=== PATIENT | female | born 1955 | race Caucasian/White ===

== ENCOUNTER → 2019-11-16 11:06 | Outpatient (CLI) | payer MEDICAID, SELFPAY ==
[2019-11-16 12:32] LABS: Absolute Lymphocyte Count 1.35 X10^3/uL (0.83-4.51); Absolute Neutrophil Count 4.9 X10^3/uL (2.0-7.7); Basophil# 0.02 X10^3/uL; Basophil% 0.3 % (0-1); Eosinophil# 0.09 X10^3/uL; Eosinophils% 1.3 % (0-5); Hemoglobin 15.2 g/dL (12.0-15.0); Lymphocyte # 1.35 X10^3/ul (4.0); Lymphocyte % 19.7 % (19-41); Mean Corp Hgb Conc 32.3 g/dL (32-36); Mean Corpuscular Hgb 31.3 pg (27.0-32.0); Mean Corpuscular Volume 96.9 fL (81-99); Mean Platelet Vol. 9.3 fl (6.2-12.0); Monocyte% 7.3 % (0-10); NRBC Flagged by Analyzer 0 % (0-5); Neutrophil # 4.87 X10^3/uL (2.7-7.7); Neutrophil % 71.1 % (47-70); POSITIVE MORPHOLOGY YES; Platelet Count 195 K/mm3 (150-450); RBC Distribution Width CV 19.2 % (11.6-14.6); RBC Distribution Width SD 67.7 fl (35.1-43.9); Red Blood Count 4.85 M/mm3 (4.2-5.4); White Blood Count 6.9 K/mm3 (4.4-11.0)
[2019-11-16 12:46] LABS: AST(SGOT) 25 U/L (15-37); Alanine Aminotransfer ALT/SGPT 27 U/L (13-56); Albumin, Serum 3.8 g/dL (3.2-5.0); Alkaline Phosphatase 93 U/L (45-117); Anion Gap 3 (5-15); BUN 18 mg/dL (7-18); BUN/Creat Ratio 27.5 RATIO (10-20); Calcium,Total 8.7 mg/dL (8.5-10.1); Chloride 103 mmol/L (98-107); Cholesterol 249 mg/dL (200); Creatinine, Serum 0.66 mg/dL (0.55-1.02); EST Glomerular Filtration Rate 97 mL/min (>60); Est Glom Filt Rate - Afr Amer 117 mL/min (>60); Globulin 3.8 g/dL (2.2-4.2); Glucose 89 mg/dL (74-106); High Density Lipoprotein 64 mg/dL; Potassium 4.2 mmol/L (3.5-5.1); Protein, Total 7.6 g/dL (6.4-8.2); Sodium Level 138 mmol/L (136-145); Triglycerides 91 mg/dL; Very Low Density Lipoprotein 18 mg/dL (5-40)
[2019-11-16 12:48] LABS: Differential Indicated SCAN CRITERIA MET
[2019-11-16 13:15] LABS: Anisocytosis 1+
== END ==
PROVIDERS: PCP Internal Medicine; Referring Provider Internal Medicine; Visit Provider Internal Medicine
DX: J44.9 Chronic obstructive pulmonary disease, unspecified (principal); I63.9 Cerebral infarction, unspecified
CPT/HCPCS: 36415; 80053; 80061; 85025

== ENCOUNTER → 2019-11-18 18:31 | Outpatient (CLI) | payer MEDICAID, SELFPAY ==
[2019-11-18 20:03] LABS: Amphetamine Urine VISTA NEGATIVE (<1000 ng/mL); Barbiturate Urine VISTA NEGATIVE (< 200 ng/mL); Benzodiazepine Urine VISTA NEGATIVE (< 200 ng/mL); Cocaine Urine VISTA NEGATIVE (< 300 ng/mL); Ecstacy Urine VISTA NEGATIVE (< 500 ng/mL); Methadone Urine VISTA NEGATIVE (< 300 ng/mL); PCP Urine VISTA NEGATIVE (< 25 ng/mL); THC Urine VISTA NEGATIVE (< 50 ng/mL); Vista UDS pH Range 6
== END ==
PROVIDERS: PCP Internal Medicine; Visit Provider Anesthesiology
DX: F11.20 Opioid dependence, uncomplicated (principal)
CPT/HCPCS: 80307

== ENCOUNTER 2019-12-25 04:18 | Inpatient (IN) | payer MEDICAID, SELFPAY ==
[2019-12-25] VITALS (36 sets, daily range): BP systolic 74–131; BP diastolic 58–109; PULSE 85–142; RESP 12–26; TEMP 35.7–36.8; O2SAT 86–100; BMI 21.0
--- NOTE | 2019-12-25 04:27 | EKG12_ITS ---
Test Reason : AM EKG Blood Pressure : / mmHG Vent. Rate : 086 BPM Atrial Rate : 086 BPM P-R Int : 146 ms QRS Dur : 090 ms QT Int : 390 ms P-R-T Axes : 071 108 072 degrees QTc Int : 466 ms Normal sinus rhythm Normal ECG When compared with ECG of 25-DEC-2019 05:24, MANUAL COMPARISON REQUIRED, DATA IS UNCONFIRMED Confirmed by ALFREDO FLORENTINO, ADALID ([id number]), editor publications DALIA ADAMS ([id number]) on 12/27/2019 12:46:32 PM Referred By: HERMES Confirmed By:ADALID FUENTES MD
--- NOTE | 2019-12-25 04:27 | RAD_ITS ---
STUDY: X-RAY CHEST REASON FOR EXAM: Female, 64 years old. SOB -- HX OF COPD TECHNIQUE: Single AP portable view of the chest. COMPARISON: None. FINDINGS: Ill-defined subpleural groundglass opacities are seen more prominent in the lung bases , may represent atypical pneumonia or viral pneumonia (COVID-19 ?). There is no demonstrated pleural abnormality. There is moderate cardiac enlargement. Normal mediastinum and wallace. Normal visualized pulmonary arteries. Normal visualized aortic arch and descending thoracic aorta. Postsurgical changes are noted in the thoracic spine and lumbar spine. There is degenerative osteoarthritis of the bilateral shoulders. There is no demonstrated abnormality of the visualized soft tissue structures of the upper abdomen. RAD/Chest 1 View (Portable) IMPRESSION: Ill-defined subpleural groundglass opacities are seen more prominent in the lung bases , may represent atypical pneumonia or viral pneumonia (COVID-19 ?). Electronically Signed: Deepika Garza, at 5:31 EDT Tel , Service support ,
--- NOTE | 2019-12-25 04:29 | ED.VIS.DYS ---
History of Present Illness Chief Complaint: Shortness of Breath Informant: Patient, EMS Onset: - - unclear onset; worse tonight Timing: Continuous Quality: - - can't breathe Current Severity: Moderate Maximum Severity: Severe Worsened by: Exertion Relieved by: Albuterol Associated Symptoms: Cough, - - fatigue. Negative for: Fever Chest Pain: None Narrative: Limited history since patient is lethargic. EMS brings this patient who lives at home with her son for increased breathing difficulty. Onset was unclear. She denies any chest pain. No recent fevers or chills. She was starting an albuterol treatment at home when EMS arrived and detected her oxygen levels at 83%, however it is unclear if she was on oxygen at that time. Apparently she has a nasal cannula that she wears 4 L as needed. - Past Medical History (1) Anxiety and depression Status: Chronic (2) COPD (chronic obstructive pulmonary disease) Status: Chronic (3) CVA (cerebral vascular accident) Status: Chronic (4) Chronic back pain Status: Chronic Past Medical History - Allergies and Home Meds Allergies/Adverse Reactions: Allergies pregabalin [From Lyrica] Allergy (Verified 12/25/19 04:23) double vision Primary Care Physician: Amelie Cazares MD [Primary Care Provider] - Lives: With Family Smoking Status: Current every day smoker - Family History Maternal Family History: Family History (Last Reviewed 12/14/19 @ 10:09 by Stacy Austin) Grandmother Diabetes Son Diabetes Other Asthma Review of Systems ROS: Unable to Obtain - Limited due to lethargy and illness General: Reports: Malaise. Denies: Chills, Fever, Sweats Cardiovascular: Denies: Chest pain, Palpitations, Heart racing Respiratory: Reports: Dyspnea, Cough - Unknown if sputum production, amount, and quality Gastrointestinal: Denies: Abdominal pain, Nausea, Vomiting, Diarrhea Musculoskeletal: Denies: Swelling, Extremity Pain Neurological: Denies: Headache, Weakness, Numbness Physical Exam Vital Signs/Narrative: Vital Signs Temp Pulse Resp BP Pulse Ox 12/25/19 04:24 95 12/25/19 04:19 98.2 F 112 H 20 H 101/72 100 Inital Vital Signs reviewed: Yes General: Well nourished, Well developed, Acute Distress - Mild, respiratory. Lethargic. Head: Normocephalic, Atraumatic Eyes: Perrl, EOMI ENT: Moist mucous membranes, No rhinorrhea Neck: Supple, Nontender, No JVD Cardiovascular: Regular rate, Regular rhythm, No murmurs, Tachycardia Respiratory: No distress, Chest nontender, Wheezing - Diffuse and symmetric throughout expiration, Diminished, - - Prolonged expiration. Trachea midline. Abdomen: Soft, Nontender, Nondistended, Normal bowel sounds Back: Nontender, Normal Inspection Extremities: Nontender, No edema. Negative for: Calf Tenderness Skin: Normal color, Rash - Dried nontender rash both lower extremities with excoriations and scaling of skin. No sign of cellulitis. Neurological: Oriented x3, Cranial nerves II-XII grossly intact, Normal Strength, Normal Sensation, Lethargic - Alerts to voice Psychological: Normal affect, Normal Mood Diagnostic/Tx/Re-eval Chest X-Ray - ED: 1 View, Read by ED Physician, No Acute Disease, Chronic Changes Clinical Impression(s) from Imaging Studies Chest X-Ray 12/25/19 04:27 IMPRESSION: Ill-defined subpleural groundglass opacities are seen more prominent in the lung bases , may represent atypical pneumonia or viral pneumonia (COVID-19 ?). Electronically Signed: Deepika Garza, at 5:31 EDT Tel , Service support , Laboratory Results 12/25/19 12/25/19 12/25/19 04:30 04:30 04:30 WBC 16.6 H RBC 4.80 Hgb 15.1 H Hct 48.8 H MCV 101.7 H MCH 31.5 MCHC 30.9 L RDW Std Deviation 63.8 H RDW Coeff of Valerio 16.7 H Plt Count 195 MPV 9.1 Immature Gran % (Auto) 0.300 Neut % (Auto) 84.7 H Lymph % (Auto) 7.7 L Larimer % (Auto) 6.9 Eos % (Auto) 0.1 Baso % (Auto) 0.3 Absolute Neuts (auto) 14.0 H Absolute Lymphs (auto) 1.28 Nucleated RBC % 0 Differential Comment SCANNED Reactive Lymphocytes RARE Specimen Type Sample Site pH Bicarbonate Actual Total CO2 Base Excess O2 Saturation ABG pCO2 ABG pO2 Marcus Test O2 Delivery Device Liter Flow Sodium 139 Potassium 4.2 Chloride 100 Carbon Dioxide 35.0 H Anion Gap 4 L BUN 20 H Creatinine 0.94 Estim Creat Clear Calc 44.19 Est GFR (MDRD) Af Amer 77 Est GFR (MDRD) Non-Af 64 BUN/Creatinine Ratio 21.2 H Glucose 143 H Lactic Acid Calcium 9.3 Troponin I 0.613 H* B-Natriuretic Peptide 539.3 H 12/25/19 12/25/19 04:42 04:53 WBC RBC Hgb Hct MCV MCH MCHC RDW Std Deviation RDW Coeff of Valerio Plt Count MPV Immature Gran % (Auto) Neut % (Auto) Lymph % (Auto) Larimer % (Auto) Eos % (Auto) Baso % (Auto) Absolute Neuts (auto) Absolute Lymphs (auto) Nucleated RBC % Differential Comment Reactive Lymphocytes Specimen Type ART Sample Site L Brach pH 7.33 L Bicarbonate Actual 35.0 H Total CO2 37 Base Excess 9 H O2 Saturation 94 L ABG pCO2 66.7 H ABG pO2 77 Marcus Test Positive O2 Delivery Device Cannula Liter Flow 4.0 Sodium Potassium Chloride Carbon Dioxide Anion Gap BUN Creatinine Estim Creat Clear Calc Est GFR (MDRD) Af Amer Est GFR (MDRD) Non-Af BUN/Creatinine Ratio Glucose Lactic Acid 2.2 H* Calcium Troponin I B-Natriuretic Peptide - Rhythm Strip Rhythm Strip: Sinus Tach Rate: 110 Ectopy: None - EKG Initial EKG Interpretation: No Acute Injury Pattern, Sinus Tachycardia, - - KATARZYNA. R axis. Treatment - Dyspnea: Oxygen, Albuterol, Atrovent, Antibiotics, Steroid - Medical Decision Making ABG was obtained prior to treatment, followed immediately by placing the patient on BiPAP and giving her nebulizer treatments along with oxygen as needed. At the time of evaluation she was 94% on room air, but lethargic and breathing short. ABG was obtained prior to doing any treatments, she was so lethargic although she is hypercarbic and a little acidotic but not bad, we placed her on BiPAP and provided more breathing treatments. Her troponin is elevated and I am concerned this is related to being hypoxic at home. She says she does not have a cardiac history, however she has an elevated BNP, she has Lasix and Plavix listed on her medication list, but no prior records in this hospital with regards to cardiology and no prior EKG. We will keep her on BiPAP and treat her for COPD exacerbation, I will stop her IV fluids, and since it is unclear if she is fluid overloaded or under loaded, I am withholding IV fluid bolusing despite her meeting criteria for severe sepsis. Chest x-ray is concerning for possible atypical pneumonia, so COVID-19 swab is sent and pending at this time, but the patient may go to the ICU under enhanced droplet precautions. Critical care time (excluding procedures): 30-74 minutes - 35 minutes including time spent discussing with patient, reevaluation performing direct patient care at the bedside, discussing with consultants and arranging admission. ED Disposition - Plan for ED Patient: Disposition: Acute Care Hospital [facility] Diagnosis: Severe sepsis, COPD exacerbation, Acute respiratory failure with hypoxia and hypercarbia, Pneumonia Referrals: Amelie Cazares MD [Primary Care Provider] -
[2019-12-25 04:42] LABS: Absolute Lymphocyte Count 1.28 X10^3/uL (0.83-4.51); Basophil# 0.05 X10^3/uL; Basophil% 0.3 % (0-1); Eosinophil# 0.02 X10^3/uL; Eosinophils% 0.1 % (0-5); Hematocrit 48.8 % (37-47); Hemoglobin 15.1 g/dL (12.0-15.0); Lymphocyte # 1.28 X10^3/ul (4.0); Lymphocyte % 7.7 % (19-41); Mean Corp Hgb Conc 30.9 g/dL (32-36); Mean Corpuscular Hgb 31.5 pg (27.0-32.0); Mean Corpuscular Volume 101.7 fL (81-99); Mean Platelet Vol. 9.1 fl (6.2-12.0); Monocyte# 1.15 X10^3/uL; Monocyte% 6.9 % (0-10); NRBC Flagged by Analyzer 0 % (0-5); Neutrophil # 14.02 X10^3/uL (2.7-7.7); Neutrophil % 84.7 % (47-70); POSITIVE MORPHOLOGY YES; Platelet Count 195 K/mm3 (150-450); RBC Distribution Width CV 16.7 % (11.6-14.6); RBC Distribution Width SD 63.8 fl (35.1-43.9); White Blood Count 16.6 K/mm3 (4.4-11.0)
[2019-12-25 04:46] LABS: Differential Indicated SCAN CRITERIA MET
[2019-12-25] MEDS: 0.9% Normal Saline 1,000 ML 100 ML IV (04:46)
[2019-12-25 05:00] LABS: BNP,B-Type NATRIURETIC PEPTIDE 539.3 pg/mL (0-100)
[2019-12-25 05:01] LABS: Allen Test Positive; Base Excess 9 mmol/L (-2 to +2); Blood Gas Specimen Type ART; O2 Delivery Device Cannula; PO2 77 mmHG (75-100); SITE L Brach; SO2 94 % (95-99); Total Carbon Dioxide 37 mmol/L; pCO2 66.7 mmHg (35-45); pH 7.33 (7.35-7.45)
[2019-12-25 05:08] LABS: Anion Gap 4 (5-15); BUN 20 mg/dL (7-18); BUN/Creat Ratio 21.2 RATIO (10-20); Calcium,Total 9.3 mg/dL (8.5-10.1); Chloride 100 mmol/L (98-107); Creatinine, Serum 0.94 mg/dL (0.55-1.02); EST Glomerular Filtration Rate 64 mL/min (>60); Est Glom Filt Rate - Afr Amer 77 mL/min (>60); Estimated Creatinine Clearance 44.19 ml/min; Glucose 143 mg/dL (74-106); Potassium 4.2 mmol/L (3.5-5.1); Sodium Level 139 mmol/L (136-145)
[2019-12-25 05:12] LABS: Differential Comment SCANNED; Reactive Lymphocyte RARE
[2019-12-25 05:17] LABS: Lactic Acid 2.2 mmol/L (0.4-1.9)
[2019-12-25] MEDS: Ipratropium/Albuterol Sulfate 3 ML AMPUL.NEB INHALATION ×4 (05:28→19:24)
[2019-12-25] MEDS: Albuterol 2.5 MG/3 ML VIAL.NEB. INHALATION ×2 (05:28→14:02)
[2019-12-25] MEDS: MethylPREDNISolone 125 MG/2 ML Vial IV (05:45)
[2019-12-25] MEDS: Ceftriaxone 1 GM/50 ML BAG IV (05:52)
--- NOTE | 2019-12-25 06:19 | PCM.HP.STD ---
History of Present Illness Date of Admission: 12/25/19 Chief Complaint: Shortness of breath The patient is a 64 year old F with a PMH as below who presents with shortness of breath from home. She was hypoxic to 83% for an unknown duration when EMS arrived and was started on nasal cannula. She had an ABG that demonstrated hypercapnia to 66 and was started on BiPAP in the ER. She has a leukocytosis to 16 with a normal creatinine as well as an elevated lactic acid, and elevated troponin to 0.6 and a BNP of 539. Unfortunately she is difficult to obtain history from given her lethargy therefore it is unknown which medication she is currently taking and what diagnosis she has. She does seem to acknowledge that she has history of COPD and therefore she was treated for COPD exacerbation in the ER with Solu-Medrol. She was also given a dose of Rocephin though her chest x-ray shows bilateral groundglass opacities that could either be a viral pneumonia or an atypical pneumonia therefore COVID test is currently pending. Past Medical History Past Medical History (Chronic Problems): Chronic Problems (Last Reviewed 12/14/19 @ 10:09 by Stacy Austin) COPD exacerbation (Chronic) Anxiety and depression (Chronic) CVA (cerebral vascular accident) (Chronic) COPD (chronic obstructive pulmonary disease) (Chronic) Chronic back pain (Chronic) Medical History: Medical History (Last Reviewed 12/14/19 @ 10:09 by Stacy Austin) CVA (cerebral vascular accident) I63.9 Osteoporosis M81.0 COPD (chronic obstructive pulmonary disease) J44.9 Allergies pregabalin [From Lyrica] Allergy (Verified 12/25/19 04:23) double vision Home Medications: Ambulatory Orders Medication Instructions Recorded albuterol sulfate 2.5 mg INHALATION Q4H PRN 11/16/19 albuterol sulfate 90 mcg/actuation 2 puff INHALATION Q6H PRN 11/16/19 aerosol inhaler aspirin 81 mg tablet,delayed 81 mg PO DAILY 11/16/19 release gabapentin 300 mg capsule 300 mg PO TID 11/16/19 rosuvastatin 20 mg tablet 20 mg PO DAILY #30 tab 11/17/19 acetaminophen 500 mg tablet 1,000 mg PO .Q8 PRN #90 tab 12/14/19 biotin 1,000 mcg chewable tablet 1,000 mcg PO DAILY 12/14/19 buprenorphine HCl 75 mcg buccal 75 mcg BUCCAL TID ea 12/14/19 film calcium carbonate 500 mg calcium 500 mg PO BID #180 tab 12/14/19 (1,250 mg) tablet cholecalciferol (vitamin D3) 50 50 mcg PO DAILY #90 cap 12/14/19 mcg (2,000 unit) capsule clopidogrel 75 mg tablet 75 mg PO DAILY #90 tab 12/14/19 escitalopram oxalate 10 mg tablet 10 mg PO DAILY #90 tab 12/14/19 furosemide 20 mg tablet 20 mg PO DAILY #30 tab 12/14/19 mineral oil-hydrophil petrolat 1 applic TOPICAL TID PRN #50 g 12/14/19 baclofen 10 mg tablet 10 mg PO QHS #30 tab 12/21/19 Surgical History: Surgical History (Last Reviewed 12/14/19 @ 10:09 by Stacy Austin) 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 spinal Lives: With Family Smoking Status: Current every day smoker Tobacco Use: Cigarettes Alcohol: None Drugs: None - *Family History Maternal Family History: Family History (Last Reviewed 12/14/19 @ 10:09 by Stacy Austin) Grandmother Diabetes Son Diabetes Other Asthma Review of Systems Unable to obtain accurate/complete ROS d/t: Lethargy VTE Information - Inpt Only VTE Present on Admission: No - Lethargy Patient Problems: Active and Suspected Problems (Last Reviewed 12/14/19 @ 10:09 by Stacy Austin) Severe sepsis (Acute) Acute respiratory failure with hypoxia and hypercarbia (Acute) - Physical Exam Vitals/I&O's: Vital Signs Temp Pulse Resp BP Pulse Ox 97.5 F L 100 17 85/66 L 92 12/25/19 05:52 12/25/19 05:52 12/25/19 05:52 12/25/19 05:52 12/25/19 05:52 Oxygen Flow Rate (L/min) 4 Oxygen Delivery Method Bi-pap Weight: 100 lb 12.02 oz Body Mass Index (BMI) 21.0 General: No apparent distress, Lethargic - But arousable HEENT: Atraumatic, PERRLA, EOMI, Normocephalic Oral: Dry Mucosa Neck: Supple, No JVD Lungs: No rhonchi, No wheeze, No rales, Diminished, - - Poor air movement Cardiovascular: Regular rate, Regular Rhythm, Normal S1, Normal S2, No murmurs Abdomen: Soft, Non Tender, Non-Distended, No Hepato-splenomegaly Extremities: No edema, Capillary Refill Less than 3 Seconds Skin: No rashes, No breakdown Neurological: Neuro grossly intact, Sensory exam intact to light touch and pain, - - Exam is limited secondary to lethargy Psych/Mental Status: - - Lethargic therefore difficult to evaluate Laboratory Results 12/25/19 04:30: WBC 16.6 H, RBC 4.80, Hgb 15.1 H, Hct 48.8 H, MCV 101.7 H, MCH 31.5, MCHC 30.9 L, RDW Std Deviation 63.8 H, RDW Coeff of Valerio 16.7 H, Plt Count 195, MPV 9.1, Immature Gran % (Auto) 0.300, Neut % (Auto) 84.7 H, Lymph % (Auto) 7.7 L, Steele % (Auto) 6.9, Eos % (Auto) 0.1, Baso % (Auto) 0.3, Absolute Neuts (auto) 14.0 H, Absolute Lymphs (auto) 1.28, Nucleated RBC % 0, Differential Comment SCANNED, Reactive Lymphocytes RARE 12/25/19 04:30: Sodium 139, Potassium 4.2, Chloride 100, Carbon Dioxide 35.0 H, Anion Gap 4 L, BUN 20 H, Creatinine 0.94, Estim Creat Clear Calc 44.19, Est GFR (MDRD) Af Amer 77, Est GFR (MDRD) Non-Af 64, BUN/Creatinine Ratio 21.2 H, Glucose 143 H, Calcium 9.3, Troponin I 0.613 H* 12/25/19 04:30: B-Natriuretic Peptide 539.3 H 12/25/19 04:42: Lactic Acid 2.2 H* 12/25/19 04:53: Specimen Type ART, Sample Site L Brach, pH 7.33 L, Bicarbonate Actual 35.0 H, Total CO2 37, Base Excess 9 H, O2 Saturation 94 L, ABG pCO2 66.7 H, ABG pO2 77, Marcus Test Positive, O2 Delivery Device Cannula, Liter Flow 4.0 12/25/19 05:50: COVID-19 (CELI) Pending Current Medications Sodium Chloride () 1,000 mls @ 100 mls/hr IV .Q10H ONE Stop: 12/25/19 14:26 Last Admin: 12/25/19 04:46 Dose: 100 mls/hr Documented by: Assessment/Plan All Active Problems (Last Reviewed 12/14/19 @ 10:09 by Stacy Austin) Severe sepsis (Acute) Acute respiratory failure with hypoxia and hypercarbia (Acute) 1. Severe sepsis secondary to atypical pneumonia versus viral pneumonia/COPD exacerbation acute hypoxic hypercapnic respiratory failure and lethargy -We will transfer to the ICU and consult account service associate -Continue with BiPAP and repeat an ABG at 8 AM -Continue with steroids -We will start on Levaquin and obtain a urine Legionella antigen as well as a urine strep antigen -COVID test is pending, continue with precautions 2. Possible history of CHF versus coronary artery disease with elevated troponin -Elevated troponin of 0.613 could be related to hypoxia versus cardiac disease therefore will obtain serial troponins -It appears that she may be on aspirin and Plavix, can continue these medications once verified -Also appears that she is to be on Lasix however given her severe sepsis and the possibility of fluid overload will not diurese and will not start IV fluids -Can continue with Crestor 3. Anxiety/depression -Can continue with escitalopram DVT: Lovenox Inpatient E&M: [id number] Init Hosp L3
--- NOTE | 2019-12-25 06:31 | PCM.CON.CC ---
Reason for Consult Date of Consultation: 12/25/19 Reason for Consultation: Respiratory failure History of Present Illness: The patient is a 64-year-old female, with a history as outlined below, who presented to the emergency department on December 24 with complaints of shortness of breath and cough. The patient has a reported history of COPD of unknown severity. The patient reports that she currently follows with a container coordinator, but cannot recall the providers name. In addition, she does report that she utilizes inhalers at home, but cannot recall the name of the medications either. She denies any known cardiac history. The patient does have a prolonged, extensive smoking history and continues to smoke 0.5 packs of cigarettes per day. She denies any recent sick contact exposure, loss of taste or smell. She does report that she has home supplemental oxygen at 4 L/min in her home environment but only utilizes it on an as-needed basis. On presentation to the emergency department, the patient was noted to be afebrile and hemodynamically stable. Laboratory evaluation revealed an elevated white blood cell count to 16,000. Arterial blood gas obtained on 4 L/min revealed a pH of 7.3 with a corresponding PCO2 of 66 and PO2 of 77. Chemistry profile was notable for a bicarbonate of 35. Lactate was elevated to 2.2. Initial troponin was elevated to 0.613 with an elevated BNP of 540. Coronavirus PCR was negative. Chest x-ray revealed what appears to be some chronic interstitial changes along with subtle groundglass. The patient was given nebulized bronchodilators, antibiotics and IV steroids. She was eventually placed on BiPAP therapy and admitted to the medical intensive care unit for further management. Past Medical History Past Medical History (Chronic Problems): Chronic Problems (Last Reviewed 12/14/19 @ 10:09 by Stacy Austin) COPD exacerbation (Chronic) Anxiety and depression (Chronic) CVA (cerebral vascular accident) (Chronic) COPD (chronic obstructive pulmonary disease) (Chronic) Chronic back pain (Chronic) Medical History: Medical History (Last Reviewed 12/14/19 @ 10:09 by Stacy Austin) CVA (cerebral vascular accident) I63.9 Osteoporosis M81.0 COPD (chronic obstructive pulmonary disease) J44.9 Allergies pregabalin [From Lyrica] Allergy (Verified 12/25/19 04:23) double vision Home Medications: Ambulatory Orders Medication Instructions Recorded albuterol sulfate 90 mcg/actuation 2 puff INHALATION Q6H PRN 11/16/19 aerosol inhaler aspirin 81 mg tablet,delayed 81 mg PO DAILY 11/16/19 release gabapentin 300 mg capsule 300 mg PO 4X/DAY 11/16/19 biotin 1,000 mcg chewable tablet 1,000 mcg PO DAILY 12/14/19 buprenorphine HCl 75 mcg buccal 75 mcg BUCCAL TID ea 12/14/19 film mineral oil-hydrophil petrolat 1 applic TOPICAL TID PRN #50 g 12/14/19 Acetaminophen 1,000 mg PO TID PRN PRN 12/25/19 Baclofen [Lioresal] 10 mg PO QHS 12/25/19 Calcium Carbonate 500 mg PO BID 12/25/19 Cholecalciferol (Vitamin D3) 50 mcg PO DAILY 12/25/19 [Vitamin D3] Clopidogrel Bisulfate [Clopidogrel] 75 mg PO QHS 12/25/19 Escitalopram Oxalate 10 mg PO QHS 12/25/19 Furosemide [Lasix] 20 mg PO DAILY 12/25/19 Ipratropium/Albuterol Sulfate 3 ml IH 4X/DAY PRN PRN 12/25/19 [Iprat-Albut 0.5-3(2.5) mg/3 ml] Magnesium Oxide [Magox 400] 1,200 mg PO QHS 12/25/19 Magnesium Oxide [Magox 400] 400 mg PO DAILY 12/25/19 Rosuvastatin Calcium 20 mg PO QHS 12/25/19 Surgical History: Surgical History (Last Reviewed 12/14/19 @ 10:09 by Stacy Austin) 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 spinal Lives: With Family Smoking Status: Current every day smoker Tobacco Use: Cigarettes Alcohol: None Drugs: None - *Family History Maternal Family History: Family History (Last Reviewed 12/14/19 @ 10:09 by Stacy Austin) Grandmother Diabetes Son Diabetes Other Asthma Review of Systems Constitutional: Denies: Chills, Fever Eyes: Denies: Blurred vision, Double vision HEENT: Denies: Head Aches, Sinus Congestion, Sinus Drainage Cardiovascular: Denies: Chest Pain, Palpitations Respiratory: Reports: Cough, Shortness of Breath Gastrointestinal: Denies: Abdominal Pain, Nausea, Vomiting Genitourinary: Denies: Dysuria Musculoskeletal: Denies: Joint Pain, Joint Tenderness Skin: Denies: Rash, Wounds Neurological: Denies: Numbness, Tingling, Focal weakness Psychiatric: Denies: Anxiety, Depression, Homicidal Ideations, Suicidal Ideations Hematologic/ Lymphatic: Denies: Easy Bruising, Easy Bleeding, Hx of blood clot Patient Problems: Active and Suspected Problems (Last Reviewed 12/14/19 @ 10:09 by Stacy Austin) Severe sepsis (Acute) Acute respiratory failure with hypoxia and hypercarbia (Acute) Pneumonia (Acute) Objective: The patient's most recent lab work, culture data and imaging studies have all been personally reviewed. Respiratory viral panel is pending. Blood cultures are pending. - Physical Exam Vitals/I&O's: Vital Signs Temp Pulse Resp BP Pulse Ox 97.5 F L 100 17 85/66 L 92 12/25/19 05:52 12/25/19 05:52 12/25/19 05:52 12/25/19 05:52 12/25/19 05:52 Oxygen Flow Rate (L/min) 4 Oxygen Delivery Method Bi-pap Weight: 100 lb 12.02 oz Body Mass Index (BMI) 21.0 General: Alert, Cooperative, - - No apparent distress. Tolerating BiPAP without issue. HEENT: Atraumatic, PERRLA, Normocephalic Oral: Dry Mucosa Neck: Supple, No Nodes, Trachea Midline Lungs: Diminished, - - Increased AP diameter. Prolonged expiratory phase. Cardiovascular: Regular rate, Regular Rhythm Abdomen: Bowel Sounds Present, Soft, Non Tender Extremities: No clubbing, No cyanosis, No edema Skin: No breakdown Musculoskeletal: Cachexia, Muscle Wasting Lymphatic: No Cervical, Supraclavicular, or Inguinal Adenopathy Neurological: Cranial nerves II-XII grossly intact, Neuro grossly intact Psych/Mental Status: Flat Affect Labs (Last 48 Hours) 12/25/19 12/25/19 12/25/19 04:30 04:30 04:30 WBC 16.6 H RBC 4.80 Hgb 15.1 H Hct 48.8 H MCV 101.7 H MCH 31.5 MCHC 30.9 L RDW Std Deviation 63.8 H RDW Coeff of Valerio 16.7 H Plt Count 195 MPV 9.1 Immature Gran % (Auto) 0.300 Neut % (Auto) 84.7 H Lymph % (Auto) 7.7 L [place] % (Auto) 6.9 Eos % (Auto) 0.1 Baso % (Auto) 0.3 Absolute Neuts (auto) 14.0 H Absolute Lymphs (auto) 1.28 Nucleated RBC % 0 Differential Comment SCANNED Reactive Lymphocytes RARE Specimen Type Sample Site pH Bicarbonate Actual Total CO2 Base Excess O2 Saturation ABG pCO2 ABG pO2 Marcus Test O2 Delivery Device Liter Flow Sodium 139 Potassium 4.2 Chloride 100 Carbon Dioxide 35.0 H Anion Gap 4 L BUN 20 H Creatinine 0.94 Estim Creat Clear Calc 44.19 Est GFR (MDRD) Af Amer 77 Est GFR (MDRD) Non-Af 64 BUN/Creatinine Ratio 21.2 H Glucose 143 H Lactic Acid Calcium 9.3 Troponin I 0.613 H* B-Natriuretic Peptide 539.3 H COVID-19 (CELI) 12/25/19 12/25/19 12/25/19 04:42 04:53 05:50 WBC RBC Hgb Hct MCV MCH MCHC RDW Std Deviation RDW Coeff of Valerio Plt Count MPV Immature Gran % (Auto) Neut % (Auto) Lymph % (Auto) [place] % (Auto) Eos % (Auto) Baso % (Auto) Absolute Neuts (auto) Absolute Lymphs (auto) Nucleated RBC % Differential Comment Reactive Lymphocytes Specimen Type ART Sample Site L Brach pH 7.33 L Bicarbonate Actual 35.0 H Total CO2 37 Base Excess 9 H O2 Saturation 94 L ABG pCO2 66.7 H ABG pO2 77 Marcus Test Positive O2 Delivery Device Cannula Liter Flow 4.0 Sodium Potassium Chloride Carbon Dioxide Anion Gap BUN Creatinine Estim Creat Clear Calc Est GFR (MDRD) Af Amer Est GFR (MDRD) Non-Af BUN/Creatinine Ratio Glucose Lactic Acid 2.2 H* Calcium Troponin I B-Natriuretic Peptide COVID-19 (CELI) Pending Clinical Impression(s) from Imaging Studies Chest X-Ray 12/25/19 04:27 IMPRESSION: Ill-defined subpleural groundglass opacities are seen more prominent in the lung bases , may represent atypical pneumonia or viral pneumonia (COVID-19 ?). Electronically Signed: Deepika Garza, at 5:31 EDT Tel , Service support , Current Medications Sodium Chloride () 1,000 mls @ 100 mls/hr IV .Q10H ONE Stop: 12/25/19 14:26 Last Admin: 12/25/19 04:46 Dose: 100 mls/hr Documented by: Assessment/Plan Active and Suspected Problems (Last Reviewed 12/14/19 @ 10:09 by Stacy Austin) Severe sepsis (Acute) Acute respiratory failure with hypoxia and hypercarbia (Acute) Pneumonia (Acute) RECOMMENDATIONS: 1. Continue empiric antimicrobials, while awaiting infectious work-up. 2. Await results of coronavirus testing and respiratory viral panel. 3. Obtain echocardiogram and trend troponins. 4. Administer IV Lasix. 5. Continue scheduled bronchodilators and IV steroids. 6. Nicotine replacement therapy can be offered to the patient while admitted to the hospital. 7. Encourage incentive spirometer use and mobilize patient as tolerated. IMPRESSIONS: 1. Acute on chronic combined respiratory failure The patient does have a reported history of COPD of unknown severity. She is a poor historian and is unable to identify who her primary pulmonary provider is or which inhaler she utilizes at her baseline. She additionally reports that she utilizes 4 L/min of supplemental oxygen at her baseline, on an as-needed basis. Her chest x-ray revealed findings concerning for some chronic interstitial changes and possible viral pneumonia. Nevertheless, I cannot discount the possibility of pulmonary edema, especially in light of the patient's elevated BNP. For now, the patient will be continued on empiric antimicrobials, bronchodilators and IV steroids. Supplemental oxygen will be weaned as tolerated. Echocardiogram is currently pending. 2. Severe sepsis Clinical concern for possible viral pneumonia. Work-up is currently pending. We will continue current supportive measures as noted above. 3. Chronic tobacco dependency Tobacco cessation counseling was provided. Nicotine replacement therapy can be offered to the patient while admitted to the hospital. 4. Troponin elevation Possibly related to demand ischemia in the setting of #1. However, although the patient denies a cardiac history, she does have Plavix and Lasix listed on her home medication regimen. Accordingly, I would recommend that we continue to trend troponins and obtain an echocardiogram. 5. Depression/hyperlipidemia/neuropathy/cachexia Complicates care, management, recovery and prognosis. Continue home medications as indicated. Nutrition consultation. This note was generated with [employer] software. It may contain incorrect words, spelling, and punctuation that were not noted in checking the note before signing. Inpatient E&M: 97396 Init Hosp L3
--- NOTE | 2019-12-25 06:53 | ECHOD_ITS ---
Reason For Study: Arrhythmia Procedure This was a 2D Doppler, Color Flow transthoracic echocardiogram. Contrast injection was performed. Exam performed portable in ICU/CCU. Left Ventricle Normal LV size. Left ventricular systolic function is normal. The estimated ejection fraction is 55 %. No regional wall motion abnormalities noted. Right Ventricle Normal RV size. Normal systolic function. Atria The left atrium is mildly enlarged. Normal right atrium. Hypermobile atrial septum. Bubble contrast study negative for right to left interatrial shunt. Mitral Valve Bileaflet diffuse mitral valve thickening. Mild (1+) eccentric mitral valve insufficiency. Tricuspid Valve Mild diffuse thickening of the tricuspid valve. Mild (1+) tricuspid valve insufficiency. Pulmonary artery systolic pressure is 44 mmHg. Aortic Valve Normal aortic valve. Trisinus/trileaflet aortic valve. Pulmonic Valve Normal pulmonic valve. Great Vessels Normal aortic root. The pulmonary artery is normal size. Normal inferior vena cava. Pericardium/Pleural No pericardial effusion. Medication Performed a rapid injection of agitated mix of 9 cc saline and 1cc air to assess for atrial septal defect. MMode/2D Measurements & Calculations LVIDd: 3.4 cm IVSd: 0.87 cm LA dimension: 2.7 cm LVIDs: 2.2 cm LVPWd: 0.91 cm RVDd: 4.9 cm FS: 36.7 % LAV(MOD-sp4): 65.8 ml LA A4 area: 21.1 cm2 RA A4 area: 16.6 cm2 Time Measurements MV dec time: 0.23 sec Doppler Measurements & Calculations MV E max oniel: 67.4 cm/sec Lat Peak E' Oniel: 8.8 cm/sec Med Peak E' Oniel: 5.4 cm/sec MV A max oniel: 90.6 cm/sec E/E' lat: 7.7 E/E' med: 12.4 MV E/A: 0.74 MV V2 max: 105.3 cm/sec MV P1/2t max oniel: 72.5 cm/sec Ao V2 max: 113.9 cm/sec MV max P.4 mmHg MV P1/2t: 50.8 msec Ao max P.2 mmHg MV V2 mean: 54.4 cm/sec MV dec slope: 417.4 cm/sec2 MV mean P.4 mmHg MV V2 VTI: 20.2 cm MVA(P1/2t): 4.3 cm2 LV V1 max: 70.6 cm/sec PA V2 max: 138.0 cm/sec TR max oniel: 312.3 cm/sec LV V1 max P.0 mmHg TR max P.0 mmHg Interpretation Summary Hypermobile atrial septum. Bubble contrast study negative for right to left interatrial shunt. Normal LV size. Left ventricular systolic function is normal. The estimated ejection fraction is 55 %. Mild (1+) eccentric mitral valve insufficiency. Pulmonary artery systolic pressure is 44 mmHg. Ordering Physician: Cassandra Jane Referring Physician: Amelie Cazares Performed By: Tommy Bradley RCS
[2019-12-25 07:22] LABS: Probe Check PASS; Specimen Processing Control PASS
--- NOTE | 2019-12-25 07:47 | PCM.HOSP.N ---
Hospitalist Note The patient is a 64 y/o F w/ PMHx: Patient reported Chronic COPD, Hx CVA, OP, Chronic pain syndrome on buprenorphine/baclofen/gabapentin, Anxiety and Depression, HTN, HLD, ongoing Tobacco use who presents to the [facility] ED early 12/25/19 AM w/ history of dyspnea, increased work of breathing and lethargy. 1. Acute Severe Sepsis secondary to Acute on Chronic Hypoxic and Hypercarbic Respiratory Failure, Multifactorial, Acute on Chronic COPD Exacerbation, Possible Acute Viral Syndrome, COVID-19, Possible Acute CHF Exacerbation, Unclear type: ED evaluation with CXR with ill defined subpleural ground-glass opacities more prominant in the lung bases, possibly atypical pneumonia or viral pneumonia, CBC with WC 16.6 with left shift with no absolute lymphopenia, lactic acid 2.2. Patient admitted to the ICU/COVID unit, will maintain on oxygen with wean as tolerated to room air, continue MDI inhaler/ATC duoneb, PRN albuterol, maintain on IV Solu-Medrol, maintain on IV Levaquin w/ pending MRSA screen, HOB, IS parameters w/ pending sputum cultures, respiratory viral panel and urine antigens, will obtain procalcitonin, CRP, CPK, Ferritin, LDH, Alk phos/AST/ALT, d-dimer, EKG w/ sinus tachycardia with no acute evidence of ischemia and trop elevated 0.613 thus will also obtain ECHO, cycle cardiac enzymes, repeat EKG in AM, continue supportive care. BNP also mildly elevated 539.3 and chest x-ray findings could be associated with overload but given hypotension deferred Lasix trial, plan CTPA if d-dimer elevated which could further help elucidate. COVID testing negative per ED, but given CXR pending further assessment will maintain in precautions as unclear specific history as poor historian. 2. Indeterminant Cardiac Enzyme: EKG in ED sinus tachycardia with no acute evidence of ischemia, CXR with ill defined subpleural ground-glass opacities more prominant in the lung bases, possibly atypical pneumonia or viral pneumonia, initial trop 0.613 with continued cardiac enzyme trending, BNP 539.3 with ongoing evaluation as noted as unclear if presentation possibly secondary to volume overload concurrently, magnesium 1.7, maintain on a monitored bed with continued close serial cardiac enzyme trending and repeat EKGs as needed. Echocardiogram requested. Maintain on ASA, therapeutic lovenox. NG, morphine. 3. Hyperglycemia: Admission glucose 143, hemoglobin A1c requested. 4. History of CVA: We will maintain on aspirin, FLP in a.m., hypertensive currently, hemoglobin A1c requested given elevated blood sugar. 5. Tobacco Abuse: Encouraged cessation, inpatient consultation per RT, NR if desired. 6. Chronic pain syndrome with neuropathy: Complicates presentation, patient's blood pressures currently significantly low, hold patient's BP warfarin and any oral/IV pain regimen until clinically improved, closely monitor is 1 to avoid withdrawal. 7. Moderate protein calorie malnutrition: Evidenced by habitus despite BMI 20, evident by cachectic habitus, nutrition consulted. 8. DVT prophylaxis: SCDs, therapeutic Lovenox as noted given elevated troponins. Procedures: Other Procedure - See Report - Unable to bill, admitted same day, billing code: [id number]
[2019-12-25 08:48] LABS: Reflex Lactate? Y
[2019-12-25 08:48] LABS: AST(SGOT) 37 U/L (15-37); Alanine Aminotransfer ALT/SGPT 34 U/L (13-56); Albumin, Serum 3.1 g/dL (3.2-5.0); Alkaline Phosphatase 109 U/L (45-117); Bilirubin, Direct 0.19 mg/dL (0.00-0.30); Globulin 3.8 g/dL (2.2-4.2); Magnesium 1.7 mg/dL (1.6-2.6); Protein, Total 6.9 g/dL (6.4-8.2)
[2019-12-25 09:00] LABS: Ferritin 40 ng/mL (8-252); LDH 206 U/L (84-246)
[2019-12-25 09:03] LABS: D-Dimer Quantitative (DVT/PE) 1.13 FEU/ug/m (0.27-0.49)
[2019-12-25 09:09] LABS: Alcohol, Blood (Medical)-Serum < 3.0 mg/dL
--- NOTE | 2019-12-25 10:23 | CT_ITS ---
STUDY: CTA CHEST REASON FOR EXAM: Female, 64 years old. SOB, cough, elevated D-dimer, elevated WBC, COPD, smokes 1/2 pack per day. Complete spinal fusion from club foot. RADIATION DOSAGE (If Supplied By Facility): CTDIvol = ( 6.79 ) mGy, DLP = ( 148.46 ) mGycm TECHNIQUE: The examination was performed with the intravenous administration of 75 mL of [id number]. Post-processing of the angiographic images was performed, with multiplanar reformation and MIP (maximum intensity projection) reconstruction. Individualized dose optimization techniques were used for this CT. COMPARISON: None. FINDINGS: Normal enhancement of the abnormally dilated main pulmonary artery and right and left pulmonary arteries. Normal enhancement of the bilateral peripheral pulmonary arteries. There is no demonstrated pulmonary embolism. No thoracic aortic aneurysm. Calcified plaques in the descending thoracic aorta and upper ascending aorta. There is no demonstrated aortic dissection. Normal heart and pericardium. Normal mediastinum. Normal hilar regions. Normal visualized trachea and bronchi. The lungs are well expanded. Multiple centrilobular cysts in the upper lobes, right more than left. They are noncoalescent. Right posterior lung base atelectasis with air bronchograms. Minimal partial atelectases in the left posterior lung base with air bronchograms. Large volume loculated appearing right subpulmonic fluid. No left pleural fluid Normal chest wall structures. Pronounced kyphosis of the upper thoracic spine with grade 2 anterolisthesis of T4 on T5. Multiple old compression fractures involving T5, T6, T7, T10 and upper L1 vertebral bodies. PMMA casts inside T2, T3 and T4 vertebral bodies from previous kyphoplasty. Metallic rods and transfixing screws extending from T2 down to at least L2. Normal visualized upper abdomen. CT/CTA Chest W/WO Contrast IMPRESSION: 1. No CTA evidence of pulmonary thromboemboli, thoracic aortic aneurysm or dissection. 2. Abnormally dilated pulmonary arteries consistent with pulmonary arterial hypertension. 3. Multiple noncoalescent centrilobular cystic emphysema predominant type of COPD, right upper lobe greater than left upper lobe. 4. Right posterior lower lobe atelectases with air bronchograms and moderate right subpulmonic loculated appearing pleural fluid. 5. Small partial atelectases in the left posterior lung base with minimal air bronchograms. 6. Pronounced kyphosis of the upper thoracic spine with grade 2 anterolisthesis of T4 on T5. 7. Multiple old compression fractures of T5, T6, T7, T10 and upper L1 vertebral bodies. 8. PMMA casts inside old T2, T3 and T4 vertebral body fractures from previous kyphoplasty. 9. Extensive streak artifacts coming from pedicular screws and rods in the thoracolumbar spine. Electronically Signed: Florentin Oneal MD at 11:50 EDT , Service support ,
[2019-12-25 10:50] LABS: Lactic Acid 1.1 mmol/L (0.4-1.9)
[2019-12-25 10:57] LABS: Procalcitonin 0.39 ng/mL (0.00-0.09)
[2019-12-25] MEDS: levoFLOXacin IV 750 MG/150 ML BAG 100 MG IV (11:22)
[2019-12-25] MEDS: Aspirin 325 MG Tablet PO (11:36)
[2019-12-25] MEDS: Enoxaparin 40 MG/0.4 ML Syringe SC ×2 (11:55→21:35)
[2019-12-25 12:17] LABS: Amphetamine Urine VISTA NEGATIVE (<1000 ng/mL); Barbiturate Urine VISTA NEGATIVE (< 200 ng/mL); Benzodiazepine Urine VISTA NEGATIVE (< 200 ng/mL); Cocaine Urine VISTA NEGATIVE (< 300 ng/mL); Ecstacy Urine VISTA NEGATIVE (< 500 ng/mL); Methadone Urine VISTA NEGATIVE (< 300 ng/mL); PCP Urine VISTA NEGATIVE (< 25 ng/mL); THC Urine VISTA NEGATIVE (< 50 ng/mL); Vista UDS pH Range 5
[2019-12-25] MEDS: Acetaminophen 325 MG Tablet 650 MG PO (13:06)
[2019-12-25 13:22] LABS: M R Staph aureus DNA By PCR Negative (Negative); Probe Check PASS; Specimen Processing Control PASS
[2019-12-25] MEDS: fentaNYL 100 MCG/2 ML Ampul 25 MCG IV (14:10)
--- NOTE | 2019-12-25 17:22 | RAD_ITS ---
STUDY: X-RAY CHEST REASON FOR EXAM: Female, 64 years old. shortness of breath, possible aspiration TECHNIQUE: Frontal view of the chest COMPARISON: December 25 2019 earlier same day FINDINGS: Lungs are moderately to severely emphysematous. There is no pneumothorax or pulmonary edema or pleural effusions. There is basilar atelectasis. There is mild cardiomegaly with right heart predominance. Pulmonary wallace are enlarged, presumably pulmonary hypertension. Skeleton is osteoporotic with remote right sided healed rib fractures. There are multilevel thoracic fixation rods. Appearance is stable since prior. RAD/Chest 1 View (Portable) IMPRESSION: 1. Bilateral basilar atelectasis. 2. Moderate to severe emphysema. 3. At least moderate pulmonary arterial hypertension, right heart enlargement. Electronically Signed: Jaye Nation, at 18:10 EDT Tel , Service support ,
[2019-12-25] MEDS: 0.9% Saline Lock 10 ML Syringe IV (21:35)
[2019-12-26] VITALS (28 sets, daily range): BP systolic 83–104; BP diastolic 58–80; PULSE 73–95; RESP 10–22; TEMP 36.3–36.5; O2SAT 90–99
[2019-12-26] MEDS: fentaNYL 100 MCG/2 ML Ampul 25 MCG IV ×4 (03:01→22:51)
[2019-12-26 04:30] LABS: Absolute Lymphocyte Count 0.49 X10^3/uL (0.83-4.51); Basophil# 0.01 X10^3/uL; Basophil% 0.1 % (0-1); Hematocrit 42.6 % (37-47); Hemoglobin 13.7 g/dL (12.0-15.0); Lymphocyte # 0.49 X10^3/ul (4.0); Lymphocyte % 3.5 % (19-41); Mean Corp Hgb Conc 32.2 g/dL (32-36); Mean Corpuscular Hgb 31.7 pg (27.0-32.0); Mean Corpuscular Volume 98.6 fL (81-99); Mean Platelet Vol. 9.5 fl (6.2-12.0); Monocyte# 0.34 X10^3/uL; Monocyte% 2.4 % (0-10); NRBC Flagged by Analyzer 0 % (0-5); Neutrophil # 13.04 X10^3/uL (2.7-7.7); Neutrophil % 93.4 % (47-70); POSITIVE DIFFERENTIAL YES; Platelet Count 162 K/mm3 (150-450); RBC Distribution Width CV 15.9 % (11.6-14.6); RBC Distribution Width SD 57.7 fl (35.1-43.9); Red Blood Count 4.32 M/mm3 (4.2-5.4)
[2019-12-26 04:40] LABS: Differential Indicated SCAN CRITERIA MET
[2019-12-26 04:43] LABS: Differential Comment SCANNED
[2019-12-26 04:48] LABS: ALB/GLOB Ratio 0.7 RATIO (0.9-2.4); AST(SGOT) 30 U/L (15-37); Alanine Aminotransfer ALT/SGPT 30 U/L (13-56); Albumin, Serum 2.8 g/dL (3.2-5.0); Alkaline Phosphatase 94 U/L (45-117); Anion Gap 2 (5-15); BUN 19 mg/dL (7-18); BUN/Creat Ratio 33.8 RATIO (10-20); Calcium,Total 8.5 mg/dL (8.5-10.1); Chloride 101 mmol/L (98-107); Cholesterol 97 mg/dL (200); Creatinine, Serum 0.56 mg/dL (0.55-1.02); EST Glomerular Filtration Rate 116 mL/min (>60); Est Glom Filt Rate - Afr Amer 140 mL/min (>60); Estimated Creatinine Clearance 70.45 ml/min; Globulin 3.8 g/dL (2.2-4.2); Glucose 131 mg/dL (74-106); High Density Lipoprotein 42 mg/dL; Potassium 3.9 mmol/L (3.5-5.1); Protein, Total 6.6 g/dL (6.4-8.2); Sodium Level 137 mmol/L (136-145); Triglycerides 80 mg/dL; Very Low Density Lipoprotein 16 mg/dL (5-40)
--- NOTE | 2019-12-26 05:12 | RAD_ITS ---
STUDY: X-RAY CHEST REASON FOR EXAM: Female, 64 years old. DYSPNEA, COUGH TECHNIQUE: Single AP portable view of the chest. COMPARISON: December 25, 2019 chest x-ray, CT chest December 25, 2019 FINDINGS: There is a partial opacification of the right lower lobe. There is a small focus of left lower lobe consolidation. There is mild cardiac enlargement. There is an enlarged appearance of the bilateral pulmonary arteries compatible with pulmonary arterial hypertension. Normal visualized pulmonary arteries. There is atherosclerotic calcification of the aortic arch with tortuosity. There is an extensive spinal fusion. There is kyphosis of the upper thoracic spine. Normal visualized ribs, clavicles, and shoulders. There is no demonstrated abnormality of the visualized soft tissue structures of the upper abdomen. RAD/Chest 1 View (Portable) IMPRESSION: System bilateral lower lobe infiltrates, pneumonia. Extensive spinal fusion from the upper thoracic spine to the lumbar spine. Bilateral enlargement of the pulmonary arteries consider pulmonary arterial hypertension. Electronically Signed: Porsha Mares MD at 6:51 EDT Tel , Service support ,
--- NOTE | 2019-12-26 05:55 | EKG12_ITS ---
Test Reason : DYSRHYTHMIA Blood Pressure : / mmHG Vent. Rate : 101 BPM Atrial Rate : 101 BPM P-R Int : 140 ms QRS Dur : 086 ms QT Int : 382 ms P-R-T Axes : 071 133 058 degrees QTc Int : 495 ms Sinus tachycardia Right axis deviation Pulmonary disease pattern Right ventricular hypertrophy Abnormal ECG Confirmed by GERARDO FLORENTINO, SHELBI ([id number]), editor news ARIK CURRY ([id number]) on 12/29/2019 8:24:29 AM Referred By: KYLE Confirmed By:YONNY CARRILLO MD
[2019-12-26] MEDS: Ipratropium/Albuterol Sulfate 3 ML AMPUL.NEB INHALATION ×4 (07:00→19:00)
--- NOTE | 2019-12-26 07:17 | PCM.PN.INT ---
Subjective: Patient did okay overnight. Patient has not required BiPAP therapy. Patient reports subjective improvement in respiratory symptoms, but is still having her chronic back pain. Patient has reported some sinus congestion. Objective: Personally reviewed CTA of the chest and chest x-rays. Patient does have an extensive spinal hardware that limits visualization. CTA shows bronchiectasis and significant emphysematous changes. General: Alert, Oriented x3, Cooperative, - - Mild conversational dyspnea. HEENT: Atraumatic, PERRLA, EOMI, Normocephalic, - - No scleral icterus or injection noted Oral: Moist Mucosa, No Gingival or Mucosal Lesions/ Ulcerations Neck: Supple, No JVD, No Nodes, Trachea Midline Lungs: No rhonchi, No rales, Diminished, Wheezes - And exhalation, - - Symmetric expansion. Increased AP diameter. Cardiovascular: Regular rate, Regular Rhythm, Normal S1, Normal S2, No murmurs, No rub noted, No Gallop Abdomen: Bowel Sounds Present, Soft, Non Tender, Non-Distended Extremities: No clubbing, No cyanosis, No edema Skin: No rashes, No breakdown Musculoskeletal: No Tenderness to Palpation of Joints or Extremities Lymphatic: No Cervical, Supraclavicular, or Inguinal Adenopathy Neurological: Cranial nerves II-XII grossly intact, Neuro grossly intact Psych/Mental Status: Flat Affect Vital Signs Temp Pulse Resp BP Pulse Ox 36.3 C L 87 16 95/64 92 12/26/19 04:00 12/26/19 07:00 12/26/19 07:00 12/26/19 06:00 12/26/19 07:00 Oxygen Flow Rate (L/min) 4 Oxygen Delivery Method Nasal Cannula Weight: 43.5 kg Body Mass Index (BMI) 20.0 Intake and Output for Last 24 Hours 12/24/19 12/25/19 12/26/19 23:59 23:59 23:59 Intake Total 1185 / 1185 Output Total 725 / 725 400 / 400 Balance 460 / 460 -400 / -400 Labs (Last 48 Hours) 12/25/19 12/25/19 12/25/19 04:30 04:30 04:30 WBC 16.6 H RBC 4.80 Hgb 15.1 H Hct 48.8 H MCV 101.7 H MCH 31.5 MCHC 30.9 L RDW Std Deviation 63.8 H RDW Coeff of Valerio 16.7 H Plt Count 195 MPV 9.1 Immature Gran % (Auto) 0.300 Neut % (Auto) 84.7 H Lymph % (Auto) 7.7 L [place] % (Auto) 6.9 Eos % (Auto) 0.1 Baso % (Auto) 0.3 Absolute Neuts (auto) 14.0 H Absolute Lymphs (auto) 1.28 Nucleated RBC % 0 Differential Comment SCANNED Reactive Lymphocytes RARE D-Dimer Quant (PE/DVT) Specimen Type Sample Site pH Bicarbonate Actual Total CO2 Base Excess O2 Saturation ABG pCO2 ABG pO2 Marcus Test O2 Delivery Device Liter Flow Sodium 139 Potassium 4.2 Chloride 100 Carbon Dioxide 35.0 H Anion Gap 4 L BUN 20 H Creatinine 0.94 Estim Creat Clear Calc 44.19 Est GFR (MDRD) Af Amer 77 Est GFR (MDRD) Non-Af 64 BUN/Creatinine Ratio 21.2 H Glucose 143 H Hemoglobin A1c Lactic Acid Calcium 9.3 Magnesium Ferritin Total Bilirubin Direct Bilirubin AST ALT Alkaline Phosphatase Lactate Dehydrogenase Troponin I 0.613 H* C-React Prot Ext Range B-Natriuretic Peptide 539.3 H Total Protein Albumin Globulin Albumin/Globulin Ratio Triglycerides Cholesterol LDL Cholesterol VLDL Cholesterol HDL Cholesterol Procalcitonin Urine Opiates Screen Urine Methadone Screen Ur Barbiturates Screen Ur Phencyclidine Scrn Ur Amphetamines Screen U Methamphetamin-MDMA U Benzodiazepines Scrn Urine Cocaine Screen U Cannabinoids Screen Ur Drug Screen Comment Ethyl Alcohol COVID-19 (CELI) MRSA (PCR) 12/25/19 12/25/19 12/25/19 04:30 04:30 04:42 WBC RBC Hgb Hct MCV MCH MCHC RDW Std Deviation RDW Coeff of Valerio Plt Count MPV Immature Gran % (Auto) Neut % (Auto) Lymph % (Auto) [place] % (Auto) Eos % (Auto) Baso % (Auto) Absolute Neuts (auto) Absolute Lymphs (auto) Nucleated RBC % Differential Comment Reactive Lymphocytes D-Dimer Quant (PE/DVT) 1.13 H* Specimen Type Sample Site pH Bicarbonate Actual Total CO2 Base Excess O2 Saturation ABG pCO2 ABG pO2 Marcus Test O2 Delivery Device Liter Flow Sodium Potassium Chloride Carbon Dioxide Anion Gap BUN Creatinine Estim Creat Clear Calc Est GFR (MDRD) Af Amer Est GFR (MDRD) Non-Af BUN/Creatinine Ratio Glucose Hemoglobin A1c Lactic Acid 2.2 H* Calcium Magnesium Ferritin 40 Total Bilirubin Direct Bilirubin AST ALT Alkaline Phosphatase Lactate Dehydrogenase 206 Troponin I C-React Prot Ext Range 160.00 H B-Natriuretic Peptide Total Protein Albumin Globulin Albumin/Globulin Ratio Triglycerides Cholesterol LDL Cholesterol VLDL Cholesterol HDL Cholesterol Procalcitonin Urine Opiates Screen Urine Methadone Screen Ur Barbiturates Screen Ur Phencyclidine Scrn Ur Amphetamines Screen U Methamphetamin-MDMA U Benzodiazepines Scrn Urine Cocaine Screen U Cannabinoids Screen Ur Drug Screen Comment Ethyl Alcohol COVID-19 (CELI) MRSA (PCR) 12/25/19 12/25/19 12/25/19 04:53 05:50 08:05 WBC RBC Hgb Hct MCV MCH MCHC RDW Std Deviation RDW Coeff of Valerio Plt Count MPV Immature Gran % (Auto) Neut % (Auto) Lymph % (Auto) [place] % (Auto) Eos % (Auto) Baso % (Auto) Absolute Neuts (auto) Absolute Lymphs (auto) Nucleated RBC % Differential Comment Reactive Lymphocytes D-Dimer Quant (PE/DVT) Specimen Type ART Sample Site L Brach pH 7.33 L Bicarbonate Actual 35.0 H Total CO2 37 Base Excess 9 H O2 Saturation 94 L ABG pCO2 66.7 H ABG pO2 77 Marcus Test Positive O2 Delivery Device Cannula Liter Flow 4.0 Sodium Potassium Chloride Carbon Dioxide Anion Gap BUN Creatinine Estim Creat Clear Calc Est GFR (MDRD) Af Amer Est GFR (MDRD) Non-Af BUN/Creatinine Ratio Glucose Hemoglobin A1c Lactic Acid Calcium Magnesium Ferritin Total Bilirubin Direct Bilirubin AST ALT Alkaline Phosphatase Lactate Dehydrogenase Troponin I Cancelled C-React Prot Ext Range B-Natriuretic Peptide Total Protein Albumin Globulin Albumin/Globulin Ratio Triglycerides Cholesterol LDL Cholesterol VLDL Cholesterol HDL Cholesterol Procalcitonin Urine Opiates Screen Urine Methadone Screen Ur Barbiturates Screen Ur Phencyclidine Scrn Ur Amphetamines Screen U Methamphetamin-MDMA U Benzodiazepines Scrn Urine Cocaine Screen U Cannabinoids Screen Ur Drug Screen Comment Ethyl Alcohol COVID-19 (CELI) Negative MRSA (PCR) 12/25/19 12/25/19 12/25/19 08:15 08:15 09:15 WBC RBC Hgb Hct MCV MCH MCHC RDW Std Deviation RDW Coeff of Valerio Plt Count MPV Immature Gran % (Auto) Neut % (Auto) Lymph % (Auto) [place] % (Auto) Eos % (Auto) Baso % (Auto) Absolute Neuts (auto) Absolute Lymphs (auto) Nucleated RBC % Differential Comment Reactive Lymphocytes D-Dimer Quant (PE/DVT) Specimen Type Sample Site pH Bicarbonate Actual Total CO2 Base Excess O2 Saturation ABG pCO2 ABG pO2 Marcus Test O2 Delivery Device Liter Flow Sodium Potassium Chloride Carbon Dioxide Anion Gap BUN Creatinine Estim Creat Clear Calc Est GFR (MDRD) Af Amer Est GFR (MDRD) Non-Af BUN/Creatinine Ratio Glucose Hemoglobin A1c Lactic Acid Calcium Magnesium 1.7 Ferritin Total Bilirubin 0.50 Direct Bilirubin 0.19 AST 37 ALT 34 Alkaline Phosphatase 109 Lactate Dehydrogenase Troponin I 0.596 H C-React Prot Ext Range B-Natriuretic Peptide Total Protein 6.9 Albumin 3.1 L Globulin 3.8 Albumin/Globulin Ratio Triglycerides Cholesterol LDL Cholesterol VLDL Cholesterol HDL Cholesterol Procalcitonin Cancelled Urine Opiates Screen Urine Methadone Screen Ur Barbiturates Screen Ur Phencyclidine Scrn Ur Amphetamines Screen U Methamphetamin-MDMA U Benzodiazepines Scrn Urine Cocaine Screen U Cannabinoids Screen Ur Drug Screen Comment Ethyl Alcohol < 3.0 COVID-19 (CELI) MRSA (PCR) 12/25/19 12/25/19 12/25/19 09:15 10:10 10:10 WBC RBC Hgb Hct MCV MCH MCHC RDW Std Deviation RDW Coeff of Valerio Plt Count MPV Immature Gran % (Auto) Neut % (Auto) Lymph % (Auto) [place] % (Auto) Eos % (Auto) Baso % (Auto) Absolute Neuts (auto) Absolute Lymphs (auto) Nucleated RBC % Differential Comment Reactive Lymphocytes D-Dimer Quant (PE/DVT) Specimen Type Sample Site pH Bicarbonate Actual Total CO2 Base Excess O2 Saturation ABG pCO2 ABG pO2 Marcus Test O2 Delivery Device Liter Flow Sodium Potassium Chloride Carbon Dioxide Anion Gap BUN Creatinine Estim Creat Clear Calc Est GFR (MDRD) Af Amer Est GFR (MDRD) Non-Af BUN/Creatinine Ratio Glucose Hemoglobin A1c Lactic Acid Cancelled 1.1 Calcium Magnesium Ferritin Total Bilirubin Direct Bilirubin AST ALT Alkaline Phosphatase Lactate Dehydrogenase Troponin I C-React Prot Ext Range B-Natriuretic Peptide Total Protein Albumin Globulin Albumin/Globulin Ratio Triglycerides Cholesterol LDL Cholesterol VLDL Cholesterol HDL Cholesterol Procalcitonin 0.39 H Urine Opiates Screen Urine Methadone Screen Ur Barbiturates Screen Ur Phencyclidine Scrn Ur Amphetamines Screen U Methamphetamin-MDMA U Benzodiazepines Scrn Urine Cocaine Screen U Cannabinoids Screen Ur Drug Screen Comment Ethyl Alcohol COVID-19 (CELI) MRSA (PCR) 12/25/19 12/25/19 12/25/19 11:30 11:35 11:55 WBC RBC Hgb Hct MCV MCH MCHC RDW Std Deviation RDW Coeff of Valerio Plt Count MPV Immature Gran % (Auto) Neut % (Auto) Lymph % (Auto) [place] % (Auto) Eos % (Auto) Baso % (Auto) Absolute Neuts (auto) Absolute Lymphs (auto) Nucleated RBC % Differential Comment Reactive Lymphocytes D-Dimer Quant (PE/DVT) Specimen Type Sample Site pH Bicarbonate Actual Total CO2 Base Excess O2 Saturation ABG pCO2 ABG pO2 Marcus Test O2 Delivery Device Liter Flow Sodium Potassium Chloride Carbon Dioxide Anion Gap BUN Creatinine Estim Creat Clear Calc Est GFR (MDRD) Af Amer Est GFR (MDRD) Non-Af BUN/Creatinine Ratio Glucose Hemoglobin A1c Lactic Acid Calcium Magnesium Ferritin Total Bilirubin Direct Bilirubin AST ALT Alkaline Phosphatase Lactate Dehydrogenase Troponin I 0.458 H C-React Prot Ext Range B-Natriuretic Peptide Total Protein Albumin Globulin Albumin/Globulin Ratio Triglycerides Cholesterol LDL Cholesterol VLDL Cholesterol HDL Cholesterol Procalcitonin Urine Opiates Screen NEGATIVE Urine Methadone Screen NEGATIVE Ur Barbiturates Screen NEGATIVE Ur Phencyclidine Scrn NEGATIVE Ur Amphetamines Screen NEGATIVE U Methamphetamin-MDMA NEGATIVE U Benzodiazepines Scrn NEGATIVE Urine Cocaine Screen NEGATIVE U Cannabinoids Screen NEGATIVE Ur Drug Screen Comment Ethyl Alcohol COVID-19 (CELI) MRSA (PCR) Negative 12/26/19 12/26/19 12/26/19 04:20 04:20 04:20 WBC 14.0 H RBC 4.32 Hgb 13.7 Hct 42.6 MCV 98.6 MCH 31.7 MCHC 32.2 RDW Std Deviation 57.7 H RDW Coeff of Valerio 15.9 H Plt Count 162 MPV 9.5 Immature Gran % (Auto) 0.600 Neut % (Auto) 93.4 H Lymph % (Auto) 3.5 L [place] % (Auto) 2.4 Eos % (Auto) 0.0 Baso % (Auto) 0.1 Absolute Neuts (auto) 13.0 H Absolute Lymphs (auto) 0.49 L Nucleated RBC % 0 Differential Comment SCANNED Reactive Lymphocytes D-Dimer Quant (PE/DVT) Specimen Type Sample Site pH Bicarbonate Actual Total CO2 Base Excess O2 Saturation ABG pCO2 ABG pO2 Marcus Test O2 Delivery Device Liter Flow Sodium 137 Potassium 3.9 Chloride 101 Carbon Dioxide 34.0 H Anion Gap 2 L BUN 19 H Creatinine 0.56 Estim Creat Clear Calc 70.45 Est GFR (MDRD) Af Amer 140 Est GFR (MDRD) Non-Af 116 BUN/Creatinine Ratio 33.8 H Glucose 131 H Hemoglobin A1c Pending Lactic Acid Calcium 8.5 Magnesium Ferritin Total Bilirubin 0.40 Direct Bilirubin AST 30 ALT 30 Alkaline Phosphatase 94 Lactate Dehydrogenase Troponin I C-React Prot Ext Range B-Natriuretic Peptide Total Protein 6.6 Albumin 2.8 L Globulin 3.8 Albumin/Globulin Ratio 0.7 L Triglycerides 80 Cholesterol 97 LDL Cholesterol 39 VLDL Cholesterol 16 HDL Cholesterol 42 Procalcitonin Urine Opiates Screen Urine Methadone Screen Ur Barbiturates Screen Ur Phencyclidine Scrn Ur Amphetamines Screen U Methamphetamin-MDMA U Benzodiazepines Scrn Urine Cocaine Screen U Cannabinoids Screen Ur Drug Screen Comment Ethyl Alcohol COVID-19 (CELI) MRSA (PCR) Microbiology 12/25/19 03:50 Mucosa - Nose Respiratory Panel (PCR) - Final Rhinovirus 12/25/19 11:55 Urine, Clean Catch Streptococcus pneumoniae Antigen (M - Final 12/25/19 11:55 Urine, Clean Catch Legionella Antigen - Final Clinical Impression(s) from Imaging Studies Chest CTA 12/25/19 10:23 IMPRESSION: 1. No CTA evidence of pulmonary thromboemboli, thoracic aortic aneurysm or dissection. 2. Abnormally dilated pulmonary arteries consistent with pulmonary arterial hypertension. 3. Multiple noncoalescent centrilobular cystic emphysema predominant type of COPD, right upper lobe greater than left upper lobe. 4. Right posterior lower lobe atelectases with air bronchograms and moderate right subpulmonic loculated appearing pleural fluid. 5. Small partial atelectases in the left posterior lung base with minimal air bronchograms. 6. Pronounced kyphosis of the upper thoracic spine with grade 2 anterolisthesis of T4 on T5. 7. Multiple old compression fractures of T5, T6, T7, T10 and upper L1 vertebral bodies. 8. PMMA casts inside old T2, T3 and T4 vertebral body fractures from previous kyphoplasty. 9. Extensive streak artifacts coming from pedicular screws and rods in the thoracolumbar spine. Electronically Signed: Florentin Oneal MD at 11:50 EDT , Service support , Chest X-Ray 12/25/19 17:22 IMPRESSION: 1. Bilateral basilar atelectasis. 2. Moderate to severe emphysema. 3. At least moderate pulmonary arterial hypertension, right heart enlargement. Electronically Signed: Jaye Rios, at 18:10 EDT Tel , Service support , Chest X-Ray 12/26/19 05:12 IMPRESSION: System bilateral lower lobe infiltrates, pneumonia. Extensive spinal fusion from the upper thoracic spine to the lumbar spine. Bilateral enlargement of the pulmonary arteries consider pulmonary arterial hypertension. Electronically Signed: Porsha Mares MD at 6:51 EDT Tel , Service support , Medical Necessity - Tobacco Use Smoking Status: Current every day smoker Tobacco Use: Cigarettes Assessment/Plan All Active Problems (Last Reviewed 12/14/19 @ 10:09 by Stacy Austin) Severe sepsis (Acute) Acute respiratory failure with hypoxia and hypercarbia (Acute) Pneumonia (Acute) RECOMMENDATIONS: 1. Continue empiric antimicrobials given concern for aspiration, while awaiting infectious work-up. 2. Increase activity as tolerated 3. Await echocardiogram. 4. Speech therapy to evaluate swallow 5. Continue scheduled bronchodilators, but wean IV steroids. 6. Nicotine replacement therapy can be offered to the patient while admitted to the hospital. 7. Encourage incentive spirometer use and mobilize patient as tolerated. 8. Potentially transfer from the intensive care unit later today IMPRESSIONS: 1. Acute on chronic combined respiratory failure secondary to COPD exacerbation secondary to rhinovirus The patient does have a reported history of COPD of unknown severity. She is a poor historian and is unable to identify who her primary pulmonary provider is or which inhaler she utilizes at her baseline. She additionally reports that she utilizes 4 L/min of supplemental oxygen at her baseline, on an as-needed basis. Her chest x-ray revealed findings concerning for some chronic interstitial changes and viral pneumonia. Viral work-up has shown positive rhinovirus. Hold on Lasix for now. For now, the patient will be continued on empiric antimicrobials, bronchodilators and will wean IV steroids. Supplemental oxygen will be weaned as tolerated. Echocardiogram is currently pending. 2. Severe sepsis Clinical concern for possible viral pneumonia. Work-up is currently pending. We will continue current supportive measures as noted above. Continue antibiotics for now given concerns for aspiration pneumonia. Speech therapy to evaluate today. 3. Chronic tobacco dependency Tobacco cessation counseling was provided. Nicotine replacement therapy can be offered to the patient while admitted to the hospital. 4. Troponin elevation Possibly related to demand ischemia in the setting of #1. However, although the patient denies a cardiac history, she does have Plavix and Lasix listed on her home medication regimen. Await an echocardiogram. Anticipate an element of elevated pulmonary artery pressures given size on CTA 5. Depression/hyperlipidemia/neuropathy/cachexia Complicates care, management, recovery and prognosis. Continue home medications as indicated. Nutrition consultation. Inpatient E&M: 99915 [facility] L3
--- NOTE | 2019-12-26 07:45 | PCM.PN.HOSP ---
Patient Problems: Active and Suspected Problems (Last Reviewed 12/14/19 @ 10:09 by Stacy Austin) Severe sepsis (Acute) Acute respiratory failure with hypoxia and hypercarbia (Acute) Pneumonia (Acute) Subjective: Pt states that her breathing is getting better some. Desaturated significantly this am with exertion and was in distress with slow recovery. Has L sided CP that does not radiate anywhere. States that she has had this since admission and it is no better or worse. Tongue is getting sore. Refuses to wear BIPAP much. Vitals/I&O's: Vital Signs Temp Pulse Resp BP Pulse Ox 97.3 F L 87 16 95/64 92 12/26/19 04:00 12/26/19 07:00 12/26/19 07:00 12/26/19 06:00 12/26/19 07:00 Oxygen Flow Rate (L/min) 4 Oxygen Delivery Method Nasal Cannula Weight: 43.5 kg Body Mass Index (BMI) 20.0 Intake and Output for Last 24 Hours 12/24/19 12/25/19 12/26/19 23:59 23:59 23:59 Intake Total 1185 / 1185 Output Total 725 / 725 400 / 400 Balance 460 / 460 -400 / -400 General: Alert, Oriented x3, Cooperative, - - thin, cachetic female who appears much older than stated age HEENT: Atraumatic, PERRLA, EOMI, Normocephalic, EAC Clear Oral: Moist Mucosa, - - Thrush present-mild Neck: Supple, No JVD, Negative Hepatojugular Reflux, No Nodes, No Nuchal Rigidity, Trachea Midline, Thyroid Normal Size and Texture Lungs: No rhonchi, No wheeze, No rales, Diminished - severely B, Using Accessory Muscles - intermittently Cardiovascular: Regular rate, Regular Rhythm, Normal S1, Normal S2, No murmurs, No Ectopic Activity, No rub noted, No Gallop Abdomen: Bowel Sounds Present, Soft, Non Tender, Non-Distended, No Hepato-splenomegaly, No hernias noted Extremities: No clubbing, No cyanosis, No edema, Capillary Refill Less than 3 Seconds, Diminished Peripheral Pulses - 1+ B LE Skin: No rashes, No breakdown Musculoskeletal: No Tenderness to Palpation of Joints or Extremities, Arthritic Changes, Cachexia, Muscle Wasting Lymphatic: No Cervical, Supraclavicular, or Inguinal Adenopathy Neurological: Cranial nerves II-XII grossly intact, Neuro grossly intact, Sensory exam intact to light touch and pain, Coordination normal, - - decreased lean mm mass Psych/Mental Status: Appropriate, Flat Affect Microbiology Past 72 Hours 12/25/19 03:50 Mucosa - Nose Respiratory Panel (PCR) - Final Rhinovirus 12/25/19 11:55 Urine, Clean Catch Streptococcus pneumoniae Antigen (M - Final 12/25/19 11:55 Urine, Clean Catch Legionella Antigen - Final Laboratory Results 12/25/19 04:30: D-Dimer Quant (PE/DVT) 1.13 H* 12/25/19 04:30: Ferritin 40, Lactate Dehydrogenase 206, C-React Prot Ext Range 160.00 H 12/25/19 08:05: Troponin I Cancelled 12/25/19 08:15: Magnesium 1.7, Total Bilirubin 0.50, Direct Bilirubin 0.19, AST 37, ALT 34, Alkaline Phosphatase 109, Troponin I 0.596 H, Total Protein 6.9, Albumin 3.1 L, Globulin 3.8 12/25/19 08:15: Ethyl Alcohol < 3.0 12/25/19 09:15: Procalcitonin Cancelled 12/25/19 09:15: Lactic Acid Cancelled 12/25/19 10:10: Lactic Acid 1.1 12/25/19 10:10: Procalcitonin 0.39 H 12/25/19 11:30: Troponin I 0.458 H 12/25/19 11:35: MRSA (PCR) Negative 12/25/19 11:55: Urine Opiates Screen NEGATIVE, Urine Methadone Screen NEGATIVE, Ur Barbiturates Screen NEGATIVE, Ur Phencyclidine Scrn NEGATIVE, Ur Amphetamines Screen NEGATIVE, U Methamphetamin-MDMA NEGATIVE, U Benzodiazepines Scrn NEGATIVE, Urine Cocaine Screen NEGATIVE, U Cannabinoids Screen NEGATIVE, Ur Drug Screen Comment 12/26/19 04:20: WBC 14.0 H, RBC 4.32, Hgb 13.7, Hct 42.6, MCV 98.6, MCH 31.7, MCHC 32.2, RDW Std Deviation 57.7 H, RDW Coeff of Valerio 15.9 H, Plt Count 162, MPV 9.5, Immature Gran % (Auto) 0.600, Neut % (Auto) 93.4 H, Lymph % (Auto) 3.5 L, [place] % (Auto) 2.4, Eos % (Auto) 0.0, Baso % (Auto) 0.1, Absolute Neuts (auto) 13.0 H, Absolute Lymphs (auto) 0.49 L, Nucleated RBC % 0, Differential Comment SCANNED 12/26/19 04:20: Sodium 137, Potassium 3.9, Chloride 101, Carbon Dioxide 34.0 H, Anion Gap 2 L, BUN 19 H, Creatinine 0.56, Estim Creat Clear Calc 70.45, Est GFR (MDRD) Af Amer 140, Est GFR (MDRD) Non-Af 116, BUN/Creatinine Ratio 33.8 H, Glucose 131 H, Calcium 8.5, Total Bilirubin 0.40, AST 30, ALT 30, Alkaline Phosphatase 94, Total Protein 6.6, Albumin 2.8 L, Globulin 3.8, Albumin/Globulin Ratio 0.7 L, Triglycerides 80, Cholesterol 97, LDL Cholesterol 39, VLDL Cholesterol 16, HDL Cholesterol 42 12/26/19 04:20: Hemoglobin A1c Pending Current Medications Acetaminophen (Tylenol) 650 mg PO Q6H PRN PRN PRN Reason: Pain Score 1-10/Temp > 100.7 F Last Admin: 12/25/19 13:06 Dose: 650 mg Documented by: Albuterol Sulfate (Ventolin Aerosols) 2.5 mg INHALATION Q2H PRN PRN PRN Reason: SOB/Wheezing Last Admin: 12/25/19 14:02 Dose: 2.5 mg Documented by: Albuterol/Ipratropium (Duoneb) 3 ml INHALATION Q4HWA.RT [facility] Last Admin: 12/26/19 07:00 Dose: 3 ml Documented by: Aspirin (Aspirin, Baby) 81 mg PO DAILY@0800 [facility] Enoxaparin Sodium (Lovenox) 40 mg SC BID [facility] Last Admin: 12/25/19 21:35 Dose: 40 mg Documented by: Fentanyl Citrate (Sublimaze (100mcg Ampule)) 25 mcg IV Q4H PRN PRN PRN Reason: Pain Score 6-10/10 Last Admin: 12/26/19 03:01 Dose: 25 mcg Documented by: Sodium Chloride () 250 mls @ 15 mls/hr IV .[id number] PRN PRN Reason: Additional IVPB Infusion Levofloxacin (Levaquin Iv) 750 mg in 150 mls @ 100 mls/hr IV Q48 [facility] Melatonin (Melatonin) 3 mg PO QHS PRN PRN PRN Reason: INSOMNIA Methylprednisolone (Solu-Medrol) 40 mg IV Q12 [facility] Ondansetron HCl (Zofran) 4 mg IV Q8H PRN PRN PRN Reason: NAUSEA/VOMITING Sodium Chloride () 10 - 40 ml IV UD PRN PRN Reason: SALINE FLUSH Last Admin: 12/25/19 21:35 Dose: 40 ml Documented by: STROKE Vital Signs/Narrative: Vital Signs Temp Pulse Resp BP Pulse Ox 12/26/19 07:00 87 16 92 12/26/19 06:00 88 13 95/64 94 12/26/19 05:00 73 20 H 96/67 90 12/26/19 04:00 97.3 F L 85 20 H 98/69 95 Medical Necessity - Tobacco Use Smoking Status: Current every day smoker Tobacco Use: Cigarettes Assessment/Plan All Active Problems (Last Reviewed 12/14/19 @ 10:09 by Stacy Austin) Severe sepsis (Acute) Acute respiratory failure with hypoxia and hypercarbia (Acute) Pneumonia (Acute) Acute on chronic Hypoxic/Hypercapnic Respiratory Failure 2/2 AECOPD 2/2 Rhinovirus/?Aspiration -wears 4 L n/c at baseline -COVID-19 neg -Rhinovirus + -urine antigens neg -empiric abx -continue solumedrol 40mg BID -cont Pulm toilet -has been wean to 4 l nasal cannula but desaturates very quickly -NPO until seen by SUBSTATION MAINTENANCE TECHNICIAN to evaluate for aspiration--> should see this am -Pulm following, appreciate input Severe Sepsis suspect 2/2 Rhinovirus/+- Aspiration -work up in progress with cx pending -RLL infiltrate noted on CTA -continue empiric abx for now->Levaquin -white count is trending down -initial PCT was elevated at 0.39 -Blood cx are pending Lactic Acidosis -resolved Suspected PAH -await echo -Would be WHO Group 3 most likely -hold lasix as BP are low normal at this time Troponin Elevation -suspect demand or subendocardial ischemia with hypoxia -trending down -continue ASA and restart Plavix -ECHO pending and will assess for WMA with this--> should be done today -if no WMA would recommend outpt stress testing after d/c HPL -continue Statin at d/c unless WMA on ECHO COPD -baseline O2 4 L -states that she sees Dr. Dolan H/P Stroke -A1c is pending -cont ASA and Plavix Hyperglycemia -A1c is pending Chronic Pain/Neuropathy -prn fentanyl for breakthrough pain -hold home Baclofen -restart home buprenorpherine -restart home gabapentin Moderate Malnutrition -dietitian consulted -will add supplements once ok for diet -suspect some of this is related to increased energy expenditure with COPD -BMI is WNL Multiple Thoracic and Vertebral Compression Fractures -s/p rods and screws Osteoporosis -restart Vitamin D and Calcium supplementation Thrush -nystatin started Tobacco Abuse -recommend cessation -patch DVT Prophylaxis -40mg BID for now until ECHO back and if no WMA will convert to daily Code Status -Full Inpatient E&M: 39017 [facility] L3
[2019-12-26 08:12] LABS: Hemoglobin A1c 5.5 % (3.8-5.6)
--- NOTE | 2019-12-26 10:35 | CASEMGMT ---
ISAIAS FLYNN Face to Face with patient for initial transition planning/care coordination assessment. RN CM introduced self and role at [facility]. Patient lying in bed, alert and oriented. Patient willing to participate in assessment and is able to answer all questions appropriately. Care providers, pharmacy, and demographics verified. Patient wishes to discharge home and would like HHC at discharge. RN CM to provide list of HHC agencies to patient. Patient states she has no further needs or concerns at this time. CM to follow for discharge planning needs that may arise. PCP: Debora Specialists: vianey Raygoza Preferred Pharmacy: [facility] Insurance: Medicaid Prescription Benefit: yes Living Will/HPOA: yes, son Navneet Reyes LNOK: sons Living Arrangements: Patient lives with son in a 2 story house with bed and bath on first floor. Patient states she needs assistance from family for ADLs. Transportation: son DME/HHC: Patient states she has shower chair, cane, walker, BiPap, nebulizer, and oxygen 4lpm at home through [facility]. Patient states she has had HHC in the past but does not recall company. Disposition Plan: Patient to discharge home with HHC, family support, and follow-up plans in place. Millie COELHO, RN, CM
[2019-12-26] MEDS: Enoxaparin 40 MG/0.4 ML Syringe SC (11:04)
[2019-12-26] MEDS: levoFLOXacin IV 750 MG/150 ML BAG 100 MG IV (11:04)
--- NOTE | 2019-12-26 14:07 | NURSING ---
Pt sitting up in chair preparing for cookie swallow study. Vital signs being monitored throughout exam by ISAIAS Mckeon.
--- NOTE | 2019-12-26 14:11 | NURSING ---
Throughout cookie swallow pt's SPo2 occasionally dipping bellow 90%. Pt reminded to take deep breaths through nose, SPO2 returns to 90% +.
[2019-12-26] MEDS: Acetaminophen 325 MG Tablet 650 MG PO (15:01)
[2019-12-26] MEDS: Escitalopram Oxalate 10 MG Tablet PO (15:02)
[2019-12-26] MEDS: Clopidogrel Bisulfate 75 MG Tablet PO (15:02)
[2019-12-26] MEDS: Gabapentin 300 MG Capsule PO (15:02)
[2019-12-26] MEDS: NYSTATIN 500,000 UNIT/5 ML UDC 500000 UNIT PO ×2 (15:03→20:37)
[2019-12-26] MEDS: Aspirin 81 MG TAB.CHEW PO (15:03)
--- NOTE | 2019-12-26 15:27 | CASEMGMT ---
ISAIAS FLYNN in to provide patient with list for [facility] agencies. Patient states that she is active with Waiver Program and CM is Martha. ISAIAS FLYNN updated SW regarding waiver program. CM will continue to monitor this patient and plan for a safe discharge.
--- NOTE | 2019-12-26 15:32 | CASEMGMT ---
Per RN CM patient is on the waiver program. Her pillowcase folder is Martha Dick. SW called Martha and let her know about patient's admission. Rhonda DUARTE MSW
--- NOTE | 2019-12-26 16:11 | SP.MBSS_ITS ---
Modified Barium Swallow - Patient Information Study Date: 12/26/19 Study Time: 14:00 Direct Billable Minutes: 131 Total Minutes procedure & reportin Diagnosis: Dysphagia/COPD Referring Physician: Dr. Evans Reason for Referral: Further assessment under fluorscopy recommended to objectively assess swallow function d/t concern for silent aspiration given hx of COPD and current respiratory compromise Medical History: The patient is a 64 year old female with a past medical history significant for COPD, anxiety, depression, CVA, and chronic back pain. Pt presented to [facility] ED from home via EMS d/t SOB 12/25/2019 w/ hypoxia 83% on room air per EMS. ABG that demonstrated hypercapnia to 66, was started on BiPAP in the ED. Was treated for COPD exacerbation with Solu-Medrol. Desats w/ exertion but refuses bipap. Referred to [facility] for a clinical bedside swallowing evaluation d/t SOB w/ PO intake pf purees w /desaturation in to the 70s, HR 150 and wet respiratory quality on 12/25/2019 pm - CBSE completed 12/26/2019. CXR 12/26/2019 IMPRESSION: System bilateral lower lobe infiltrates, pneumonia. Extensive spinal fusion from the upper thoracic spine to the lumbar spine. Bilateral enlargement of the pulmonary arteries consider pulmonary arterial hypertension. Dentition: Upper Dentures, Lower Dentures Mental Status: WNL Respiratory Status: Oxygenating on 4L/M nasal cannula - increased to 5L and then 6L t/o MBS d/t desaturation w/ exertion/deglutiiton - Study Findings Consistencies: Thin Liquid, Pudding, Cookie - Penetration-Aspiration Scale Penetration-Aspiration Scale: OBJECTIVE ASSESSMENT OF SWALLOW FUNCTION (QUANTITATIVE ? PER TRIAL): PENETRATION / ASPIRATION SCALE (PINEDA): 1 = does not enter airway 2 = enters airway/above vocal folds/ejected 3 = enters airway/above vocal folds/not ejected 4 = enters airway/contacts vocal folds/ejected 5 = enters airway/contacts vocal folds/not ejected 6 = enters airway/below vocal folds/ejected 7 = enters airway/below vocal folds/not ejected despite effort 8 = enters airway/below vocal folds/no effort - Penetration-Aspiration Scale Score Thin Liquid Result: 1= does not enter airway Thin Liquid via teaspoon Trial 2 Result: 1= does not enter airway Thin Liquid via small single sip from cup Result: 1= does not enter airway Thin Liquid via small single sip from cup Trial 2 Result: 1= does not enter airway Thin Liquid via single sip from straw Result: 1= does not enter airway Thin Liquid via single sip from straw Trial 2 Result: 1= does not enter airway Pudding Result: 1= does not enter airway Pudding Trial 2 Result: 1= does not enter airway Thin Liquid via small single sip from cup Trial 3 Result: 1= does not enter airway Thin Liquid via sequential sips from straw Result: 1= does not enter airway Cookie Comment: 04/02 Pam Doone Shortbread Cookie coated in barium pudding Cookie Trial 2 Comment: 03/31 Pam Doone Shortbread Cookie coated in barium pudding Thin Liquid via small single sip from cup Trial 4 Result: 1= does not enter airway - Oral Phase Labial Seal: Interlabial escape, no progression to anterior lip Tongue Control During Bolus Hold: Escape to lateral buccal cavity/floor of mouth Bolus Preparation/Mastication: Slow prolonged chewing/mashing with complete recollection Bolus Transport/Lingual Motion: Repetitive/disorganized tongue motion Oral Residue: Residue collection on oral structures - Pharyngeal Phase Initiation of Pharyngeal Swallow: Bolus head in valleculae Soft Palate Elevation: No bolus between soft palate and pharyngeal wall Laryngeal Elevation: Comp. Superior move thyroid cart w/comp. apprx arytenoid cart-epig pet Anterior Hyoid Excursion: Complete anterior movement Epiglottic Movement: Complete inversion Laryngeal Vestibule Closure at Height of Swallow: Complete; no air/contrast in laryngeal vestibule Pharyngeal Stripping Wave: Present - complete Pharyngoesophageal Segment Opening: Complete distension and complete duration; no obstruction of flow Tongue Base Retraction: Narrow column of contrast between tongue base & post. pharyngeal wall Pharyngeal Residue: Trace residue within or on pharyngeal structures - Esophageal Phase Esophageal Clearance: Complete clearance - Treatment Strategies Effects of treatment strategies attemped:: Liquid Wash - effective Limiting Bolus Size/Volume - effective - Diagnosis/Impression Diagnosis: mild oropahryngeal dysphagia Impression: Oropharyngeal swallow function is marked by: * insufficient oral clearance w/ larger bolus (1/2 cookie), requiring piecemeal deglutition * slowed and repetitive lingual motion for A-P bolus transfer of solids * premature pharyngeal bolus entry - initially prompt swallow onset - delay evident as trials progressed w/ leading edge of the bolus reaching the posterior laryngeal surface of the epiglottis, nearing the pyriforms * laryngeal vestibule closure marked by adequate arytenoid to epiglottic petiole contact which provided sufficient protection and prevented penetrat ion/aspiration during this study, despite delayed epiglottic inversion with contrast undercoated the epiglottis and lining the aryepiglottic folds during deglutition * dyssynchrony of respiration/deglutition evident - O2 saturations dropped to upper 80s w/ pudding/cookie trials, necessitating increase in O2 from 4L to 5L, then to 6L t/o study - anticipate worsening of coordination of deglutition/respiration and increased propensity to aspirate if SOB was allowed to continue unabated during PO intake * a mild collection of contrast remained w/in the valleculae and trace w/in the pyriforms post deglutition, sufficiently cleared w/ a liquid wash * no penetration/aspiration identified under fluoroscopy, although this patient remains at VERY HIGH RISK TO ASPIRATE d/t SOB w/ exertion/intake and delayed epiglottic inversion which takes away one layer of airway protection * arytenoid to epiglottic petiole contact was sufficient to prevent penetration, but is at increased risk to aspirate d/t the if following factors come into play during meals - exertional dyspnea, poor positioning w/ intake, fatigue, large bolus volume/rate of intake - Recommendations Diet: Mechanical Soft Textures, Thin Liquids Compensatory Strategies: Small Bites, Small Sips, Slow Rate - one sip at a time, pause between bites/sips as needed to prevent exertional dyspnea, Alternate bites/solids and sips/liquids, Sitting upright, Remain sitting upright for 30 minutes after PO intake, Assist with verbal cues to use recommended strategies - pause intake if visibly SOB or O2 sats drop Supervision: 1:1 Close Supervision - direct 1:! staff supervision is recommended d/t HIGH RISK to aspirate, requires staff supervision to assess O2 demands during meals and to increase O2 as needed Recommend Repeat Modified Barium Swallow: No Need for Skilled Speech Therapy Services: Yes - to assess diet tolerance w/compensatory strategies Education Completed: 1. Described result of evaluation., 2. Pt understands evaluation & agrees with goals and treatment plan., 7. Pt requires further education on strategies & risks. Comment: Results and recommendations were discussed w/ the patient immediately following MBS completion. Patient verbalized understanding/agreement w/ recommendations, although need for reinforcement is anticipated. Discussed results/recommendations w/ Carlota ESPARZA via telephone following MBS completion. - Image Count: 2,[id number] - Status Active ST Patient: Active - Contact Information [facility] Speech Therapy:: Arlyn Pablo Speech-Language Pathologist [facility] [phone]
[2019-12-26] MEDS: Calcium Carbonate 500 MG Tablet PO (17:03)
--- NOTE | 2019-12-26 19:00 | CPS ---
pt refused to wear bipap for tonight
[2019-12-26] MEDS: MELATONIN 3 MG TABLET PO (21:19)
[2019-12-26] MEDS: 0.9% Saline Lock 10 ML Syringe IV (22:50)
[2019-12-27] VITALS (19 sets, daily range): BP systolic 87–117; BP diastolic 62–78; PULSE 72–100; RESP 10–24; TEMP 36.4–36.7; O2SAT 93–98; BMI 20.6
[2019-12-27] MEDS: Acetaminophen 325 MG Tablet 650 MG PO ×2 (04:17→14:07)
[2019-12-27 04:27] LABS: Absolute Lymphocyte Count 0.45 X10^3/uL (0.83-4.51); Absolute Neutrophil Count 12.4 X10^3/uL (2.0-7.7); Basophil# 0.01 X10^3/uL; Basophil% 0.1 % (0-1); Hematocrit 42.4 % (37-47); Hemoglobin 13.5 g/dL (12.0-15.0); Lymphocyte # 0.45 X10^3/ul (4.0); Lymphocyte % 3.4 % (19-41); Mean Corp Hgb Conc 31.8 g/dL (32-36); Mean Corpuscular Hgb 31.5 pg (27.0-32.0); Mean Corpuscular Volume 98.8 fL (81-99); Mean Platelet Vol. 9.6 fl (6.2-12.0); Monocyte% 2.3 % (0-10); NRBC Flagged by Analyzer 0 % (0-5); Neutrophil # 12.41 X10^3/uL (2.7-7.7); Neutrophil % 93.5 % (47-70); POSITIVE DIFFERENTIAL YES; Platelet Count 195 K/mm3 (150-450); RBC Distribution Width CV 15.8 % (11.6-14.6); RBC Distribution Width SD 57.1 fl (35.1-43.9); Red Blood Count 4.29 M/mm3 (4.2-5.4); White Blood Count 13.3 K/mm3 (4.4-11.0)
[2019-12-27 04:28] LABS: Differential Indicated SCAN CRITERIA MET
[2019-12-27 04:46] LABS: Differential Comment SCANNED
[2019-12-27 04:50] LABS: ALB/GLOB Ratio 0.8 RATIO (0.9-2.4); AST(SGOT) 22 U/L (15-37); Alanine Aminotransfer ALT/SGPT 28 U/L (13-56); Albumin, Serum 2.9 g/dL (3.2-5.0); Alkaline Phosphatase 87 U/L (45-117); Anion Gap 1 (5-15); BUN 21 mg/dL (7-18); BUN/Creat Ratio 33.7 RATIO (10-20); Calcium,Total 8.4 mg/dL (8.5-10.1); Chloride 101 mmol/L (98-107); Creatinine, Serum 0.62 mg/dL (0.55-1.02); EST Glomerular Filtration Rate 102 mL/min (>60); Est Glom Filt Rate - Afr Amer 124 mL/min (>60); Estimated Creatinine Clearance 63.78 ml/min; Globulin 3.6 g/dL (2.2-4.2); Glucose 142 mg/dL (74-106); Potassium 3.9 mmol/L (3.5-5.1); Protein, Total 6.5 g/dL (6.4-8.2); Sodium Level 137 mmol/L (136-145)
[2019-12-27] MEDS: Ipratropium/Albuterol Sulfate 3 ML AMPUL.NEB INHALATION ×4 (06:31→19:50)
--- NOTE | 2019-12-27 06:36 | PCM.PN.INT ---
Subjective: Patient did okay overnight. Patient reports subjective improvement in overall condition. Patient did have some desaturations with ambulation yesterday, So stayed in the intensive care unit overnight. Patient passed a swallow evaluation. Patient continues to report her baseline chronic back pain. General: Alert, Oriented x3, Cooperative, No apparent distress, - - Speaking in full sentences HEENT: Atraumatic, PERRLA, EOMI, Normocephalic, - - No scleral icterus or injection noted Oral: Moist Mucosa, No Gingival or Mucosal Lesions/ Ulcerations Neck: Supple, No JVD, No Nodes, Trachea Midline Lungs: No rhonchi, No rales, Diminished, Wheezes - And exhalation only Cardiovascular: Regular rate, Regular Rhythm, Normal S1, Normal S2, No murmurs, No rub noted, No Gallop Abdomen: Bowel Sounds Present, Soft, Non Tender, Non-Distended Extremities: No clubbing, No cyanosis, No edema, Capillary Refill Less than 3 Seconds Skin: No rashes, No breakdown Musculoskeletal: No Tenderness to Palpation of Joints or Extremities Lymphatic: No Cervical, Supraclavicular, or Inguinal Adenopathy Neurological: Cranial nerves II-XII grossly intact, Neuro grossly intact, Motor Exam 5/5 strength throughout Psych/Mental Status: Alert and oriented to time, place, person, mood and affect Vital Signs Temp Pulse Resp BP Pulse Ox 36.6 C 77 13 92/62 96 12/27/19 04:00 12/27/19 06:31 12/27/19 06:31 12/27/19 04:00 12/27/19 06:31 Oxygen Flow Rate (L/min) 4 Oxygen Delivery Method Nasal Cannula Weight: 44.8 kg Body Mass Index (BMI) 20.0 Intake and Output for Last 24 Hours 12/25/19 12/26/19 12/27/19 23:59 23:59 23:59 Intake Total 1185 / 1185 210 / 210 Output Total 725 / 725 550 / 550 500 / 500 Balance 460 / 460 -340 / -340 -500 / -500 Labs (Last 48 Hours) 12/25/19 12/25/19 12/25/19 04:30 04:30 05:50 WBC RBC Hgb Hct MCV MCH MCHC RDW Std Deviation RDW Coeff of Valerio Plt Count MPV Immature Gran % (Auto) Neut % (Auto) Lymph % (Auto) [place] % (Auto) Eos % (Auto) Baso % (Auto) Absolute Neuts (auto) Absolute Lymphs (auto) Nucleated RBC % Differential Comment D-Dimer Quant (PE/DVT) 1.13 H* Sodium Potassium Chloride Carbon Dioxide Anion Gap BUN Creatinine Estim Creat Clear Calc Est GFR (MDRD) Af Amer Est GFR (MDRD) Non-Af BUN/Creatinine Ratio Glucose Hemoglobin A1c Lactic Acid Calcium Magnesium Ferritin 40 Total Bilirubin Direct Bilirubin AST ALT Alkaline Phosphatase Lactate Dehydrogenase 206 Troponin I C-React Prot Ext Range 160.00 H Total Protein Albumin Globulin Albumin/Globulin Ratio Triglycerides Cholesterol LDL Cholesterol VLDL Cholesterol HDL Cholesterol Procalcitonin Urine Opiates Screen Urine Methadone Screen Ur Barbiturates Screen Ur Phencyclidine Scrn Ur Amphetamines Screen U Methamphetamin-MDMA U Benzodiazepines Scrn Urine Cocaine Screen U Cannabinoids Screen Ur Drug Screen Comment Ethyl Alcohol COVID-19 (CELI) Negative MRSA (PCR) 12/25/19 12/25/19 12/25/19 08:05 08:15 08:15 WBC RBC Hgb Hct MCV MCH MCHC RDW Std Deviation RDW Coeff of Valerio Plt Count MPV Immature Gran % (Auto) Neut % (Auto) Lymph % (Auto) [place] % (Auto) Eos % (Auto) Baso % (Auto) Absolute Neuts (auto) Absolute Lymphs (auto) Nucleated RBC % Differential Comment D-Dimer Quant (PE/DVT) Sodium Potassium Chloride Carbon Dioxide Anion Gap BUN Creatinine Estim Creat Clear Calc Est GFR (MDRD) Af Amer Est GFR (MDRD) Non-Af BUN/Creatinine Ratio Glucose Hemoglobin A1c Lactic Acid Calcium Magnesium 1.7 Ferritin Total Bilirubin 0.50 Direct Bilirubin 0.19 AST 37 ALT 34 Alkaline Phosphatase 109 Lactate Dehydrogenase Troponin I Cancelled 0.596 H C-React Prot Ext Range Total Protein 6.9 Albumin 3.1 L Globulin 3.8 Albumin/Globulin Ratio Triglycerides Cholesterol LDL Cholesterol VLDL Cholesterol HDL Cholesterol Procalcitonin Urine Opiates Screen Urine Methadone Screen Ur Barbiturates Screen Ur Phencyclidine Scrn Ur Amphetamines Screen U Methamphetamin-MDMA U Benzodiazepines Scrn Urine Cocaine Screen U Cannabinoids Screen Ur Drug Screen Comment Ethyl Alcohol < 3.0 COVID-19 (CELI) MRSA (PCR) 12/25/19 12/25/19 12/25/19 09:15 09:15 10:10 WBC RBC Hgb Hct MCV MCH MCHC RDW Std Deviation RDW Coeff of Valerio Plt Count MPV Immature Gran % (Auto) Neut % (Auto) Lymph % (Auto) [place] % (Auto) Eos % (Auto) Baso % (Auto) Absolute Neuts (auto) Absolute Lymphs (auto) Nucleated RBC % Differential Comment D-Dimer Quant (PE/DVT) Sodium Potassium Chloride Carbon Dioxide Anion Gap BUN Creatinine Estim Creat Clear Calc Est GFR (MDRD) Af Amer Est GFR (MDRD) Non-Af BUN/Creatinine Ratio Glucose Hemoglobin A1c Lactic Acid Cancelled 1.1 Calcium Magnesium Ferritin Total Bilirubin Direct Bilirubin AST ALT Alkaline Phosphatase Lactate Dehydrogenase Troponin I C-React Prot Ext Range Total Protein Albumin Globulin Albumin/Globulin Ratio Triglycerides Cholesterol LDL Cholesterol VLDL Cholesterol HDL Cholesterol Procalcitonin Cancelled Urine Opiates Screen Urine Methadone Screen Ur Barbiturates Screen Ur Phencyclidine Scrn Ur Amphetamines Screen U Methamphetamin-MDMA U Benzodiazepines Scrn Urine Cocaine Screen U Cannabinoids Screen Ur Drug Screen Comment Ethyl Alcohol COVID-19 (CELI) MRSA (PCR) 12/25/19 12/25/19 12/25/19 10:10 11:30 11:35 WBC RBC Hgb Hct MCV MCH MCHC RDW Std Deviation RDW Coeff of Valerio Plt Count MPV Immature Gran % (Auto) Neut % (Auto) Lymph % (Auto) [place] % (Auto) Eos % (Auto) Baso % (Auto) Absolute Neuts (auto) Absolute Lymphs (auto) Nucleated RBC % Differential Comment D-Dimer Quant (PE/DVT) Sodium Potassium Chloride Carbon Dioxide Anion Gap BUN Creatinine Estim Creat Clear Calc Est GFR (MDRD) Af Amer Est GFR (MDRD) Non-Af BUN/Creatinine Ratio Glucose Hemoglobin A1c Lactic Acid Calcium Magnesium Ferritin Total Bilirubin Direct Bilirubin AST ALT Alkaline Phosphatase Lactate Dehydrogenase Troponin I 0.458 H C-React Prot Ext Range Total Protein Albumin Globulin Albumin/Globulin Ratio Triglycerides Cholesterol LDL Cholesterol VLDL Cholesterol HDL Cholesterol Procalcitonin 0.39 H Urine Opiates Screen Urine Methadone Screen Ur Barbiturates Screen Ur Phencyclidine Scrn Ur Amphetamines Screen U Methamphetamin-MDMA U Benzodiazepines Scrn Urine Cocaine Screen U Cannabinoids Screen Ur Drug Screen Comment Ethyl Alcohol COVID-19 (CELI) MRSA (PCR) Negative 12/25/19 12/26/19 12/26/19 11:55 04:20 04:20 WBC 14.0 H RBC 4.32 Hgb 13.7 Hct 42.6 MCV 98.6 MCH 31.7 MCHC 32.2 RDW Std Deviation 57.7 H RDW Coeff of Valerio 15.9 H Plt Count 162 MPV 9.5 Immature Gran % (Auto) 0.600 Neut % (Auto) 93.4 H Lymph % (Auto) 3.5 L [place] % (Auto) 2.4 Eos % (Auto) 0.0 Baso % (Auto) 0.1 Absolute Neuts (auto) 13.0 H Absolute Lymphs (auto) 0.49 L Nucleated RBC % 0 Differential Comment SCANNED D-Dimer Quant (PE/DVT) Sodium 137 Potassium 3.9 Chloride 101 Carbon Dioxide 34.0 H Anion Gap 2 L BUN 19 H Creatinine 0.56 Estim Creat Clear Calc 70.45 Est GFR (MDRD) Af Amer 140 Est GFR (MDRD) Non-Af 116 BUN/Creatinine Ratio 33.8 H Glucose 131 H Hemoglobin A1c Lactic Acid Calcium 8.5 Magnesium Ferritin Total Bilirubin 0.40 Direct Bilirubin AST 30 ALT 30 Alkaline Phosphatase 94 Lactate Dehydrogenase Troponin I C-React Prot Ext Range Total Protein 6.6 Albumin 2.8 L Globulin 3.8 Albumin/Globulin Ratio 0.7 L Triglycerides 80 Cholesterol 97 LDL Cholesterol 39 VLDL Cholesterol 16 HDL Cholesterol 42 Procalcitonin Urine Opiates Screen NEGATIVE Urine Methadone Screen NEGATIVE Ur Barbiturates Screen NEGATIVE Ur Phencyclidine Scrn NEGATIVE Ur Amphetamines Screen NEGATIVE U Methamphetamin-MDMA NEGATIVE U Benzodiazepines Scrn NEGATIVE Urine Cocaine Screen NEGATIVE U Cannabinoids Screen NEGATIVE Ur Drug Screen Comment Ethyl Alcohol COVID-19 (CELI) MRSA (PCR) 12/26/19 12/27/19 12/27/19 04:20 04:15 04:15 WBC 13.3 H RBC 4.29 Hgb 13.5 Hct 42.4 MCV 98.8 MCH 31.5 MCHC 31.8 L RDW Std Deviation 57.1 H RDW Coeff of Valerio 15.8 H Plt Count 195 MPV 9.6 Immature Gran % (Auto) 0.700 Neut % (Auto) 93.5 H Lymph % (Auto) 3.4 L [place] % (Auto) 2.3 Eos % (Auto) 0.0 Baso % (Auto) 0.1 Absolute Neuts (auto) 12.4 H Absolute Lymphs (auto) 0.45 L Nucleated RBC % 0 Differential Comment SCANNED D-Dimer Quant (PE/DVT) Sodium 137 Potassium 3.9 Chloride 101 Carbon Dioxide 35.0 H Anion Gap 1 L BUN 21 H Creatinine 0.62 Estim Creat Clear Calc 63.78 Est GFR (MDRD) Af Amer 124 Est GFR (MDRD) Non-Af 102 BUN/Creatinine Ratio 33.7 H Glucose 142 H Hemoglobin A1c 5.5 Lactic Acid Calcium 8.4 L Magnesium Ferritin Total Bilirubin 0.40 Direct Bilirubin AST 22 ALT 28 Alkaline Phosphatase 87 Lactate Dehydrogenase Troponin I C-React Prot Ext Range Total Protein 6.5 Albumin 2.9 L Globulin 3.6 Albumin/Globulin Ratio 0.8 L Triglycerides Cholesterol LDL Cholesterol VLDL Cholesterol HDL Cholesterol Procalcitonin Urine Opiates Screen Urine Methadone Screen Ur Barbiturates Screen Ur Phencyclidine Scrn Ur Amphetamines Screen U Methamphetamin-MDMA U Benzodiazepines Scrn Urine Cocaine Screen U Cannabinoids Screen Ur Drug Screen Comment Ethyl Alcohol COVID-19 (CELI) MRSA (PCR) Microbiology 12/25/19 03:50 Mucosa - Nose Respiratory Panel (PCR) - Final Rhinovirus 12/25/19 11:55 Urine, Clean Catch Streptococcus pneumoniae Antigen (M - Final 12/25/19 11:55 Urine, Clean Catch Legionella Antigen - Final Clinical Impression(s) from Imaging Studies Chest X-Ray 12/26/19 05:12 IMPRESSION: System bilateral lower lobe infiltrates, pneumonia. Extensive spinal fusion from the upper thoracic spine to the lumbar spine. Bilateral enlargement of the pulmonary arteries consider pulmonary arterial hypertension. Electronically Signed: Porsha Mares MD at 6:51 EDT Tel , Service support , Medical Necessity - Tobacco Use Smoking Status: Current every day smoker Tobacco Use: Cigarettes Assessment/Plan All Active Problems (Last Reviewed 12/14/19 @ 10:09 by Stacy Austin) Severe sepsis (Acute) Acute respiratory failure with hypoxia and hypercarbia (Acute) Pneumonia (Acute) RECOMMENDATIONS: 1. Complete 5 days of empiric antibiotics 2. Increase activity as tolerated 3. Await echocardiogram. 4. P.o. diet per swallow recommendations 5. Continue scheduled bronchodilators, but Transition to p.o. steroids and wean over the next 12 to 14 days 6. Nicotine replacement therapy can be offered to the patient while admitted to the hospital. 7. Encourage incentive spirometer use and mobilize patient as tolerated. 8. Okay to transfer from the intensive care unit later today IMPRESSIONS: 1. Acute on chronic combined respiratory failure secondary to COPD exacerbation secondary to rhinovirus The patient does have a reported history of COPD of unknown severity. She is a poor historian and is unable to identify who her primary pulmonary provider is or which inhaler she utilizes at her baseline. She additionally reports that she utilizes 4 L/min of supplemental oxygen at her baseline, on an as-needed basis. Her chest x-ray revealed findings concerning for some chronic interstitial changes and viral pneumonia. Viral work-up has shown positive rhinovirus. Hold on Lasix for now. For now, the patient will be continued on empiric antimicrobials, bronchodilators, but will transition to p.o. steroids. Supplemental oxygen will be weaned as tolerated. Echocardiogram is relatively unremarkable except for increased pulmonary pressures (Probable type III Pulmonary hypertension). 2. Severe sepsis Clinical concern for possible viral pneumonia. Work-up is currently pending. We will continue current supportive measures as noted above. Continue antibiotics for now given concerns for aspiration pneumonia to complete 5 days. 3. Chronic tobacco dependency Tobacco cessation counseling was provided. Nicotine replacement therapy can be offered to the patient while admitted to the hospital. 4. Troponin elevation Possibly related to demand ischemia in the setting of #1. However, although the patient denies a cardiac history, she does have Plavix and Lasix listed on her home medication regimen. Await an echocardiogram. Anticipated an element of elevated pulmonary artery pressures given size on CTA 5. Depression/hyperlipidemia/neuropathy/cachexia Complicates care, management, recovery and prognosis. Continue home medications as indicated. Nutrition consultation. Inpatient E&M: [id number] [facility] L3
--- NOTE | 2019-12-27 07:12 | PN_ITS ---
Patient Problems: Active and Suspected Problems (Last Reviewed 12/14/19 @ 10:09 by Stacy Austin) Severe sepsis (Acute) Acute respiratory failure with hypoxia and hypercarbia (Acute) Pneumonia (Acute) Subjective: Pt states that she is feeling much better today. Sputum is now productive of yellow frothy sputum. Had been smoking 2 PPD but now down to 12 cigs/day and is working on quitting. Happy to be transferring out of ICU. CP is resolved. Vitals/I&O's: Vital Signs Temp Pulse Resp BP Pulse Ox 97.8 F 95 15 117/78 98 12/27/19 04:00 12/27/19 07:00 12/27/19 07:00 12/27/19 07:00 12/27/19 07:00 Oxygen Flow Rate (L/min) 4 Oxygen Delivery Method Nasal Cannula Weight: 44.8 kg Body Mass Index (BMI) 20.0 Intake and Output for Last 24 Hours 12/25/19 12/26/19 12/27/19 23:59 23:59 23:59 Intake Total 1185 / 1185 210 / 210 Output Total 725 / 725 550 / 550 500 / 500 Balance 460 / 460 -340 / -340 -500 / -500 General: Alert, Oriented x3, Cooperative, Well developed, - - Thin, cachetic WF, sitting up in bed, appears more comfortable today HEENT: Atraumatic, PERRLA, EOMI, Normocephalic, EAC Clear Oral: Moist Mucosa, No Gingival or Mucosal Lesions/ Ulcerations, - - thrush is improved Neck: Supple, No JVD, No Nodes, Trachea Midline, Thyroid Normal Size and Texture Lungs: No rhonchi, No wheeze, No rales, Diminished - severely diminished diffusely Cardiovascular: Regular rate, Regular Rhythm, Normal S1, Normal S2, No murmurs, No Ectopic Activity, No rub noted, No Gallop Abdomen: Bowel Sounds Present, Soft, Non Tender, Non-Distended, No Hepato- splenomegaly Extremities: No clubbing, No cyanosis, No edema, Capillary Refill Less than 3 Seconds, Peripheral Pulses Normal Skin: No rashes, No breakdown Musculoskeletal: No Tenderness to Palpation of Joints or Extremities, Arthritic Changes, - - severe kyphosis Lymphatic: No Cervical, Supraclavicular, or Inguinal Adenopathy Neurological: Cranial nerves II-XII grossly intact, Neuro grossly intact, Muscle tone normal, Sensory exam intact to light touch and pain, Coordination normal, - - generalized weakness Psych/Mental Status: Normal Affect, Appropriate, Alert and oriented to time, place, person, mood and affect Microbiology Past 72 Hours 12/25/19 03:50 Mucosa - Nose Respiratory Panel (PCR) - Final Rhinovirus 12/25/19 11:55 Urine, Clean Catch Streptococcus pneumoniae Antigen (M - Final 12/25/19 11:55 Urine, Clean Catch Legionella Antigen - Final Laboratory Results 12/26/19 04:20: Hemoglobin A1c 5.5 12/27/19 04:15: WBC 13.3 H, RBC 4.29, Hgb 13.5, Hct 42.4, MCV 98.8, MCH 31.5, MCHC 31.8 L, RDW Std Deviation 57.1 H, RDW Coeff of Valerio 15.8 H, Plt Count 195, MPV 9.6, Immature Gran % (Auto) 0.700, Neut % (Auto) 93.5 H, Lymph % (Auto) 3.4 L, Sargent % (Auto) 2.3, Eos % (Auto) 0.0, Baso % (Auto) 0.1, Absolute Neuts (auto) 12.4 H, Absolute Lymphs (auto) 0.45 L, Nucleated RBC % 0, Differential Comment SCANNED 12/27/19 04:15: Sodium 137, Potassium 3.9, Chloride 101, Carbon Dioxide 35.0 H, Anion Gap 1 L, BUN 21 H, Creatinine 0.62, Estim Creat Clear Calc 63.78, Est GFR (MDRD) Af Amer 124, Est GFR (MDRD) Non-Af 102, BUN/Creatinine Ratio 33.7 H, Glucose 142 H, Calcium 8.4 L, Total Bilirubin 0.40, AST 22, ALT 28, Alkaline Phosphatase 87, Total Protein 6.5, Albumin 2.9 L, Globulin 3.6, Albumin/Globulin Ratio 0.8 L Current Medications Acetaminophen (Tylenol) 650 mg PO Q6H PRN PRN PRN Reason: Pain Score 1-10/Temp > 100.7 F Last Admin: 12/27/19 04:17 Dose: 650 mg Documented by: Albuterol Sulfate (Ventolin Aerosols) 2.5 mg INHALATION Q2H PRN PRN PRN Reason: SOB/Wheezing Last Admin: 12/25/19 14:02 Dose: 2.5 mg Documented by: Albuterol/Ipratropium (Duoneb) 3 ml INHALATION Q4HWA.RT [facility] Last Admin: 12/27/19 06:31 Dose: 3 ml Documented by: Amoxicillin/Clavulanate Potassium (Augmentin Tablet) 500 mg PO BIDCM [facility] Stop: 12/31/19 08:01 Aspirin (Aspirin, Baby) 81 mg PO DAILY@0800 [facility] Last Admin: 12/26/19 15:03 Dose: 81 mg Documented by: Buprenorphine HCl (Buprenorphine Hcl) 2 mg SL Q8 [facility] Last Admin: 12/27/19 05:08 Dose: Not Given Documented by: Calcium Carbonate (Tums) 500 mg PO BIDCM [facility] Last Admin: 12/26/19 17:03 Dose: 500 mg Documented by: Cholecalciferol (Vitamin D (25mcg)) 1,000 unit PO DAILY [facility] Last Admin: 12/26/19 15:02 Dose: 1,000 unit Documented by: Clopidogrel Bisulfate (Plavix) 75 mg PO DAILY [facility] Last Admin: 12/26/19 15:02 Dose: 75 mg Documented by: Enoxaparin Sodium (Lovenox) 40 mg SC DAILY [facility] Last Admin: 12/26/19 11:04 Dose: 40 mg Documented by: Escitalopram Oxalate (Lexapro) 10 mg PO DAILY [facility] Last Admin: 12/26/19 15:02 Dose: 10 mg Documented by: Fentanyl Citrate (Sublimaze (100mcg Ampule)) 25 mcg IV Q4H PRN PRN PRN Reason: Pain Score 6-10/10 Last Admin: 12/26/19 22:51 Dose: 25 mcg Documented by: Gabapentin (Neurontin) 300 mg PO TIDCM [facility] Last Admin: 12/26/19 16:50 Dose: Not Given Documented by: Sodium Chloride () 250 mls @ 15 mls/hr IV .[id number] PRN PRN Reason: Additional IVPB Infusion Melatonin (Melatonin) 3 mg PO QHS PRN PRN PRN Reason: INSOMNIA Last Admin: 12/26/19 21:19 Dose: 3 mg Documented by: Nicotine (Nicoderm Cq (Pbkc)) 14 mg TRANSDERM. DAILY [facility] Last Admin: 12/26/19 11:04 Dose: 14 mg Documented by: Nutritional Formula (Lactose Free) (Ensure Clear) 120 ml PO TIDCM [facility] Nystatin (Nystatin) 500,000 unit PO 4X/DAY [facility] Last Admin: 12/26/19 20:37 Dose: 500,000 unit Documented by: Ondansetron HCl (Zofran) 4 mg IV Q8H PRN PRN PRN Reason: NAUSEA/VOMITING Sodium Chloride () 10 - 40 ml IV UD PRN PRN Reason: SALINE FLUSH Last Admin: 12/26/19 22:50 Dose: 10 ml Documented by: STROKE Vital Signs/Narrative: Vital Signs Temp Pulse Resp BP Pulse Ox 12/27/19 07:00 95 15 117/78 98 12/27/19 06:31 77 13 96 12/27/19 06:00 74 13 97/71 96 12/27/19 05:00 77 13 104/74 96 12/27/19 04:00 97.8 F 77 10 L 92/62 93 Medical Necessity - Tobacco Use Smoking Status: Current every day smoker Tobacco Use: Cigarettes Assessment/Plan All Active Problems (Last Reviewed 12/14/19 @ 10:09 by Stacy Austin) Severe sepsis (Acute) Acute respiratory failure with hypoxia and hypercarbia (Acute) Pneumonia (Acute) Acute on chronic Hypoxic/Hypercapnic Respiratory Failure 2/2 AECOPD 2/2 Rhinovirus and Aspiration -wears 4 L n/c at baseline and now on 4 L with stable sats -still desaturating with exertion -COVID-19 neg -Rhinovirus + -urine antigens neg -Augmentin to complete abx course Day 3 -d/c solumedrol 40mg BID and switch to Prednisone 40 mg/day with a taper -cont Pulm toilet -Pulm following, appreciate input Dysphagia -this is note with increased respiratory demand only -on [facility] Soft TLD now -monitor -d/w pt Severe Sepsis suspect 2/2 Rhinovirus and Aspiration -white count is improving -continue Augmentin -Blood cx are pending but highly doubt bacteremia Lactic Acidosis -resolved Mild to Mod PAH -WHO Group 3 -hold lasix still but restart at d/c Troponin Elevation -suspect demand or subendocardial ischemia with hypoxia -trended down -continue ASA and Plavix -ECHO shows no WMA,n EF of 55%, hypermobile atrial septum, PASP is 44mmHg -since no WMA would recommend outpt stress testing after d/c 2/2 troponin elevation -d/w pt today re: ECHO results and need for outpt f/u with Stress test Hyperglycemia 2/2 Steroid use -A1c 5.5 -monitor -weaning steroids HPL -restart Statin COPD -baseline O2 4 L -states that she sees Dr. Dolan H/P Stroke -A1c 5.5 -cont ASA and Plavix Chronic Pain/Neuropathy -prn fentanyl for breakthrough pain -restart Baclofen -cont home buprenorpherine -cont home gabapentin Moderate Malnutrition -dietitian consulted -cont supplements -suspect some of this is related to increased energy expenditure with COPD -BMI is WNL Multiple Thoracic and Vertebral Compression Fractures -s/p rods and screws Osteoporosis -cont Vitamin D and Calcium supplementation Thrush -nystatin started 12/25 -improving Tobacco Abuse -recommend cessation -patch DVT Prophylaxis -40 mg daily Code Status -Full Dispo -suspect d/c home in next 24-48 hrs as long as pt remains stable -will need ambulatory SpO2 to assess requirements -baseline is 4 l n/c Inpatient E&M: 23780 Subs Hosp L3
[2019-12-27] MEDS: Ensure Clear 120 ML Liquid PO ×3 (08:29→17:31)
[2019-12-27] MEDS: Amox/Clavulanate 500 MG Tablet PO ×2 (08:29→16:04)
[2019-12-27] MEDS: Aspirin 81 MG TAB.CHEW PO (08:29)
[2019-12-27] MEDS: Calcium Carbonate 500 MG Tablet PO ×2 (08:30→16:04)
[2019-12-27] MEDS: NYSTATIN 500,000 UNIT/5 ML UDC 500000 UNIT PO ×4 (08:30→22:38)
[2019-12-27] MEDS: Clopidogrel Bisulfate 75 MG Tablet PO (08:30)
[2019-12-27] MEDS: Enoxaparin 40 MG/0.4 ML Syringe SC (08:30)
[2019-12-27] MEDS: Gabapentin 300 MG Capsule PO ×3 (08:30→16:04)
--- NOTE | 2019-12-27 10:49 | NT.THERAPY_ITS ---
Nutrition Therapy Report - History Current diet / nutrition support order:: regular- mechanical (minced/moist), thin liquids; ensure clear 120mL TID - Anthropometric Measurements Height:: 4 ft 10 in Weight:: 44.8 kg Body Mass Index (BMI):: 20.6 - Relevant Labs Relevant Labs:: WBC 13.3 K/mm3 (4.4-11.0) H 12/27/19 04:15 Hgb 15.1 g/dL (12.0-15.0) H 12/25/19 04:30 Hct 48.8 % (37-47) H 12/25/19 04:30 MCV 101.7 fL (81-99) H 12/25/19 04:30 MCHC 31.8 g/dL (32-36) L 12/27/19 04:15 RDW Std Deviation 57.1 fl (35.1-43.9) H 12/27/19 04:15 RDW Coeff of Valerio 15.8 % (11.6-14.6) H 12/27/19 04:15 Neut % (Auto) 93.5 % (47-70) H 12/27/19 04:15 Lymph % (Auto) 3.4 % (19-41) L 12/27/19 04:15 Absolute Neuts (auto) 12.4 X10^3/uL (2.0-7.7) H 12/27/19 04:15 Absolute Lymphs (auto) 0.45 X10^3/uL (0.83-4.51) L 12/27/19 04:15 D-Dimer Quant (PE/DVT) 1.13 FEU/ug/m (0.27-0.49) H* 12/25/19 04:30 Carbon Dioxide 35.0 mmol/L (21.0-32.0) H 12/27/19 04:15 Anion Gap 1 (5-15) L 12/27/19 04:15 BUN 21 mg/dL (7-18) H 12/27/19 04:15 BUN/Creatinine Ratio 33.7 RATIO (10-20) H 12/27/19 04:15 Glucose 142 mg/dL (74-106) H 12/27/19 04:15 Lactic Acid 2.2 mmol/L (0.4-1.9) H* 12/25/19 04:42 Calcium 8.4 mg/dL (8.5-10.1) L 12/27/19 04:15 Troponin I 0.458 ng/mL (<0.045) H 12/25/19 11:30 C-React Prot Ext Range 160.00 mg/L (0.0-3.0) H 12/25/19 04:30 B-Natriuretic Peptide 539.3 pg/mL (0-100) H 12/25/19 04:30 Albumin 2.9 g/dL (3.2-5.0) L 12/27/19 04:15 Albumin/Globulin Ratio 0.8 RATIO (0.9-2.4) L 12/27/19 04:15 Procalcitonin 0.39 ng/mL (0.00-0.09) H 12/25/19 10:10 - Assessment Food / Nutrition-Related History:: Pt describes consuming ~50% of breakfast this AM. Had sips of Ensure Clear. States appetite was fine [employer], eating small meals which is normal for pt. No special diet at home, no ONS consumed. States wt was 150# about 3 years ago, CBW 98.8# (~34% wt loss). Pt says lowest wt was 85# and has been working to gain wt. Nutrition focused physical exam suggests moderate muscle wasting/fat loss of clavicles, acromion, temporal, and orbital region. Noted elevated blood glucose-on steroid. - Nutrition Diagnosis Problem / Etiology / Signs & Symptoms (PES):: Pt w/ moderate, chronic malnutrition related to inadequate energy intake, increased energy needs d/t COPD as evidenced by estimated PO intake meeting less than 75% of estimated needs for greater than 3 months, moderate muscle wasting/fat loss of clavicles, acromion, temporal, and orbital region. Evidence of Malnutrition Exists:: Yes Moderate PCM:: Chronic Illness - Nutrition Intervention Nutrition Prescription:: [id number] calories, 44-54 g protein per day - Food / Nutrient Delivery Interventions Summary of nutrition intervention:: Verbally discussed increased energy needs d/t COPD. Encouraged smaller more frequent meals w/ nutrient dense foods. Encouraged pt to continue Ensure as tolerated. Will fortify foods as possible to increase calories/protein consumed at meals. Nutrition support ordered as / adjusted to:: continue regular diet, will fortify foods when possible; will increase ensure clear to 4x/day Nutrition education provided?: Yes - MNT Monitoring Further MNT monitoring and evaluation required?: Yes MNT Follow-up in:: 3-5 days
[2019-12-27] MEDS: predniSONE 20 MG Tablet 40 MG PO (11:31)
[2019-12-27] MEDS: 0.9% Saline Lock 10 ML Syringe IV (11:34)
[2019-12-27] MEDS: fentaNYL 100 MCG/2 ML Ampul 25 MCG IV ×2 (11:34→20:08)
--- NOTE | 2019-12-27 14:20 | CASEMGMT ---
Addendum entered by Steven Cui 12/27/19 15:44: Call received from [facility]. They are requesting COVID results be faxed- completed. Since pt is negative, they can accept the patient for home care. Requesting notification of dc date and dc information when available. Geri AVENDAÑO Original Note: RN CM Note: Intro role of CM to patient. Discussed HHC and first choice is [facility]. Call to [facility], they will look @ referral. Referral faxed to them-will await their determination. [facility] PH: [phone] FX: [phone] Geri CARDOSOM
[2019-12-27] MEDS: MELATONIN 3 MG TABLET PO (22:37)
[2019-12-27] MEDS: Escitalopram Oxalate 10 MG Tablet PO (22:37)
[2019-12-27] MEDS: Baclofen 10 MG Tablet PO (22:37)
[2019-12-27] MEDS: Atorvastatin Calcium 40 MG Tablet PO (22:38)
[2019-12-28] VITALS (16 sets, daily range): BP systolic 94–103; BP diastolic 62–68; PULSE 69–102; RESP 18–20; TEMP 36.4–37.1; O2SAT 93–96
[2019-12-28] MEDS: Acetaminophen 325 MG Tablet 650 MG PO ×2 (03:22→11:28)
[2019-12-28 05:36] LABS: Absolute Neutrophil Count 7.4 X10^3/uL (2.0-7.7); Basophil# 0.01 X10^3/uL; Basophil% 0.1 % (0-1); Hematocrit 41.5 % (37-47); Lymphocyte % 11.1 % (19-41); Mean Corp Hgb Conc 31.3 g/dL (32-36); Mean Corpuscular Hgb 31.5 pg (27.0-32.0); Mean Corpuscular Volume 100.5 fL (81-99); Mean Platelet Vol. 9.1 fl (6.2-12.0); Monocyte# 0.56 X10^3/uL; Monocyte% 6.2 % (0-10); NRBC Flagged by Analyzer 0 % (0-5); Neutrophil # 7.41 X10^3/uL (2.7-7.7); Neutrophil % 81.9 % (47-70); Platelet Count 181 K/mm3 (150-450); RBC Distribution Width CV 15.8 % (11.6-14.6); RBC Distribution Width SD 58.5 fl (35.1-43.9); Red Blood Count 4.13 M/mm3 (4.2-5.4)
[2019-12-28 05:55] LABS: ALB/GLOB Ratio 0.8 RATIO (0.9-2.4); AST(SGOT) 30 U/L (15-37); Alanine Aminotransfer ALT/SGPT 29 U/L (13-56); Albumin, Serum 2.7 g/dL (3.2-5.0); Alkaline Phosphatase 79 U/L (45-117); Anion Gap 1 (5-15); BUN 17 mg/dL (7-18); BUN/Creat Ratio 29.9 RATIO (10-20); Calcium,Total 8.4 mg/dL (8.5-10.1); Chloride 104 mmol/L (98-107); Creatinine, Serum 0.57 mg/dL (0.55-1.02); EST Glomerular Filtration Rate 114 mL/min (>60); Est Glom Filt Rate - Afr Amer 138 mL/min (>60); Estimated Creatinine Clearance 71.45 ml/min; Globulin 3.4 g/dL (2.2-4.2); Glucose 92 mg/dL (74-106); Potassium 3.8 mmol/L (3.5-5.1); Protein, Total 6.1 g/dL (6.4-8.2); Sodium Level 138 mmol/L (136-145)
[2019-12-28] MEDS: fentaNYL 100 MCG/2 ML Ampul 25 MCG IV (06:35)
[2019-12-28] MEDS: Gabapentin 300 MG Capsule PO ×3 (09:08→17:00)
[2019-12-28] MEDS: Enoxaparin 40 MG/0.4 ML Syringe SC (09:08)
[2019-12-28] MEDS: Calcium Carbonate 500 MG Tablet PO (09:10)
[2019-12-28] MEDS: Amox/Clavulanate 500 MG Tablet PO ×2 (09:11→17:00)
[2019-12-28] MEDS: Aspirin 81 MG TAB.CHEW PO (09:11)
[2019-12-28] MEDS: predniSONE 20 MG Tablet 40 MG PO (09:11)
[2019-12-28] MEDS: Clopidogrel Bisulfate 75 MG Tablet PO (09:12)
[2019-12-28] MEDS: NYSTATIN 500,000 UNIT/5 ML UDC 500000 UNIT PO ×4 (09:12→21:20)
--- NOTE | 2019-12-28 10:10 | PN_ITS ---
Patient Problems: Active and Suspected Problems (Last Reviewed 12/14/19 @ 10:09 by Stacy Austin) Severe sepsis (Acute) Acute respiratory failure with hypoxia and hypercarbia (Acute) Pneumonia (Acute) Subjective: Patient transferred out of the intensive care unit yesterday. Patient states that she is done well overnight and has been able to ambulate to the bathroom with no issues. Patient has not required any interventions for hypotension or hypoxia and remains on her baseline 4 L nasal cannula. - Physical Exam Vitals/I&O's: Vital Signs Temp Pulse Resp BP Pulse Ox 36.6 C 69 20 H 102/64 96 12/28/19 06:34 12/28/19 08:00 12/28/19 09:00 12/28/19 06:34 12/28/19 07:02 Oxygen Flow Rate (L/min) 4 Oxygen Delivery Method Nasal Cannula Weight: 44.6 kg Body Mass Index (BMI) 20.6 Intake and Output for Last 24 Hours 12/26/19 12/27/19 12/28/19 23:59 23:59 23:59 Intake Total 210 / 210 630 / 630 240 / 240 Output Total 550 / 550 750 / 750 Balance -340 / -340 -120 / -120 240 / 240 General: Alert, Oriented x3, Cooperative, No apparent distress, Well developed, Well nourished, - - Appears older than stated age. Speaking in full sentences. HEENT: Atraumatic, PERRLA, EOMI, Normocephalic, - - No scleral icterus or injection noted Oral: Moist Mucosa, No Gingival or Mucosal Lesions/ Ulcerations Neck: Supple, No JVD, No Nodes, Trachea Midline Lungs: No rhonchi, No wheeze, No rales, Diminished, - - Increased AP diameter Cardiovascular: Regular rate, Regular Rhythm, Normal S1, Normal S2, No murmurs, No rub noted, No Gallop Abdomen: Bowel Sounds Present, Soft, Non Tender, Non-Distended Extremities: No clubbing, No cyanosis, No edema Skin: No rashes, No breakdown Musculoskeletal: No Tenderness to Palpation of Joints or Extremities Lymphatic: No Cervical, Supraclavicular, or Inguinal Adenopathy Neurological: Cranial nerves II-XII grossly intact, Neuro grossly intact, Motor Exam 5/5 strength throughout Psych/Mental Status: Alert and oriented to time, place, person, mood and affect Microbiology Past 72 Hours 12/25/19 04:30 Blood Culture (Wb) #2 - Anticubital Left Blood Culture - Preliminary No growth in 48 hours. 12/25/19 04:42 Blood Culture (Wb) - Right Wrist Blood Culture - Preliminary No growth in 48 hours. 12/25/19 03:50 Mucosa - Nose Respiratory Panel (PCR) - Final Rhinovirus 12/25/19 11:55 Urine, Clean Catch Streptococcus pneumoniae Antigen (M - Final 12/25/19 11:55 Urine, Clean Catch Legionella Antigen - Final Laboratory Results 12/28/19 05:05: WBC 9.0, RBC 4.13 L, Hgb 13.0, Hct 41.5, MCV 100.5 H, MCH 31.5, MCHC 31.3 L, RDW Std Deviation 58.5 H, RDW Coeff of Valerio 15.8 H, Plt Count 181, MPV 9.1, Immature Gran % (Auto) 0.700, Neut % (Auto) 81.9 H, Lymph % (Auto) 11.1 L, [place] % (Auto) 6.2, Eos % (Auto) 0.0, Baso % (Auto) 0.1, Absolute Neuts (auto) 7.4, Absolute Lymphs (auto) 1.00, Nucleated RBC % 0 12/28/19 05:05: Sodium 138, Potassium 3.8, Chloride 104, Carbon Dioxide 33.0 H, Anion Gap 1 L, BUN 17, Creatinine 0.57, Estim Creat Clear Calc 71.45, Est GFR (MDRD) Af Amer 138, Est GFR (MDRD) Non-Af 114, BUN/Creatinine Ratio 29.9 H, Glucose 92, Calcium 8.4 L, Total Bilirubin 0.30, AST 30, ALT 29, Alkaline Phosphatase 79, Total Protein 6.1 L, Albumin 2.7 L, Globulin 3.4, Albumin/Globulin Ratio 0.8 L Current Medications Acetaminophen (Tylenol) 650 mg PO Q6H PRN PRN PRN Reason: Pain Score 1-10/Temp > 100.7 F Last Admin: 12/28/19 03:22 Dose: 650 mg Documented by: Albuterol Sulfate (Ventolin Aerosols) 2.5 mg INHALATION Q2H PRN PRN PRN Reason: SOB/Wheezing Last Admin: 12/25/19 14:02 Dose: 2.5 mg Documented by: Albuterol/Ipratropium (Duoneb) 3 ml INHALATION Q4HWA.RT [facility] Last Admin: 12/27/19 19:50 Dose: 3 ml Documented by: Amoxicillin/Clavulanate Potassium ([facility]in Tablet) [facility] Stop: 12/31/19 08:01 Last Admin: 12/28/19 09:11 Dose: 500 mg Documented by: Aspirin (Aspirin, Baby) 81 mg PO DAILY@0800 [facility] Last Admin: 12/28/19 09:11 Dose: 81 mg Documented by: Atorvastatin Calcium (Lipitor) 40 mg PO QHS [facility] Last Admin: 12/27/19 22:38 Dose: 40 mg Documented by: Baclofen (Lioresal) 10 mg PO QHS [facility] Last Admin: 12/27/19 22:37 Dose: 10 mg Documented by: Calcium Carbonate (Tums) [facility] Last Admin: 12/28/19 09:10 Dose: 500 mg Documented by: Cholecalciferol (Vitamin D (25mcg)) 1,000 unit PO DAILY [facility] Last Admin: 12/28/19 09:12 Dose: 1,000 unit Documented by: Clopidogrel Bisulfate (Plavix) 75 mg PO DAILY [facility] Last Admin: 12/28/19 09:12 Dose: 75 mg Documented by: Enoxaparin Sodium (Lovenox) 40 mg SC DAILY [facility] Last Admin: 12/28/19 09:08 Dose: 40 mg Documented by: Escitalopram Oxalate (Lexapro) 10 mg PO DAILY@2200 [facility] Last Admin: 12/27/19 22:37 Dose: 10 mg Documented by: Fentanyl Citrate (Sublimaze (100mcg Ampule)) 25 mcg IV Q4H PRN PRN PRN Reason: Pain Score 6-10/10 Last Admin: 12/28/19 06:35 Dose: 25 mcg Documented by: Gabapentin (Neurontin) 300 mg PO TIDCM [facility] Last Admin: 12/28/19 09:08 Dose: 300 mg Documented by: Sodium Chloride () 250 mls @ 15 mls/hr IV .[id number] PRN PRN Reason: Additional IVPB Infusion Melatonin (Melatonin) 3 mg PO QHS PRN PRN PRN Reason: INSOMNIA Last Admin: 12/27/19 22:37 Dose: 3 mg Documented by: Nicotine (Nicoderm Cq (Pbkc)) 14 mg TRANSDERM. DAILY [facility] Last Admin: 12/28/19 09:10 Dose: 14 mg Documented by: Nutritional Formula (Lactose Free) (Ensure Clear) 120 ml PO 4X/DAY [facility] Last Admin: 12/28/19 09:08 Dose: Not Given Documented by: Nystatin (Nystatin) 500,000 unit PO 4X/DAY [facility] Last Admin: 12/28/19 09:12 Dose: 500,000 unit Documented by: Ondansetron HCl (Zofran) 4 mg IV Q8H PRN PRN PRN Reason: NAUSEA/VOMITING Prednisone () 40 mg PO DAILY@0800 [facility] Last Admin: 12/28/19 09:11 Dose: 40 mg Documented by: Sodium Chloride () 10 - 40 ml IV UD PRN PRN Reason: SALINE FLUSH Last Admin: 12/27/19 11:34 Dose: 10 ml Documented by: Medical Necessity - Tobacco Use Smoking Status: Current every day smoker Tobacco Use: Cigarettes Assessment/Plan All Active Problems (Last Reviewed 12/14/19 @ 10:09 by Stacy Austin) Severe sepsis (Acute) Acute respiratory failure with hypoxia and hypercarbia (Acute) Pneumonia (Acute) RECOMMENDATIONS: 1. Complete 5 days of empiric antibiotics 2. Increase activity as tolerated 3. Walking oximetry prior to discharge 4. P.o. diet per swallow recommendations 5. Continue scheduled bronchodilators, but Transition to p.o. steroids and wean over the next 12 to 14 days 6. Nicotine replacement therapy can be offered to the patient on discharge if agreeable. 7. Encourage incentive spirometer use and mobilize patient as tolerated. 8. Follow-up with nurse practitioner in 2 weeks and establish care with Dr. Dolan IMPRESSIONS: 1. Acute on chronic combined respiratory failure secondary to COPD e xacerbation secondary to rhinovirus The patient does have a reported history of COPD of unknown severity. She is a poor historian and is unable to identify who her primary pulmonary provider is or which inhaler she utilizes at her baseline. She additionally reports that she utilizes 4 L/min of supplemental oxygen at her baseline, on an as-needed basis. Her chest x-ray revealed findings concerning for some chronic interstitial changes and viral pneumonia. Viral work-up has shown positive rhinovirus. For now, the patient will be continued on empiric antimicrobials, bronchodilators, but will transition to p.o. steroids. Supplemental oxygen will be weaned as tolerated. Echocardiogram is relatively unremarkable except for increased pulmonary pressures (Probable type III Pulmonary hypertension). Patient will be at higher risk for desaturation with ambulation. 2. Severe sepsis Clinical concern for possible viral pneumonia. Work-up is currently pending. We will continue current supportive measures as noted above. Continue antibiotics for now given concerns for aspiration pneumonia to complete 5 days. 3. Chronic tobacco dependency Tobacco cessation counseling was provided. Nicotine replacement therapy can be offered to the patient while admitted to the hospital. 4. Troponin elevation Possibly related to demand ischemia in the setting of #1. However, although the patient denies a cardiac history, she does have Plavix and Lasix listed on her home medication regimen. Echocardiogram was relatively unremarkable except for expected increase in pulmonary pressures. Anticipated an element of elevated pulmonary artery pressures given size on CTA 5. Depression/hyperlipidemia/neuropathy/cachexia Complicates care, management, recovery and prognosis. Continue home medications as indicated. Nutrition consultation. Inpatient E&M: [id number] [facility] L2
[2019-12-28] MEDS: Ipratropium/Albuterol Sulfate 3 ML AMPUL.NEB INHALATION ×3 (10:58→18:57)
--- NOTE | 2019-12-28 11:25 | PN_ITS ---
Patient Problems: Active and Suspected Problems (Last Reviewed 12/14/19 @ 10:09 by Stacy Austin) Severe sepsis (Acute) Acute respiratory failure with hypoxia and hypercarbia (Acute) Pneumonia (Acute) Subjective: Pt states that she feels that her breathing is just about back to her baseline. Denies increased SOB. Anxious to go home. Very frail appearing. Vitals/I&O's: Vital Signs Temp Pulse Resp BP Pulse Ox 98.7 F 80 20 H 102/66 93 12/28/19 10:46 12/28/19 10:46 12/28/19 10:46 12/28/19 10:46 12/28/19 10:46 Oxygen Flow Rate (L/min) 4 Oxygen Delivery Method Nasal Cannula Weight: 44.6 kg Body Mass Index (BMI) 20.6 Intake and Output for Last 24 Hours 12/26/19 12/27/19 12/28/19 23:59 23:59 23:59 Intake Total 210 / 210 630 / 630 540 / 540 Output Total 550 / 550 750 / 750 Balance -340 / -340 -120 / -120 540 / 540 General: Alert, Oriented x3, Cooperative, No apparent distress, - - thin, frail and cachetic WF, sitting up in bed, nsg at bedside Oral: Moist Mucosa, No Gingival or Mucosal Lesions/ Ulcerations, - - no thrush Lungs: No rhonchi, No wheeze, No rales, Diminished Cardiovascular: Regular rate, Regular Rhythm, Normal S1, Normal S2, No murmurs, No Ectopic Activity, No rub noted, No Gallop Abdomen: Bowel Sounds Present, Soft, Non Tender, Non-Distended Extremities: No clubbing, No cyanosis, No edema, Capillary Refill Less than 3 Seconds, Peripheral Pulses Normal Neurological: Neuro grossly intact Psych/Mental Status: Normal Affect, Appropriate, Alert and oriented to time, place, person, mood and affect Microbiology Past 72 Hours 12/27/19 22:50 Sputum, Expectorated/Coughed Gram Stain - Final 12/25/19 04:30 Blood Culture (Wb) #2 - Anticubital Left Blood Culture - Preliminary No growth in 48 hours. 12/25/19 04:42 Blood Culture (Wb) - Right Wrist Blood Culture - Preliminary No growth in 48 hours. 12/25/19 03:50 Mucosa - Nose Respiratory Panel (PCR) - Final Rhinovirus 12/25/19 11:55 Urine, Clean Catch Streptococcus pneumoniae Antigen (M - Final 12/25/19 11:55 Urine, Clean Catch Legionella Antigen - Final Laboratory Results 12/28/19 05:05: WBC 9.0, RBC 4.13 L, Hgb 13.0, Hct 41.5, MCV 100.5 H, MCH 31.5, MCHC 31.3 L, RDW Std Deviation 58.5 H, RDW Coeff of Valerio 15.8 H, Plt Count 181, MPV 9.1, Immature Gran % (Auto) 0.700, Neut % (Auto) 81.9 H, Lymph % (Auto) 11.1 L, Beckham % (Auto) 6.2, Eos % (Auto) 0.0, Baso % (Auto) 0.1, Absolute Neuts (auto) 7.4, Absolute Lymphs (auto) 1.00, Nucleated RBC % 0 12/28/19 05:05: Sodium 138, Potassium 3.8, Chloride 104, Carbon Dioxide 33.0 H, Anion Gap 1 L, BUN 17, Creatinine 0.57, Estim Creat Clear Calc 71.45, Est GFR (MDRD) Af Amer 138, Est GFR (MDRD) Non-Af 114, BUN/Creatinine Ratio 29.9 H, Glucose 92, Calcium 8.4 L, Total Bilirubin 0.30, AST 30, ALT 29, Alkaline Phosphatase 79, Total Protein 6.1 L, Albumin 2.7 L, Globulin 3.4, Albumin/Globulin Ratio 0.8 L Current Medications Acetaminophen (Tylenol) 650 mg PO Q6H PRN PRN PRN Reason: Pain Score 1-10/Temp > 100.7 F Last Admin: 12/28/19 03:22 Dose: 650 mg Documented by: Albuterol Sulfate (Ventolin Aerosols) 2.5 mg INHALATION Q2H PRN PRN PRN Reason: SOB/Wheezing Last Admin: 12/25/19 14:02 Dose: 2.5 mg Documented by: Albuterol/Ipratropium (Duoneb) 3 ml INHALATION Q4HWA.RT [facility] Last Admin: 12/28/19 10:58 Dose: 3 ml Documented by: Amoxicillin/Clavulanate Potassium (Augmentin Tablet) 500 mg PO BIDCM [facility] Stop: 12/31/19 08:01 Last Admin: 12/28/19 09:11 Dose: 500 mg Documented by: Aspirin (Aspirin, Baby) 81 mg PO DAILY@0800 [facility] Last Admin: 12/28/19 09:11 Dose: 81 mg Documented by: Atorvastatin Calcium (Lipitor) 40 mg PO QHS [facility] Last Admin: 12/27/19 22:38 Dose: 40 mg Documented by: Baclofen (Lioresal) 10 mg PO QHS [facility] Last Admin: 12/27/19 22:37 Dose: 10 mg Documented by: Calcium Carbonate (Tums) 500 mg PO BIDCM [facility] Last Admin: 12/28/19 09:10 Dose: 500 mg Documented by: Cholecalciferol (Vitamin D (25mcg)) 1,000 unit PO DAILY [facility] Last Admin: 12/28/19 09:12 Dose: 1,000 unit Documented by: Clopidogrel Bisulfate (Plavix) 75 mg PO DAILY [facility] Last Admin: 12/28/19 09:12 Dose: 75 mg Documented by: Enoxaparin Sodium (Lovenox) 40 mg SC DAILY [facility] Last Admin: 12/28/19 09:08 Dose: 40 mg Documented by: Escitalopram Oxalate (Lexapro) 10 mg PO DAILY@2200 [facility] Last Admin: 12/27/19 22:37 Dose: 10 mg Documented by: Fentanyl Citrate (Sublimaze (100mcg Ampule)) 25 mcg IV Q4H PRN PRN PRN Reason: Pain Score 6-10/10 Last Admin: 12/28/19 06:35 Dose: 25 mcg Documented by: Gabapentin (Neurontin) 300 mg PO TIDCM [facility] Last Admin: 12/28/19 09:08 Dose: 300 mg Documented by: Sodium Chloride () 250 mls @ 15 mls/hr IV .[id number] PRN PRN Reason: Additional IVPB Infusion Melatonin (Melatonin) 3 mg PO QHS PRN PRN PRN Reason: INSOMNIA Last Admin: 12/27/19 22:37 Dose: 3 mg Documented by: Nicotine (Nicoderm Cq (Pbkc)) 14 mg TRANSDERM. DAILY [facility] Last Admin: 12/28/19 09:10 Dose: 14 mg Documented by: Nutritional Formula (Lactose Free) (Ensure Clear) 120 ml PO 4X/DAY [facility] Last Admin: 12/28/19 09:08 Dose: Not Given Documented by: Nystatin (Nystatin) 500,000 unit PO 4X/DAY [facility] Last Admin: 12/28/19 09:12 Dose: 500,000 unit Documented by: Ondansetron HCl (Zofran) 4 mg IV Q8H PRN PRN PRN Reason: NAUSEA/VOMITING Prednisone () 40 mg PO DAILY@0800 [facility] Last Admin: 12/28/19 09:11 Dose: 40 mg Documented by: Sodium Chloride () 10 - 40 ml IV UD PRN PRN Reason: SALINE FLUSH Last Admin: 12/27/19 11:34 Dose: 10 ml Documented by: STROKE Vital Signs/Narrative: Vital Signs Temp Pulse Resp BP Pulse Ox 12/28/19 10:46 98.7 F 80 20 H 102/66 93 12/28/19 09:00 20 H 12/28/19 08:00 69 Medical Necessity - Tobacco Use Smoking Status: Current every day smoker Tobacco Use: Cigarettes Assessment/Plan All Active Problems (Last Reviewed 12/14/19 @ 10:09 by Stacy Austin) Severe sepsis (Acute) Acute respiratory failure with hypoxia and hypercarbia (Acute) Pneumonia (Acute) Acute on chronic Hypoxic/Hypercapnic Respiratory Failure 2/2 AECOPD 2/2 Rhinovirus and Aspiration -wears 4 L n/c at baseline and now on 4 L with stable sats -still desaturating with exertion -COVID-19 neg -Rhinovirus + -urine antigens neg -Augmentin to complete abx course Day 4/7 -Prednisone 40 mg/day with a taper -cont Pulm toilet -Pulm following, appreciate input Dysphagia -this is note with increased respiratory demand only -on [facility] Soft TLD now -monitor -d/w pt Severe Sepsis suspect 2/2 Rhinovirus and Aspiration -white count is improving -continue Augmentin -Blood cx are pending but highly doubt bacteremia Mild to Mod PAH -WHO Group 3 -restart lasix today Troponin Elevation -suspect demand or subendocardial ischemia with hypoxia -trended down -continue ASA and Plavix -ECHO shows no WMA,n EF of 55%, hypermobile atrial septum, PASP is 44mmHg -since no WMA would recommend outpt stress testing after d/c 2/2 troponin elevation -d/w pt today re: ECHO results and need for outpt f/u with Stress test Hyperglycemia 2/2 Steroid use -A1c 5.5 -monitor -weaning steroids HPL -cont Statin COPD -baseline O2 4 L -states that she sees Dr. Dolan H/P Stroke -A1c 5.5 -cont ASA and Plavix Chronic Pain/Neuropathy -prn oxy for breakthrough pain -continue Baclofen -cont home gabapentin Moderate Malnutrition -dietitian consulted -cont supplements -suspect some of this is related to increased energy expenditure with COPD -BMI is WNL Multiple Thoracic and Vertebral Compression Fractures -s/p rods and screws Osteoporosis -cont Vitamin D and Calcium supplementation Thrush -nystatin started 12/25 -improving Tobacco Abuse -recommend cessation -patch DVT Prophylaxis -40 mg daily Code Status -Full Dispo -suspect d/c home in next 24 hrs as long as pt remains stable -will need ambulatory SpO2 to assess requirements--> d/w nursing -baseline is 4 l n/c Inpatient E&M: 43031 Subs Hosp L2
[2019-12-28] MEDS: oxyCODONE 5 MG Tablet 10 MG PO ×3 (12:18→21:18)
[2019-12-28] MEDS: Baclofen 10 MG Tablet PO (21:19)
[2019-12-28] MEDS: Escitalopram Oxalate 10 MG Tablet PO (21:19)
[2019-12-28] MEDS: Atorvastatin Calcium 40 MG Tablet PO (21:19)
[2019-12-28] MEDS: MELATONIN 3 MG TABLET PO (21:20)
[2019-12-29] VITALS (8 sets, daily range): BP systolic 92–129; BP diastolic 69–90; PULSE 66–89; RESP 16–18; TEMP 36.4–36.5; O2SAT 88–97
[2019-12-29] MEDS: Acetaminophen 325 MG Tablet 650 MG PO ×2 (00:30→12:53)
[2019-12-29] MEDS: oxyCODONE 5 MG Tablet 10 MG PO ×2 (06:49→11:20)
[2019-12-29] MEDS: Ipratropium/Albuterol Sulfate 3 ML AMPUL.NEB INHALATION ×2 (07:16→11:15)
--- NOTE | 2019-12-29 07:27 | PN_ITS ---
Patient Problems: Active and Suspected Problems (Last Reviewed 12/14/19 @ 10:09 by Stacy Austin) Severe sepsis (Acute) Acute respiratory failure with hypoxia and hypercarbia (Acute) Pneumonia (Acute) Subjective: Patient did well overnight. No acute issues were reported. Patient states that she has been able to ambulate around and feels that she is close to baseline. Patient still requiring baseline 4 L nasal cannula oxygen. - Physical Exam Vitals/I&O's: Vital Signs Temp Pulse Resp BP Pulse Ox 36.4 C L 66 18 101/72 97 12/29/19 03:44 12/29/19 04:28 12/29/19 03:44 12/29/19 03:44 12/29/19 03:44 Oxygen Flow Rate (L/min) 4 Oxygen Delivery Method Nasal Cannula Weight: 44.7 kg Body Mass Index (BMI) 20.6 Intake and Output for Last 24 Hours 12/27/19 12/28/19 12/29/19 23:59 23:59 23:59 Intake Total 630 / 630 690 / 690 100 / 100 Output Total 750 / 750 Balance -120 / -120 690 / 690 100 / 100 General: Alert, Oriented x3, Cooperative, No apparent distress, Well developed, Well nourished, - - Appears older than stated age HEENT: Atraumatic, PERRLA, EOMI, Normocephalic, - - No scleral icterus or injection noted Oral: Moist Mucosa, No Gingival or Mucosal Lesions/ Ulcerations Neck: Supple, No JVD, No Nodes, Trachea Midline Lungs: No rhonchi, No wheeze, No rales, Diminished Cardiovascular: Normal S1, Normal S2, No murmurs, No rub noted, No Gallop Abdomen: Bowel Sounds Present, Soft, Non Tender, Non-Distended Extremities: No clubbing, No cyanosis, No edema, Capillary Refill Less than 3 Seconds Skin: - - No change compared to previous Musculoskeletal: No Tenderness to Palpation of Joints or Extremities, No Muscle Wasting Lymphatic: No Cervical, Supraclavicular, or Inguinal Adenopathy Neurological: Cranial nerves II-XII grossly intact, Neuro grossly intact, Motor Exam 5/5 strength throughout Psych/Mental Status: Alert and oriented to time, place, person, mood and affect Microbiology Past 72 Hours 12/27/19 22:50 Sputum, Expectorated/Coughed Gram Stain - Final 12/27/19 22:50 Sputum, Expectorated/Coughed Respiratory Culture - Preliminary Culture exhibits no growth. 12/25/19 04:30 Blood Culture (Wb) #2 - Anticubital Left Blood Culture - Preliminary No growth in 48 hours. 12/25/19 04:42 Blood Culture (Wb) - Right Wrist Blood Culture - Preliminary No growth in 48 hours. Current Medications Acetaminophen (Tylenol) 650 mg PO Q6H PRN PRN PRN Reason: Pain Score 1-10/Temp > 100.7 F Last Admin: 12/29/19 00:30 Dose: 650 mg Documented by: Albuterol Sulfate (Ventolin Aerosols) 2.5 mg INHALATION Q2H PRN PRN PRN Reason: SOB/Wheezing Last Admin: 12/25/19 14:02 Dose: 2.5 mg Documented by: Albuterol/Ipratropium (Duoneb) 3 ml INHALATION Q4HWA.RT [facility] Last Admin: 12/29/19 07:16 Dose: 3 ml Documented by: Amoxicillin/Clavulanate Potassium (Augmentin Tablet) [facility] Stop: 12/31/19 08:01 Last Admin: 12/28/19 17:00 Dose: 500 mg Documented by: Aspirin (Aspirin, Baby) 81 mg PO DAILY@0800 [facility] Last Admin: 12/28/19 09:11 Dose: 81 mg Documented by: Atorvastatin Calcium (Lipitor) 40 mg PO QHS [facility] Last Admin: 12/28/19 21:19 Dose: 40 mg Documented by: Baclofen (Lioresal) 10 mg PO QHS [facility] Last Admin: 12/28/19 21:19 Dose: 10 mg Documented by: Calcium Carbonate (Tums) [facility] Last Admin: 12/28/19 17:00 Dose: Not Given Documented by: Cholecalciferol (Vitamin D (25mcg)) 1,000 unit PO DAILY [facility] Last Admin: 12/28/19 09:12 Dose: 1,000 unit Documented by: Clopidogrel Bisulfate (Plavix) 75 mg PO DAILY [facility] Last Admin: 12/28/19 09:12 Dose: 75 mg Documented by: Enoxaparin Sodium (Lovenox) 40 mg SC DAILY [facility] Last Admin: 12/28/19 09:08 Dose: 40 mg Documented by: Escitalopram Oxalate (Lexapro) 10 mg PO DAILY@2200 [facility] Last Admin: 12/28/19 21:19 Dose: 10 mg Documented by: Furosemide (Lasix) 20 mg PO DAILY [facility] Gabapentin (Neurontin) 300 mg PO TIDCM [facility] Last Admin: 12/28/19 17:00 Dose: 300 mg Documented by: Sodium Chloride () 250 mls @ 15 mls/hr IV .[id number] PRN PRN Reason: Additional IVPB Infusion Melatonin (Melatonin) 3 mg PO QHS PRN PRN PRN Reason: INSOMNIA Last Admin: 12/28/19 21:20 Dose: 3 mg Documented by: Nicotine (Nicoderm Cq (Pbkc)) 14 mg TRANSDERM. DAILY [facility] Last Admin: 12/28/19 09:10 Dose: 14 mg Documented by: Nutritional Formula (Lactose Free) (Ensure Clear) 120 ml PO 4X/DAY [facility] Last Admin: 12/28/19 21:12 Dose: Not Given Documented by: Nystatin (Nystatin) 500,000 unit PO 4X/DAY [facility] Last Admin: 12/28/19 21:20 Dose: 500,000 unit Documented by: Ondansetron HCl (Zofran) 4 mg IV Q8H PRN PRN PRN Reason: NAUSEA/VOMITING Oxycodone HCl (Oxyir) 10 mg PO Q4H PRN PRN PRN Reason: Pain Score 6-10/10 Last Admin: 12/29/19 06:49 Dose: 10 mg Documented by: Prednisone () 40 mg PO DAILY@0800 [facility] Last Admin: 12/28/19 09:11 Dose: 40 mg Documented by: Sodium Chloride () 10 - 40 ml IV UD PRN PRN Reason: SALINE FLUSH Last Admin: 12/27/19 11:34 Dose: 10 ml Documented by: Medical Necessity - Tobacco Use Smoking Status: Current every day smoker Tobacco Use: Cigarettes Assessment/Plan All Active Problems (Last Reviewed 12/14/19 @ 10:09 by Stacy Austin) Severe sepsis (Acute) Acute respiratory failure with hypoxia and hypercarbia (Acute) Pneumonia (Acute) RECOMMENDATIONS: 1. Complete 5 days of empiric antibiotics 2. Increase activity as tolerated 3. Walking oximetry prior to discharge 4. P.o. diet per swallow recommendations 5. Continue scheduled bronchodilators, continue p.o. steroids and wean over the next 12 to 14 days 6. Nicotine replacement therapy can be offered to the patient on discharge if agreeable. 7. Encourage incentive spirometer use and mobilize patient as tolerated. 8. Follow-up with nurse practitioner in 2 weeks and establish care with Dr. Dolan 9. Okay to discharge from pulmonary perspective IMPRESSIONS: 1. Acute on chronic combined respiratory failure secondary to COPD exacerbation secondary to rhinovirus The patient does have a reported history of COPD of unknown severity. She is a poor historian and is unable to identify who her primary pulmonary provider is or which inhaler she utilizes at her baseline. She additionally reports that she utilizes 4 L/min of supplemental oxygen at her baseline, on an as-needed basis. Her chest x-ray revealed findings concerning for some chronic interstitial changes and viral pneumonia. Viral work-up has shown positive rhinovirus. For now, the patient will be continued on empiric antimicrobials, bronchodilators, and p.o. steroids. Supplemental oxygen will be weaned as tolerated. Echocardiogram is relatively unremarkable except for increased pulmonary pressures (Probable type III Pulmonary hypertension). Patient will be at higher risk for desaturation with ambulation. 2. Severe sepsis Clinical concern for possible viral pneumonia. Work-up is currently pending. We will continue current supportive measures as noted above. Continue antibiotics for now given concerns for aspiration pneumonia to complete 5 days. 3. Chronic tobacco dependency Tobacco cessation counseling was provided. Nicotine replacement therapy can be offered to the patient while admitted to the hospital. 4. Troponin elevation Possibly related to demand ischemia in the setting of #1. However, although the patient denies a cardiac history, she does have Plavix and Lasix listed on her home medication regimen. Echocardiogram was relatively unremarkable except for expected increase in pulmonary pressures. Anticipated an element of elevated pulmonary artery pressures given size on CTA 5. Depression/hyperlipidemia/neuropathy/cachexia Complicates care, management, recovery and prognosis. Continue home medications as indicated. Nutrition consultation. Inpatient E&M: 97302 Subs Hosp L2
[2019-12-29] MEDS: Calcium Carbonate 500 MG Tablet PO (08:24)
[2019-12-29] MEDS: predniSONE 20 MG Tablet 40 MG PO (08:24)
[2019-12-29] MEDS: Aspirin 81 MG TAB.CHEW PO (08:24)
[2019-12-29] MEDS: Enoxaparin 40 MG/0.4 ML Syringe SC (08:25)
[2019-12-29] MEDS: Gabapentin 300 MG Capsule PO ×2 (08:25→11:20)
[2019-12-29] MEDS: Ensure Clear 120 ML Liquid PO (08:30)
--- NOTE | 2019-12-29 09:21 | PCM.DC ---
- Discharge Diagnoses Current Active Problems: Current Active and Chronic Problems (Last Reviewed 12/14/19 @ 10:09 by Stacy Austin) Severe sepsis (Acute) COPD exacerbation (Chronic) Acute respiratory failure with hypoxia and hypercarbia (Acute) Pneumonia (Acute) You will use the following diet at home:: Cardiac Your food should be the consistency of: Regular Discharge Activity: Return to Normal Activity Weight Bearing Status: Weight bearing as tolerated Call your doctor if you observe: Fever of 101 or Higher, Shortness of breath, Dizziness, Fainting spells, Swelling in the ankles, Chest pain, Increased palpitations (irregular heartbeat), Uncontrolled pain Instructions: Using Oxygen at Home, Treatments for COPD Allergies/Adverse Reactions: Allergies pregabalin [From Lyrica] Allergy (Verified 12/25/19 04:23) double vision Medications to take at Discharge albuterol sulfate 90 mcg/actuation aerosol inhaler 2 puff INHALATION Q6H PRN 11/16/19 aspirin 81 mg tablet,delayed release 81 mg PO DAILY 11/16/19 gabapentin 300 mg capsule 300 mg PO 4X/DAY 11/16/19 biotin 1,000 mcg chewable tablet 1,000 mcg PO DAILY 12/14/19 buprenorphine HCl 75 mcg buccal film 75 mcg BUCCAL TID ea 12/14/19 mineral oil-hydrophil petrolat 1 applic TOPICAL TID PRN #50 g 12/14/19 Acetaminophen 1,000 mg PO TID PRN PRN 12/25/19 Baclofen [Lioresal] 10 mg PO QHS 12/25/19 Calcium Carbonate 500 mg PO BID 12/25/19 Cholecalciferol (Vitamin D3) [Vitamin D3] 50 mcg PO DAILY 12/25/19 Clopidogrel Bisulfate [Clopidogrel] 75 mg PO QHS 12/25/19 Escitalopram Oxalate 10 mg PO QHS 12/25/19 Furosemide [Lasix] 20 mg PO DAILY 12/25/19 Ipratropium/Albuterol Sulfate [Iprat-Albut 0.5-3(2.5) mg/3 ml] 3 ml IH 4X/DAY PRN PRN 12/25/19 Magnesium Oxide [Magox 400] 1,200 mg PO QHS 12/25/19 Magnesium Oxide [Magox 400] 400 mg PO DAILY 12/25/19 Rosuvastatin Calcium 20 mg PO QHS 12/25/19 Amox/Clavulanate Tablet [Augmentin Tablet] 500 mg PO BIDCM #8 tab 12/29/19 Prednisone 40 mg PO DAILY #30 tab.ds.pk 12/29/19 The following prescriptions were given: Amox/Clavulanate Tablet [Augmentin Tablet] 500 mg PO BIDCM #8 tab Transmission Status: Pending to [facility]/pharmacy #[id number] Prednisone 40 mg PO DAILY #30 tab.ds.pk Prescription Printed Primary Care Physician: Amelie Cazares MD [Primary Care Provider] - Please follow up with your Primary Care Physician in: 1 week. Test Results: Test results from this visit will be discussed in further detail at your follow-up appointment, if applicable.
--- NOTE | 2019-12-29 09:55 | CASEMGMT ---
Social Work Note Pt is being discharged home today. DELIA placed a call to pt's CM Martha Dick and left message updating her pt will be discharged home today. DELIA faxed discharge paperwork to Martha. Millie Dela Cruz [employer], [employer]
--- NOTE | 2019-12-29 10:09 | CASEMGMT ---
RN CM Note: Patient is for discharge today. CHN updated and start of care will be planned for tomorrow. DC information faxed. Call to room to updated pt to expect call from [facility] for start of care set up. Geri COELHO RN AC
--- NOTE | 2019-12-29 10:17 | PCM.DC.SUM ---
Discharge Date and Diagnosis - Problem List Patient Problems: Active and Suspected Problems (Last Reviewed 12/14/19 @ 10:09 by Stacy Austin) Acute on chronic respiratory failure with hypoxia and hypercapnia (Acute) Severe sepsis (Acute) Acute respiratory failure with hypoxia and hypercarbia (Acute) Date of Admission: 12/25/19 Date of Discharge: 12/29/19 - Primary Discharge Diagnosis Acute Problems: Active Problems (Last Reviewed 12/14/19 @ 10:09 by Stacy Austin) #1 acute COPD exacerbation triggered by rhinovirus. #2 acute on chronic combined hypoxic and hypercapnic respiratory failure. #3 severe sepsis attributed to probable viral pneumonia. #4 abnormal cardiac enzymes. - Secondary Discharge Diagnosis Chronic Problems: Chronic Problems (Last Reviewed 12/14/19 @ 10:09 by Stacy Austin) COPD exacerbation (Chronic) Anxiety and depression (Chronic) CVA (cerebral vascular accident) (Chronic) COPD (chronic obstructive pulmonary disease) (Chronic) Chronic back pain (Chronic) Hospital Course and Treatment Imaging Results: Clinical Impression(s) from Imaging Studies Chest X-Ray 12/25/19 04:27 IMPRESSION: Ill-defined subpleural groundglass opacities are seen more prominent in the lung bases , may represent atypical pneumonia or viral pneumonia (COVID-19 ?). Electronically Signed: Deepika Garza, at 5:31 EDT Tel , Service support , Chest CTA 12/25/19 10:23 IMPRESSION: 1. No CTA evidence of pulmonary thromboemboli, thoracic aortic aneurysm or dissection. 2. Abnormally dilated pulmonary arteries consistent with pulmonary arterial hypertension. 3. Multiple noncoalescent centrilobular cystic emphysema predominant type of COPD, right upper lobe greater than left upper lobe. 4. Right posterior lower lobe atelectases with air bronchograms and moderate right subpulmonic loculated appearing pleural fluid. 5. Small partial atelectases in the left posterior lung base with minimal air bronchograms. 6. Pronounced kyphosis of the upper thoracic spine with grade 2 anterolisthesis of T4 on T5. 7. Multiple old compression fractures of T5, T6, T7, T10 and upper L1 vertebral bodies. 8. PMMA casts inside old T2, T3 and T4 vertebral body fractures from previous kyphoplasty. 9. Extensive streak artifacts coming from pedicular screws and rods in the thoracolumbar spine. Electronically Signed: Florentin Oneal MD at 11:50 EDT , Service support , Chest X-Ray 12/25/19 17:22 IMPRESSION: 1. Bilateral basilar atelectasis. 2. Moderate to severe emphysema. 3. At least moderate pulmonary arterial hypertension, right heart enlargement. Electronically Signed: Jaye Nation, at 18:10 EDT Tel , Service support , Chest X-Ray 12/26/19 05:12 IMPRESSION: System bilateral lower lobe infiltrates, pneumonia. Extensive spinal fusion from the upper thoracic spine to the lumbar spine. Bilateral enlargement of the pulmonary arteries consider pulmonary arterial hypertension. Electronically Signed: Porsha Mares MD at 6:51 EDT Tel , Service support , Dr. Dolan/Dr. Villela, critical care/pulmonology. Operations: None Procedures: 2-D Echocardiogram, EKG Summary of Care Provided: Patient seen and examined on the day of discharge and appeared to be stable to be discharged home. Her symptoms been improving and she remained stable on 4 L of oxygen which is her baseline at home mainly at night. She denied any chest pain. Her other vital signs are stable. Pulse ox is maintained at 95% on 4 L. The patient is a 64 year old F presented to the emergency room because of worsening shortness of breath and cough as well as weakness and she was found to have acute COPD exacerbation complicated by acute combined hypoxic and hypercapnic respiratory failure. On admission, chest x-ray revealed subpleural groundglass opacities more prominent on the lung bases. He had a CTA chest done and showed no PE or dissection, revealed multiple centrilobular cystic emphysema and right lower lobe atelectasis with air bronchograms. Her ABG on admission revealed pH of 7.33, PCO2 of 66 and PO2 of 77. Patient was admitted to intensive care unit as a case of acute COPD exacerbation complicated by acute on chronic combined with respiratory failure, treated with BiPAP, IV steroids, antibiotics and bronchodilators. She was found to have severe sepsis based on tachycardia, tachypnea, leukocytosis and elevated lactic acid. COVID-19 PCR was negative. Respiratory panel for viruses were positive for rhinovirus. Pneumococcal and Legionella antigen were negative. Blood culture showed no growth in 48 hours. Preliminary sputum culture revealed no growth. She was found to have elevated troponin. Troponin trend was 0.61, 0.59, 0.45. EKG revealed sinus tachycardia without evidence of acute ischemic changes. 2D echocardiogram revealed ejection fraction 55%, no regional wall motion abnormalities, normal LV size and function, pulmonary artery pressure was 44 and bubble contrast study was negative for [id number] shunt. With above-mentioned treatment, patient symptoms improved slowly and she was able to come down on her oxygen requirement to 4 L by nasal cannula. At home, patient has been using oxygen at 4 L mainly at night. On 4 L of oxygen, patient remained stable and she mentioned that she is back to her baseline in terms of breathing and oxygen requirement. This elevated troponin is attributed to demand ischemia secondary to acute COPD exacerbation and acute on chronic respiratory failure. Apparently, patient has been on Plavix for history of stroke. After discussion with cardiology, it was appropriate to have the patient do a stress test as outpatient. I informed the patient that she will need to follow-up with her PCP in a week for nuclear stress test which will be done as outpatient. I spoke to Dr. Cazares, patient's PCP, and I informed her that this patient has elevated troponin and echocardiogram revealed normal LV size and function without evidence of wall motion normalities and cardiology recommended nuclear stress test as outpatient. Patient discharged home in a stable condition, discharged on p.o. Augmentin for 4 days to complete total of 7 days of treatment, discharged on prednisone taper, continued on her other previous home medications without any changes, plan to follow-up with PCP in 1 week and stress test as outpatient. Patient Problems: Active and Suspected Problems (Last Reviewed 12/14/19 @ 10:09 by Stacy Austin) Acute on chronic respiratory failure with hypoxia and hypercapnia (Acute) Severe sepsis (Acute) Acute respiratory failure with hypoxia and hypercarbia (Acute) - Physical Exam Vitals/I&O's: Vital Signs Temp Pulse Resp BP Pulse Ox 97.6 F L 66 18 92/69 95 12/29/19 08:15 12/29/19 08:15 12/29/19 08:15 12/29/19 08:15 12/29/19 08:15 Oxygen Flow Rate (L/min) 4 Oxygen Delivery Method Nasal Cannula Weight: 98 lb 8.746 oz Body Mass Index (BMI) 20.6 Intake and Output for Last 24 Hours 12/27/19 12/28/19 12/29/19 23:59 23:59 23:59 Intake Total 630 / 630 690 / 690 100 / 100 Output Total 750 / 750 Balance -120 / -120 690 / 690 100 / 100 General: Alert, Oriented x3, Cooperative, No apparent distress HEENT: Atraumatic, PERRLA, EOMI, Normocephalic Oral: Moist Mucosa, No Gingival or Mucosal Lesions/ Ulcerations Neck: Supple, No JVD, Negative Carotid Bruits, Trachea Midline, Thyroid Normal Size and Texture Lungs: No wheeze, No rales, Diminished, Rhonchi, - - Diminished breath sounds bilateral, scattered rhonchi. Cardiovascular: Regular rate, Regular Rhythm, Normal S1, Normal S2, PMI Normal Abdomen: Bowel Sounds Present, Soft, Non Tender, Non-Distended, No Hepato-splenomegaly Extremities: No clubbing, No cyanosis, No edema Skin: No rashes, No breakdown Lymphatic: No Cervical, Supraclavicular, or Inguinal Adenopathy Neurological: Cranial nerves II-XII grossly intact, Neuro grossly intact Psych/Mental Status: Normal Affect, Appropriate, Alert and oriented to time, place, person, mood and affect Microbiology Past 72 Hours 12/27/19 22:50 Sputum, Expectorated/Coughed Gram Stain - Final 12/27/19 22:50 Sputum, Expectorated/Coughed Respiratory Culture - Preliminary Culture exhibits no growth. 12/25/19 04:30 Blood Culture (Wb) #2 - Anticubital Left Blood Culture - Preliminary No growth in 48 hours. 12/25/19 04:42 Blood Culture (Wb) - Right Wrist Blood Culture - Preliminary No growth in 48 hours. Current Medications Acetaminophen (Tylenol) 650 mg PO Q6H PRN PRN PRN Reason: Pain Score 1-10/Temp > 100.7 F Last Admin: 12/29/19 00:30 Dose: 650 mg Documented by: Albuterol Sulfate (Ventolin Aerosols) 2.5 mg INHALATION Q2H PRN PRN PRN Reason: SOB/Wheezing Last Admin: 12/25/19 14:02 Dose: 2.5 mg Documented by: Albuterol/Ipratropium (Duoneb) 3 ml INHALATION Q4HWA.RT [facility] Last Admin: 12/29/19 07:16 Dose: 3 ml Documented by: Amoxicillin/Clavulanate Potassium ([facility]in Tablet) [facility] Stop: 12/31/19 08:01 Last Admin: 12/28/19 17:00 Dose: 500 mg Documented by: Aspirin (Aspirin, Baby) 81 mg PO DAILY@0800 [facility] Last Admin: 12/29/19 08:24 Dose: 81 mg Documented by: Atorvastatin Calcium (Lipitor) 40 mg PO QHS [facility] Last Admin: 12/28/19 21:19 Dose: 40 mg Documented by: Baclofen (Lioresal) 10 mg PO QHS [facility] Last Admin: 12/28/19 21:19 Dose: 10 mg Documented by: Calcium Carbonate (Tums) 500 mg PO BIDCM [facility] Last Admin: 12/29/19 08:24 Dose: 500 mg Documented by: Cholecalciferol (Vitamin D (25mcg)) 1,000 unit PO DAILY [facility] Last Admin: 12/29/19 08:25 Dose: 1,000 unit Documented by: Clopidogrel Bisulfate (Plavix) 75 mg PO DAILY [facility] Last Admin: 12/29/19 08:25 Dose: Not Given Documented by: Enoxaparin Sodium (Lovenox) 40 mg SC DAILY [facility] Last Admin: 12/29/19 08:25 Dose: 40 mg Documented by: Escitalopram Oxalate (Lexapro) 10 mg PO DAILY@2200 [facility] Last Admin: 12/28/19 21:19 Dose: 10 mg Documented by: Furosemide (Lasix) 20 mg PO DAILY [facility] Last Admin: 12/29/19 09:56 Dose: Not Given Documented by: Gabapentin (Neurontin) 300 mg PO TIDCM [facility] Last Admin: 12/29/19 08:25 Dose: 300 mg Documented by: Sodium Chloride () 250 mls @ 15 mls/hr IV .[id number] PRN PRN Reason: Additional IVPB Infusion Melatonin (Melatonin) 3 mg PO QHS PRN PRN PRN Reason: INSOMNIA Last Admin: 12/28/19 21:20 Dose: 3 mg Documented by: Nicotine (Nicoderm Cq (Pbkc)) 14 mg TRANSDERM. DAILY [facility] Last Admin: 12/29/19 08:25 Dose: 14 mg Documented by: Nutritional Formula (Lactose Free) (Ensure Clear) 120 ml PO 4X/DAY [facility] Last Admin: 12/29/19 08:30 Dose: 120 ml Documented by: Nystatin (Nystatin) 500,000 unit PO 4X/DAY [facility] Last Admin: 12/29/19 08:25 Dose: Not Given Documented by: Ondansetron HCl (Zofran) 4 mg IV Q8H PRN PRN PRN Reason: NAUSEA/VOMITING Oxycodone HCl (Oxyir) 10 mg PO Q4H PRN PRN PRN Reason: Pain Score 6-10/10 Last Admin: 12/29/19 06:49 Dose: 10 mg Documented by: Prednisone () 40 mg PO DAILY@0800 [facility] Last Admin: 12/29/19 08:24 Dose: 40 mg Documented by: Sodium Chloride () 10 - 40 ml IV UD PRN PRN Reason: SALINE FLUSH Last Admin: 12/27/19 11:34 Dose: 10 ml Documented by: Discharge Activity: Return to Normal Activity Weight Bearing Status: Weight bearing as tolerated Call your doctor if you observe: Fever of 101 or Higher, Shortness of breath, Dizziness, Fainting spells, Swelling in the ankles, Chest pain, Increased palpitations (irregular heartbeat), Uncontrolled pain Home Medications: Medications to take at Discharge albuterol sulfate 90 mcg/actuation aerosol inhaler 2 puff INHALATION Q6H PRN 11/16/19 aspirin 81 mg tablet,delayed release 81 mg PO DAILY 11/16/19 gabapentin 300 mg capsule 300 mg PO 4X/DAY 11/16/19 biotin 1,000 mcg chewable tablet 1,000 mcg PO DAILY 12/14/19 buprenorphine HCl 75 mcg buccal film 75 mcg BUCCAL TID ea 12/14/19 mineral oil-hydrophil petrolat 1 applic TOPICAL TID PRN #50 g 12/14/19 Acetaminophen 1,000 mg PO TID PRN PRN 12/25/19 Baclofen [Lioresal] 10 mg PO QHS 12/25/19 Calcium Carbonate 500 mg PO BID 12/25/19 Cholecalciferol (Vitamin D3) [Vitamin D3] 50 mcg PO DAILY 12/25/19 Clopidogrel Bisulfate [Clopidogrel] 75 mg PO QHS 12/25/19 Escitalopram Oxalate 10 mg PO QHS 12/25/19 Furosemide [Lasix] 20 mg PO DAILY 12/25/19 Ipratropium/Albuterol Sulfate [Iprat-Albut 0.5-3(2.5) mg/3 ml] 3 ml IH 4X/DAY PRN PRN 12/25/19 Magnesium Oxide [Magox 400] 1,200 mg PO QHS 12/25/19 Magnesium Oxide [Magox 400] 400 mg PO DAILY 12/25/19 Rosuvastatin Calcium 20 mg PO QHS 12/25/19 Amox/Clavulanate Tablet [Augmentin Tablet] 500 mg PO BIDCM #8 tab 12/29/19 Prednisone 40 mg PO DAILY #30 tab.ds.pk 12/29/19 Following Prescriptions Were Given to Patient: Amox/Clavulanate Tablet [Augmentin Tablet] 500 mg PO BIDCM #8 tab Transmission Status: Received by [facility]/pharmacy #[id number] Prednisone 40 mg PO DAILY #30 tab.ds.pk Prescription Printed Primary Care Physician: Amelie Cazares MD [Primary Care Provider] - Please follow up with your Primary Care Physician in: 1 week. Please Follow Up With: Morgan COULTER When: Patient Instructions: Using Oxygen at Home, Treatments for COPD Disposition: Home Minutes spent on discharge:: 33 Patient Condition:: Stable Medical Necessity - Tobacco Use Smoking Status: Current every day smoker Tobacco Use: Cigarettes Meaningful Use Info Meaningful Use Diagnoses (Choose all that apply): None applicable Inpatient E&M: 66152 Disch Hosp
[2019-12-29] MEDS: Amox/Clavulanate 500 MG Tablet PO (10:27)
--- NOTE | 2019-12-29 12:35 | PHA.DC.MR ---
Pharmacy Service has performed discharge medication reconciliation for this patient. The patient's discharge medication list was reviewed for discrepancies and discrepancies were resolved. Home Medications albuterol sulfate 90 mcg/actuation aerosol inhaler 2 puff INHALATION Q6H PRN 11/16/19 aspirin 81 mg tablet,delayed release 81 mg PO DAILY 11/16/19 gabapentin 300 mg capsule 300 mg PO 4X/DAY 11/16/19 biotin 1,000 mcg chewable tablet 1,000 mcg PO DAILY 12/14/19 buprenorphine HCl 75 mcg buccal film 75 mcg BUCCAL TID ea 12/14/19 mineral oil-hydrophil petrolat 1 applic TOPICAL TID PRN #50 g 12/14/19 Acetaminophen 1,000 mg PO TID PRN PRN 12/25/19 Baclofen [Lioresal] 10 mg PO QHS 12/25/19 Calcium Carbonate 500 mg PO BID 12/25/19 Cholecalciferol (Vitamin D3) [Vitamin D3] 50 mcg PO DAILY 12/25/19 Clopidogrel Bisulfate [Clopidogrel] 75 mg PO QHS 12/25/19 Escitalopram Oxalate 10 mg PO QHS 12/25/19 Furosemide [Lasix] 20 mg PO DAILY 12/25/19 Ipratropium/Albuterol Sulfate [Iprat-Albut 0.5-3(2.5) mg/3 ml] 3 ml IH 4X/DAY PRN PRN 12/25/19 Magnesium Oxide [Magox 400] 1,200 mg PO QHS 12/25/19 Magnesium Oxide [Magox 400] 400 mg PO DAILY 12/25/19 Rosuvastatin Calcium 20 mg PO QHS 12/25/19 Amox/Clavulanate Tablet [Augmentin Tablet] 500 mg PO BIDCM #8 tab 12/29/19 Prednisone 40 mg PO DAILY #30 tab.ds.pk 12/29/19
--- NOTE | 2019-12-30 10:59 | CASEMGMT ---
ISAIAS FLYNN DC PHONE CALL DC DATE: 12/30/19 DC DISPOSITION: Home with [facility] DC DIAGNOSIS: COPD exacerbation LACE/STRATA: 03/01 F/U APPTS MADE PRIOR TO DC: no Intro role of CM to patient who states she is doing well, but could not speak on the phone at the time of call. Call to [facility], they had contacted the patient and will start care 12/30/19 at the patient's request. Geri CAMPBELLN RN ACM
--- NOTE | 2019-12-30 11:35 | CASEMGMT ---
ISAIAS FLYNN DC PHONE CALL DC DATE: 12/29/19 DC DISPOSITION: Home with [facility] DC DIAGNOSIS: COPD exacerbation LACE/STRATA: 03/01 F/U APPTS MADE PRIOR TO DC: no Intro role of CM to patient who states she is doing well, but could not speak on the phone at the time of call. Call to [facility], they had contacted the patient and will start care 12/30/19 at the patient's request. -returned call after 30 minutes. Patient states the pharmacy did not have her antibiotic, but when called today, the prescription was ready for pear picker. No intervention needed. Geri CAMPBELLN RN ACM
== END 2019-12-29 13:00 | disposition home health service (06) | DRG 720 ==
LOC: ED 05:34 → ICU 06:22 → MS3 12-27 13:12
PROVIDERS: Family Medicine; Admitting Provider Family Medicine; Emergency Provider Emergency Medicine; PCP Internal Medicine; Visit Provider Hospitalist
DX: A41.9 Sepsis, unspecified organism (principal); J96.21 Acute and chronic respiratory failure with hypoxia; J96.22 Acute and chronic respiratory failure with hypercapnia; R65.20 Severe sepsis without septic shock; J44.1 Chronic obstructive pulmonary disease with (acute) exacerbation; J44.0 Chronic obstructive pulmonary disease with (acute) lower respiratory infection; J12.89 Other viral pneumonia; B97.89 Other viral agents as the cause of diseases classified elsewhere; F32.9 Major depressive disorder, single episode, unspecified; F41.9 Anxiety disorder, unspecified; F17.210 Nicotine dependence, cigarettes, uncomplicated; E78.5 Hyperlipidemia, unspecified; G62.9 Polyneuropathy, unspecified; G89.4 Chronic pain syndrome; I10 Essential (primary) hypertension; R73.9 Hyperglycemia, unspecified; T38.0X5A Adverse effect of glucocorticoids and synthetic analogues, initial encounter; E44.0 Moderate protein-calorie malnutrition; Z68.20 Body mass index [BMI] 20.0-20.9, adult; I27.21 Secondary pulmonary arterial hypertension; E87.2 Acidosis; B37.9 Candidiasis, unspecified; M81.0 Age-related osteoporosis without current pathological fracture; I24.8 Other forms of acute ischemic heart disease; Z99.81 Dependence on supplemental oxygen
CPT/HCPCS: 36415; 36600; 71045; 71275; 74230; 80048; 80053; 80061; 80076; 80307; 80320; 82728; 82803; 83036; 83605; 83615; 83735; 83880; 84145; 84484; 85025; 85379; 86140; 87040; 87070; 87077; 87186; 87205; 87449; 87633; 87635; 87641; 92526; 92610; 92611; 93005; 93306; 94002; 94640; 97110; 97162; 97166; 97535; 99285; J7030; Q9957; Q9967; A4216; G0480; U0003

== ENCOUNTER → 2020-01-09 15:48 | Outpatient (CLI) | payer MEDICAID, SELFPAY ==
[2020-01-09 14:50] VITALS: BMI 20.6
[2020-01-09 17:34] LABS: AST(SGOT) 24 U/L (15-37); Alanine Aminotransfer ALT/SGPT 28 U/L (13-56); Albumin, Serum 3.4 g/dL (3.2-5.0); Alkaline Phosphatase 102 U/L (45-117); Anion Gap 1 (5-15); BUN 16 mg/dL (7-18); Chloride 99 mmol/L (98-107); Creatinine, Serum 0.67 mg/dL (0.55-1.02); EST Glomerular Filtration Rate 95 mL/min (>60); Est Glom Filt Rate - Afr Amer 115 mL/min (>60); Globulin 3.3 g/dL (2.2-4.2); Glucose 85 mg/dL (74-106); Potassium 4.1 mmol/L (3.5-5.1); Protein, Total 6.7 g/dL (6.4-8.2); Sodium Level 139 mmol/L (136-145)
== END ==
PROVIDERS: PCP Internal Medicine; Referring Provider Internal Medicine; Visit Provider Internal Medicine
DX: I63.9 Cerebral infarction, unspecified (principal); E78.5 Hyperlipidemia, unspecified
CPT/HCPCS: 36415; 80053

== ENCOUNTER 2020-01-17 17:09 | Inpatient (IN) | payer MEDICAID, SELFPAY ==
[2020-01-09 14:50] VITALS: BMI 20.6
[2020-01-17] VITALS (17 sets, daily range): BP systolic 79–103; BP diastolic 56–72; PULSE 81–132; RESP 13–19; TEMP 36.3–37; O2SAT 81–98; BMI 19.3; BMI 19.4; BMI 19.5
--- NOTE | 2020-01-17 17:21 | EKG12_ITS ---
Test Reason : SOB Blood Pressure : / mmHG Vent. Rate : 091 BPM Atrial Rate : 091 BPM P-R Int : 152 ms QRS Dur : 082 ms QT Int : 352 ms P-R-T Axes : 076 135 104 degrees QTc Int : 432 ms Normal sinus rhythm Right axis deviation Possible Right ventricular hypertrophy ST & T wave abnormality, consider anterolateral ischemia Abnormal ECG Confirmed by TIFF FLORENTINO, ARIADNA ([id number]), editorial specialist DALIA ADAMS ([id number]) on 01/23/2020 11:52:43 AM Referred By: Cassandra Jane Confirmed By:ARIADNA MATTHEW MD
--- NOTE | 2020-01-17 17:21 | ED.RN ---
PT DROWSY, CLOSES EYES DURING ASSESSMENT, AWAKES TO NAME.
[2020-01-17 17:32] LABS: Absolute Lymphocyte Count 0.38 X10^3/uL (0.83-4.51); Absolute Neutrophil Count 9.9 X10^3/uL (2.0-7.7); Basophil# 0.03 X10^3/uL; Basophil% 0.3 % (0-1); Eosinophil# 0.38 X10^3/uL; Eosinophils% 3.3 % (0-5); Hematocrit 49.4 % (37-47); Hemoglobin 15.2 g/dL (12.0-15.0); Lymphocyte # 0.38 X10^3/ul (4.0); Lymphocyte % 3.3 % (19-41); Mean Corp Hgb Conc 30.8 g/dL (32-36); Mean Corpuscular Volume 100.8 fL (81-99); Mean Platelet Vol. 10.3 fl (6.2-12.0); Monocyte# 0.76 X10^3/uL; Monocyte% 6.6 % (0-10); NRBC Flagged by Analyzer 0 % (0-5); Neutrophil # 9.93 X10^3/uL (2.7-7.7); Neutrophil % 86.1 % (47-70); POSITIVE DIFFERENTIAL YES; POSITIVE MORPHOLOGY YES; Platelet Count 172 K/mm3 (150-450); RBC Distribution Width CV 15.7 % (11.6-14.6); RBC Distribution Width SD 58.5 fl (35.1-43.9); White Blood Count 11.5 K/mm3 (4.4-11.0)
[2020-01-17 17:38] LABS: Differential Indicated SCAN CRITERIA MET
[2020-01-17] MEDS: 0.9% Normal Saline 1,000 ML 150 ML IV (17:41)
[2020-01-17 17:44] LABS: International Normalized Ratio 1.2; Prothrombin Time (Protime)PT. 14.7 SECONDS (11.7-14.9)
[2020-01-17 17:45] LABS: Partial Thromboplast Time 29.8 Seconds (24.1-36.2)
[2020-01-17 17:54] LABS: ALB/GLOB Ratio 0.8 RATIO (0.9-2.4); AST(SGOT) 31 U/L (15-37); Alanine Aminotransfer ALT/SGPT 20 U/L (13-56); Albumin, Serum 3.3 g/dL (3.2-5.0); Alkaline Phosphatase 98 U/L (45-117); Anion Gap 3 (5-15); BUN 15 mg/dL (7-18); BUN/Creat Ratio 15.7 RATIO (10-20); Chloride 98 mmol/L (98-107); Creatinine, Serum 0.96 mg/dL (0.55-1.02); EST Glomerular Filtration Rate 63 mL/min (>60); Est Glom Filt Rate - Afr Amer 76 mL/min (>60); Estimated Creatinine Clearance 42.61 ml/min; Globulin 4.1 g/dL (2.2-4.2); Glucose 149 mg/dL (74-106); Potassium 4.5 mmol/L (3.5-5.1); Protein, Total 7.4 g/dL (6.4-8.2); Sodium Level 139 mmol/L (136-145)
[2020-01-17 17:56] LABS: Bacteria 0 SEEN /hpf (None Seen); Red Blood Cells-Urine 0 SEEN /hpf (0-5); Squamous Epithelial Cells - UA 0 SEEN /hpf (5-10); White Blood Cells 0 SEEN /hpf (0-5)
--- NOTE | 2020-01-17 18:05 | RAD_ITS ---
STUDY: X-RAY CHEST REASON FOR EXAM: Female, 64 years old. COPD flare. TECHNIQUE: Single AP portable view of the chest. COMPARISON: 12/26/2019. FINDINGS: Again seen is chronic interstitial changes within the lungs. There is an increasing right pleural effusion. Vague nodular density at the left lung base not previously seen. There is persistent minimal linear densities in the left lung base again noted. Normal size heart. Normal mediastinum. Again seen is enlarged wallace, right greater than left.. Question pulmonary hypertension. Normal visualized pulmonary arteries. Normal visualized aortic arch and descending thoracic aorta. Stable fusion of the thoracolumbar spine. Stable fusion of the lower cervical spine. Normal visualized ribs, clavicles, and shoulders. There is no demonstrated abnormality of the visualized soft tissue structures of the upper abdomen. RAD/Chest 1 View (Portable) IMPRESSION: 1. Increased right pleural effusion. 2. Persistent bibasilar infiltrates. 3. No other major interval change. Electronically Signed: Donald Raines DO at 18:27 EDT Tel [phone], Service support ,
--- NOTE | 2020-01-17 18:07 | CT_ITS ---
STUDY: CT BRAIN WITHOUT CONTRAST REASON FOR EXAM: Female, 64 years old. Altered mental status. History of COPD flare. Shortness of breath. History of hypertension, complete spinal fluid fusion and clubfoot. RADIATION DOSAGE (If Supplied By Facility): CTDIvol = ( 44.99 ) mGy, DLP = ( 478.39 ) mGycm TECHNIQUE: Transaxial CT imaging of the brain was performed without administration of intravenous contrast material. Individualized dose optimization techniques were used for this CT. COMPARISON: No relevant priors. FINDINGS: Normal soft tissue structures. Normal calvarium. Normal size ventricles and extra-axial spaces for the patient''s age. Normal white matter tracts of the cerebral hemispheres. There are small punctate calcifications of the basal ganglia which are seen in the aging brain as a normal variant. Normal brainstem. Normal cerebellum. There is no intracranial hemorrhage. There are no findings of an acute ischemic infarction. Normal visualized paranasal sinuses. CT/Brain/Head without Contrast IMPRESSION: No acute intracranial or calvarial abnormality. Electronically Signed: Donald Raines DO at 19:34 EDT Tel [phone], Service support ,
--- NOTE | 2020-01-17 18:10 | ED.VIS.GEN ---
History of Present Illness Chief Complaint: Shortness of Breath Informant: Patient, Knuckle Bender Narrative: Patient states that she is in the emergency department due to being tired. Reportedly her son called 911 after she said she was short of breath. She was found to be 78% on room air. End-tidal CO2 was 54. She is supposed to be wearing 4 L per here but did not have it on because I just woke up. She states she does recognize she is supposed to have it on while sleeping. She states that she takes 2 [place] a day. An [facility] report shows that she takes [place] as well as Buprenorphine. She states that she is short of breath. She has a scheduled duplex ultrasound of the leg for leg swelling. She denies any headache. She denies any pain. At least since her last admission Which was on 24 December. During that hospitalization was noted that her cardiac enzymes were elevated and she is post to have an outpatient stress test. She had an echocardiogram done in that hospital stay with a normal ejection fraction but elevated pulmonary artery pressures. Her beta natruretic peptide was also noted to be elevated and she was started on Lasix for some pulmonary edema which has continued. There was concern for possible aspiration during her last admission - Past Medical History (1) Acute on chronic respiratory failure with hypoxia and hypercapnia Status: Acute (2) Anxiety and depression Status: Chronic (3) COPD (chronic obstructive pulmonary disease) Status: Chronic (4) CVA (cerebral vascular accident) Status: Chronic (5) Chronic back pain Status: Chronic Past Medical History - Allergies and Home Meds Allergies/Adverse Reactions: Allergies pregabalin [From Lyrica] Allergy (Verified 01/17/20 17:14) double vision Primary Care Physician: Amelie Cazares MD [Primary Care Provider] - Lives: With Family Smoking Status: Current every day smoker Drugs: - - prescribed opiate medication - Family History Maternal Family History: Family History (Last Reviewed 12/14/19 @ 10:09 by Stacy Austin) Grandmother Diabetes Son Diabetes Other Asthma Family History: Reports: Heart Disease Paternal Family History: Family History (Last Reviewed 12/14/19 @ 10:09 by Stacy Austin) Grandmother Diabetes Son Diabetes Other Asthma Family History: Reports: Pulmonary Disease Review of Systems General: Reports: Malaise. Denies: Chills, Fever, Sweats Eyes: Denies: Visual changes - bilaterally, Diplopia ENT: Denies: Rhinorrhea, Sore throat Cardiovascular: Denies: Chest pain, Palpitations Respiratory: Reports: Dyspnea, Dyspnea on exertion. Denies: Cough Gastrointestinal: Denies: Abdominal pain, Nausea, Vomiting, Diarrhea, Melena, Hematochezia Genitourinary: Denies: Dysuria, Hematuria, Frequency Musculoskeletal: Denies: Back pain, Extremity Pain Skin: Denies: Rash, Wounds Neurological: Denies: Headache, Weakness, Numbness Physical Exam Vital Signs/Narrative: Vital Signs Temp Pulse Resp BP Pulse Ox 01/17/20 17:41 97.8 F 01/17/20 17:23 93 01/17/20 17:16 93 01/17/20 17:10 97.7 F L 98 14 101/65 98 Inital Vital Signs reviewed: Yes General: Well nourished, Well developed, No Acute Distress, - - Patient is somnolent. However she wakes to voice and speaks. She is moves all extremities. She does not appear to have any labored breathing. Head: Normocephalic, Atraumatic Eyes: Perrl, EOMI ENT: Moist mucous membranes, No rhinorrhea Neck: Supple, Nontender Cardiovascular: Regular rate, Regular rhythm, No murmurs Respiratory: No distress, CTA bilaterally, Chest nontender Abdomen: Soft, Nontender, Nondistended, Normal bowel sounds Back: Nontender, Normal Inspection Extremities: Nontender, No edema Skin: Normal color, No rash Neurological: Alert, Oriented x3, Cranial nerves II-XII grossly intact, Normal Strength, Normal Sensation Psychological: Normal affect, Normal Mood Diagnostic/Tx/Re-eval Clinical Impression(s) from Imaging Studies Chest X-Ray 01/17/20 18:05 IMPRESSION: 1. Increased right pleural effusion. 2. Persistent bibasilar infiltrates. 3. No other major interval change. Electronically Signed: Donald Raines DO at 18:27 EDT Tel [phone], Service support , Brain CT 01/17/20 18:07 IMPRESSION: No acute intracranial or calvarial abnormality. Electronically Signed: Donald Raines DO at 19:34 EDT Tel [phone], Service support , Abdomen/Pelvis CT 01/17/20 18:33 IMPRESSION: 1. A marked consolidation at the right lung base. 2. Hepatomegaly without mass. 3. Diffuse atherosclerotic changes of the thoracic aorta and iliac arteries. 4. Thoracolumbar spinal fusion. 5. Bilateral renal cysts. 6. Increased colonic feces suggesting constipation. 7. Evidence of hysterectomy. Electronically Signed: Donald Raines DO at 19:39 EDT Tel [phone], Service support , Chest CT 01/17/20 19:05 IMPRESSION: 1. Enlarging area of consolidation at the right lung base. This is thought to be partially atelectatic due to an elevated right hemidiaphragm. 2. Diffuse fibrotic changes posteriorly in the right lower lobe which are significantly increased from prior study. 3. Stable emphysematous change. 4. Stable findings of pulmonary hypertension. 5. Fusion of the spine, stable when compared to the earlier study. Electronically Signed: Donald Raines DO at 19:46 EDT Tel [phone], Service support , Laboratory Last Values WBC 11.5 K/mm3 (4.4-11.0) H 01/17/20 17:20 RBC 4.90 M/mm3 (4.2-5.4) 01/17/20 17:20 Hgb 15.2 g/dL (12.0-15.0) H 01/17/20 17:20 Hct 49.4 % (37-47) H 01/17/20 17:20 MCV 100.8 fL (81-99) H 01/17/20 17:20 MCH 31.0 pg (27.0-32.0) 01/17/20 17:20 MCHC 30.8 g/dL (32-36) L 01/17/20 17:20 RDW Std Deviation 58.5 fl (35.1-43.9) H 01/17/20 17:20 RDW Coeff of Valerio 15.7 % (11.6-14.6) H 01/17/20 17:20 Plt Count 172 K/mm3 (150-450) 01/17/20 17:20 MPV 10.3 fl (6.2-12.0) 01/17/20 17:20 Immature Gran % (Auto) 0.400 % (0.0-0.9) 01/17/20 17:20 Neut % (Auto) 86.1 % (47-70) H 01/17/20 17:20 Lymph % (Auto) 3.3 % (19-41) L 01/17/20 17:20 [place] % (Auto) 6.6 % (0-10) 01/17/20 17:20 Eos % (Auto) 3.3 % (0-5) 01/17/20 17:20 Baso % (Auto) 0.3 % (0-1) 01/17/20 17:20 Absolute Neuts (auto) 9.9 X10^3/uL (2.0-7.7) H 01/17/20 17:20 Absolute Lymphs (auto) 0.38 X10^3/uL (0.83-4.51) L 01/17/20 17:20 Nucleated RBC % 0 % (0-5) 01/17/20 17:20 PT 14.7 SECONDS (11.7-14.9) 01/17/20 17:20 INR 1.2 01/17/20 17:20 APTT 29.8 Seconds (24.1-36.2) 01/17/20 17:20 Specimen Type ART 01/17/20 18:24 pH 7.38 (7.35-7.45) 01/17/20 18:24 Bicarbonate Actual 33.9 mmol/L (22-26) H 01/17/20 18:24 Total CO2 36 mmol/L 01/17/20 18:24 Base Excess 9 mmol/L (-2 to +2) H 01/17/20 18:24 O2 Saturation 92 % (95-99) L 01/17/20 18:24 ABG pCO2 57.6 mmHg (35-45) H 01/17/20 18:24 ABG pO2 68 mmHG (75-100) L 01/17/20 18:24 Sodium 139 mmol/L (136-145) 01/17/20 17:20 Potassium 4.5 mmol/L (3.5-5.1) 01/17/20 17:20 Chloride 98 mmol/L (98-107) 01/17/20 17:20 Carbon Dioxide 38.0 mmol/L (21.0-32.0) H 01/17/20 17:20 Anion Gap 3 (5-15) L 01/17/20 17:20 BUN 15 mg/dL (7-18) 01/17/20 17:20 Creatinine 0.96 mg/dL (0.55-1.02) 01/17/20 17:20 Estim Creat Clear Calc 42.61 ml/min 01/17/20 17:20 Est GFR (MDRD) Af Amer 76 mL/min (>60) 01/17/20 17:20 Est GFR (MDRD) Non-Af 63 mL/min (>60) 01/17/20 17:20 BUN/Creatinine Ratio 15.7 RATIO (-20) 01/17/20 17:20 Glucose 149 mg/dL (74-106) H 01/17/20 17:20 Lactic Acid 2.3 mmol/L (0.4-1.9) H* 01/17/20 17:35 Calcium 9.0 mg/dL (8.5-10.1) 01/17/20 17:20 Total Bilirubin 1.00 mg/dL (0.20-1.00) 01/17/20 17:20 AST 31 U/L (15-37) 01/17/20 17:20 ALT 20 U/L (13-56) 01/17/20 17:20 Alkaline Phosphatase 98 U/L (45-117) 01/17/20 17:20 Troponin I 0.602 ng/mL (<0.045) H* 01/17/20 17:20 B-Natriuretic Peptide 342.9 pg/mL (0-100) H 01/17/20 17:20 Total Protein 7.4 g/dL (6.4-8.2) 01/17/20 17:20 Albumin 3.3 g/dL (3.2-5.0) 01/17/20 17:20 Globulin 4.1 g/dL (2.2-4.2) 01/17/20 17:20 Albumin/Globulin Ratio 0.8 RATIO (0.9-2.4) L 01/17/20 17:20 Urine Color Yellow (Yellow) 01/17/20 17:50 Urine Clarity Clear (Clear) 01/17/20 17:50 Urine pH 6.0 (5.0 - 8.0) 01/17/20 17:50 Ur Specific [place] 1.015 (1.002-1.030) 01/17/20 17:50 Urine Protein 15 mg/dl (Negative) H 01/17/20 17:50 Urine Glucose (UA) Normal mg/dl (Normal) 01/17/20 17:50 Urine Ketones 5 mg/dl (Negative) H 01/17/20 17:50 Urine Occult Blood Negative /ul (Negative) 01/17/20 17:50 Urine Nitrite Negative (Negative) 01/17/20 17:50 Urine Bilirubin Negative mg/dL (Negative) 01/17/20 17:50 Urine Urobilinogen 1 mg/dl (Normal) H 01/17/20 17:50 Ur Leukocyte Esterase Negative /ul (Negative) 01/17/20 17:50 Urine RBC 0 SEEN /hpf (0-5) 01/17/20 17:50 Urine WBC 0 SEEN /hpf (0-5) 01/17/20 17:50 Ur Squamous Epith Cells 0 SEEN /hpf (5-10) 01/17/20 17:50 Urine Bacteria 0 SEEN /hpf (None Seen) 01/17/20 17:50 Urine Mucus RARE /hpf (<or=2+) 01/17/20 17:50 Salicylates 3.1 mg/dL (2.8-20.0) 01/17/20 17:20 Urine Opiates Screen POSITIVE (< 300 ng/mL) H 01/17/20 17:50 Urine Methadone Screen NEGATIVE (< 300 ng/mL) 01/17/20 17:50 Acetaminophen < 2.0 ug/mL (10.0-30.0) L 01/17/20 17:20 Ur Barbiturates Screen NEGATIVE (< 200 ng/mL) 01/17/20 17:50 Ur Phencyclidine Scrn NEGATIVE (< 25 ng/mL) 01/17/20 17:50 Ur Amphetamines Screen NEGATIVE (<1000 ng/mL) 01/17/20 17:50 U Methamphetamin-MDMA NEGATIVE (< 500 ng/mL) 01/17/20 17:50 U Benzodiazepines Scrn NEGATIVE (< 200 ng/mL) 01/17/20 17:50 Urine Cocaine Screen NEGATIVE (< 300 ng/mL) 01/17/20 17:50 U Cannabinoids Screen NEGATIVE (< 50 ng/mL) 01/17/20 17:50 Ur Drug Screen Comment 01/17/20 17:50 Ethyl Alcohol 5.0 mg/dL 01/17/20 17:20 - EKG Initial EKG Interpretation: Sinus Rhythm - EKG demonstrates a normal sinus rhythm at a rate of 91. Comparing this to 26 December 2019 the T waves anterior laterally are now downward. - Medical Decision Making Patient was placed on supplemental oxygen to keep her oxygen saturation around 92%. ABG shows a pH 7.38 PCO2 57.6 PO2 68.2 bicarb 33.9. She received gentle hydration and later Zosyn out of concern for an aspiration pneumonia in the right lower lung. CT of the brain due to the altered mental status was obtained and negative. CT of the chest showed consolidation of the right lower lobe as did CT of the abdomen pelvis which was obtained due to the patient's reported tenderness to palpation diffusely in the abdomen. Her troponin is elevated higher than what it was her last admission and she has some inverted T waves in the anterior lateral leads. Question if this could be related to hypoxemia while sleeping and after she awoke. I think her lactic acid is most likely due to hypoxemia as well but could be related to her infection. Duplex ultrasound was negative for DVT. Sepsis reevaluation was performed. Patient has adequate perfusion. She is somnolent but responds easily to voice. She has good capillary refill not tachycardic. Her blood pressure is on the low side but she is sleeping and is extremely thin. Her pressures are in line with her blood pressures from prior admission. As she shows adequate clinical signs of perfusion clinically I do not believe she is in shock. Plan will be admission into the hospital. While awaiting the Covid results the patient was sleeping. She suddenly became tachycardic tachypneic and hypoxic. She was sat up given breathing treatments and her symptoms abated. Repeat chest x-ray shows the consolidation of the right lower lobe as well as some probable atelectatic changes of the right lung. I suspect that the patient was mucous plugging or aspirated. This event was discussed with the hospitalist prior to transfer to floor. ED Disposition - Plan for ED Patient: Diagnosis: Acute respiratory failure with hypoxia and hypercarbia, Elevated troponin, Encephalopathy acute, Aspiration pneumonia Referrals: Amelie Cazares MD [Primary Care Provider] -
[2020-01-17 18:19] LABS: Color, Urine Yellow (Yellow); Glucose, Dipstick Normal (Normal); Ketone-Dipstick 5 mg/dl (Negative); Leukocyte Esterase-Dipstick Negative /ul (Negative); Nitrite-Dipstick Negative (Negative); Occult Blood-Urine Negative /ul (Negative); Protein-Dipstick 15 mg/dl (Negative); Specific Gravity, Urine 1.015 (1.002-1.030); Urine Bilirubin Dipstick Negative (Negative); Urine Clarity Clear (Clear); Urine Urobilinogen 1 mg/dl (Normal)
[2020-01-17 18:30] LABS: Lactic Acid 2.3 mmol/L (0.4-1.9)
[2020-01-17 18:31] LABS: Base Excess 9 mmol/L (-2 to +2); Bicarbonate 33.9 mmol/L (22-26); Blood Gas Specimen Type ART; PO2 68 mmHG (75-100); SO2 92 % (95-99); Total Carbon Dioxide 36 mmol/L; pCO2 57.6 mmHg (35-45); pH 7.38 (7.35-7.45)
--- NOTE | 2020-01-17 18:33 | US_ITS ---
STUDY: VENOUS DOPPLER ULTRASOUND - LEFT LOWER EXTREMITY REASON FOR EXAM: Female, 64 years old. LT LEG SWELLING PT WAS UNCONSCIOUS DURING EXAM TECHNIQUE: Ultrasound evaluation of the deep vein system to include vasques-scale imaging and compression was performed. Vasques-scale imaging and Doppler sonographic evaluation, including duplex spectral analysis and qualitative color flow sonography, was performed. COMPARISON: None. FINDINGS: Common Femoral Vein: Normal compression, spontaneity and augmentation. Normal color Doppler. Common Femoral Vein/Greater Saphenous Junction: Normal compression, spontaneity and augmentation. Normal color Doppler. Deep Femoral Vein: Normal compression, spontaneity and augmentation. Normal color Doppler. Femoral Proximal: Normal compression, spontaneity and augmentation. Normal color Doppler. Femoral Middle: Normal compression, spontaneity and augmentation. Normal color Doppler. Femoral Distal: Normal compression, spontaneity and augmentation. Normal color Doppler. Popliteal Vein: Normal compression, spontaneity and augmentation. Normal color Doppler. Posterior Tibial Vein: Normal compression, spontaneity and augmentation. Normal color Doppler. Peroneal Vein: Normal compression, spontaneity and augmentation. Normal color Doppler. The right common femoral vein was evaluated and is normal US/Venous Duplex Imag/Limited/Uni IMPRESSION: No demonstrated deep venous thrombosis of left lower extremity. Electronically Signed: Ronald Bender MD at 20:39 EDT , Service support ,
--- NOTE | 2020-01-17 18:33 | CT_ITS ---
STUDY: CT ABDOMEN AND PELVIS WITH CONTRAST REASON FOR EXAM: Female, 64 years old. Altered mental status. COPD flare. History of hypertension, complete spinal fusion and clubfoot. RADIATION DOSAGE (If Supplied By Facility): CTDIvol = ( 26.79 ) mGy, DLP = ( 478.39 ) mGycm TECHNIQUE: Transaxial images were obtained from the dome of the diaphragm to the symphysis pubis without oral contrast. IV 75mL [id number]-300 was administered. Sagittal and coronal images were reconstructed. Individualized dose optimization techniques were used for this CT. COMPARISON: None. FINDINGS: The study is mildly limited due to artifact secondary to fusion of the thoracic or lumbar spine. Large area of consolidation in the right lung base. Minimal dependent changes are seen on the left. The visualized portions of the heart are within normal limits. There is hepatomegaly with diffuse hepatic enlargement. Normal gallbladder and extrahepatic biliary system. Normal spleen. Normal pancreas. Normal bilateral adrenal glands. There are at least 3 small cysts in the right kidney. Small cortical cysts are also seen in the left kidney. There is no renal calculi or hydronephrosis. Normal visualized stomach. Normal small intestine. Large amount of colonic feces without obstruction. There is non-visualization of the appendix. There is diffuse atherosclerotic calcification of the abdominal aorta, without a demonstrated aneurysm. Normal inferior vena cava. Normal retroperitoneum. Normal urinary bladder. Normal vaginal cuff. There are phleboliths in the pelvis without lymphadenopathy. No free air or free fluid is seen within the peritoneal cavity. Normal abdominal wall. There is posterior fusion of the visualized thoracolumbar spine. There appears to be a marked compression deformity of the L3 vertebral could be due to congenital deformity. CT/Abdomen/Pelvis W IV Cont ONLY IMPRESSION: 1. A marked consolidation at the right lung base. 2. Hepatomegaly without mass. 3. Diffuse atherosclerotic changes of the thoracic aorta and iliac arteries. 4. Thoracolumbar spinal fusion. 5. Bilateral renal cysts. 6. Increased colonic feces suggesting constipation. 7. Evidence of hysterectomy. Electronically Signed: Donald Raines DO at 19:39 EDT Tel [phone], Service support ,
[2020-01-17 18:36] LABS: Mucous, Urine RARE /hpf (<or=2+)
[2020-01-17 18:41] LABS: Amphetamine Urine VISTA NEGATIVE (<1000 ng/mL); Barbiturate Urine VISTA NEGATIVE (< 200 ng/mL); Benzodiazepine Urine VISTA NEGATIVE (< 200 ng/mL); Cocaine Urine VISTA NEGATIVE (< 300 ng/mL); Ecstacy Urine VISTA NEGATIVE (< 500 ng/mL); Methadone Urine VISTA NEGATIVE (< 300 ng/mL); PCP Urine VISTA NEGATIVE (< 25 ng/mL); THC Urine VISTA NEGATIVE (< 50 ng/mL); Vista UDS pH Range 6
--- NOTE | 2020-01-17 18:45 | PCM.HP.STD ---
Problem List (1) Acute on chronic respiratory failure with hypoxia and hypercapnia Status: Acute (2) Elevated troponin Status: Acute (3) Encephalopathy acute Status: Acute (4) Elevated lactic acid level Status: Acute (5) HTN (hypertension) Status: Chronic Qualifiers: Hypertension type: essential hypertension Qualified Code(s): I10 - Essential (primary) hypertension (6) HLD (hyperlipidemia) Status: Chronic Qualifiers: Hyperlipidemia type: unspecified Qualified Code(s): E78.5 - Hyperlipidemia, unspecified (7) PAH (pulmonary artery hypertension) Status: Chronic (8) Tobacco use Status: Chronic (9) Dysphagia Status: Chronic Qualifiers: Dysphagia type: unspecified Qualified Code(s): R13.10 - Dysphagia, unspecified (10) Anxiety and depression Status: Chronic (11) CVA (cerebral vascular accident) Status: Chronic Qualifiers: CVA mechanism: unspecified Qualified Code(s): I63.9 - Cerebral infarction, unspecified (12) COPD (chronic obstructive pulmonary disease) Status: Chronic Qualifiers: COPD type: unspecified COPD Qualified Code(s): J44.9 - Chronic obstructive pulmonary disease, unspecified (13) Chronic back pain Status: Chronic Qualifiers: Back pain location: back pain in unspecified location Back pain laterality: unspecified Qualified Code(s): M54.9 - Dorsalgia, unspecified; G89.29 - Other chronic pain History of Present Illness Date of Admission: 01/17/20 Chief Complaint: Somnolence, encephalopathy, hypoxia, respiratory failure. The patient is a 64 y/o F w/ PMHx: Chronic COPD with chronic hypoxic respiratory failure (4L NC) non-complaint with her oxygen, VEENA non-complaint with BIPAP, Hx CVA, OP, Chronic pain syndrome secondary to several thoracic and vertebral compression fractures with previous back surgeries with hardware present on buprenorphine/baclofen/gabapentin with concern for multiple providers, Anxiety and Depression, HTN, HLD, ongoing Tobacco use recently discharged on 12/29/19 following admission on 12/25/19 with treatment of acute on chronic COPD exacerbation secondary to rhinovirus, acute on chronic combined respiratory failure, severe sepsis secondary to her viral pneumonia and noted abnormal cardiac enzymes suspected secondary to demand (0.613-->trended down at discharge to 0.458) with planned outpatient stress testing once clinically improved who now re-presents to the [facility] ED on 01/17/20 with history of increased fatigue, dyspnea noted to called 911 following awakening with significant worsened shortness of breath with EMS evaluation noted to be 78% on room air but she had not been wearing her 4 L nasal cannula chronic regimen which she is supposed to while sleeping prompting EMS to bring her to the hospital. Patient notes she normally takes 2 [place]'s per day for her chronic pain but concern per ED for several providers of pain regimen. Patient does have mild left lower extremity edema but not severe and no marked pain, pending ED DVT US per discussion with ED physician. Patient notes that she is following with her primary care physician and is supposed to transition to pulmonology for follow-up and states that she has outpatient cardiac stress testing set up as during recent mission she had elevated cardiac enzyme felt secondary to demand. Work-up in the ED included T 97.7, heart rate 98, BP 101/65, respiratory rate 14, 98% on 4 L nasal cannula, CBC with WBC 11.5, hemoglobin 15.2, platelet 172 with left shift and concurrent lymphopenia, unremarkable coags, CMP with carbon oxide 38, glucose 149, troponin 0.602, lactic acid 2.3, urinalysis not marked appearing with no obvious evidence UTI, urine drug screen with positive opiates, pending salicylates and acetaminophen, ethyl alcohol level pending, CT head and CT A/P pending per ED, CXR with increased R pleural effusion, persistent bibasilar infiltrates unchanged from prior admission imaging, noted CTA 12/25/[address] evidence of PE, thoracic aortic aneurysm or dissection, evidence abnormally dilated pulmonary arteries consistent with PAH, multiple noncoalescent centrilobular cystic emphysema, right upper lobe greater than left upper lobe, right posterior lower lobe atelectasis with air bronchograms and moderate right subpulmonic loculated appearing pleural fluid, small partial atelectasis left posterior lung base with minimal air bronchograms, significant kyphosis, old compression fractures, extensive streak artifact from hardware therefore given chest x-ray possible association with these findings, blood culture x2 pending per ED, EKG was sinus rhythm with T waves anterior laterally now downward compared to recent. In the ED patient administered normal saline. COVID testing also pending. Past Medical History Past Medical History (Chronic Problems): Chronic Problems (Last Reviewed 12/14/19 @ 10:09 by Stacy Austin) HTN (hypertension) (Chronic) HLD (hyperlipidemia) (Chronic) PAH (pulmonary artery hypertension) (Chronic) Tobacco use (Chronic) Dysphagia (Chronic) Anxiety and depression (Chronic) CVA (cerebral vascular accident) (Chronic) COPD (chronic obstructive pulmonary disease) (Chronic) Chronic back pain (Chronic) Medical History: Medical History (Last Reviewed 12/14/19 @ 10:09 by Stacy Austin) CVA (cerebral vascular accident) I63.9 Osteoporosis M81.0 COPD (chronic obstructive pulmonary disease) J44.9 Allergies pregabalin [From Lyrica] Allergy (Verified 01/17/20 17:14) double vision Home Medications: Ambulatory Orders Medication Instructions Recorded albuterol sulfate 90 mcg/actuation 2 puff INHALATION Q6H PRN 11/16/19 aerosol inhaler aspirin 81 mg tablet,delayed 81 mg PO DAILY 11/16/19 release gabapentin 300 mg capsule 300 mg PO 4X/DAY 11/16/19 biotin 1,000 mcg chewable tablet 1,000 mcg PO DAILY 12/14/19 buprenorphine HCl 75 mcg buccal 75 mcg BUCCAL TID ea 12/14/19 film mineral oil-hydrophil petrolat 1 applic TOPICAL TID PRN #50 g 12/14/19 topical ointment Acetaminophen 1,000 mg PO TID PRN PRN 12/25/19 Baclofen [Lioresal] 10 mg PO QHS 12/25/19 Calcium Carbonate 500 mg PO BID 12/25/19 Cholecalciferol (Vitamin D3) 50 mcg PO DAILY 12/25/19 [Vitamin D3] Clopidogrel Bisulfate [Clopidogrel] 75 mg PO QHS 12/25/19 Escitalopram Oxalate 10 mg PO QHS 12/25/19 Furosemide [Lasix] 20 mg PO DAILY 12/25/19 Ipratropium/Albuterol Sulfate 3 ml IH 4X/DAY PRN PRN 12/25/19 [Iprat-Albut 0.5-3(2.5) mg/3 ml] Magnesium Oxide [Magox 400] 1,200 mg PO QHS 12/25/19 Magnesium Oxide [Magox 400] 400 mg PO DAILY 12/25/19 Rosuvastatin Calcium 20 mg PO QHS 12/25/19 Prednisone 40 mg PO DAILY #30 tab.ds.pk 12/29/19 Wheelchair #1 ea 01/09/20 Surgical History: Surgical History (Last Reviewed 12/14/19 @ 10:09 by Stacy Austin) 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 - *Family History Maternal Family History: Family History (Last Reviewed 12/14/19 @ 10:09 by Stacy Austin) Grandmother Diabetes Son Diabetes Other Asthma History Items: Heart Disease Paternal Family History: Family History (Last Reviewed 12/14/19 @ 10:09 by Stacy Austin) Grandmother Diabetes Son Diabetes Other Asthma History Items: Pulmonary Disease Review of Systems Psychiatric: Reports: Anxiety, Depression Unable to obtain accurate/complete ROS d/t: Somnolent. Unable to give ROS. Noted to EMS dyspnea, was hypoxic. Comment: Admits abdominal pain with examination in the ED to which she awakens minimally, but ED physician without pain elicited. VTE Information - Inpt Only VTE Present on Admission: No VTE Mechan Device Prophylaxis: SCD's VTE Pharm Prophylaxis ordered?: Yes Patient Problems: Active and Suspected Problems (Last Reviewed 12/14/19 @ 10:09 by Stacy Austin) Elevated troponin (Acute) Encephalopathy acute (Acute) Elevated lactic acid level (Acute) Acute on chronic respiratory failure with hypoxia and hypercapnia (Acute) Acute respiratory failure with hypoxia and hypercarbia (Acute) Subjective: Seated upright in the ED bed, awakens to some stimuli but not alert, currently no evidence of distress. Objective: Physical Examination: General: awakens to some stimuli but falls back asleep quickly, maintaining airway with no obvious distress, unable to answer any orientation questions, somnolent. Skin: normal color, turgor, no icterus, cyanosis. HEENT: AT/NC, EOM unable to be assessed given somnolence, PERRLA, dry MM, no carotid bruits or JVD noted. Lungs: Diminished breath sounds, greater bases, improved oxygenation following transition back to chronic usage, soft occasional end expiratory wheeze, no evidence of any increased respiratory effort or distress, no rhonchi or rales noted. Heart: Regular rate and rhythm; no gallop, rub audible. Abdomen: soft, thin, cachectic habitus, some generalized discomfort with palpation which elicited patient to wake up and note her stomach was uncomfortable but this did not occur with the ED physician, no obvious, decreased BS, no HSM. Extremities: no cyanosis, clubbing, left greater than right bilateral lower extremity edema. Neurological: awakens to some stimuli but falls back asleep quickly, maintaining airway with no obvious distress, unable to answer any orientation questions, somnolent, cognitive function not baseline intact; pupils equally reactive to light and accomodation; cranial nerves difficult to assess given somnolence, moving all 4 extremities when stimulus applied, strength severely global decrease secondary to acute presentation as noted. Psychiatric: affect appears somnolent, lethargic, no acute evidence of depressive or anxiety feelings. - Physical Exam Vitals/I&O's: Vital Signs Temp Pulse Resp BP Pulse Ox 98 F 88 14 79/59 L 95 01/17/20 18:22 01/17/20 18:22 01/17/20 18:22 01/17/20 18:22 01/17/20 18:22 Oxygen Flow Rate (L/min) 2 Oxygen Delivery Method Nasal Cannula Weight: 99 lb 3.328 oz Body Mass Index (BMI) 19.3 Laboratory Results 01/17/20 17:20: WBC 11.5 H, RBC 4.90, Hgb 15.2 H, Hct 49.4 H, MCV 100.8 H, MCH 31.0, MCHC 30.8 L, RDW Std Deviation 58.5 H, RDW Coeff of Valerio 15.7 H, Plt Count 172, MPV 10.3, Immature Gran % (Auto) 0.400, Neut % (Auto) 86.1 H, Lymph % (Auto) 3.3 L, Stevens % (Auto) 6.6, Eos % (Auto) 3.3, Baso % (Auto) 0.3, Absolute Neuts (auto) 9.9 H, Absolute Lymphs (auto) 0.38 L, Nucleated RBC % 0 01/17/20 17:20: PT 14.7, INR 1.2, APTT 29.8 01/17/20 17:20: Sodium 139, Potassium 4.5, Chloride 98, Carbon Dioxide 38.0 H, Anion Gap 3 L, BUN 15, Creatinine 0.96, Estim Creat Clear Calc 42.61, Est GFR (MDRD) Af Amer 76, Est GFR (MDRD) Non-Af 63, BUN/Creatinine Ratio 15.7, Glucose 149 H, Calcium 9.0, Total Bilirubin 1.00, AST 31, ALT 20, Alkaline Phosphatase 98, Troponin I 0.602 H*, Total Protein 7.4, Albumin 3.3, Globulin 4.1, Albumin/Globulin Ratio 0.8 L 01/17/20 17:20: Salicylates Pending, Acetaminophen Pending, Ethyl Alcohol Pending 01/17/20 17:20: B-Natriuretic Peptide Pending 01/17/20 17:35: Lactic Acid 2.3 H* 01/17/20 17:50: Urine Color Yellow, Urine Clarity Clear, Urine pH 6.0, Ur Specific Norco 1.015, Urine Protein 15 H, Urine Glucose (UA) Normal, Urine Ketones 5 H, Urine Occult Blood Negative, Urine Nitrite Negative, Urine Bilirubin Negative, Urine Urobilinogen 1 H, Ur Leukocyte Esterase Negative, Urine RBC 0 SEEN, Urine WBC 0 SEEN, Ur Squamous Epith Cells 0 SEEN, Urine Bacteria 0 SEEN, Urine Mucus RARE 01/17/20 17:50: Urine Opiates Screen POSITIVE H, Urine Methadone Screen NEGATIVE, Ur Barbiturates Screen NEGATIVE, Ur Phencyclidine Scrn NEGATIVE, Ur Amphetamines Screen NEGATIVE, U Methamphetamin-MDMA NEGATIVE, U Benzodiazepines Scrn NEGATIVE, Urine Cocaine Screen NEGATIVE, U Cannabinoids Screen NEGATIVE, Ur Drug Screen Comment 01/17/20 18:24: Specimen Type ART, pH 7.38, Bicarbonate Actual 33.9 H, Total CO2 36, Base Excess 9 H, O2 Saturation 92 L, ABG pCO2 57.6 H, ABG pO2 68 L Current Medications Sodium Chloride () 1,000 mls @ 150 mls/hr IV .Q6H40M CHOLO Last Admin: 01/17/20 17:41 Dose: 150 mls/hr Documented by: Assessment/Plan All Active Problems (Last Reviewed 12/14/19 @ 10:09 by Stacy Austin) Elevated troponin (Acute) Encephalopathy acute (Acute) Elevated lactic acid level (Acute) Acute on chronic respiratory failure with hypoxia and hypercapnia (Acute) Severe sepsis (Acute) Acute respiratory failure with hypoxia and hypercarbia (Acute) The patient is a 64 y/o F w/ PMHx: Chronic COPD with chronic hypoxic respiratory failure (4L NC) non-complaint with her oxygen, VEENA non-complaint with BIPAP, Hx CVA, OP, Chronic pain syndrome, Anxiety and Depression, HTN, HLD, ongoing Tobacco use recently discharged on 12/29/19 following admission on 12/25/19 with treatment of acute on chronic COPD exacerbation secondary to rhinovirus, acute on chronic combined respiratory failure, severe sepsis secondary to her viral pneumonia and noted abnormal cardiac enzymes suspected secondary to demand with planned outpatient stress testing once clinically improved who now re-presents to the [facility] ED on 01/17/20 with history of increased fatigue, dyspnea noted to called 911 following awakening with significant worsened shortness of breath. 1. Acute Encephalopathy, Multifactorial, secondary to Acute on Chronic Hypoxic and Hypercarbic Respiratory Failure secondary to Failure to Use Chronic Oxygen, Possible Narcotic overdose/abuse, Possible ongoing Aspiration (recent dysphagia with aspiratiuon noted), Possible additional (awaiting CT Head and CT A/P) with noted Lactic Acidosis: Will admit to PCU if maintains airway appropriately and CT Head and CT A/P demonstrate no acute concerning findings, otherwise if [facility] appropriate may necessitate ICU admission, will request Pulmonary involvement, maintain on BIPAP with transition to NC as able, maintain on IV zosyn given recently noted aspiration evidence with repeat ST evaluations, maintain on ATC duoneb, PRN albuterol, HOB, IS parameters, UDS w/ + opiates as concern for multiple pain regimen providers with overdose possibly contributing to patient presentation noted to normally be on baclofen, buprenorphine, gabapentin but given maintaining airway per discussion with ED physician deferred reversal to avoid acute pain. Do not want to precipitate withdrawal thus if clinically improved respiratory status will resume her current listed home chronic pain regimen only. LA elevation suspected secondary to her acute respiratory status, will trend and awaiting CT Head and CT A/P per discussion with ED physician. 2. Indeterminant Cardiac Enzyme: EKG in ED sinus tachycardia with no acute evidence of ischemia, CXR with increased R pleural effusion, persistent bibasilar infiltrates unchanged from prior admission imaging, noted CTA 12/25/[address] evidence of PE, thoracic aortic aneurysm or dissection, evidence abnormally dilated pulmonary arteries consistent with PAH, multiple noncoalescent centrilobular cystic emphysema, right upper lobe greater than left upper lobe, right posterior lower lobe atelectasis with air bronchograms and moderate right subpulmonic loculated appearing pleural fluid, small partial atelectasis left posterior lung base with minimal air bronchograms, significant kyphosis, old compression fractures, extensive streak artifact from hardware therefore given chest x-ray possible association with these findings, cardiac enzyme 0.602. similar to prior admission with troponin 0.613 and as noted trended down to 0.458 at discharge, had planned outpatient stress testing, given recurrent xomnolence and concern for CO2 retention and hypoxia given not wearing her oxygen while sleeping, may need to again defer once clinically improved. Will obtain mag and supplement if necessary, trend cardiac enzymes. Maintain on ASA, therapeutic lovenox pending trending, NG, morphine. ECHO 12/26/19 with hypermobile atrial septum, contrast study negative for right to left interatrial shunt, normal LV size, normal LV systolic function, EF 55%, mild MVI, PASP 44 mmHg. Given recurrence will obtain Cardiology involvement. COVID pending per ED also. 4. LLE Edema, Unclear Etiology: BL mild edema, non-pitting, L > R, discussed w/ ED physician and will obtain DVT US LLE. 3. Hyperglycemia: Admission glucose 149, recently admission with similar with HgBA1c 5.5%. 4. History of CVA: We will maintain on CO asa until improved and then transition to PO aspirin, Plavix, statin, HTN regimen, recent HgBA1c 5.5%. 5. Tobacco Abuse: Encouraged cessation, inpatient consultation per RT, NR if desired. 6. Moderate protein calorie malnutrition: Evidenced by habitus despite BMI 19, evident by cachectic habitus, nutrition consulted. 7. Hypertension, Mild to Moderate PAH: Once oral intake appropriate restart home regimen including Lasix with hold parameters as needed. 8. Hyperlipidemia: Once oral intake appropriate will continue home statin therapy. 9. Anxiety and Depression: Once oral intake appropriate will continue home escitalopram regimen. 10. DVT prophylaxis: SCDs, therapeutic Lovenox as noted. Inpatient E&M: [id number] Init Hosp L3
[2020-01-17 18:47] LABS: Acetaminophen (Tylenol) Level < 2.0 ug/mL (10.0-30.0); Salicylate 3.1 mg/dL (2.8-20.0)
[2020-01-17 18:51] LABS: BNP,B-Type NATRIURETIC PEPTIDE 342.9 pg/mL (0-100)
--- NOTE | 2020-01-17 19:05 | CT_ITS ---
STUDY: CT CHEST WITH CONTRAST REASON FOR EXAM: Female, 64 years old. Altered mental status. COPD flare. Shortness of breath. History of hypertension, complete spinal fusion and club foot. RADIATION DOSAGE (If Supplied By Facility): CTDIvol = ( 26.79 ) mGy, DLP = ( 478.39 ) mGycm TECHNIQUE: Transaxial imaging was performed following intravenous administration of IV 75mL Isovue-300. Multiplanar coronal and sagittal images were reformatted. Individualized dose optimization techniques were used for this CT. COMPARISON: Chest, 01/17/2020. CTA of the chest, 12/25/2019. FINDINGS: There is diffuse emphysematous changes in the lungs. There is fibrotic changes in the posterior right upper lobe with questionable small pleural effusion versus pleural thickening. This extends downward into an area of consolidation in the right lung base. Minimal dependent changes are seen at the left lung base. The heart is mildly enlarged. There are coronary artery calcifications. Normal mediastinum. Normal hilar regions. There is prominence of the pulmonary hilar arteries without peripheral pulmonary vascular congestion, suggesting pulmonary hypertension. There is atherosclerotic tortuosity of the thoracic aorta without aneurysm or dissection. There is markedly exaggerated in thoracic kyphosis. There is fusion of the spine from the lower cervical segments of the lumbar spine. There appears to be anterolisthesis of L4 on L5 of a significant degree although this is currently fused. There is irregularity of the superior endplate of T10. Spinal findings are stable. The liver appears enlarged. There are bilateral renal cysts. CT/Chest WITH Contrast IMPRESSION: 1. Enlarging area of consolidation at the right lung base. This is thought to be partially atelectatic due to an elevated right hemidiaphragm. 2. Diffuse fibrotic changes posteriorly in the right lower lobe which are significantly increased from prior study. 3. Stable emphysematous change. 4. Stable findings of pulmonary hypertension. 5. Fusion of the spine, stable when compared to the earlier study. Electronically Signed: Donald Raines DO at 19:46 EDT Tel [phone], Service support ,
--- NOTE | 2020-01-17 19:33 | ED.RN ---
PT FOUND WITH NASAL CANNULA OUT OF NOSE, SPO2 81%. NASAL CANNULA REAPPLIED, SPO2 93%
--- NOTE | 2020-01-17 20:18 | ED.RN ---
PT LIVES WITH SON JULIANN RITTER, PLEASE CALL HIM WITH ANY UPDATES. [phone]
--- NOTE | 2020-01-17 21:07 | PCM.PN.BLA ---
Progress Note CT scan brain is back and showed no acute findings. CT scan abdomen and pelvis with IV contrast revealed right lung base consolidation. CT chest with contrast revealed a large area of consolidation of the right base. Patient received 1 dose of IV Zosyn in the ED. IV Zosyn every 8 hours already ordered. STROKE Vital Signs/Narrative: Vital Signs Temp Pulse Resp BP Pulse Ox 01/17/20 20:00 97.5 F L 92 15 94/72 97 01/17/20 19:24 92 01/17/20 19:00 98.1 F 91 19 H 100/71 81 01/17/20 18:22 98 F 88 14 79/59 L 95 01/17/20 17:41 97.8 F 01/17/20 17:23 93 01/17/20 17:16 93 01/17/20 17:10 97.7 F L 98 14 101/65 98
[2020-01-17 21:44] LABS: Reflex Lactate? Y
[2020-01-17] MEDS: Ipratropium/Albuterol Sulfate 3 ML AMPUL.NEB INHALATION ×2 (22:13)
[2020-01-17 22:14] LABS: Probe Check PASS; Specimen Processing Control PASS
--- NOTE | 2020-01-17 22:23 | RAD_ITS ---
STUDY: X-RAY CHEST REASON FOR EXAM: Female, 64 years old. RESPIRATORY DISTRESS TECHNIQUE: Single AP portable view of the chest. COMPARISON: January 17, 2020 at 5:56 PM FINDINGS: Moderate right mid to lower lung field irregular consolidation with a small pleural effusion. Mild interstitial thickening and edema is seen in the left lower lobe. These findings are unchanged from the prior study. Extensive spinal hardware unchanged. Mild cardiomegaly. The remaining structures are stable. Contrast is seen in the right kidney from a recent CT exam. RAD/Chest 1 View (Portable) IMPRESSION: No change in moderate consolidation of the right lung Electronically Signed: Ronald Bender MD at 23:15 EDT , Service support ,
--- NOTE | 2020-01-17 22:44 | ED.RN ---
RN CALLED TO THIS ROOM BY PT, PT LEANING OVER BEDRAILS STATING I CAN'T BREATHE. PT DIAPHORETIC, LOST CONTROL OF BLADDER, SPO2 DROPPED, HEART RATE INCREASED. MD CALLED TO ROOM, NEW ORDERS PLACED. SHEETS CHANGED, BRIEF APPLIED, PT RESTING MORE COMFORTABLY IN BED, VITALS STABLE, RECEIVING BREATHING TX.
[2020-01-17 23:07] LABS: Lactic Acid 2.2 mmol/L (0.4-1.9)
--- NOTE | 2020-01-17 23:07 | ED.RN ---
lab called with lactic acid 2.2, Willow García RN, informed of same.
[2020-01-17 23:49] LABS: Magnesium 2.1 mg/dL (1.6-2.6)
[2020-01-18] VITALS (44 sets, daily range): BP systolic 74–97; BP diastolic 50–68; PULSE 82–104; RESP 12–22; TEMP 36.3–37.7; O2SAT 88–98; BMI 19.5; BMI 19.8
[2020-01-18] MEDS: Famotidine 200 MG/20 ML MDV 20 MG in 0.9% Normal Saline (Pres. free 8 ML 300 MG IV ×3 (00:19→21:48)
[2020-01-18] MEDS: 0.9% Saline Lock 10 ML Syringe IV ×3 (00:20→19:49)
[2020-01-18] MEDS: Enoxaparin 60 MG/0.6 ML Syringe 45 MG SC ×2 (00:22→17:00)
--- NOTE | 2020-01-18 02:00 | CPS ---
PATIENT REFUSED AND PLACED ON 5 LPM NC VIA NURSING.
[2020-01-18] MEDS: Albuterol 2.5 MG/3 ML VIAL.NEB. INHALATION (05:03)
[2020-01-18] MEDS: 0.9% Normal Saline 1,000 ML 100 ML IV ×2 (05:39→14:16)
--- NOTE | 2020-01-18 05:55 | EKG12_ITS ---
Test Reason : AM EKG Blood Pressure : / mmHG Vent. Rate : 104 BPM Atrial Rate : 104 BPM P-R Int : 136 ms QRS Dur : 084 ms QT Int : 348 ms P-R-T Axes : 078 150 117 degrees QTc Int : 457 ms Sinus tachycardia Right ventricular hypertrophy ST & T wave abnormality, consider anterolateral ischemia Abnormal ECG When compared with ECG of 17-JAN-2020 17:49, MANUAL COMPARISON REQUIRED, DATA IS UNCONFIRMED Confirmed by GERARDO FLORENTINO, SHELBI ([id number]), international editorial producer DALIA ADAMS ([id number]) on 01/18/2020 1:11:49 P M Referred By: Cassandra Jane Confirmed By:YONNY CARRILLO MD
--- NOTE | 2020-01-18 05:55 | RAD_ITS ---
STUDY: X-RAY CHEST REASON FOR EXAM: Female, 64 years old. SOB TECHNIQUE: Single AP portable view of the chest. COMPARISON: Comparison is made with prior study 01/17/2020. FINDINGS: EKG electrodes are seen. Since prior study, there has been a moderate degree of the improvement of the CHF. Small residual right pleural effusion with bibasilar atelectasis persists. Normal size heart. Normal mediastinum and wallace. Normal visualized pulmonary arteries. There is atherosclerotic calcification of the aortic arch with tortuosity. Multilevel interpedicular screw and amy fixation device. Normal visualized ribs, clavicles, and shoulders. There is no demonstrated abnormality of the visualized soft tissue structures of the upper abdomen. RAD/Chest 1 View (Portable) IMPRESSION: Moderate degree of improved aeration of both lungs with the mild residual right pleural effusion with bibasilar atelectasis more prominent on the right side. Electronically Signed: Chavez Madrid, at 9:23 EDT , Service support ,
[2020-01-18 06:27] LABS: Absolute Lymphocyte Count 0.41 X10^3/uL (0.83-4.51); Absolute Neutrophil Count 8.7 X10^3/uL (2.0-7.7); Basophil# 0.02 X10^3/uL; Basophil% 0.2 % (0-1); Eosinophil# 0.46 X10^3/uL; Eosinophils% 4.5 % (0-5); Hematocrit 42.4 % (37-47); Lymphocyte # 0.41 X10^3/ul (4.0); Mean Corp Hgb Conc 30.7 g/dL (32-36); Mean Corpuscular Hgb 30.3 pg (27.0-32.0); Mean Corpuscular Volume 98.8 fL (81-99); Mean Platelet Vol. 10.1 fl (6.2-12.0); Monocyte# 0.75 X10^3/uL; Monocyte% 7.3 % (0-10); NRBC Flagged by Analyzer 0 % (0-5); Neutrophil # 8.65 X10^3/uL (2.7-7.7); Neutrophil % 83.6 % (47-70); POSITIVE DIFFERENTIAL YES; POSITIVE MORPHOLOGY YES; Platelet Count 150 K/mm3 (150-450); RBC Distribution Width CV 15.7 % (11.6-14.6); RBC Distribution Width SD 56.7 fl (35.1-43.9); Red Blood Count 4.29 M/mm3 (4.2-5.4); White Blood Count 10.3 K/mm3 (4.4-11.0)
[2020-01-18 06:34] LABS: Differential Indicated SCAN CRITERIA MET
[2020-01-18 06:53] LABS: Differential Comment SCANNED
[2020-01-18 07:02] LABS: ALB/GLOB Ratio 0.8 RATIO (0.9-2.4); AST(SGOT) 22 U/L (15-37); Alanine Aminotransfer ALT/SGPT 17 U/L (13-56); Albumin, Serum 2.7 g/dL (3.2-5.0); Alkaline Phosphatase 75 U/L (45-117); Anion Gap 5 (5-15); BUN 14 mg/dL (7-18); BUN/Creat Ratio 23.2 RATIO (10-20); Calcium,Total 8.2 mg/dL (8.5-10.1); Chloride 103 mmol/L (98-107); EST Glomerular Filtration Rate 107 mL/min (>60); Est Glom Filt Rate - Afr Amer 129 mL/min (>60); Estimated Creatinine Clearance 65.15 ml/min; Globulin 3.5 g/dL (2.2-4.2); Glucose 114 mg/dL (74-106); Potassium 4.1 mmol/L (3.5-5.1); Protein, Total 6.2 g/dL (6.4-8.2); Sodium Level 139 mmol/L (136-145)
--- NOTE | 2020-01-18 08:27 | PCM.CONS.PUL ---
Reason for Consult Date of Consultation: 01/18/20 Reason for Consultation: Recurrent respiratory failure, encephalopathy History of Present Illness: The patient is a 64-year-old female, with a history as outlined below, who presented to the emergency department on January 16 with malaise, fatigue, shortness of breath and hypoxemia. The patient was recently admitted to the hospital at the end of November 2019 with respiratory failure. At that time, she had reported that she did have COPD of unknown severity, but cannot recall the name of her prior pulmonary provider or the names of any of the inhalers that she utilized. She does have an extensive smoking history and continues to smoke cigarettes daily. She is supposed to utilize 4 L/min of supplemental oxygen at her baseline, but only utilizes it intermittently. The patient was discharged from the hospital on December 28 after having been treated for a COPD exacerbation precipitated by a rhinovirus infection. It was the pulmonary medicine team's recommendations at that time that the patient follow-up in the pulmonary clinic within 2 weeks of discharge. However, the patient was never scheduled for follow-up. Of note, during the patient's last hospital course, she was evaluated by speech therapy and found to have mild oropharyngeal dysphagia on modified barium swallow. The patient was felt to be high risk for aspiration. On presentation to the hospital, the patient was noted to be afebrile and hemodynamically stable. She was maintaining appropriate oxygen saturations on her baseline 4 L/min requirement. Laboratory evaluation revealed a mildly elevated white blood cell count with an elevated hemoglobin of 15.2 g/dL. Coagulation profile was within normal limits. Arterial blood gas revealed a pH of 7.38 with a corresponding PCO2 of 58 and PO2 of 68. Chemistry profile was notable for a bicarbonate of 38 and creatinine of 0.96. Lactate was elevated to 2.3. Troponin was increased to 0.602. BNP was elevated to 340. Urine analysis was unrevealing. Toxicology screen was positive for opiates. Coronavirus PCR was negative. CT chest revealed bilateral emphysematous changes with some fibrotic changes in the dependent portions of the right upper lobe with an area of consolidation in the right lung base. The patient received supplemental IV fluids and was placed on bronchodilator therapy and antimicrobials. She was subsequently admitted to the progressive care unit for further management. Past Medical History Past Medical History (Chronic Problems): Chronic Problems (Last Reviewed 12/14/19 @ 10:09 by Stacy Austin) HTN (hypertension) (Chronic) HLD (hyperlipidemia) (Chronic) PAH (pulmonary artery hypertension) (Chronic) Tobacco use (Chronic) Dysphagia (Chronic) Anxiety and depression (Chronic) CVA (cerebral vascular accident) (Chronic) COPD (chronic obstructive pulmonary disease) (Chronic) Chronic back pain (Chronic) Medical History: Medical History (Last Reviewed 12/14/19 @ 10:09 by Stacy Austin) CVA (cerebral vascular accident) I63.9 Osteoporosis M81.0 COPD (chronic obstructive pulmonary disease) J44.9 Allergies pregabalin [From Lyrica] Allergy (Verified 01/17/20 17:14) double vision Home Medications: Ambulatory Orders Medication Instructions Recorded albuterol sulfate 90 mcg/actuation 2 puff INHALATION Q6H PRN 11/16/19 aerosol inhaler aspirin 81 mg tablet,delayed 81 mg PO DAILY 11/16/19 release gabapentin 300 mg capsule 300 mg PO 4X/DAY 11/16/19 biotin 1,000 mcg chewable tablet 1,000 mcg PO DAILY 12/14/19 Acetaminophen 1,000 mg PO TID PRN PRN 12/25/19 Baclofen [Lioresal] 10 mg PO QHS 12/25/19 Calcium Carbonate 500 mg PO BID 12/25/19 Cholecalciferol (Vitamin D3) 50 mcg PO DAILY 12/25/19 [Vitamin D3] Clopidogrel Bisulfate [Clopidogrel] 75 mg PO QHS 12/25/19 Escitalopram Oxalate 10 mg PO QHS 12/25/19 Furosemide [Lasix] 20 mg PO DAILY 12/25/19 Ipratropium/Albuterol Sulfate 3 ml IH 4X/DAY PRN PRN 12/25/19 [Iprat-Albut 0.5-3(2.5) mg/3 ml] Magnesium Oxide [Magox 400] 1,200 mg PO QHS 12/25/19 Magnesium Oxide [Magox 400] 400 mg PO DAILY 12/25/19 Buprenorphine HCl [Belbuca] 300 mcg BC BID 01/17/20 rosuvastatin 20 mg tablet 20 mg PO QHS #90 tab 01/18/20 Surgical History: Surgical History (Last Reviewed 12/14/19 @ 10:09 by Stacy Austin) 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 Psychiatric History: No pertinent psych hx CLIENT INSIGHTS CONSULTANT History: No pertinent CLIENT INSIGHTS CONSULTANT history Lives: With Family Smoking Status: Heavy Smoker (>10/day) Tobacco Use: Cigarettes Alcohol: None Drugs: - - Prescribed opiate medication but some concern for abuse with different providers. - *Family History Maternal Family History: Family History (Last Reviewed 12/14/19 @ 10:09 by Stacy Austin) Grandmother Diabetes Son Diabetes Other Asthma History Items: Heart Disease Paternal Family History: Family History (Last Reviewed 12/14/19 @ 10:09 by Stacy Austin) Grandmother Diabetes Son Diabetes Other Asthma History Items: Pulmonary Disease Review of Systems Constitutional: Reports: Fatigue Eyes: Denies: Blurred vision, Double vision Cardiovascular: Denies: Chest Pain, Palpitations Respiratory: Reports: Cough, Shortness of Breath Gastrointestinal: Denies: Abdominal Pain, Nausea, Vomiting Genitourinary: Denies: Dysuria Musculoskeletal: Denies: Joint Pain, Joint Tenderness Skin: Denies: Rash, Wounds Neurological: Denies: Numbness, Tingling, Focal weakness Psychiatric: Denies: Anxiety, Depression, Homicidal Ideations, Suicidal Ideations Hematologic/ Lymphatic: Denies: Easy Bruising, Easy Bleeding Patient Problems: Active and Suspected Problems (Last Reviewed 12/14/19 @ 10:09 by Stacy Austin) Elevated troponin (Acute) Encephalopathy acute (Acute) Elevated lactic acid level (Acute) Aspiration pneumonia (Acute) Acute on chronic respiratory failure with hypoxia and hypercapnia (Acute) Severe sepsis (Acute) Acute respiratory failure with hypoxia and hypercarbia (Acute) Objective: The patient's most recent lab work, culture data and imaging studies have all been personally reviewed. Prior sputum culture from the end of November 2019 was positive for rare E. coli. - Physical Exam Vitals/I&O's: Vital Signs Temp Pulse Resp BP Pulse Ox 97.9 F 99 16 97/63 96 01/18/20 08:00 01/18/20 08:00 01/18/20 08:00 01/18/20 08:00 01/18/20 08:00 Oxygen Flow Rate (L/min) 5 Oxygen Delivery Method Nasal Cannula Weight: 94 lb 12.78 oz Body Mass Index (BMI) 19.5 Intake and Output for Last 24 Hours 01/16/20 01/17/20 01/18/20 23:59 23:59 23:59 Intake Total 600 / 600 510 / 510 Output Total 150 / 150 Balance 600 / 600 360 / 360 General: Lethargic, - - Arouses and answers simple questions and then falls quickly back to sleep. Appears older than stated age. HEENT: Atraumatic, Normocephalic Oral: Moist Mucosa Neck: Supple, No Nodes, Trachea Midline Lungs: - - Globally diminished air movement bilaterally. Cardiovascular: Regular rate, Regular Rhythm Abdomen: Bowel Sounds Present, Soft, Non Tender Extremities: No clubbing, No cyanosis, No edema Skin: No breakdown Musculoskeletal: Cachexia, Muscle Wasting Lymphatic: No Cervical, Supraclavicular, or Inguinal Adenopathy Neurological: - - No focal deficits. Psych/Mental Status: Flat Affect Labs (Last 48 Hours) 01/17/20 01/17/20 01/17/20 17:20 17:20 17:20 WBC 11.5 H RBC 4.90 Hgb 15.2 H Hct 49.4 H MCV 100.8 H MCH 31.0 MCHC 30.8 L RDW Std Deviation 58.5 H RDW Coeff of Valerio 15.7 H Plt Count 172 MPV 10.3 Immature Gran % (Auto) 0.400 Neut % (Auto) 86.1 H Lymph % (Auto) 3.3 L Boundary % (Auto) 6.6 Eos % (Auto) 3.3 Baso % (Auto) 0.3 Absolute Neuts (auto) 9.9 H Absolute Lymphs (auto) 0.38 L Nucleated RBC % 0 Differential Comment PT 14.7 INR 1.2 APTT 29.8 Specimen Type pH Bicarbonate Actual Total CO2 Base Excess O2 Saturation ABG pCO2 ABG pO2 Sodium 139 Potassium 4.5 Chloride 98 Carbon Dioxide 38.0 H Anion Gap 3 L BUN 15 Creatinine 0.96 Estim Creat Clear Calc 42.61 Est GFR (MDRD) Af Amer 76 Est GFR (MDRD) Non-Af 63 BUN/Creatinine Ratio 15.7 Glucose 149 H Lactic Acid Calcium 9.0 Magnesium Total Bilirubin 1.00 AST 31 ALT 20 Alkaline Phosphatase 98 Troponin I 0.602 H* B-Natriuretic Peptide Total Protein 7.4 Albumin 3.3 Globulin 4.1 Albumin/Globulin Ratio 0.8 L Urine Color Urine Clarity Urine pH Ur Specific [place] Urine Protein Urine Glucose (UA) Urine Ketones Urine Occult Blood Urine Nitrite Urine Bilirubin Urine Urobilinogen Ur Leukocyte Esterase Urine RBC Urine WBC Ur Squamous Epith Cells Urine Bacteria Urine Mucus Salicylates Urine Opiates Screen Urine Methadone Screen Acetaminophen Ur Barbiturates Screen Ur Phencyclidine Scrn Ur Amphetamines Screen U Methamphetamin-MDMA U Benzodiazepines Scrn Urine Cocaine Screen U Cannabinoids Screen Ur Drug Screen Comment Ethyl Alcohol COVID-19 (CELI) 01/17/20 01/17/20 01/17/20 17:20 17:20 17:20 WBC RBC Hgb Hct MCV MCH MCHC RDW Std Deviation RDW Coeff of Valerio Plt Count MPV Immature Gran % (Auto) Neut % (Auto) Lymph % (Auto) Boundary % (Auto) Eos % (Auto) Baso % (Auto) Absolute Neuts (auto) Absolute Lymphs (auto) Nucleated RBC % Differential Comment PT INR APTT Specimen Type pH Bicarbonate Actual Total CO2 Base Excess O2 Saturation ABG pCO2 ABG pO2 Sodium Potassium Chloride Carbon Dioxide Anion Gap BUN Creatinine Estim Creat Clear Calc Est GFR (MDRD) Af Amer Est GFR (MDRD) Non-Af BUN/Creatinine Ratio Glucose Lactic Acid Calcium Magnesium 2.1 Total Bilirubin AST ALT Alkaline Phosphatase Troponin I B-Natriuretic Peptide 342.9 H Total Protein Albumin Globulin Albumin/Globulin Ratio Urine Color Urine Clarity Urine pH Ur Specific [place] Urine Protein Urine Glucose (UA) Urine Ketones Urine Occult Blood Urine Nitrite Urine Bilirubin Urine Urobilinogen Ur Leukocyte Esterase Urine RBC Urine WBC Ur Squamous Epith Cells Urine Bacteria Urine Mucus Salicylates 3.1 Urine Opiates Screen Urine Methadone Screen Acetaminophen < 2.0 L Ur Barbiturates Screen Ur Phencyclidine Scrn Ur Amphetamines Screen U Methamphetamin-MDMA U Benzodiazepines Scrn Urine Cocaine Screen U Cannabinoids Screen Ur Drug Screen Comment Ethyl Alcohol 5.0 COVID-19 (CELI) 01/17/20 01/17/20 01/17/20 17:35 17:50 17:50 WBC RBC Hgb Hct MCV MCH MCHC RDW Std Deviation RDW Coeff of Valerio Plt Count MPV Immature Gran % (Auto) Neut % (Auto) Lymph % (Auto) Boundary % (Auto) Eos % (Auto) Baso % (Auto) Absolute Neuts (auto) Absolute Lymphs (auto) Nucleated RBC % Differential Comment PT INR APTT Specimen Type pH Bicarbonate Actual Total CO2 Base Excess O2 Saturation ABG pCO2 ABG pO2 Sodium Potassium Chloride Carbon Dioxide Anion Gap BUN Creatinine Estim Creat Clear Calc Est GFR (MDRD) Af Amer Est GFR (MDRD) Non-Af BUN/Creatinine Ratio Glucose Lactic Acid 2.3 H* Calcium Magnesium Total Bilirubin AST ALT Alkaline Phosphatase Troponin I B-Natriuretic Peptide Total Protein Albumin Globulin Albumin/Globulin Ratio Urine Color Yellow Urine Clarity Clear Urine pH 6.0 Ur Specific [place] 1.015 Urine Protein 15 H Urine Glucose (UA) Normal Urine Ketones 5 H Urine Occult Blood Negative Urine Nitrite Negative Urine Bilirubin Negative Urine Urobilinogen 1 H Ur Leukocyte Esterase Negative Urine RBC 0 SEEN Urine WBC 0 SEEN Ur Squamous Epith Cells 0 SEEN Urine Bacteria 0 SEEN Urine Mucus RARE Salicylates Urine Opiates Screen POSITIVE H Urine Methadone Screen NEGATIVE Acetaminophen Ur Barbiturates Screen NEGATIVE Ur Phencyclidine Scrn NEGATIVE Ur Amphetamines Screen NEGATIVE U Methamphetamin-MDMA NEGATIVE U Benzodiazepines Scrn NEGATIVE Urine Cocaine Screen NEGATIVE U Cannabinoids Screen NEGATIVE Ur Drug Screen Comment Ethyl Alcohol COVID-19 (CELI) 01/17/20 01/17/20 01/17/20 18:24 19:00 22:20 WBC RBC Hgb Hct MCV MCH MCHC RDW Std Deviation RDW Coeff of Valerio Plt Count MPV Immature Gran % (Auto) Neut % (Auto) Lymph % (Auto) Boundary % (Auto) Eos % (Auto) Baso % (Auto) Absolute Neuts (auto) Absolute Lymphs (auto) Nucleated RBC % Differential Comment PT INR APTT Specimen Type ART pH 7.38 Bicarbonate Actual 33.9 H Total CO2 36 Base Excess 9 H O2 Saturation 92 L ABG pCO2 57.6 H ABG pO2 68 L Sodium Potassium Chloride Carbon Dioxide Anion Gap BUN Creatinine Estim Creat Clear Calc Est GFR (MDRD) Af Amer Est GFR (MDRD) Non-Af BUN/Creatinine Ratio Glucose Lactic Acid 2.2 H* Calcium Magnesium Total Bilirubin AST ALT Alkaline Phosphatase Troponin I B-Natriuretic Peptide Total Protein Albumin Globulin Albumin/Globulin Ratio Urine Color Urine Clarity Urine pH Ur Specific [place] Urine Protein Urine Glucose (UA) Urine Ketones Urine Occult Blood Urine Nitrite Urine Bilirubin Urine Urobilinogen Ur Leukocyte Esterase Urine RBC Urine WBC Ur Squamous Epith Cells Urine Bacteria Urine Mucus Salicylates Urine Opiates Screen Urine Methadone Screen Acetaminophen Ur Barbiturates Screen Ur Phencyclidine Scrn Ur Amphetamines Screen U Methamphetamin-MDMA U Benzodiazepines Scrn Urine Cocaine Screen U Cannabinoids Screen Ur Drug Screen Comment Ethyl Alcohol COVID-19 (CELI) Not Detected 01/18/20 01/18/20 01/18/20 00:20 03:20 06:15 WBC 10.3 RBC 4.29 Hgb 13.0 Hct 42.4 MCV 98.8 MCH 30.3 MCHC 30.7 L RDW Std Deviation 56.7 H RDW Coeff of Valerio 15.7 H Plt Count 150 MPV 10.1 Immature Gran % (Auto) 0.400 Neut % (Auto) 83.6 H Lymph % (Auto) 4.0 L Boundary % (Auto) 7.3 Eos % (Auto) 4.5 Baso % (Auto) 0.2 Absolute Neuts (auto) 8.7 H Absolute Lymphs (auto) 0.41 L Nucleated RBC % 0 Differential Comment SCANNED PT INR APTT Specimen Type pH Bicarbonate Actual Total CO2 Base Excess O2 Saturation ABG pCO2 ABG pO2 Sodium Potassium Chloride Carbon Dioxide Anion Gap BUN Creatinine Estim Creat Clear Calc Est GFR (MDRD) Af Amer Est GFR (MDRD) Non-Af BUN/Creatinine Ratio Glucose Lactic Acid Calcium Magnesium Total Bilirubin AST ALT Alkaline Phosphatase Troponin I 0.490 H 0.364 H B-Natriuretic Peptide Total Protein Albumin Globulin Albumin/Globulin Ratio Urine Color Urine Clarity Urine pH Ur Specific [place] Urine Protein Urine Glucose (UA) Urine Ketones Urine Occult Blood Urine Nitrite Urine Bilirubin Urine Urobilinogen Ur Leukocyte Esterase Urine RBC Urine WBC Ur Squamous Epith Cells Urine Bacteria Urine Mucus Salicylates Urine Opiates Screen Urine Methadone Screen Acetaminophen Ur Barbiturates Screen Ur Phencyclidine Scrn Ur Amphetamines Screen U Methamphetamin-MDMA U Benzodiazepines Scrn Urine Cocaine Screen U Cannabinoids Screen Ur Drug Screen Comment Ethyl Alcohol COVID-19 (CELI) 01/18/20 06:15 WBC RBC Hgb Hct MCV MCH MCHC RDW Std Deviation RDW Coeff of Valerio Plt Count MPV Immature Gran % (Auto) Neut % (Auto) Lymph % (Auto) Boundary % (Auto) Eos % (Auto) Baso % (Auto) Absolute Neuts (auto) Absolute Lymphs (auto) Nucleated RBC % Differential Comment PT INR APTT Specimen Type pH Bicarbonate Actual Total CO2 Base Excess O2 Saturation ABG pCO2 ABG pO2 Sodium 139 Potassium 4.1 Chloride 103 Carbon Dioxide 31.0 Anion Gap 5 BUN 14 Creatinine 0.60 Estim Creat Clear Calc 65.15 Est GFR (MDRD) Af Amer 129 Est GFR (MDRD) Non-Af 107 BUN/Creatinine Ratio 23.2 H Glucose 114 H Lactic Acid Calcium 8.2 L Magnesium Total Bilirubin 1.20 H AST 22 ALT 17 Alkaline Phosphatase 75 Troponin I 0.329 H B-Natriuretic Peptide Total Protein 6.2 L Albumin 2.7 L Globulin 3.5 Albumin/Globulin Ratio 0.8 L Urine Color Urine Clarity Urine pH Ur Specific [place] Urine Protein Urine Glucose (UA) Urine Ketones Urine Occult Blood Urine Nitrite Urine Bilirubin Urine Urobilinogen Ur Leukocyte Esterase Urine RBC Urine WBC Ur Squamous Epith Cells Urine Bacteria Urine Mucus Salicylates Urine Opiates Screen Urine Methadone Screen Acetaminophen Ur Barbiturates Screen Ur Phencyclidine Scrn Ur Amphetamines Screen U Methamphetamin-MDMA U Benzodiazepines Scrn Urine Cocaine Screen U Cannabinoids Screen Ur Drug Screen Comment Ethyl Alcohol COVID-19 (CELI) Microbiology 01/17/20 Unknown Mucosa - Nasopharyngeal Respiratory Panel (PCR) - Final 01/17/20 17:50 Urine, Clean Catch Legionella Antigen - Final 01/17/20 17:50 Urine, Clean Catch Streptococcus pneumoniae Antigen (M - Final Clinical Impression(s) from Imaging Studies Chest X-Ray 01/17/20 18:05 IMPRESSION: 1. Increased right pleural effusion. 2. Persistent bibasilar infiltrates. 3. No other major interval change. Electronically Signed: Donald Raines DO at 18:27 EDT Tel [phone], Service support , Brain CT 01/17/20 18:07 IMPRESSION: No acute intracranial or calvarial abnormality. Electronically Signed: Donald Raines DO at 19:34 EDT Tel [phone], Service support , Abdomen/Pelvis CT 01/17/20 18:33 IMPRESSION: 1. A marked consolidation at the right lung base. 2. Hepatomegaly without mass. 3. Diffuse atherosclerotic changes of the thoracic aorta and iliac arteries. 4. Thoracolumbar spinal fusion. 5. Bilateral renal cysts. 6. Increased colonic feces suggesting constipation. 7. Evidence of hysterectomy. Electronically Signed: Donald Raines DO at 19:39 EDT Tel [phone], Service support , Venous Duplex 01/17/20 18:33 IMPRESSION: No demonstrated deep venous thrombosis of left lower extremity. Electronically Signed: Ronald Bender MD at 20:39 EDT , Service support , Chest CT 01/17/20 19:05 IMPRESSION: 1. Enlarging area of consolidation at the right lung base. This is thought to be partially atelectatic due to an elevated right hemidiaphragm. 2. Diffuse fibrotic changes posteriorly in the right lower lobe which are significantly increased from prior study. 3. Stable emphysematous change. 4. Stable findings of pulmonary hypertension. 5. Fusion of the spine, stable when compared to the earlier study. Electronically Signed: Donald Raines DO at 19:46 EDT Tel [phone], Service support , Chest X-Ray 01/17/20 22:23 IMPRESSION: No change in moderate consolidation of the right lung Electronically Signed: Ronald Bender MD at 23:15 EDT , Service support , Current Medications Acetaminophen (Acetaminophen 650 Mg Suppository) 650 mg RECTAL Q4H PRN PRN PRN Reason: Pain Score 1-10/Temp > 100.7 F Albuterol Sulfate (Albuterol 2.5 Mg/3 Ml Vial.Neb.) 2.5 mg INHALATION Q2H PRN PRN PRN Reason: Dyspnea, wheezing Last Admin: 01/18/20 05:03 Dose: 2.5 mg Documented by: Albuterol/Ipratropium (Ipratropium/Albuterol Sulfate 3 Ml Ampul.Neb) 3 ml INHALATION Q4HWA.RT CHOLO Enoxaparin Sodium (Enoxaparin 60 Mg/0.6 Ml Syringe) 45 mg SC Q12@0600,1800 CHOLO Last Admin: 01/18/20 07:44 Dose: Not Given Documented by: Sodium Chloride () 1,000 mls @ 100 mls/hr IV .Q10H [facility] Last Admin: 01/18/20 05:39 Dose: 100 mls/hr Documented by: Piperacillin Sod/Tazobactam (Sod 3.375 gm/ Sodium Chloride) 50 mls @ 12.5 mls/hr IV Q8 [facility] Last Admin: 01/18/20 05:39 Dose: 12.5 mls/hr Documented by: Famotidine 20 mg/ Sodium (Chloride) 10 mls @ 300 mls/hr IV Q12 [facility] Last Infusion: 01/18/20 00:22 Dose: Infused Documented by: Magnesium Hydroxide (Magnesium Hydroxide 30 Ml Udc) 30 ml PO DAILY PRN PRN PRN Reason: Constipation Nitroglycerin (Nitroglycerin (Inpatient Use) 0.4 Mg Tab.Subl) 0.4 mg SUBLINGUAL Q5M PRN PRN Reason: CARDIAC/CHEST PAIN Ondansetron HCl (Ondansetron 4 Mg/2 Ml Vial) 4 mg IV Q8H PRN PRN PRN Reason: NAUSEA/VOMITING Prochlorperazine Edisylate (Prochlorperazine 10 Mg/2 Ml Vial) 5 mg IV Q4H PRN PRN PRN Reason: Breakthrough Nausea/Vomiting Psyllium Hydrophilic Mucilloid (Psyllium 1 Packet) 1 packet PO DAILY PRN PRN PRN Reason: Constipation Senna/Docusate Sodium (Senna/Docusate Sodium 1 Tablet) 2 tablet PO BID PRN PRN PRN Reason: Constipation Sodium Chloride (0.9% Saline Lock 10 Ml Syringe) 10 - 40 ml IV UD PRN PRN Reason: SALINE FLUSH Last Admin: 01/18/20 00:20 Dose: 10 ml Documented by: Assessment/Plan All Active Problems (Last Reviewed 12/14/19 @ 10:09 by Stacy Austin) Elevated troponin (Acute) Encephalopathy acute (Acute) Elevated lactic acid level (Acute) Aspiration pneumonia (Acute) Acute on chronic respiratory failure with hypoxia and hypercapnia (Acute) Severe sepsis (Acute) Acute respiratory failure with hypoxia and hypercarbia (Acute) RECOMMENDATIONS: 1. Obtain repeat arterial blood gas. Initiate BiPAP therapy. 2. Continue empiric antimicrobials, pending infectious work-up. 3. Continue scheduled bronchodilators and IV steroids. 4. Avoid sedating medications. 5. Patient to remain n.p.o., pending improvement in mentation and reevaluation by speech therapy. 6. Nicotine replacement therapy can be offered to the patient while admitted to the hospital. IMPRESSIONS: 1. Acute on chronic combined respiratory failure The patient does have a suspected history of rather extensive COPD based upon smoking history, along with a baseline 4 L/min supplemental oxygen requirement. Her reliance on her supplemental oxygen is inconsistent. I do suspect that her current state of exacerbation may have been precipitated by recurrent aspiration, given the findings noted by speech therapy during her most recent hospitalization. This would also be complicated by the fact that she is on multiple sedating medications at her baseline as well. Given the findings noted on CT chest, it is reasonable to continue empiric antimicrobials as ordered along with bronchodilators and IV steroids. I would plan to check a repeat arterial blood gas and initiate BiPAP therapy, if clinically indicated. The patient undoubtedly needs to follow-up in the pulmonary medicine clinic after discharge. She does have prearranged appointments already scheduled as noted below. 2. Encephalopathy Likely metabolic and/or related to polypharmacy and subsequent hypercarbia. The patient also has a history of noncompliance with her supplemental oxygen, which is also likely contributing. Plan to continue current supportive measures and avoid further sedating medications. BiPAP therapy can be utilized as needed. 3. Chronic tobacco dependency Nicotine replacement therapy can be offered to the patient while admitted to the hospital. 4. Indeterminate cardiac enzyme Likely secondary to demand ischemia in the setting of #1. Cardiology consultation is pending. 5. History of CVA/malnutrition/hypertension/hyperlipidemia/chronic pain syndrome/anxiety/depression Complicates care, management, recovery and prognosis. As noted above, continue to avoid sedating medications. The patient is currently scheduled to be seen by Lauren Bacon in the pulmonary medicine clinic on Thursday for at 10:45 AM. She also has a pre-existing scheduled appointment with Dr. Villela on April 23 at 10:15 AM. This note was generated with [employer] dictation software. It may contain incorrect words, spelling, and punctuation that were not noted in checking the note before signing. Inpatient E&M: 57015 Init Hosp L3
[2020-01-18] MEDS: Aspirin E.C. 81 MG Tablet PO (10:33)
[2020-01-18] MEDS: Clopidogrel Bisulfate 300 MG Tablet PO (10:33)
--- NOTE | 2020-01-18 10:54 | CASEMGMT ---
Patient is active with [facility]. Her business case analyst is Martha Dick. DELIA called [facility] and notified Evan Rocha on the coverage line about patient's admission. Her only services are a medical alert button and 14 meals a week delivered by [employer]. DELIA will notify [facility] when patient is discharged. Rhonda DUARTE MSW
[2020-01-18] MEDS: Ipratropium/Albuterol Sulfate 3 ML AMPUL.NEB INHALATION ×3 (11:03→19:32)
--- NOTE | 2020-01-18 11:18 | CPS ---
pt decreased to 4lpm per home O2 usage. Saturation 95%. Pt's nurse made aware of change
--- NOTE | 2020-01-18 12:43 | CASEMGMT ---
DELIA received a call from Martha Dick with [facility]. SW answered her questions regarding patient's hospitalization. SW will update her when patient is discharged. Rhonda VERNON
[2020-01-18 13:25] LABS: Base Excess 6 mmol/L (-2 to +2); Bicarbonate 30.8 mmol/L (22-26); Blood Gas Specimen Type ART; O2 Delivery Device Cannula; PO2 75 mmHG (75-100); SITE R Brach; SO2 95 % (95-99); Total Carbon Dioxide 32 mmol/L; pCO2 49.1 mmHg (35-45); pH 7.41 (7.35-7.45)
--- NOTE | 2020-01-18 13:42 | PN_ITS ---
Patient Problems: Active and Suspected Problems (Last Reviewed 12/14/19 @ 10:09 by Stacy Austin) Elevated troponin (Acute) Encephalopathy acute (Acute) Elevated lactic acid level (Acute) Aspiration pneumonia (Acute) Acute on chronic respiratory failure with hypoxia and hypercapnia (Acute) Acute respiratory failure with hypoxia and hypercarbia (Acute) Subjective: Patient seen and examined. She was admitted with a complaint of somnolence and altered mental status. Patient not compliant with her 4L of oxygten at home. She was found to be short of breath at home, and the EMS was called. She was discharged about 3 weeks ago after being managed for acute COPD exacerbation. Patient seen and examined this morning. She was initially very somnolent but subsequently became more arousable later in the day. She was able to say that she felt short of breath that is why she was brought to the hospital and she did admit to a cough which was not very productive. She denied any fever or chills. Review of systems otherwise negative. Labs and vitals reviewed. Patient has remained hypotensive with blood pressure in the 80s systolic. She is on her 4 L of oxygen which is her baseline. Vitals/I&O's: Vital Signs Temp Pulse Resp BP Pulse Ox 97.9 F 87 14 74/55 L 94 01/18/20 13:00 01/18/20 13:00 01/18/20 13:00 01/18/20 13:00 01/18/20 13:00 Oxygen Flow Rate (L/min) 4 Oxygen Delivery Method Nasal Cannula Weight: 94 lb 12.78 oz Body Mass Index (BMI) 19.5 Intake and Output for Last 24 Hours 01/16/20 01/17/20 01/18/20 23:59 23:59 23:59 Intake Total 600 / 600 1170 / 1170 Output Total 150 / 150 Balance 600 / 600 1020 / 1020 General: Alert, Oriented x3, Cooperative, Lethargic HEENT: Atraumatic, PERRLA, EOMI, Normocephalic Oral: Dry Mucosa Neck: Supple, No JVD, Negative Carotid Bruits Lungs: - - Markedly decreased breath sounds bibasilarly. No wheezes or crackles. On 4 L of oxygen. Cardiovascular: Regular rate, Regular Rhythm, Normal S1, Normal S2, No murmurs Abdomen: Bowel Sounds Present, Soft, Non Tender Extremities: No clubbing, No cyanosis, No edema, Capillary Refill Less than 3 Seconds Skin: No rashes, No breakdown Musculoskeletal: No Tenderness to Palpation of Joints or Extremities Lymphatic: No Cervical, Supraclavicular, or Inguinal Adenopathy Neurological: Cranial nerves II-XII grossly intact, Neuro grossly intact, Motor Exam 5/5 strength throughout Psych/Mental Status: Flat Affect, Alert and oriented to time, place, person, mood and affect Microbiology Past 72 Hours 01/18/20 03:52 Sputum, Expectorated/Coughed Gram Stain - Final 01/17/20 Unknown Mucosa - Nasopharyngeal Respiratory Panel (PCR) - Final 01/17/20 17:50 Urine, Clean Catch Legionella Antigen - Final 01/17/20 17:50 Urine, Clean Catch Streptococcus pneumoniae Antigen (M - Final Laboratory Results 01/17/20 17:20: WBC 11.5 H, RBC 4.90, Hgb 15.2 H, Hct 49.4 H, MCV 100.8 H, MCH 31.0, MCHC 30.8 L, RDW Std Deviation 58.5 H, RDW Coeff of Valerio 15.7 H, Plt Count 172, MPV 10.3, Immature Gran % (Auto) 0.400, Neut % (Auto) 86.1 H, Lymph % (Auto) 3.3 L, Todd % (Auto) 6.6, Eos % (Auto) 3.3, Baso % (Auto) 0.3, Absolute Neuts (auto) 9.9 H, Absolute Lymphs (auto) 0.38 L, Nucleated RBC % 0 01/17/20 17:20: PT 14.7, INR 1.2, APTT 29.8 01/17/20 17:20: Sodium 139, Potassium 4.5, Chloride 98, Carbon Dioxide 38.0 H, Anion Gap 3 L, BUN 15, Creatinine 0.96, Estim Creat Clear Calc 42.61, Est GFR (MDRD) Af Amer 76, Est GFR (MDRD) Non-Af 63, BUN/Creatinine Ratio 15.7, Glucose 149 H, Calcium 9.0, Total Bilirubin 1.00, AST 31, ALT 20, Alkaline Phosphatase 98, Troponin I 0.602 H*, Total Protein 7.4, Albumin 3.3, Globulin 4.1, Albumin/Globulin Ratio 0.8 L 01/17/20 17:20: Salicylates 3.1, Acetaminophen < 2.0 L, Ethyl Alcohol 5.0 01/17/20 17:20: B-Natriuretic Peptide 342.9 H 01/17/20 17:20: Magnesium 2.1 01/17/20 17:35: Lactic Acid 2.3 H* 01/17/20 17:50: Urine Color Yellow, Urine Clarity Clear, Urine pH 6.0, Ur Specific [place] 1.015, Urine Protein 15 H, Urine Glucose (UA) Normal, Urine Ketones 5 H, Urine Occult Blood Negative, Urine Nitrite Negative, Urine Bilirubin Negative, Urine Urobilinogen 1 H, Ur Leukocyte Esterase Negative, Urine RBC 0 SEEN, Urine WBC 0 SEEN, Ur Squamous Epith Cells 0 SEEN, Urine Bacteria 0 SEEN, Urine Mucus RARE 01/17/20 17:50: Urine Opiates Screen POSITIVE H, Urine Methadone Screen NEGATIVE, Ur Barbiturates Screen NEGATIVE, Ur Phencyclidine Scrn NEGATIVE, Ur Amphetamines Screen NEGATIVE, U Methamphetamin-MDMA NEGATIVE, U Benzodiazepines Scrn NEGATIVE, Urine Cocaine Screen NEGATIVE, U Cannabinoids Screen NEGATIVE, Ur Drug Screen Comment 01/17/20 18:24: Specimen Type ART, pH 7.38, Bicarbonate Actual 33.9 H, Total CO2 36, Base Excess 9 H, O2 Saturation 92 L, ABG pCO2 57.6 H, ABG pO2 68 L 01/17/20 19:00: COVID-19 (CELI) Not Detected 01/17/20 22:20: Lactic Acid 2.2 H* 01/18/20 00:20: Troponin I 0.490 H 01/18/20 03:20: Troponin I 0.364 H 01/18/20 06:15: WBC 10.3, RBC 4.29, Hgb 13.0, Hct 42.4, MCV 98.8, MCH 30.3, MCHC 30.7 L, RDW Std Deviation 56.7 H, RDW Coeff of Valerio 15.7 H, Plt Count 150, MPV 10.1, Immature Gran % (Auto) 0.400, Neut % (Auto) 83.6 H, Lymph % (Auto) 4.0 L, Todd % (Auto) 7.3, Eos % (Auto) 4.5, Baso % (Auto) 0.2, Absolute Neuts (auto) 8.7 H, Absolute Lymphs (auto) 0.41 L, Nucleated RBC % 0, Differential Comment SCANNED 01/18/20 06:15: Sodium 139, Potassium 4.1, Chloride 103, Carbon Dioxide 31.0, Anion Gap 5, BUN 14, Creatinine 0.60, Estim Creat Clear Calc 65.15, Est GFR (MDRD) Af Amer 129, Est GFR (MDRD) Non-Af 107, BUN/Creatinine Ratio 23.2 H, Glucose 114 H, Calcium 8.2 L, Total Bilirubin 1.20 H, AST 22, ALT 17, Alkaline Phosphatase 75, Troponin I 0.329 H, Total Protein 6.2 L, Albumin 2.7 L, Globulin 3.5, Albumin/Globulin Ratio 0.8 L 01/18/20 13:17: Specimen Type ART, Sample Site R Brach, pH 7.41, Bicarbonate Actual 30.8 H, Total CO2 32, Base Excess 6 H, O2 Saturation 95, ABG pCO2 49.1 H, ABG pO2 75, O2 Delivery Device Cannula, Liter Flow 4.[address] 01/17/20 18:07 IMPRESSION: No acute intracranial or calvarial abnormality. Electronically Signed: Donald Raines DO at 19:34 EDT Tel [phone], Service support , Abdomen/Pelvis CT 01/17/20 18:33 IMPRESSION: 1. A marked consolidation at the right lung base. 2. Hepatomegaly without mass. 3. Diffuse atherosclerotic changes of the thoracic aorta and iliac arteries. 4. Thoracolumbar spinal fusion. 5. Bilateral renal cysts. 6. Increased colonic feces suggesting constipation. 7. Evidence of hysterectomy. Electronically Signed: Donald Raines DO at 19:39 EDT Tel [phone], Service support , Venous Duplex 01/17/20 18:33 IMPRESSION: No demonstrated deep venous thrombosis of left lower extremity. Electronically Signed: Ronald Bender MD at 20:39 EDT , Service support , Chest CT 01/17/20 19:05 IMPRESSION: 1. Enlarging area of consolidation at the right lung base. This is thought to be partially atelectatic due to an elevated right hemidiaphragm. 2. Diffuse fibrotic changes posteriorly in the right lower lobe which are significantly increased from prior study. 3. Stable emphysematous change. 4. Stable findings of pulmonary hypertension. 5. Fusion of the spine, stable when compared to the earlier study. Electronically Signed: Donald Raines, at 19:46 EDT Tel [phone], Service support , Chest X-Ray 01/18/20 05:55 IMPRESSION: Moderate degree of improved aeration of both lungs with the mild residual right pleural effusion with bibasilar atelectasis more prominent on the right side. Electronically Signed: Chavez Madrid, at 9:23 EDT , Service support , Current Medications Acetaminophen (Acetaminophen 650 Mg Suppository) 650 mg RECTAL Q4H PRN PRN PRN Reason: Pain Score 1-10/Temp > 100.7 F Albuterol Sulfate (Albuterol 2.5 Mg/3 Ml Vial.Neb.) 2.5 mg INHALATION Q2H PRN PRN PRN Reason: Dyspnea, wheezing Last Admin: 01/18/20 05:03 Dose: 2.5 mg Documented by: Albuterol/Ipratropium (Ipratropium/Albuterol Sulfate 3 Ml Ampul.Neb) 3 ml INHALATION Q4HWA.RT [facility] Last Admin: 01/18/20 11:03 Dose: 3 ml Documented by: Aspirin (Aspirin E.C. 81 Mg Tablet) 81 mg PO DAILY@0800 [facility] Last Admin: 01/18/20 10:33 Dose: 81 mg Documented by: Atorvastatin Calcium (Atorvastatin Calcium 40 Mg Tablet) 40 mg PO QHS [facility] Clopidogrel Bisulfate (Clopidogrel Bisulfate 75 Mg Tablet) 75 mg PO DAILY [facility] Enoxaparin Sodium (Enoxaparin 60 Mg/0.6 Ml Syringe) 45 mg SC Q12@0600,1800 [facility] Last Admin: 01/18/20 07:44 Dose: Not Given Documented by: Sodium Chloride () 1,000 mls @ 100 mls/hr IV .Q10H [facility] Last Admin: 01/18/20 05:39 Dose: 100 mls/hr Documented by: Piperacillin Sod/Tazobactam (Sod 3.375 gm/ Sodium Chloride) 50 mls @ 12.5 mls/hr IV Q8 [facility] Last Infusion: 01/18/20 09:42 Dose: Infused Documented by: Famotidine 20 mg/ Sodium (Chloride) 10 mls @ 300 mls/hr IV Q12 [facility] Last Infusion: 01/18/20 09:34 Dose: Infused Documented by: Magnesium Hydroxide (Magnesium Hydroxide 30 Ml Udc) 30 ml PO DAILY PRN PRN PRN Reason: Constipation Methylprednisolone (Methylprednisolone 40 Mg/Ml Vial) 40 mg IV Q6 [facility] Nitroglycerin (Nitroglycerin (Inpatient Use) 0.4 Mg Tab.Subl) 0.4 mg SUBLINGUAL Q5M PRN PRN Reason: CARDIAC/CHEST PAIN Ondansetron HCl (Ondansetron 4 Mg/2 Ml Vial) 4 mg IV Q8H PRN PRN PRN Reason: NAUSEA/VOMITING Prochlorperazine Edisylate (Prochlorperazine 10 Mg/2 Ml Vial) 5 mg IV Q4H PRN PRN PRN Reason: Breakthrough Nausea/Vomiting Psyllium Hydrophilic Mucilloid (Psyllium 1 Packet) 1 packet PO DAILY PRN PRN PRN Reason: Constipation Senna/Docusate Sodium (Senna/Docusate Sodium 1 Tablet) 2 tablet PO BID PRN PRN PRN Reason: Constipation Sodium Chloride (0.9% Saline Lock 10 Ml Syringe) 10 - 40 ml IV UD PRN PRN Reason: SALINE FLUSH Last Admin: 01/18/20 00:20 Dose: 10 ml Documented by: STROKE Vital Signs/Narrative: Vital Signs Temp Pulse Resp BP Pulse Ox 01/18/20 13:00 97.9 F 87 14 74/55 L 94 01/18/20 12:00 97.9 F 91 13 89/61 L 95 01/18/20 11:01 95 18 96 01/18/20 11:00 97.9 F 92 15 85/63 L 95 01/18/20 10:48 84 01/18/20 10:00 97.9 F 94 16 79/60 L 95 Medical Necessity - Tobacco Use Smoking Status: Heavy Smoker (>10/day) Tobacco Use: Cigarettes Assessment/Plan All Active Problems (Last Reviewed 12/14/19 @ 10:09 by Stacy Austin) Elevated troponin (Acute) Encephalopathy acute (Acute) Elevated lactic acid level (Acute) Aspiration pneumonia (Acute) Acute on chronic respiratory failure with hypoxia and hypercapnia (Acute) Severe sepsis (Acute) Acute respiratory failure with hypoxia and hypercarbia (Acute) # Acute metabolic encephalopathy due to acute hypoxic and hypercapnic respiratory failure * Patient is back on her baseline 4 L of oxygen and saturating well. * Chest x-ray done showed moderate degree of improved aeration of both lungs with residual right pleural effusion and basal atelectasis more prominent on the right side. * Of the brain was negative for any acute intracranial pathology. * Urine for strep and Legionella are negative. Respiratory panel is negative and respiratory culture is pending. Blood cultures also pending. * Currently on IV Zosyn. * Pulmonology on board. Hold all sedative medications. * #Hypovolemic shock * Patient's blood pressure has been in the 90s and 80s. He does not meet any other criteria for sepsis * will hydrate with IVF * 2D echo from November 2019 showed EF of 55% with no regional wall motion abnormalities noted and preserved left ventricular systolic function with m ildly enlarged left atrium and hypermobile atrial septum. Pulmonary artery still pressure was 44 mmHg. * Shock could cause simply be also due to septic shock from pneumonia. * Hydrate aggressively with IV fluids. * I reviewed her BP from her previous admission in November, and her BP was in the 90s, then. * #Indeterminate troponins. * Initial troponin was 0.602 and trended down to 0.329. * This may have been due to demand ischemia from hypoxia as she was not wearing her 4 L of oxygen. * 2D echo as above. * Cardiology on board. * # History of CVA: on aspirin, plavix and statin. #Moderate protein calorie malnutrtion: BMI is 19. Nutrition on board #Hypertension: BP meds on hold due to hypotension # hyperlipidemia: on statin # Anxiety and depression: on escitalopram DVT prophylaxis: lovenox. Disposition: patient remained persistently hypovolemic, so was transferred to ICU. Inpatient E&M: [id number] [facility] L3
--- NOTE | 2020-01-18 14:28 | CASEMGMT ---
Readmission chart review: Pt initially admitted to [facility] on 12/25/2019 for Severe sepsis 2nd to atypical pna versus viral pna/COPD exac/lethargy. See RN CM assessment completed by Gavin ESPARZA CM on 12/26/2019. Pt was brought in by EMS and upon their arrival to to home, pt's sat was 83% and pt was giving self albuterol treatment. Pt is on 4liters nc thru [facility] continuously at home but per son, does not wear all the time and when EMS arrived both times prior to admission, pt was not on her O2. During multi-disciplinary rounds, it was clarified/explained to son that pt needs to stay on her nasal cannula at home while she is getting nebulizer treatment, voices understanding and states pt has never done this in the past. Pt was discharged on 12/29/2019 with [facility] in place. Pt lives with son, his , and children and they assist pt with ADL's. Pt returned to [facility] ED on 01/17/2020 for COPD flare, dyspnea and pt had a sat of 78% on room air upon EMS arrival. Pt has been lethargic most of day but is sitting up in bed and alert during multi-disciplinary rounds and son was present. Pt/son aware that pt needs to at least be on 4liters continuous and that this will be tested prior to d/c. Son states he will check into whether pt has a pulse ox at home. CM to follow for any further discharge planning/needs. Son also made aware by resp that they can place tape to keep nasal cannula on face at night time. Per Dr. Dolan, pt was supposed to see Enrrique FLORIAN within 2 weeks of discharge on the 12/29/2019 but appt was not made at that time. Pt now has appts scheduled for 02/01/2020 at 1045 with Kei Campbell NP and on 04/23/[address] Villela. These were placed on pt f/u appt list and Ar[facility] wireless development manager, aware. Pt did f/u with Dr. Cazares on 01/09/2020. Lili ESPARZA CM
[2020-01-18] MEDS: 0.9% Normal Saline 1,000 ML 999 ML IV (15:05)
--- NOTE | 2020-01-18 16:53 | NT.THERAPY_ITS ---
Nutrition Therapy Report - History Nutrition Services has been consulted to:: Manage nutrient details of diet order Current diet / nutrition support order:: Regular-mechanical (minced/moist), thin liquids, supervised feed - Anthropometric Measurements Height:: 4 ft 10 in Weight:: 43 kg Body Mass Index (BMI):: 19.8 - Relevant Labs Relevant Labs:: WBC 11.5 K/mm3 (4.4-11.0) H 01/17/20 17:20 Hgb 15.2 g/dL (12.0-15.0) H 01/17/20 17:20 Hct 49.4 % (37-47) H 01/17/20 17:20 MCV 100.8 fL (81-99) H 01/17/20 17:20 MCHC 30.7 g/dL (32-36) L 01/18/20 06:15 RDW Std Deviation 56.7 fl (35.1-43.9) H 01/18/20 06:15 RDW Coeff of Valerio 15.7 % (11.6-14.6) H 01/18/20 06:15 Neut % (Auto) 83.6 % (47-70) H 01/18/20 06:15 Lymph % (Auto) 4.0 % (19-41) L 01/18/20 06:15 Absolute Neuts (auto) 8.7 X10^3/uL (2.0-7.7) H 01/18/20 06:15 Absolute Lymphs (auto) 0.41 X10^3/uL (0.83-4.51) L 01/18/20 06:15 Carbon Dioxide 38.0 mmol/L (21.0-32.0) H 01/17/20 17:20 Anion Gap 3 (5-15) L 01/17/20 17:20 BUN/Creatinine Ratio 23.2 RATIO (10-20) H 01/18/20 06:15 Glucose 114 mg/dL (74-106) H 01/18/20 06:15 Lactic Acid 2.2 mmol/L (0.4-1.9) H* 01/17/20 22:20 Calcium 8.2 mg/dL (8.5-10.1) L 01/18/20 06:15 Total Bilirubin 1.20 mg/dL (0.20-1.00) H 01/18/20 06:15 Troponin I 0.329 ng/mL (<0.045) H 01/18/20 06:15 B-Natriuretic Peptide 342.9 pg/mL (0-100) H 01/17/20 17:20 Total Protein 6.2 g/dL (6.4-8.2) L 01/18/20 06:15 Albumin 2.7 g/dL (3.2-5.0) L 01/18/20 06:15 Albumin/Globulin Ratio 0.8 RATIO (0.9-2.4) L 01/18/20 06:15 - Assessment Food / Nutrition-Related History:: Son present during intervew, answered RND questions as pt lethargic-- falling asleep during assessment. Son reports pt had a pretty good appetite prior to admission; pt consumes 2 meals per day w/ 1 bottle CIB per day. Son reports pt has been gaining wt; did not specify amount, however notes UBW ~90 pounds. CBW--94.6 pounds; 12/25/19--95.7 pounds. Pt noted previous admin highest body weight 3 years ago--150 pounds, stated lowest body weight--85 pounds (37% wt loss). +NFPE: upon visual observation pt has moderate temporal scooping/depression, moderate orbital bone region depression/hollow look. Unable to further complete NFPE at this time as pt falling asleep. Son reports & brother prepare pt meals. [employer] continues following w/ pt- MBS completed 12/26/19 rec pt follow [facility] soft w/ thin liquid diet. - Nutrition Diagnosis Problem / Etiology / Signs & Symptoms (PES):: Moderate malnutrition in the context of chronic illness r/t inadequate oral intake and increased energy needs d/t COPD aeb </=75% energy intake compared to estimated energy needs, loss of muscle & fat in temporal and orbital bone regions. Evidence of Malnutrition Exists:: Yes Moderate PCM:: Chronic Illness - Nutrition Intervention Nutrition Prescription:: [id number] calories; 45-55 grams protein - Food / Nutrient Delivery Interventions Nutrition support ordered as / adjusted to:: Regular diet w/ texture shelby fications per [employer]. Will provide fortified foods at pt meals, CIB (chocolate) in 2% milk at b-fast, ensure pudding/magic cup L&D, and 120 ml 4x/day Ensure Enlive w/ medpass. Nutrition education provided?: No - MNT Monitoring Further MNT monitoring and evaluation required?: Yes MNT Follow-up in:: 3-5 days
--- NOTE | 2020-01-18 17:11 | PCM.CONS.C ---
Problem List (1) Elevated troponin Status: Acute (2) HLD (hyperlipidemia) Status: Chronic Qualifiers: Hyperlipidemia type: unspecified Qualified Code(s): E78.5 - Hyperlipidemia, unspecified (3) HTN (hypertension) Status: Chronic Qualifiers: Hypertension type: essential hypertension Qualified Code(s): I10 - Essential (primary) hypertension (4) Aspiration pneumonia Status: Acute (5) Severe sepsis Status: Acute (6) Acute respiratory failure with hypoxia and hypercarbia Status: Acute (7) COPD (chronic obstructive pulmonary disease) Status: Chronic Qualifiers: COPD type: unspecified COPD Qualified Code(s): J44.9 - Chronic obstructive pulmonary disease, unspecified (8) PAH (pulmonary artery hypertension) Status: Chronic (9) Chronic back pain Status: Chronic Qualifiers: Back pain location: back pain in unspecified location Back pain laterality: unspecified Qualified Code(s): M54.9 - Dorsalgia, unspecified; G89.29 - Other chronic pain (10) Encephalopathy acute Status: Acute Reason for Consult Date of Consultation: 01/18/20 History of Present Illness: The patient is a 64 year [id number] white female who is referred for evaluation of normal troponin I levels superimposed upon a history of hyperlipidemia, hypertension, possible aspiration pneumonia, acute respiratory related issues with hypoxemia and hypercarbia, COPD, pulmonary hypertension, chronic back discomfort on chronic narcotic use, and encephalopathy. The patient has been in and out of [facility] with ongoing respiratory related issues. Apparently she was more fatigued and lethargic. She was found to be without her oxygen and with an O2 saturation reported, based on the H&P, at 78%. There was also concerns and she was potentially using above and beyond her narcotic prescriptions. She was brought to the hospital for further evaluation care. From a cardiac standpoint she was found to have abnormal troponins which apparently has been present in the past for which she was to be evaluated as an outpatient with noninvasive studies. She was found to have underlying acute respiratory related issues. She was also noted to be encephalopathic. She was placed in the PCU for further evaluation and care. She is very somnolent. She does not appear to describe ongoing chest discomfort. She is chronically short of breath. She does not recall any syncopal events. Her troponin I levels have trended down. Her ECG is demonstrated sinus rhythm with poor R wave progression and ST and T wave changes in the anterolateral distribution potentially compatible with myocardial ischemia. In comparison to a previous ECG available for review the ST and T wave changes are somewhat more prominent at this time. She has had an echocardiogram performed recently. The results are as noted below. [] Past Medical History Allergies/Adverse Reactions: Allergies pregabalin [From Lyrica] Allergy (Verified 01/17/20 17:14) double vision Home Medications: Ambulatory Orders Medication Instructions Recorded albuterol sulfate 90 mcg/actuation 2 puff INHALATION Q6H PRN 11/16/19 aerosol inhaler aspirin 81 mg tablet,delayed 81 mg PO DAILY 11/16/19 release gabapentin 300 mg capsule 300 mg PO 4X/DAY 11/16/19 biotin 1,000 mcg chewable tablet 1,000 mcg PO DAILY 12/14/19 Acetaminophen 1,000 mg PO TID PRN PRN 12/25/19 Baclofen [Lioresal] 10 mg PO QHS 12/25/19 Calcium Carbonate 500 mg PO BID 12/25/19 Cholecalciferol (Vitamin D3) 50 mcg PO DAILY 12/25/19 [Vitamin D3] Clopidogrel Bisulfate [Clopidogrel] 75 mg PO QHS 12/25/19 Escitalopram Oxalate 10 mg PO QHS 12/25/19 Furosemide [Lasix] 20 mg PO DAILY 12/25/19 Ipratropium/Albuterol Sulfate 3 ml IH 4X/DAY PRN PRN 12/25/19 [Iprat-Albut 0.5-3(2.5) mg/3 ml] Magnesium Oxide [Magox 400] 1,200 mg PO QHS 12/25/19 Magnesium Oxide [Magox 400] 400 mg PO DAILY 12/25/19 Buprenorphine HCl [Belbuca] 300 mcg BC BID 01/17/20 rosuvastatin 20 mg tablet 20 mg PO QHS #90 tab 01/18/20 Past Medical History (Chronic Problems): Chronic Problems (Last Reviewed 12/14/19 @ 10:09 by Stacy Austin) HTN (hypertension) (Chronic) HLD (hyperlipidemia) (Chronic) PAH (pulmonary artery hypertension) (Chronic) Tobacco use (Chronic) Dysphagia (Chronic) Anxiety and depression (Chronic) CVA (cerebral vascular accident) (Chronic) COPD (chronic obstructive pulmonary disease) (Chronic) Chronic back pain (Chronic) Surgical History: - - Club foot surgery, significant back surgery with hardware. Psychiatric History: No pertinent psych hx RN INTERVENTIONAL History: No pertinent RN INTERVENTIONAL history - *Family History Maternal Family History: Family History (Last Reviewed 12/14/19 @ 10:09 by Stacy Austin) Grandmother Diabetes Son Diabetes Other Asthma History Items: Heart Disease Paternal Family History: Family History (Last Reviewed 12/14/19 @ 10:09 by Stacy Austin) Grandmother Diabetes Son Diabetes Other Asthma History Items: Pulmonary Disease Lives: With Family Smoking Status: Heavy Smoker (>10/day) Tobacco Use: Cigarettes Alcohol: None Drugs: - - Prescribed opiate medication but some concern for abuse with different providers. Review of Systems - Review of Systems General: Reports: Fatigue. Denies: Fever, Night Sweats Cardiovascular: Reports: Shortness of Breath, Shortness of Breath at Rest, Shortness of Breath with Exertion. Denies: Chest Discomfort, Orthopnea, PND, Peripheral Edema, Palpitations, Lightheadedness, Dizziness, Near Syncope, Syncope Respiratory: Reports: Shortness of Breath. Denies: Cough, Sputum Production, Hemoptysis Gastrointestinal: Denies: Hematemesis, Hematochezia, Melena Genitourinary: Denies: Dysuria, Hematuria Skin: Denies: Rash Subjectve: This is a 64-year-old white female who appears to be somnolent at this time but in no acute distress. Objective: Vital Signs Temp Pulse Resp BP Pulse Ox 98.2 F 87 14 89/65 L 97 01/18/20 17:00 01/18/20 17:00 01/18/20 17:00 01/18/20 17:00 01/18/20 17:00 Oxygen Flow Rate (L/min) 4 Oxygen Delivery Method Nasal Cannula Weight: 94 lb 12.78 oz Body Mass Index (BMI) 19.8 Intake and Output for Last 24 Hours 01/16/20 01/17/20 01/18/20 23:59 23:59 23:59 Intake Total 600 / 600 3531.67 / 3531.67 Output Total 150 / 150 Balance 600 / 600 3381.67 / 3381.67 General: Lethargic HEENT: Atraumatic, Normocephalic, PERRL, EOMI, Sclera Non Icteric Neck: Supple, Good ROM, No JVD Lungs: Diminished Christopher Bases Cardiovascular: Regular Rhythm, Normal S1, Normal S2 Vascular: No Carotid Bruits Abdomen: Bowel Sounds Present, Soft Extremities: No Cyanosis, No Clubbing, Trace RLE Edema, Trace LLE Edema 01/17/20 17:20: WBC 11.5 H, RBC 4.90, Hgb 15.2 H, Hct 49.4 H, MCV 100.8 H, MCH 31.0, MCHC 30.8 L, Plt Count 172, MPV 10.3, Immature Gran % (Auto) 0.400, Neut % (Auto) 86.1 H, Lymph % (Auto) 3.3 L, [place] % (Auto) 6.6, Eos % (Auto) 3.3, Baso % (Auto) 0.3, Absolute Neuts (auto) 9.9 H, Nucleated RBC % 0 01/17/20 17:20: PT 14.7, INR 1.2, APTT 29.8 01/17/20 17:20: Sodium 139, Potassium 4.5, Chloride 98, Carbon Dioxide 38.0 H, Anion Gap 3 L, BUN 15, Creatinine 0.96, Est GFR (MDRD) Af Amer 76, Est GFR (MDRD) Non-Af 63, BUN/Creatinine Ratio 15.7, Glucose 149 H, Calcium 9.0, Total Bilirubin 1.00, Troponin I 0.602 H* 01/17/20 17:20: B-Natriuretic Peptide 342.9 H 01/17/20 17:20: Magnesium 2.1 01/17/20 17:35: Lactic Acid 2.3 H* 01/17/20 17:50: Urine Color Yellow, Urine Clarity Clear, Urine pH 6.0, Ur Specific [place] 1.015, Urine Protein 15 H, Urine Glucose (UA) Normal, Urine Ketones 5 H, Urine Occult Blood Negative, Urine Nitrite Negative, Urine Bilirubin Negative, Urine Urobilinogen 1 H, Ur Leukocyte Esterase Negative, Urine RBC 0 SEEN, Urine WBC 0 SEEN 01/17/20 18:24: pH 7.38, Bicarbonate Actual 33.9 H, Base Excess 9 H, O2 Saturation 92 L, ABG pCO2 57.6 H, ABG pO2 68 L 01/17/20 22:20: Lactic Acid 2.2 H* 01/18/20 00:20: Troponin I 0.490 H 01/18/20 03:20: Troponin I 0.364 H 01/18/20 06:15: WBC 10.3, RBC 4.29, Hgb 13.0, Hct 42.4, MCV 98.8, MCH 30.3, MCHC 30.7 L, Plt Count 150, MPV 10.1, Immature Gran % (Auto) 0.400, Neut % (Auto) 83.6 H, Lymph % (Auto) 4.0 L, [place] % (Auto) 7.3, Eos % (Auto) 4.5, Baso % (Auto) 0.2, Absolute Neuts (auto) 8.7 H, Nucleated RBC % 0 01/18/20 06:15: Sodium 139, Potassium 4.1, Chloride 103, Carbon Dioxide 31.0, Anion Gap 5, BUN 14, Creatinine 0.60, Est GFR (MDRD) Af Amer 129, Est GFR (MDRD) Non-Af 107, BUN/Creatinine Ratio 23.2 H, Glucose 114 H, Calcium 8.2 L, Total Bilirubin 1.20 H, Troponin I 0.329 H 01/18/20 13:17: pH 7.41, Bicarbonate Actual 30.8 H, Base Excess 6 H, O2 Saturation 95, ABG pCO2 49.1 H, ABG pO2 75 Rhythm: Sinus rhythm EKG: As noted above ECHO: 12-26-2019 Interpretation Summary Hypermobile atrial septum. Bubble contrast study negative for right to left interatrial shunt. Normal LV size. Left ventricular systolic function is normal. The estimated ejection fraction is 55 %. Mild (1+) eccentric mitral valve insufficiency. Pulmonary artery systolic pressure is 44 mmHg. CXR: Her chest x-ray was reported as having a right sided consolidation: Please see official report Assessment/Plan 1. Abnormal cardiac enzymes She does have abnormal cardiac enzymes. This does raise concern of underlying CAD. It also raises concern that they may be secondary to a non-CAD event such as a type II event brought out by her hypoxemia, her hypotension-which may be secondary to concerns of an underlying infectious disease/sepsis syndrome, etc. At the present time she is being followed. Her cardiac enzymes are decreasing. Her ECG has demonstrated ST/T wave changes as noted. Her previous echocardiogram was reviewed. At the moment she will continue medical management as she is able. She has to be approved for oral medications based upon speech therapy evaluation based upon her somnolence/lethargy and concerns of aspiration pneumonia, etc. Over time depending upon her clinical course she may need to be considered for further evaluation with diagnostic cardiac catheterization. However it may be prudent to hopefully improve her overall multiple medical issues/comorbidities first prior to proceeding with such. 2. Hyperlipidemia She should continue medical management as deemed appropriate. 3. Hypertension She has a history of hypertension. At the moment she has been hypotensive. There is concerned this could be related to a combination of factors including volume depletion, sepsis, etc. She has been receiving IV fluids. 4. Aspiration pneumonia She has been evaluated by pulmonology and critical care medicine. She is on medical management with antibiotic therapy. 5. Acute respiratory related issues She has been hypoxic, etc. She has been undergoing evaluation and care by internal medicine and pulmonology/critical care medicine. She is receiving antibiotic therapy and O2 support. 6. Sepsis Based upon her clinical presentation, her elevated lactate acid levels, her hypotension, there is concern of sepsis. She is receiving evaluation and care and medical therapy including IV fluids. However if she remains hypotensive secondary to sepsis concern she may need IV vasopressor support as well. 7. COPD She has a longstanding history of COPD and reportedly has been on medical therapy and O2 at home. However she was found without her O2 and hypoxic. 8. Pulmonary hypertension She has a history of pulmonary hypertension. This can be reassessed noninvasively as deemed appropriate with echocardiographic studies. 9. Chronic back pain The patient has chronic back pain. She is on chronic narcotic therapy. There is concern that this may be contributing to some of her issues at presentation. 10. Encephalopathy The patient was reported to being encephalopathic. The etiology may be multifactorial. I be concerned this could be related to her hypoxia as well as concern of her narcotic use as well as concerns of a possible underlying sepsis syndrome. She will continue evaluation care by internal medicine. Overall from a cardiac standpoint at the present time she will continue medical therapy. This will include agents such as aspirin, antiplatelet agents, nitrates as needed and tolerated, beta-blockers, lipid-lowering therapy, etc. However some of these agents she may not be able to tolerate at this time secondary to ongoing concerns of her hypotension, etc. The patient's case has been discussed and reviewed with Drs. Fuchs and Magdaleno. This note was generated using a voice recognition system and there may be incorrect words, spelling or punctuation that were not noted when reviewing the office note prior to saving.
--- NOTE | 2020-01-18 18:33 | NURSING ---
This RN called report to ISAIAS De Los Santos in ICU.
--- NOTE | 2020-01-18 20:24 | NURSING ---
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 Dayshift RN's transferred pt to bed w/o complication.
[2020-01-18] MEDS: 0.9% Normal Saline 1,000 ML 150 ML IV (20:52)
[2020-01-19] VITALS (29 sets, daily range): BP systolic 80–142; BP diastolic 47–94; PULSE 76–105; RESP 11–22; TEMP 36.1–37.1; O2SAT 91–98
[2020-01-19] MEDS: Ipratropium/Albuterol Sulfate 3 ML AMPUL.NEB INHALATION ×6 (02:00→22:59)
[2020-01-19] MEDS: 0.9% Normal Saline 1,000 ML 150 ML IV ×4 (03:32→23:54)
[2020-01-19] MEDS: Enoxaparin 60 MG/0.6 ML Syringe 45 MG SC ×2 (04:52→17:21)
[2020-01-19] MEDS: 0.9% Saline Lock 10 ML Syringe IV ×2 (04:52→23:56)
[2020-01-19 05:34] LABS: Absolute Lymphocyte Count 0.18 X10^3/uL (0.83-4.51); Absolute Neutrophil Count 6.1 X10^3/uL (2.0-7.7); Basophil# 0.01 X10^3/uL; Basophil% 0.2 % (0-1); Eosinophil# 0.11 X10^3/uL; Eosinophils% 1.7 % (0-5); Lymphocyte # 0.18 X10^3/ul (4.0); Lymphocyte % 2.8 % (19-41); Mean Corpuscular Hgb 30.3 pg (27.0-32.0); Mean Platelet Vol. 10.3 fl (6.2-12.0); Monocyte# 0.12 X10^3/uL; Monocyte% 1.8 % (0-10); NRBC Flagged by Analyzer 0 % (0-5); Neutrophil # 6.09 X10^3/uL (2.7-7.7); Neutrophil % 93.2 % (47-70); POSITIVE DIFFERENTIAL YES; POSITIVE MORPHOLOGY YES; Platelet Count 145 K/mm3 (150-450); RBC Distribution Width CV 15.7 % (11.6-14.6); RBC Distribution Width SD 58.2 fl (35.1-43.9); Red Blood Count 3.96 M/mm3 (4.2-5.4); White Blood Count 6.5 K/mm3 (4.4-11.0)
[2020-01-19 06:05] LABS: Anion Gap 3 (5-15); BUN 11 mg/dL (7-18); BUN/Creat Ratio 25.1 RATIO (10-20); Calcium,Total 7.4 mg/dL (8.5-10.1); Chloride 109 mmol/L (98-107); Creatinine, Serum 0.44 mg/dL (0.55-1.02); EST Glomerular Filtration Rate 154 mL/min (>60); Est Glom Filt Rate - Afr Amer 186 mL/min (>60); Estimated Creatinine Clearance 88.84 ml/min; Glucose 140 mg/dL (74-106); Potassium 3.8 mmol/L (3.5-5.1); Sodium Level 142 mmol/L (136-145)
--- NOTE | 2020-01-19 06:20 | PN_ITS ---
Subjective: The patient was seen and examined at the bedside this morning. Events from the last 24 hours have been reviewed. The patient was transitioned from the PCU to medical intensive care unit yesterday afternoon due to hypotension. The patient is at her baseline from a hemodynamic perspective and never required vasopressor support overnight. She remains at her baseline oxygen requirement from a respiratory perspective. The patient was evaluated by speech therapy yesterday due to moderate oropharyngeal dysphagia, for which it was recommended that she be on a modified diet and only allowed to eat when supervised and alert. Objective: The patient's most recent lab work, culture data and imaging studies have all been personally reviewed. Respiratory viral panel was negative. Strep and urine Legionella antigens were negative. Sputum and blood cultures are pending. General: - - The patient is more alert than yesterday but is still somewhat somnolent. HEENT: Atraumatic, Normocephalic Oral: Moist Mucosa Neck: Supple, No Nodes, Trachea Midline Lungs: Diminished Cardiovascular: Regular rate, Regular Rhythm, Normal S1, Normal S2 Abdomen: Bowel Sounds Present, Soft, Non Tender Extremities: No clubbing, No cyanosis, No edema Skin: No breakdown Musculoskeletal: Cachexia, Muscle Wasting Lymphatic: No Cervical, Supraclavicular, or Inguinal Adenopathy Neurological: Cranial nerves II-XII grossly intact, Neuro grossly intact Psych/Mental Status: Flat Affect Vital Signs Temp Pulse Resp BP Pulse Ox 97.0 F L 79 12 99/66 93 01/19/20 04:00 01/19/20 06:00 01/19/20 06:00 01/19/20 06:00 01/19/20 06:00 Oxygen Flow Rate (L/min) 4 Oxygen Delivery Method Nasal Cannula Weight: 94 lb 12.78 oz Body Mass Index (BMI) 19.8 Intake and Output for Last 24 Hours 01/17/20 01/18/20 01/19/20 23:59 23:59 23:59 Intake Total 600 / 600 4591.67 / 5069.38 1190.00 / 1190.00 Output Total 400 / 550 300 / 300 Balance 600 / 600 4191.67 / 4519.38 890.00 / 890.00 Labs (Last 48 Hours) 01/17/20 01/17/20 01/17/20 17:20 17:20 17:20 WBC 11.5 H RBC 4.90 Hgb 15.2 H Hct 49.4 H MCV 100.8 H MCH 31.0 MCHC 30.8 L RDW Std Deviation 58.5 H RDW Coeff of Valerio 15.7 H Plt Count 172 MPV 10.3 Immature Gran % (Auto) 0.400 Neut % (Auto) 86.1 H Lymph % (Auto) 3.3 L Whitman % (Auto) 6.6 Eos % (Auto) 3.3 Baso % (Auto) 0.3 Absolute Neuts (auto) 9.9 H Absolute Lymphs (auto) 0.38 L Nucleated RBC % 0 Differential Comment PT 14.7 INR 1.2 APTT 29.8 Specimen Type Sample Site pH Bicarbonate Actual Total CO2 Base Excess O2 Saturation ABG pCO2 ABG pO2 O2 Delivery Device Liter Flow Sodium 139 Potassium 4.5 Chloride 98 Carbon Dioxide 38.0 H Anion Gap 3 L BUN 15 Creatinine 0.96 Estim Creat Clear Calc 42.61 Est GFR (MDRD) Af Amer 76 Est GFR (MDRD) Non-Af 63 BUN/Creatinine Ratio 15.7 Glucose 149 H Lactic Acid Calcium 9.0 Magnesium Total Bilirubin 1.00 AST 31 ALT 20 Alkaline Phosphatase 98 Troponin I 0.602 H* B-Natriuretic Peptide Total Protein 7.4 Albumin 3.3 Globulin 4.1 Albumin/Globulin Ratio 0.8 L Urine Color Urine Clarity Urine pH Ur Specific [place] Urine Protein Urine Glucose (UA) Urine Ketones Urine Occult Blood Urine Nitrite Urine Bilirubin Urine Urobilinogen Ur Leukocyte Esterase Urine RBC Urine WBC Ur Squamous Epith Cells Urine Bacteria Urine Mucus Salicylates Urine Opiates Screen Urine Methadone Screen Acetaminophen Ur Barbiturates Screen Ur Phencyclidine Scrn Ur Amphetamines Screen U Methamphetamin-MDMA U Benzodiazepines Scrn Urine Cocaine Screen U Cannabinoids Screen Ur Drug Screen Comment Ethyl Alcohol COVID-19 (CELI) 01/17/20 01/17/20 01/17/20 17:20 17:20 17:20 WBC RBC Hgb Hct MCV MCH MCHC RDW Std Deviation RDW Coeff of Valerio Plt Count MPV Immature Gran % (Auto) Neut % (Auto) Lymph % (Auto) Whitman % (Auto) Eos % (Auto) Baso % (Auto) Absolute Neuts (auto) Absolute Lymphs (auto) Nucleated RBC % Differential Comment PT INR APTT Specimen Type Sample Site pH Bicarbonate Actual Total CO2 Base Excess O2 Saturation ABG pCO2 ABG pO2 O2 Delivery Device Liter Flow Sodium Potassium Chloride Carbon Dioxide Anion Gap BUN Creatinine Estim Creat Clear Calc Est GFR (MDRD) Af Amer Est GFR (MDRD) Non-Af BUN/Creatinine Ratio Glucose Lactic Acid Calcium Magnesium 2.1 Total Bilirubin AST ALT Alkaline Phosphatase Troponin I B-Natriuretic Peptide 342.9 H Total Protein Albumin Globulin Albumin/Globulin Ratio Urine Color Urine Clarity Urine pH Ur Specific [place] Urine Protein Urine Glucose (UA) Urine Ketones Urine Occult Blood Urine Nitrite Urine Bilirubin Urine Urobilinogen Ur Leukocyte Esterase Urine RBC Urine WBC Ur Squamous Epith Cells Urine Bacteria Urine Mucus Salicylates 3.1 Urine Opiates Screen Urine Methadone Screen Acetaminophen < 2.0 L Ur Barbiturates Screen Ur Phencyclidine Scrn Ur Amphetamines Screen U Methamphetamin-MDMA U Benzodiazepines Scrn Urine Cocaine Screen U Cannabinoids Screen Ur Drug Screen Comment Ethyl Alcohol 5.0 COVID-19 (CELI) 01/17/20 01/17/20 01/17/20 17:35 17:50 17:50 WBC RBC Hgb Hct MCV MCH MCHC RDW Std Deviation RDW Coeff of Valerio Plt Count MPV Immature Gran % (Auto) Neut % (Auto) Lymph % (Auto) Whitman % (Auto) Eos % (Auto) Baso % (Auto) Absolute Neuts (auto) Absolute Lymphs (auto) Nucleated RBC % Differential Comment PT INR APTT Specimen Type Sample Site pH Bicarbonate Actual Total CO2 Base Excess O2 Saturation ABG pCO2 ABG pO2 O2 Delivery Device Liter Flow Sodium Potassium Chloride Carbon Dioxide Anion Gap BUN Creatinine Estim Creat Clear Calc Est GFR (MDRD) Af Amer Est GFR (MDRD) Non-Af BUN/Creatinine Ratio Glucose Lactic Acid 2.3 H* Calcium Magnesium Total Bilirubin AST ALT Alkaline Phosphatase Troponin I B-Natriuretic Peptide Total Protein Albumin Globulin Albumin/Globulin Ratio Urine Color Yellow Urine Clarity Clear Urine pH 6.0 Ur Specific [place] 1.015 Urine Protein 15 H Urine Glucose (UA) Normal Urine Ketones 5 H Urine Occult Blood Negative Urine Nitrite Negative Urine Bilirubin Negative Urine Urobilinogen 1 H Ur Leukocyte Esterase Negative Urine RBC 0 SEEN Urine WBC 0 SEEN Ur Squamous Epith Cells 0 SEEN Urine Bacteria 0 SEEN Urine Mucus RARE Salicylates Urine Opiates Screen POSITIVE H Urine Methadone Screen NEGATIVE Acetaminophen Ur Barbiturates Screen NEGATIVE Ur Phencyclidine Scrn NEGATIVE Ur Amphetamines Screen NEGATIVE U Methamphetamin-MDMA NEGATIVE U Benzodiazepines Scrn NEGATIVE Urine Cocaine Screen NEGATIVE U Cannabinoids Screen NEGATIVE Ur Drug Screen Comment Ethyl Alcohol COVID-19 (CELI) 01/17/20 01/17/20 01/17/20 18:24 19:00 22:20 WBC RBC Hgb Hct MCV MCH MCHC RDW Std Deviation RDW Coeff of Valerio Plt Count MPV Immature Gran % (Auto) Neut % (Auto) Lymph % (Auto) Whitman % (Auto) Eos % (Auto) Baso % (Auto) Absolute Neuts (auto) Absolute Lymphs (auto) Nucleated RBC % Differential Comment PT INR APTT Specimen Type ART Sample Site pH 7.38 Bicarbonate Actual 33.9 H Total CO2 36 Base Excess 9 H O2 Saturation 92 L ABG pCO2 57.6 H ABG pO2 68 L O2 Delivery Device Liter Flow Sodium Potassium Chloride Carbon Dioxide Anion Gap BUN Creatinine Estim Creat Clear Calc Est GFR (MDRD) Af Amer Est GFR (MDRD) Non-Af BUN/Creatinine Ratio Glucose Lactic Acid 2.2 H* Calcium Magnesium Total Bilirubin AST ALT Alkaline Phosphatase Troponin I B-Natriuretic Peptide Total Protein Albumin Globulin Albumin/Globulin Ratio Urine Color Urine Clarity Urine pH Ur Specific [place] Urine Protein Urine Glucose (UA) Urine Ketones Urine Occult Blood Urine Nitrite Urine Bilirubin Urine Urobilinogen Ur Leukocyte Esterase Urine RBC Urine WBC Ur Squamous Epith Cells Urine Bacteria Urine Mucus Salicylates Urine Opiates Screen Urine Methadone Screen Acetaminophen Ur Barbiturates Screen Ur Phencyclidine Scrn Ur Amphetamines Screen U Methamphetamin-MDMA U Benzodiazepines Scrn Urine Cocaine Screen U Cannabinoids Screen Ur Drug Screen Comment Ethyl Alcohol COVID-19 (CELI) Not Detected 01/18/20 01/18/20 01/18/20 00:20 03:20 06:15 WBC 10.3 RBC 4.29 Hgb 13.0 Hct 42.4 MCV 98.8 MCH 30.3 MCHC 30.7 L RDW Std Deviation 56.7 H RDW Coeff of Valerio 15.7 H Plt Count 150 MPV 10.1 Immature Gran % (Auto) 0.400 Neut % (Auto) 83.6 H Lymph % (Auto) 4.0 L Whitman % (Auto) 7.3 Eos % (Auto) 4.5 Baso % (Auto) 0.2 Absolute Neuts (auto) 8.7 H Absolute Lymphs (auto) 0.41 L Nucleated RBC % 0 Differential Comment SCANNED PT INR APTT Specimen Type Sample Site pH Bicarbonate Actual Total CO2 Base Excess O2 Saturation ABG pCO2 ABG pO2 O2 Delivery Device Liter Flow Sodium Potassium Chloride Carbon Dioxide Anion Gap BUN Creatinine Estim Creat Clear Calc Est GFR (MDRD) Af Amer Est GFR (MDRD) Non-Af BUN/Creatinine Ratio Glucose Lactic Acid Calcium Magnesium Total Bilirubin AST ALT Alkaline Phosphatase Troponin I 0.490 H 0.364 H B-Natriuretic Peptide Total Protein Albumin Globulin Albumin/Globulin Ratio Urine Color Urine Clarity Urine pH Ur Specific [place] Urine Protein Urine Glucose (UA) Urine Ketones Urine Occult Blood Urine Nitrite Urine Bilirubin Urine Urobilinogen Ur Leukocyte Esterase Urine RBC Urine WBC Ur Squamous Epith Cells Urine Bacteria Urine Mucus Salicylates Urine Opiates Screen Urine Methadone Screen Acetaminophen Ur Barbiturates Screen Ur Phencyclidine Scrn Ur Amphetamines Screen U Methamphetamin-MDMA U Benzodiazepines Scrn Urine Cocaine Screen U Cannabinoids Screen Ur Drug Screen Comment Ethyl Alcohol COVID-19 (CELI) 01/18/20 01/18/20 01/19/20 06:15 13:17 05:10 WBC Pending RBC Pending Hgb Pending Hct Pending MCV Pending MCH Pending MCHC Pending RDW Std Deviation Pending RDW Coeff of Valerio Pending Plt Count Pending MPV Immature Gran % (Auto) Neut % (Auto) Pending Lymph % (Auto) Whitman % (Auto) Eos % (Auto) Baso % (Auto) Absolute Neuts (auto) Pending Absolute Lymphs (auto) Nucleated RBC % Differential Comment PT INR APTT Specimen Type ART Sample Site R Brach pH 7.41 Bicarbonate Actual 30.8 H Total CO2 32 Base Excess 6 H O2 Saturation 95 ABG pCO2 49.1 H ABG pO2 75 O2 Delivery Device Cannula Liter Flow 4.0 Sodium 139 Potassium 4.1 Chloride 103 Carbon Dioxide 31.0 Anion Gap 5 BUN 14 Creatinine 0.60 Estim Creat Clear Calc 65.15 Est GFR (MDRD) Af Amer 129 Est GFR (MDRD) Non-Af 107 BUN/Creatinine Ratio 23.2 H Glucose 114 H Lactic Acid Calcium 8.2 L Magnesium Total Bilirubin 1.20 H AST 22 ALT 17 Alkaline Phosphatase 75 Troponin I 0.329 H B-Natriuretic Peptide Total Protein 6.2 L Albumin 2.7 L Globulin 3.5 Albumin/Globulin Ratio 0.8 L Urine Color Urine Clarity Urine pH Ur Specific [place] Urine Protein Urine Glucose (UA) Urine Ketones Urine Occult Blood Urine Nitrite Urine Bilirubin Urine Urobilinogen Ur Leukocyte Esterase Urine RBC Urine WBC Ur Squamous Epith Cells Urine Bacteria Urine Mucus Salicylates Urine Opiates Screen Urine Methadone Screen Acetaminophen Ur Barbiturates Screen Ur Phencyclidine Scrn Ur Amphetamines Screen U Methamphetamin-MDMA U Benzodiazepines Scrn Urine Cocaine Screen U Cannabinoids Screen Ur Drug Screen Comment Ethyl Alcohol COVID-19 (CELI) 01/19/20 05:10 WBC RBC Hgb Hct MCV MCH MCHC RDW Std Deviation RDW Coeff of Valerio Plt Count MPV Immature Gran % (Auto) Neut % (Auto) Lymph % (Auto) Whitman % (Auto) Eos % (Auto) Baso % (Auto) Absolute Neuts (auto) Absolute Lymphs (auto) Nucleated RBC % Differential Comment PT INR APTT Specimen Type Sample Site pH Bicarbonate Actual Total CO2 Base Excess O2 Saturation ABG pCO2 ABG pO2 O2 Delivery Device Liter Flow Sodium 142 Potassium 3.8 Chloride 109 H Carbon Dioxide 30.0 Anion Gap 3 L BUN 11 Creatinine 0.44 L Estim Creat Clear Calc 88.84 Est GFR (MDRD) Af Amer 186 Est GFR (MDRD) Non-Af 154 BUN/Creatinine Ratio 25.1 H Glucose 140 H Lactic Acid Calcium 7.4 L Magnesium Total Bilirubin AST ALT Alkaline Phosphatase Troponin I B-Natriuretic Peptide Total Protein Albumin Globulin Albumin/Globulin Ratio Urine Color Urine Clarity Urine pH Ur Specific [place] Urine Protein Urine Glucose (UA) Urine Ketones Urine Occult Blood Urine Nitrite Urine Bilirubin Urine Urobilinogen Ur Leukocyte Esterase Urine RBC Urine WBC Ur Squamous Epith Cells Urine Bacteria Urine Mucus Salicylates Urine Opiates Screen Urine Methadone Screen Acetaminophen Ur Barbiturates Screen Ur Phencyclidine Scrn Ur Amphetamines Screen U Methamphetamin-MDMA U Benzodiazepines Scrn Urine Cocaine Screen U Cannabinoids Screen Ur Drug Screen Comment Ethyl Alcohol COVID-19 (CELI) Microbiology 01/18/20 11:00 Mucosa - Nasopharyngeal Respiratory Panel (PCR) - Final 01/18/20 03:52 Sputum, Expectorated/Coughed Gram Stain - Final 01/17/20 Unknown Mucosa - Nasopharyngeal Respiratory Panel (PCR) - Final 01/17/20 17:50 Urine, Clean Catch Legionella Antigen - Final 01/17/20 17:50 Urine, Clean Catch Streptococcus pneumoniae Antigen (M - Final Clinical Impression(s) from Imaging Studies Chest X-Ray 01/17/20 18:05 IMPRESSION: 1. Increased right pleural effusion. 2. Persistent bibasilar infiltrates. 3. No other major interval change. Electronically Signed: Donald Raines DO at 18:27 EDT Tel [phone], Service support , Brain CT 01/17/20 18:07 IMPRESSION: No acute intracranial or calvarial abnormality. Electronically Signed: Donald Raines DO at 19:34 EDT Tel [phone], Service support , Abdomen/Pelvis CT 01/17/20 18:33 IMPRESSION: 1. A marked consolidation at the right lung base. 2. Hepatomegaly without mass. 3. Diffuse atherosclerotic changes of the thoracic aorta and iliac arteries. 4. Thoracolumbar spinal fusion. 5. Bilateral renal cysts. 6. Increased colonic feces suggesting constipation. 7. Evidence of hysterectomy. Electronically Signed: Donald Raines DO at 19:39 EDT Tel [phone], Service support , Venous Duplex 01/17/20 18:33 IMPRESSION: No demonstrated deep venous thrombosis of left lower extremity. Electronically Signed: Ronald Bender MD at 20:39 EDT , Service support , Chest CT 01/17/20 19:05 IMPRESSION: 1. Enlarging area of consolidation at the right lung base. This is thought to be partially atelectatic due to an elevated right hemidiaphragm. 2. Diffuse fibrotic changes posteriorly in the right lower lobe which are significantly increased from prior study. 3. Stable emphysematous change. 4. Stable findings of pulmonary hypertension. 5. Fusion of the spine, stable when compared to the earlier study. Electronically Signed: Donald Raines DO at 19:46 EDT Tel [phone], Service support , Chest X-Ray 01/17/20 22:23 IMPRESSION: No change in moderate consolidation of the right lung Electronically Signed: Ronald Bender MD at 23:15 EDT , Service support , Chest X-Ray 01/18/20 05:55 IMPRESSION: Moderate degree of improved aeration of both lungs with the mild residual right pleural effusion with bibasilar atelectasis more prominent on the right side. Electronically Signed: Chavez Mercy, at 9:23 EDT , Service support , Medical Necessity - Tobacco Use Smoking Status: Heavy Smoker (>10/day) Tobacco Use: Cigarettes Assessment/Plan All Active Problems (Last Reviewed 12/14/19 @ 10:09 by Stacy Austin) Elevated troponin (Acute) Encephalopathy acute (Acute) Elevated lactic acid level (Acute) Aspiration pneumonia (Acute) Acute on chronic respiratory failure with hypoxia and hypercapnia (Acute) Severe sepsis (Acute) Acute respiratory failure with hypoxia and hypercarbia (Acute) RECOMMENDATIONS: 1. Continue empiric antimicrobials, pending infectious work-up. 2. Continue scheduled bronchodilators and IV steroids. 3. Avoid sedating medications. 4. Dietary advancement per speech therapy recommendations. 5. Nicotine replacement therapy can be offered to the patient while admitted to the hospital. 6. Consider possible disposition to detention facility. IMPRESSIONS: 1. Acute on chronic combined respiratory failure The patient does have a suspected history of rather extensive COPD based upon smoking history, along with a baseline 4 L/min supplemental oxygen requirement. Her reliance on her supplemental oxygen is inconsistent. I do suspect that her current state of exacerbation may have been precipitated by recurrent aspiration, given the findings noted by speech therapy during her most recent hospitalization. This would also be complicated by the fact that she is on multiple sedating medications at her baseline as well. Given the findings noted on CT chest, it is reasonable to continue empiric antimicrobials as ordered along with bronchodilators and IV steroids. The patient undoubtedly needs to follow-up in the pulmonary medicine clinic after discharge. She does have prearranged appointments already scheduled as noted below. 2. Encephalopathy Likely metabolic and/or related to polypharmacy and subsequent hypercarbia. The patient also has a history of noncompliance with her supplemental oxygen, which is also likely contributing. Plan to continue current supportive measures and avoid further sedating medications. BiPAP therapy can be utilized as needed. 3. Chronic tobacco dependency Nicotine replacement therapy can be offered to the patient while admitted to the hospital. 4. Indeterminate cardiac enzyme Likely secondary to demand ischemia in the setting of #1. Cardiology consultation is pending. 5. History of CVA/malnutrition/hypertension/hyperlipidemia/chronic pain syndrome/anxiety/depression Complicates care, management, recovery and prognosis. As noted above, continue to avoid sedating medications. The patient is currently scheduled to be seen by Lauren Bacon in the pulmonary medicine clinic on Thursday for at 10:45 AM. She also has a pre-existing scheduled appointment with Dr. Villela on April 23 at 10:15 AM. This note was generated with [employer] dictation software. It may contain incorrect words, spelling, and punctuation that were not noted in checking the note before signing. Inpatient E&M: 09201 [facility] L[facility]
[2020-01-19 06:30] LABS: Differential Indicated SCAN CRITERIA MET
[2020-01-19 06:57] LABS: Differential Comment SCANNED
--- NOTE | 2020-01-19 07:38 | PCM.PN.HOSP ---
Patient Problems: Active and Suspected Problems (Last Reviewed 12/14/19 @ 10:09 by Stacy Austin) Elevated troponin (Acute) Encephalopathy acute (Acute) Elevated lactic acid level (Acute) Aspiration pneumonia (Acute) Acute on chronic respiratory failure with hypoxia and hypercapnia (Acute) Severe sepsis (Acute) Acute respiratory failure with hypoxia and hypercarbia (Acute) Subjective: Patient seen and examined. She was transferred to the ICU yesterday due to hypotension. However, she never required any vasopressor support and has remained at her baseline, with BP improving to the 90s systolic in the ICU. She remains on her baseline 4L of oxygen. Review of systems is otherwise negative. Vitals/I&O's: Vital Signs Temp Pulse Resp BP Pulse Ox 97.0 F L 82 13 96/61 98 01/19/20 04:00 01/19/20 07:00 01/19/20 07:00 01/19/20 07:00 01/19/20 07:00 Oxygen Flow Rate (L/min) 4 Oxygen Delivery Method Nasal Cannula Weight: 94 lb 12.78 oz Body Mass Index (BMI) 19.8 Intake and Output for Last 24 Hours 01/17/20 01/18/20 01/19/20 23:59 23:59 23:59 Intake Total 600 / 600 4591.67 / 5069.38 1190.00 / 1190.00 Output Total 400 / 550 300 / 300 Balance 600 / 600 4191.67 / 4519.38 890.00 / 890.00 General: Alert, Oriented x3, Cooperative, Lethargic HEENT: Atraumatic, PERRLA, EOMI, Normocephalic Oral: Dry Mucosa Neck: Supple, No JVD, Negative Carotid Bruits Lungs: - - Markedly decreased breath sounds bibasilarly. No wheezes or crackles. On 4 L of oxygen. Cardiovascular: Regular rate, Regular Rhythm, Normal S1, Normal S2, No murmurs Abdomen: Bowel Sounds Present, Soft, Non Tender Extremities: No clubbing, No cyanosis, No edema, Capillary Refill Less than 3 Seconds Skin: No rashes, No breakdown Musculoskeletal: No Tenderness to Palpation of Joints or Extremities Lymphatic: No Cervical, Supraclavicular, or Inguinal Adenopathy Neurological: Cranial nerves II-XII grossly intact, Neuro grossly intact, Motor Exam 5/5 strength throughout Psych/Mental Status: Flat Affect, Alert and oriented to time, place, person, mood and affect Microbiology Past 72 Hours 01/18/20 11:00 Mucosa - Nasopharyngeal Respiratory Panel (PCR) - Final 01/18/20 03:52 Sputum, Expectorated/Coughed Gram Stain - Final 01/17/20 Unknown Mucosa - Nasopharyngeal Respiratory Panel (PCR) - Final 01/17/20 17:50 Urine, Clean Catch Legionella Antigen - Final 01/17/20 17:50 Urine, Clean Catch Streptococcus pneumoniae Antigen (M - Final Laboratory Results 01/18/20 13:17: Specimen Type ART, Sample Site R Brach, pH 7.41, Bicarbonate Actual 30.8 H, Total CO2 32, Base Excess 6 H, O2 Saturation 95, ABG pCO2 49.1 H, ABG pO2 75, O2 Delivery Device Cannula, Liter Flow 4.0 01/19/20 05:10: WBC 6.5, RBC 3.96 L, Hgb 12.0, Hct 40.0, MCV 101.0 H, MCH 30.3, MCHC 30.0 L, RDW Std Deviation 58.2 H, RDW Coeff of Valerio 15.7 H, Plt Count 145 L, MPV 10.3, Immature Gran % (Auto) 0.300, Neut % (Auto) 93.2 H, Lymph % (Auto) 2.8 L, [place] % (Auto) 1.8, Eos % (Auto) 1.7, Baso % (Auto) 0.2, Absolute Neuts (auto) 6.1, Absolute Lymphs (auto) 0.18 L, Nucleated RBC % 0, Differential Comment SCANNED 01/19/20 05:10: Sodium 142, Potassium 3.8, Chloride 109 H, Carbon Dioxide 30.0, Anion Gap 3 L, BUN 11, Creatinine 0.44 L, Estim Creat Clear Calc 88.84, Est GFR (MDRD) Af Amer 186, Est GFR (MDRD) Non-Af 154, BUN/Creatinine Ratio 25.1 H, Glucose 140 H, Calcium 7.4 L Diagnostic Data Brain CT 01/17/20 18:07 IMPRESSION: No acute intracranial or calvarial abnormality. Electronically Signed: Donald Raines DO at 19:34 EDT Tel [phone], Service support , Abdomen/Pelvis CT 01/17/20 18:33 IMPRESSION: 1. A marked consolidation at the right lung base. 2. Hepatomegaly without mass. 3. Diffuse atherosclerotic changes of the thoracic aorta and iliac arteries. 4. Thoracolumbar spinal fusion. 5. Bilateral renal cysts. 6. Increased colonic feces suggesting constipation. 7. Evidence of hysterectomy. Electronically Signed: Donald Raines DO at 19:39 EDT Tel [phone], Service support , Venous Duplex 01/17/20 18:33 IMPRESSION: No demonstrated deep venous thrombosis of left lower extremity. Electronically Signed: Ronald Bender MD at 20:39 EDT , Service support , Chest CT 01/17/20 19:05 IMPRESSION: 1. Enlarging area of consolidation at the right lung base. This is thought to be partially atelectatic due to an elevated right hemidiaphragm. 2. Diffuse fibrotic changes posteriorly in the right lower lobe which are significantly increased from prior study. 3. Stable emphysematous change. 4. Stable findings of pulmonary hypertension. 5. Fusion of the spine, stable when compared to the earlier study. Electronically Signed: Donald Raines DO at 19:46 EDT Tel [phone], Service support , Chest X-Ray 01/18/20 05:55 IMPRESSION: Moderate degree of improved aeration of both lungs with the mild residual right pleural effusion with bibasilar atelectasis more prominent on the right side. Electronically Signed: Chavez Madrid, at 9:23 EDT , Service support , Current Medications Acetaminophen (Acetaminophen 650 Mg Suppository) 650 mg RECTAL Q4H PRN PRN PRN Reason: Pain Score 1-10/Temp > 100.7 F Albuterol Sulfate (Albuterol 2.5 Mg/3 Ml Vial.Neb.) 2.5 mg INHALATION Q2H PRN PRN PRN Reason: Dyspnea, wheezing Last Admin: 01/18/20 05:03 Dose: 2.5 mg Documented by: Albuterol/Ipratropium (Ipratropium/Albuterol Sulfate 3 Ml Ampul.Neb) 3 ml INHALATION Q4HWA.RT [facility] Last Admin: 01/19/20 06:43 Dose: 3 ml Documented by: Aspirin (Aspirin E.C. 81 Mg Tablet) 81 mg PO DAILY@0800 [facility] Last Admin: 01/18/20 10:33 Dose: 81 mg Documented by: Atorvastatin Calcium (Atorvastatin Calcium 40 Mg Tablet) 40 mg PO QHS [facility] Last Admin: 01/18/20 21:40 Dose: Not Given Documented by: Clopidogrel Bisulfate (Clopidogrel Bisulfate 75 Mg Tablet) 75 mg PO DAILY [facility] Enoxaparin Sodium (Enoxaparin 60 Mg/0.6 Ml Syringe) 45 mg SC Q12@0600,1800 [facility] Last Admin: 01/19/20 04:52 Dose: 45 mg Documented by: Sodium Chloride () 1,000 mls @ 150 mls/hr IV .Q6H40M [facility] Last Admin: 01/19/20 03:32 Dose: 150 mls/hr Documented by: Piperacillin Sod/Tazobactam (Sod 3.375 gm/ Sodium Chloride) 50 mls @ 12.5 mls/hr IV Q8 [facility] Last Admin: 01/19/20 04:52 Dose: 12.5 mls/hr Documented by: Famotidine 20 mg/ Sodium (Chloride) 10 mls @ 300 mls/hr IV Q12 [facility] Last Infusion: 01/18/20 21:50 Dose: Infused Documented by: Norepinephrine Bitartrate 8 mg (/ Sodium Chloride) 250 mls @ 9.375 mls/hr CONT INF .[id number] [facility]; Protocol Magnesium Hydroxide (Magnesium Hydroxide 30 Ml Udc) 30 ml PO DAILY PRN PRN PRN Reason: Constipation Methylprednisolone (Methylprednisolone 40 Mg/Ml Vial) 40 mg IV Q6 [facility] Last Admin: 01/19/20 04:53 Dose: 40 mg Documented by: Nitroglycerin (Nitroglycerin (Inpatient Use) 0.4 Mg Tab.Subl) 0.4 mg SUBLINGUAL Q5M PRN PRN Reason: CARDIAC/CHEST PAIN Nutritional Formula (Lactose Free) (Ensure Enlive 120 Ml Liquid) 120 ml PO 4X/DAY CHOLO Last Admin: 01/18/20 21:40 Dose: Not Given Documented by: Ondansetron HCl (Ondansetron 4 Mg/2 Ml Vial) 4 mg IV Q8H PRN PRN PRN Reason: NAUSEA/VOMITING Prochlorperazine Edisylate (Prochlorperazine 10 Mg/2 Ml Vial) 5 mg IV Q4H PRN PRN PRN Reason: Breakthrough Nausea/Vomiting Psyllium Hydrophilic Mucilloid (Psyllium 1 Packet) 1 packet PO DAILY PRN PRN PRN Reason: Constipation Senna/Docusate Sodium (Senna/Docusate Sodium 1 Tablet) 2 tablet PO BID PRN PRN PRN Reason: Constipation Sodium Chloride (0.9% Saline Lock 10 Ml Syringe) 10 - 40 ml IV UD PRN PRN Reason: SALINE FLUSH Last Admin: 01/19/20 04:52 Dose: 10 ml Documented by: STROKE Vital Signs/Narrative: Vital Signs Temp Pulse Resp BP Pulse Ox 01/19/20 07:00 82 13 96/61 98 01/19/20 06:00 79 12 99/66 93 01/19/20 05:00 80 18 86/62 L 94 01/19/20 04:00 97.0 F L 80 11 L 107/69 96 01/19/20 03:42 85 Medical Necessity - Tobacco Use Smoking Status: Heavy Smoker (>10/day) Tobacco Use: Cigarettes Assessment/Plan All Active Problems (Last Reviewed 12/14/19 @ 10:09 by Stacy Austin) Elevated troponin (Acute) Encephalopathy acute (Acute) Elevated lactic acid level (Acute) Aspiration pneumonia (Acute) Acute on chronic respiratory failure with hypoxia and hypercapnia (Acute) Severe sepsis (Acute) Acute respiratory failure with hypoxia and hypercarbia (Acute) # Acute metabolic encephalopathy due to acute hypoxic and hypercapnic respiratory failure she remains on her baseline 4L of oxygen on IV zosyn. pulmonology on board blood cultues pending. Respiratory culture also pending respiratory gram stain showed 4+ wbcs with 4+ gram negative rods and 1+ gram positive rods as well as rare yeast like organisms #Hypovolemic shock resolved. Patient is back at her baseline with BP in the 90s systolic. didnt require any vasopressors continue gentle hydration with IVF Shock could cause simply be also due to septic shock from pneumonia. Hydrate aggressively with IV fluids. I reviewed her BP from her previous admission in November, and her BP was in the 90s, then. #Indeterminate troponins. Initial troponin was 0.602 and trended down to 0.329. This may have been due to demand ischemia from hypoxia as she was not wearing her 4 L of oxygen. 2D echo from November 2019 showed EF of 55% with no regional wall motion abnormalities noted and preserved left ventricular systolic function with mildly enlarged left atrium and hypermobile atrial septum. Pulmonary artery still pressure was 44 mmHg. Cardiology on board, advocate conservative management ofr now # Oropharyngeal dysphagia evaluated by speech therapy yesterday. on modified diet, and to eat only under supervision and when alertl # History of CVA: on aspirin, plavix and statin. #Moderate protein calorie malnutrtion: BMI is 19. Nutrition on board #Hypertension: BP meds on hold due to hypotension # hyperlipidemia: on statin # Anxiety and depression: on escitalopram DVT prophylaxis: lovenox. Disposition: transfer to PCU as she is hemodynamically stable. Inpatient E&M: [id number] [facility] Hosp L3
[2020-01-19] MEDS: Aspirin E.C. 81 MG Tablet PO (10:07)
[2020-01-19] MEDS: Clopidogrel Bisulfate 75 MG Tablet PO (10:07)
[2020-01-19] MEDS: Famotidine 200 MG/20 ML MDV 20 MG in 0.9% Normal Saline (Pres. free 8 ML 300 MG IV ×2 (10:08→22:22)
--- NOTE | 2020-01-19 10:14 | PCM.PN.CARD ---
Subjectve: The patient appears to be somewhat more awake and alert this day. She denies ongoing chest discomfort. She believes her breathing is better. She has chronic back discomfort. Objective: Vital Signs Temp Pulse Resp BP Pulse Ox 98.4 F 81 18 90/67 91 01/19/20 10:11 01/19/20 10:11 01/19/20 10:11 01/19/20 10:11 01/19/20 10:11 Oxygen Flow Rate (L/min) 2 Oxygen Delivery Method Nasal Cannula Weight: 94 lb 12.78 oz Body Mass Index (BMI) 19.8 Intake and Output for Last 24 Hours 01/17/20 01/18/20 01/19/20 23:59 23:59 23:59 Intake Total 600 / 600 4591.67 / 5069.38 2230.00 / 2230.00 Output Total 400 / 550 300 / 300 Balance 600 / 600 4191.67 / 4519.38 1930.00 / 1930.00 General: Awake, Cooperative, No Acute Distress HEENT: Atraumatic, Normocephalic, PERRL, EOMI, Sclera Non Icteric Neck: Supple, Good ROM, No JVD Lungs: - - Diminished inspiratory effort/diminished breath sounds Cardiovascular: Regular Rhythm, Normal S1, Normal S2 Abdomen: Bowel Sounds Present, Soft Extremities: No edema Psych/Mental Status: Flat Affect 01/18/20 13:17: pH 7.41, Bicarbonate Actual 30.8 H, Base Excess 6 H, O2 Saturation 95, ABG pCO2 49.1 H, ABG pO2 75 01/19/20 05:10: WBC 6.5, RBC 3.96 L, Hgb 12.0, Hct 40.0, MCV 101.0 H, MCH 30.3, MCHC 30.0 L, Plt Count 145 L, MPV 10.3, Immature Gran % (Auto) 0.300, Neut % (Auto) 93.2 H, Lymph % (Auto) 2.8 L, [place] % (Auto) 1.8, Eos % (Auto) 1.7, Baso % (Auto) 0.2, Absolute Neuts (auto) 6.1, Nucleated RBC % 0 01/19/20 05:10: Sodium 142, Potassium 3.8, Chloride 109 H, Carbon Dioxide 30.0, Anion Gap 3 L, BUN 11, Creatinine 0.44 L, Est GFR (MDRD) Af Amer 186, Est GFR (MDRD) Non-Af 154, BUN/Creatinine Ratio 25.1 H, Glucose 140 H, Calcium 7.4 L Rhythm: Sinus rhythm Medical Necessity - Tobacco Use Smoking Status: Heavy Smoker (>10/day) Tobacco Use: Cigarettes Assessment/Plan 1. Abnormal cardiac enzymes She does have abnormal cardiac enzymes. This does raise concern of underlying CAD. It also raises concern that they may be secondary to a non-CAD event such as a type II event brought out by her hypoxemia, her hypotension-which may be secondary to concerns of an underlying infectious disease/sepsis syndrome, etc. At the present time she is being followed. Her cardiac enzymes are decreasing. Her ECG has demonstrated ST/T wave changes as noted. Her previous echocardiogram was reviewed. At the moment she will continue medical management as she is able. She will continue medical management as deemed appropriate. Over time depending upon her clinical course she may need to be considered for further evaluation with diagnostic cardiac catheterization. This was discussed with the patient. She is going to hedy this with her family and consider her options. 2. Hyperlipidemia She should continue medical management as deemed appropriate. 3. Hypertension She has a history of hypertension. At the moment she has been hypotensive. There is concerned this could be her baseline status as well as related to a combination of factors including volume depletion, sepsis, etc. She has been receiving IV fluids. 4. Aspiration pneumonia She has been evaluated by pulmonology and critical care medicine. She is on medical management with antibiotic therapy. 5. Acute respiratory related issues She has been hypoxic, etc. She has been undergoing evaluation and care by internal medicine and pulmonology/critical care medicine. She is receiving antibiotic therapy and O2 support. 6. Sepsis Based upon her clinical presentation, her elevated lactate acid levels, her hypotension, there is concern of sepsis. She is receiving evaluation and care and medical therapy including IV fluids. However if she remains hypotensive secondary to sepsis depending upon her clinical course, she may need IV vasopressor support as well. 7. COPD She has a longstanding history of COPD and reportedly has been on medical therapy and O2 at home. However she was found without her O2 and hypoxic. 8. Pulmonary hypertension She has a history of pulmonary hypertension. This can be reassessed noninvasively as deemed appropriate with echocardiographic studies. 9. Chronic back pain The patient has chronic back pain. She is on chronic narcotic therapy. There is concern that this may be contributing to some of her issues at presentation. 10. Encephalopathy The patient was reported to being encephalopathic. The etiology may be multifactorial. This could be related to her hypoxia as well as concern of her narcotic use as well as concerns of a possible underlying sepsis syndrome. She will continue evaluation care by internal medicine. Overall from a cardiac standpoint at the present time she will continue medical therapy. This will include agents such as aspirin, antiplatelet agents, nitrates as needed and tolerated, beta-blockers, lipid-lowering therapy, etc. However some of these agents she may not be able to tolerate at this time secondary to ongoing concerns of her hypotension, etc.. Again, she is going to discuss the possibility of further cardiac evaluation with diagnostic cardiac catheterization with her family and consider her options. The patient's case has been discussed and reviewed with Dr. Dolan. This note was generated using a voice recognition system and there may be incorrect words, spelling or punctuation that were not noted when reviewing the office note prior to saving.
[2020-01-19] MEDS: Atorvastatin Calcium 40 MG Tablet PO (22:22)
[2020-01-20] VITALS (22 sets, daily range): BP systolic 102–140; BP diastolic 56–79; PULSE 78–106; RESP 17–24; TEMP 36.6–37; O2SAT 92–100
[2020-01-20] MEDS: Aspirin E.C. 81 MG Tablet PO (05:46)
[2020-01-20] MEDS: Ipratropium/Albuterol Sulfate 3 ML AMPUL.NEB INHALATION ×3 (05:46→14:02)
[2020-01-20] MEDS: Clopidogrel Bisulfate 75 MG Tablet PO (05:48)
--- NOTE | 2020-01-20 06:16 | EKG12_ITS ---
Test Reason : AM EKG Blood Pressure : / mmHG Vent. Rate : 093 BPM Atrial Rate : 093 BPM P-R Int : 136 ms QRS Dur : 092 ms QT Int : 366 ms P-R-T Axes : 069 103 059 degrees QTc Int : 455 ms Sinus rhythm with Premature atrial complexes Rightward axis Low voltage QRS (Limb Leads) RSR' c/w [id number] Confirmed by TIFF FLORENTINO, ARIADNA ([id number]), purchasing expeditor DALIA AADMS ([id number]) on 01/23/2020 1:10:22 PM Referred By: Cassandra Jane Confirmed By:ARIADNA MATTHEW MD
[2020-01-20] MEDS: 0.9% Normal Saline 1,000 ML 150 ML IV (06:35)
--- NOTE | 2020-01-20 06:41 | CPS ---
PT REFUSED BIPAP DURING RESPIRATORY EPISODE. RN AWARE
[2020-01-20 06:55] LABS: Absolute Lymphocyte Count 0.37 X10^3/uL (0.83-4.51); Absolute Neutrophil Count 7.3 X10^3/uL (2.0-7.7); Hematocrit 39.2 % (37-47); Hemoglobin 11.9 g/dL (12.0-15.0); Lymphocyte # 0.37 X10^3/ul (4.0); Lymphocyte % 4.6 % (19-41); Mean Corp Hgb Conc 30.4 g/dL (32-36); Mean Corpuscular Hgb 30.4 pg (27.0-32.0); Mean Platelet Vol. 9.6 fl (6.2-12.0); Monocyte# 0.29 X10^3/uL; Monocyte% 3.6 % (0-10); NRBC Flagged by Analyzer 0 % (0-5); Neutrophil # 7.34 X10^3/uL (2.7-7.7); Neutrophil % 91.1 % (47-70); POSITIVE DIFFERENTIAL YES; POSITIVE MORPHOLOGY YES; Platelet Count 151 K/mm3 (150-450); RBC Distribution Width CV 15.5 % (11.6-14.6); RBC Distribution Width SD 57.1 fl (35.1-43.9); Red Blood Count 3.92 M/mm3 (4.2-5.4); White Blood Count 8.1 K/mm3 (4.4-11.0)
[2020-01-20 07:09] LABS: Differential Indicated SCAN CRITERIA MET
[2020-01-20 07:12] LABS: Anion Gap 5 (5-15); BUN 10 mg/dL (7-18); BUN/Creat Ratio 18.4 RATIO (10-20); Calcium,Total 7.7 mg/dL (8.5-10.1); Chloride 115 mmol/L (98-107); Creatinine, Serum 0.54 mg/dL (0.55-1.02); EST Glomerular Filtration Rate 120 mL/min (>60); Est Glom Filt Rate - Afr Amer 146 mL/min (>60); Estimated Creatinine Clearance 86.69 ml/min; Glucose 131 mg/dL (74-106); Potassium 3.7 mmol/L (3.5-5.1); Sodium Level 143 mmol/L (136-145)
[2020-01-20 07:25] LABS: Differential Comment SCANNED
--- NOTE | 2020-01-20 08:40 | PCM.PN.CARD ---
Subjectve: The patient is awake and alert. She denies any ongoing chest discomfort. She is chronically short of breath. She has chronic back discomfort. Objective: Vital Signs Temp Pulse Resp BP Pulse Ox 98.5 F 82 24 H 140/68 H 92 01/20/20 03:00 01/20/20 07:24 01/20/20 05:50 01/20/20 05:43 01/20/20 07:28 Oxygen Flow Rate (L/min) 4 Oxygen Delivery Method Nasal Cannula Weight: 113 lb 8.609 oz Body Mass Index (BMI) 19.8 Intake and Output for Last 24 Hours 01/18/20 01/19/20 01/20/20 23:59 23:59 23:59 Intake Total 4591.67 / 5069.38 4487.50 / 4577.50 1140 / 1140 Output Total 400 / 550 650 / 850 400 / 400 Balance 4191.67 / 4519.38 3837.50 / 3727.50 740 / 740 General: Awake, Alert, Oriented x 3, Cooperative, No Acute Distress HEENT: Atraumatic, Normocephalic, PERRL, EOMI, Sclera Non Icteric Neck: Supple, No Lymph Node Enlargement, No JVD Lungs: - - Diminished inspiratory effort Cardiovascular: Regular Rhythm, Normal S1, Normal S2 Abdomen: Bowel Sounds Present, Soft Extremities: No edema Neurological: No Focal Motor or Sensory Deficit Psych/Mental Status: Flat Affect 01/20/20 06:25: WBC 8.1, RBC 3.92 L, Hgb 11.9 L, Hct 39.2, MCV 100.0 H, MCH 30.4, MCHC 30.4 L, Plt Count 151, MPV 9.6, Immature Gran % (Auto) 0.700, Neut % (Auto) 91.1 H, Lymph % (Auto) 4.6 L, [place] % (Auto) 3.6, Eos % (Auto) 0.0, Baso % (Auto) 0.0, Absolute Neuts (auto) 7.3, Nucleated RBC % 0 01/20/20 06:25: Sodium 143, Potassium 3.7, Chloride 115 H, Carbon Dioxide 23.0, Anion Gap 5, BUN 10, Creatinine 0.54 L, Est GFR (MDRD) Af Amer 146, Est GFR (MDRD) Non-Af 120, BUN/Creatinine Ratio 18.4, Glucose 131 H, Calcium 7.7 L Rhythm: Sinus rhythm; brief episode appearing compatible with an ectopic atrial tachycardia EKG: Sinus rhythm; rightward axis; low voltage QRS limb leads; prominent R wave in V1; nonspecific ST/T wave abnormality Medical Necessity - Tobacco Use Smoking Status: Heavy Smoker (>10/day) Tobacco Use: Cigarettes Assessment/Plan 1. Abnormal cardiac enzymes She does have abnormal cardiac enzymes. This does raise concern of underlying CAD. It also raises concern that they may be secondary to a non-CAD event such as a type II event brought out by her hypoxemia, her hypotension-which may be secondary to concerns of an underlying infectious disease/sepsis syndrome, etc. At the present time she is being followed. Her cardiac enzymes are decreasing. Her ECG has demonstrated ST/T wave changes as noted. Her previous echocardiogram was reviewed. At the moment she will continue medical management as she is able. She will continue medical management as deemed appropriate. Further evaluation with diagnostic cardiac catheterization was discussed with the patient yesterday. She states she did discuss it with her sons yesterday evening. She is in agreement with proceeding with such. 2. Hyperlipidemia She should continue medical management as deemed appropriate. 3. Hypertension She has a history of hypertension. At the moment she has been hypotensive. There is concerned this could be her baseline status as well as related to a combination of factors including volume depletion, sepsis, etc. She has been receiving IV fluids. 4. Aspiration pneumonia She has been evaluated by pulmonology and critical care medicine. She is on medical management with antibiotic therapy. 5. Acute respiratory related issues She has been hypoxic, etc. She has been undergoing evaluation and care by internal medicine and pulmonology/critical care medicine. She is receiving antibiotic therapy and O2 support. 6. Sepsis Based upon her clinical presentation, her elevated lactate acid levels, her hypotension, there is concern of sepsis. She is receiving evaluation and care and medical therapy including IV fluids. However if she remains hypotensive secondary to sepsis depending upon her clinical course, she may need IV vasopressor support as well. 7. COPD She has a longstanding history of COPD and reportedly has been on medical therapy and O2 at home. However she was found without her O2 and hypoxic. 8. Pulmonary hypertension She has a history of pulmonary hypertension. This can be reassessed noninvasively as deemed appropriate with echocardiographic studies. 9. Chronic back pain The patient has chronic back pain. She is on chronic narcotic therapy. There is concern that this may be contributing to some of her issues at presentation. 10. Encephalopathy The patient was reported to being encephalopathic. The etiology may be multifactorial. This could be related to her hypoxia as well as concern of her narcotic use as well as concerns of a possible underlying sepsis syndrome. She will continue evaluation care by internal medicine. The patient's case has been discussed and reviewed with Dr. Dolan. This note was generated using a voice recognition system and there may be incorrect words, spelling or punctuation that were not noted when reviewing the office note prior to saving. Procedure Criteria Procedure Type: Elective COVID Risk Discussion: The surgeon/proceduralist and patient have discussed in detail the risk of exposure to and/or potential harm posed by the COVID-19 virus with having a surgery/procedure at this time versus the risk of delaying the surgery/procedure. It is not possible to know either the risk of delaying the surgery or procedure or chance of getting an infection with perfect accuracy, but a joint decision was made between the patient and the surgeon/proceduralist to proceed at this time with the scheduled surgery/procedure as indicated on the consent form.
--- NOTE | 2020-01-20 09:24 | CASEMGMT ---
According to the Medicaid website, the following are in-network tertiary facilities: [facility], [facility], [facility], [facility], [facility], [employer], and . Lili ESPARZA CM
--- NOTE | 2020-01-20 10:32 | CL.D_ITS ---
Patient Name: JOHNNA BRADY Study Date: 01/20/2020 Performing: Víctor Teresa MD Ht: 57.87 inches 147 cm : 1955 Wt: 114.64 lbs 52 kg Age: 64 Gender: female BSA: 1.44 PROCEDURE(S) PERFORMED NP81-EON/COR/LV CLINICAL PROFILE AND INDICATIONS Indications: ACS > 24 hrs, Suspected CAD Heart Failure: None Stress/Imaging Stress/Image Study Performed: No Angina Classification Anginal Classification w/in 2 Weeks: Anginal Equivalent Dyspnea CAD Presentations: Non-STEMI. CONCLUSIONS Elevated Left Ventricular End Diastolic Pressure Normal LV size, wall motion,and systolic function LVEF: by LV gram 55 % [place] Multivessel CAD RECOMMENDATIONS Risk factor modification Medical therapy Surgery consult for coronary revascularization DESCRIPTION OF PROCEDURE The patient arrived to the procedure lab. The risks and benefits of the procedure as well as a full d escription of our services here and current unavailability of surgical backup were fully explained to the patient and/or their significant other prior to the catheterization. The Timeout was completed, verifying the correct patient and procedure. The patient's procedural site was prepped and draped in the usual fashion. Local anesthetic was given subcutaneously to right radial region with Lidocaine 2% . Local anesthetic was given subcutaneously to right groin region with Lidocaine 2%. Local anesthetic was given subcutaneously to right brachial region with Lidocaine 2%. Using a modified Seldinger tech nique, arterial access was obtained via the right brachial artery, a 6Fr sheath was inserted. Left C oronary Artery selective angiography was performed in multiple views using a 5 Fr. 4.0 Franklin catheter . Right Coronary Artery selective angiography was then performed in multiple views using a 5 Fr. 4.0 Franklin catheter. Left Ventriculography was performed in JOHNSON projection using a 4 Fr. Pigtail catheter. LV to AO pullback pressures were then recorded.The arterial sheath was left in to be pulle d in the holding area. The arterial sheath was pulled and manual compression applied until hemostasis is achieved. CORONARY ANGIOGRAPHY DOMINANCE: Right Dominant LEFT HEART ASSESSMENT Left Ventricular Ejection Fraction: by LV Gram 55 % Normal LV wall motion Elevated Left Ventricular End Diastolic Pressure LVEDP: 28 mmHg LEFT MAIN: Severe calcification, proximal: eccentric: 85 % Stenosis LEFT ANTERIOR DESCENDING ARTERY: PROX LAD: Severe calcification, eccentric: 50 % Stenosis, 85 % Stenosis MID LAD: s/p SP1: 85 % Stenosis CIRCUMFLEX ARTERY: PROX CIRC: Moderate calcification, 25 % Stenosis RIGHT CORONARY ARTERY: Moderate calcification PROX RCA: diffuse: eccentric: 25 % Stenosis MID RCA: diffuse: 75 % Stenosis AORTIC ROOT: Angiographically normal COMPLICATIONS No Complications PROCEDURE MEDICATIONS Versed 0.5 mg IV Fentanyl 25 mcg IV Versed 0.5 mg IV Fentanyl 25 mcg IV Oxygen: 4 L/min via nasal cannula Heparin diluted in 23cc Heparinized saline. Patient given 10cc IA of this solution. 01/20/2020 09:32 :35 Verapamil 2.5mg, Ntg 100mcgs, 2000 units of Heparin diluted in 23cc Heparinized saline. Patient give n 10cc IA of this solution. 01/20/2020 09:32:35 SUMMARY OF HEMODYNAMIC DATA Time AIR REST ECG 08:41:12 AO 106/68 (86) SA 09:35:49 LV 129/10, 30 09:45:14 LV 129/11, 28 09:45:20 LV 119/18, 36 09:46:25 LV 121/11, 29 09:46:31 LVp 124/9, 28 09:46:39 AOp 122/72 (94) 09:46:44 Signed By Víctor Teresa MD On 01/20/2020 10:32:18 Víctor Teresa MD
--- NOTE | 2020-01-20 11:28 | PCM.PN.PUL ---
Patient Problems: Active and Suspected Problems (Last Reviewed 12/14/19 @ 10:09 by Stacy Austin) Elevated troponin (Acute) Encephalopathy acute (Acute) Elevated lactic acid level (Acute) Aspiration pneumonia (Acute) Acute on chronic respiratory failure with hypoxia and hypercapnia (Acute) Severe sepsis (Acute) Acute respiratory failure with hypoxia and hypercarbia (Acute) Subjective: The patient was seen and examined at the bedside this morning. Events from the last 24 hours have been reviewed. The patient is currently afebrile, hemodynamically stable and maintaining appropriate oxygen saturations on 4 L/min via nasal cannula. There are plans for cardiac catheterization today. Objective: The patient's most recent lab work, culture data and imaging studies have all been personally reviewed. Respiratory viral panel was negative. Strep and urine Legionella antigens were negative. Sputum culture was positive for E. coli. - Physical Exam Vitals/I&O's: Vital Signs Temp Pulse Resp BP Pulse Ox 98.4 F 78 20 H 113/74 100 01/20/20 10:55 01/20/20 11:02 01/20/20 10:55 01/20/20 10:55 01/20/20 10:55 Oxygen Flow Rate (L/min) 4 Oxygen Delivery Method Nasal Cannula Weight: 113 lb 8.609 oz Body Mass Index (BMI) 19.8 Intake and Output for Last 24 Hours 01/18/20 01/19/20 01/20/20 23:59 23:59 23:59 Intake Total 4591.67 / 5069.38 4487.50 / 4577.50 1190 / 1190 Output Total 400 / 550 650 / 850 400 / 400 Balance 4191.67 / 4519.38 3837.50 / 3727.50 790 / 790 General: Alert, No apparent distress HEENT: Atraumatic, Normocephalic Oral: Moist Mucosa Neck: Supple, No Nodes, Trachea Midline Lungs: Diminished Cardiovascular: Regular rate, Regular Rhythm Abdomen: Bowel Sounds Present, Soft, Non Tender Extremities: No clubbing, No cyanosis, No edema Skin: No breakdown Musculoskeletal: Cachexia, Muscle Wasting Lymphatic: No Cervical, Supraclavicular, or Inguinal Adenopathy Neurological: Neuro grossly intact Psych/Mental Status: Flat Affect Labs (Last 48 Hours) 01/18/20 01/19/20 01/19/20 13:17 05:10 05:10 WBC 6.5 RBC 3.96 L Hgb 12.0 Hct 40.0 MCV 101.0 H MCH 30.3 MCHC 30.0 L RDW Std Deviation 58.2 H RDW Coeff of Valerio 15.7 H Plt Count 145 L MPV 10.3 Immature Gran % (Auto) 0.300 Neut % (Auto) 93.2 H Lymph % (Auto) 2.8 L King % (Auto) 1.8 Eos % (Auto) 1.7 Baso % (Auto) 0.2 Absolute Neuts (auto) 6.1 Absolute Lymphs (auto) 0.18 L Nucleated RBC % 0 Differential Comment SCANNED Specimen Type ART Sample Site R Brach pH 7.41 Bicarbonate Actual 30.8 H Total CO2 32 Base Excess 6 H O2 Saturation 95 ABG pCO2 49.1 H ABG pO2 75 O2 Delivery Device Cannula Liter Flow 4.0 Sodium 142 Potassium 3.8 Chloride 109 H Carbon Dioxide 30.0 Anion Gap 3 L BUN 11 Creatinine 0.44 L Estim Creat Clear Calc 88.84 Est GFR (MDRD) Af Amer 186 Est GFR (MDRD) Non-Af 154 BUN/Creatinine Ratio 25.1 H Glucose 140 H Calcium 7.4 L 01/20/20 01/20/20 06:25 06:25 WBC 8.1 RBC 3.92 L Hgb 11.9 L Hct 39.2 MCV 100.0 H MCH 30.4 MCHC 30.4 L RDW Std Deviation 57.1 H RDW Coeff of Valerio 15.5 H Plt Count 151 MPV 9.6 Immature Gran % (Auto) 0.700 Neut % (Auto) 91.1 H Lymph % (Auto) 4.6 L King % (Auto) 3.6 Eos % (Auto) 0.0 Baso % (Auto) 0.0 Absolute Neuts (auto) 7.3 Absolute Lymphs (auto) 0.37 L Nucleated RBC % 0 Differential Comment SCANNED Specimen Type Sample Site pH Bicarbonate Actual Total CO2 Base Excess O2 Saturation ABG pCO2 ABG pO2 O2 Delivery Device Liter Flow Sodium 143 Potassium 3.7 Chloride 115 H Carbon Dioxide 23.0 Anion Gap 5 BUN 10 Creatinine 0.54 L Estim Creat Clear Calc 86.69 Est GFR (MDRD) Af Amer 146 Est GFR (MDRD) Non-Af 120 BUN/Creatinine Ratio 18.4 Glucose 131 H Calcium 7.7 L Microbiology 01/17/20 17:35 Blood Culture (Wb) - Anticubital Right Blood Culture - Preliminary No growth in 48 hours. 01/17/20 17:40 Blood Culture (Wb) - No Site/Description Given Blood Culture - Preliminary No growth in 48 hours. 01/18/20 03:52 Sputum, Expectorated/Coughed Gram Stain - Final 01/18/20 03:52 Sputum, Expectorated/Coughed Respiratory Culture - Final Escherichia coli 01/18/20 11:00 Mucosa - Nasopharyngeal Respiratory Panel (PCR) - Final Clinical Impression(s) from Imaging Studies Chest X-Ray 01/17/20 18:05 IMPRESSION: 1. Increased right pleural effusion. 2. Persistent bibasilar infiltrates. 3. No other major interval change. Electronically Signed: Donald Raines DO at 18:27 EDT Tel [phone], Service support , Brain CT 01/17/20 18:07 IMPRESSION: No acute intracranial or calvarial abnormality. Electronically Signed: Donald Raines DO at 19:34 EDT Tel [phone], Service support , Abdomen/Pelvis CT 01/17/20 18:33 IMPRESSION: 1. A marked consolidation at the right lung base. 2. Hepatomegaly without mass. 3. Diffuse atherosclerotic changes of the thoracic aorta and iliac arteries. 4. Thoracolumbar spinal fusion. 5. Bilateral renal cysts. 6. Increased colonic feces suggesting constipation. 7. Evidence of hysterectomy. Electronically Signed: Donald Raines DO at 19:39 EDT Tel [phone], Service support , Venous Duplex 01/17/20 18:33 IMPRESSION: No demonstrated deep venous thrombosis of left lower extremity. Electronically Signed: Ronald Bender MD at 20:39 EDT , Service support , Chest CT 01/17/20 19:05 IMPRESSION: 1. Enlarging area of consolidation at the right lung base. This is thought to be partially atelectatic due to an elevated right hemidiaphragm. 2. Diffuse fibrotic changes posteriorly in the right lower lobe which are significantly increased from prior study. 3. Stable emphysematous change. 4. Stable findings of pulmonary hypertension. 5. Fusion of the spine, stable when compared to the earlier study. Electronically Signed: Donald Raines DO at 19:46 EDT Tel [phone], Service support , Chest X-Ray 01/17/20 22:23 IMPRESSION: No change in moderate consolidation of the right lung Electronically Signed: Ronald Bender MD at 23:15 EDT , Service support , Chest X-Ray 01/18/20 05:55 IMPRESSION: Moderate degree of improved aeration of both lungs with the mild residual right pleural effusion with bibasilar atelectasis more prominent on the right side. Electronically Signed: Chavez Madrid, at 9:23 EDT , Service support , Current Medications Acetaminophen (Acetaminophen 650 Mg Suppository) 650 mg RECTAL Q4H PRN PRN PRN Reason: Pain Score 1-10/Temp > 100.7 F Albuterol Sulfate (Albuterol 2.5 Mg/3 Ml Vial.Neb.) 2.5 mg INHALATION Q2H PRN PRN PRN Reason: Dyspnea, wheezing Last Admin: 01/18/20 05:03 Dose: 2.5 mg Documented by: Albuterol/Ipratropium (Ipratropium/Albuterol Sulfate 3 Ml Ampul.Neb) 3 ml INHALATION Q4HWA.RT [facility] Last Admin: 01/20/20 11:15 Dose: 3 ml Documented by: Aspirin (Aspirin E.C. 81 Mg Tablet) 81 mg PO DAILY@0800 [facility] Last Admin: 01/20/20 05:46 Dose: 81 mg Documented by: Atorvastatin Calcium (Atorvastatin Calcium 40 Mg Tablet) 40 mg PO QHS [facility] Last Admin: 01/19/20 22:22 Dose: 40 mg Documented by: Enoxaparin Sodium (Enoxaparin 60 Mg/0.6 Ml Syringe) 45 mg SC Q12@0600,1800 [facility] Last Admin: 01/20/20 05:59 Dose: Not Given Documented by: Heparin Sodium (Beef Lung) (Heparin Lock 500 Unit/5 Ml In 10 Ml Syringe) 500 unit IV UD PRN PRN Reason: HEPARIN FLUSH Heparin Sodium (Beef Lung) (Heparin Lock 500 Unit/5 Ml In 10 Ml Syringe) 500 unit IV UD PRN PRN Reason: HEPARIN FLUSH Sodium Chloride () 1,000 mls @ 150 mls/hr IV .Q6H40M [facility] Last Admin: 01/20/20 06:35 Dose: 150 mls/hr Documented by: Piperacillin Sod/Tazobactam (Sod 3.375 gm/ Sodium Chloride) 50 mls @ 12.5 mls/hr IV Q8 [facility] Last Infusion: 01/20/20 09:55 Dose: Infused Documented by: Famotidine 20 mg/ Sodium (Chloride) 10 mls @ 300 mls/hr IV Q12 [facility] Last Infusion: 01/19/20 22:25 Dose: Infused Documented by: Sodium Chloride () 1,000 mls @ 0 mls/hr IV .Q0M [facility] Sodium Chloride () 1,000 mls @ 75 mls/hr IV .[id number] [facility] Stop: 01/20/20 14:09 Labetalol HCl (Labetalol (Prefilled) 20 Mg/4 Ml) 5 mg IV X1 PRN PRN Reason: SBP > 160 prior to sheath pull Stop: 01/22/20 10:10 Labetalol HCl (Labetalol (Prefilled) 20 Mg/4 Ml) 5 mg IV X1 PRN PRN Reason: SBP > 160 prior to sheath pull Magnesium Hydroxide (Magnesium Hydroxide 30 Ml Udc) 30 ml PO DAILY PRN PRN PRN Reason: Constipation Methylprednisolone (Methylprednisolone 40 Mg/Ml Vial) 40 mg IV Q6 [facility] Last Admin: 01/20/20 05:46 Dose: 40 mg Documented by: Metoprolol Tartrate (Metoprolol Tartrate 25 Mg Tablet) 12.5 mg PO BID [facility] Nitroglycerin (Nitroglycerin (Inpatient Use) 0.4 Mg Tab.Subl) 0.4 mg SUBLINGUAL Q5M PRN PRN Reason: CARDIAC/CHEST PAIN Nutritional Formula (Lactose Free) (Ensure Enlive 120 Ml Liquid) 120 ml PO 4X/DAY [facility] Last Admin: 01/20/20 11:00 Dose: Not Given Documented by: Ondansetron HCl (Ondansetron 4 Mg/2 Ml Vial) 4 mg IV Q8H PRN PRN PRN Reason: NAUSEA/VOMITING Prochlorperazine Edisylate (Prochlorperazine 10 Mg/2 Ml Vial) 5 mg IV Q4H PRN PRN PRN Reason: Breakthrough Nausea/Vomiting Psyllium Hydrophilic Mucilloid (Psyllium 1 Packet) 1 packet PO DAILY PRN PRN PRN Reason: Constipation Senna/Docusate Sodium (Senna/Docusate Sodium 1 Tablet) 2 tablet PO BID PRN PRN PRN Reason: Constipation Sodium Chloride (0.9% Saline Lock 10 Ml Syringe) 10 - 40 ml IV UD PRN PRN Reason: SALINE FLUSH Last Admin: 01/19/20 23:56 Dose: 10 ml Documented by: Medical Necessity - Tobacco Use Smoking Status: Heavy Smoker (>10/day) Tobacco Use: Cigarettes Assessment/Plan All Active Problems (Last Reviewed 12/14/19 @ 10:09 by Stacy Austin) Elevated troponin (Acute) Encephalopathy acute (Acute) Elevated lactic acid level (Acute) Aspiration pneumonia (Acute) Acute on chronic respiratory failure with hypoxia and hypercapnia (Acute) Severe sepsis (Acute) Acute respiratory failure with hypoxia and hypercarbia (Acute) RECOMMENDATIONS: 1. Okay to transition patient from Zosyn to Levaquin to complete 7-day treatment course. 2. Continue scheduled bronchodilators and IV steroids. Plan for prednisone taper at discharge. 3. Avoid sedating medications. 4. Dietary advancement per speech therapy recommendations. 5. The patient should follow-up in the pulmonary medicine clinic at the dates and times noted below. 6. Given the patient's lack of further ICU or pulmonary needs, will sign off. Please call with any additional questions. IMPRESSIONS: 1. Acute on chronic combined respiratory failure The patient does have a suspected history of rather extensive COPD based upon smoking history, along with a baseline 4 L/min supplemental oxygen requirement. Her reliance on her supplemental oxygen is inconsistent. I do suspect that her current state of exacerbation may have been precipitated by recurrent aspiration, given the findings noted by speech therapy during her most recent hospitalization. This would also be complicated by the fact that she is on multiple sedating medications at her baseline as well. Sputum culture was subsequently found to be positive for pansensitive E. coli. Therefore, the patient's antimicrobials can be deescalated to Levaquin to complete her treatment course. Continue bronchodilators. At discharge, I would recommend a prednisone taper. The patient undoubtedly needs to follow-up in the pulmonary medicine clinic after discharge at the dates and times listed below. 2. Encephalopathy Improved. Likely metabolic and/or related to polypharmacy and subsequent hypercarbia. The patient also has a history of noncompliance with her supplemental oxygen, which is also likely contributing. Plan to continue current supportive measures and avoid further sedating medications. BiPAP therapy can be utilized as needed. 3. Chronic tobacco dependency Nicotine replacement therapy can be offered to the patient while admitted to the hospital. 4. Indeterminate cardiac enzyme Cardiology is currently following with plans for catheterization today. 5. History of CVA/malnutrition/hypertension/hyperlipidemia/chronic pain syndrome/anxiety/depression Complicates care, management, recovery and prognosis. As noted above, continue to avoid sedating medications. The patient is currently scheduled to be seen by Lauren Bacon in the pulmonary medicine clinic on Thursday for at 10:45 AM. She also has a pre-existing scheduled appointment with Dr. Villela on April 23 at 10:15 AM. This note was generated with [employer] dictation software. It may contain incorrect words, spelling, and punctuation that were not noted in checking the note before signing. Inpatient E&M: 25586 Subs Hosp L2
[2020-01-20] MEDS: Famotidine 200 MG/20 ML MDV 20 MG in 0.9% Normal Saline (Pres. free 8 ML 300 MG IV (11:40)
--- NOTE | 2020-01-20 13:33 | CASEMGMT ---
DELIA called patient's Prescription Clerk Lenses, Martha Dick with [facility]. DELIA let her know patient is going to be transferred to [facility] [place] as soon as they have a bed available. She thanked DELIA for the update. Rhonda DUARTE MSW
--- NOTE | 2020-01-20 14:49 | DS.PCM_ITS ---
Discharge Date and Diagnosis - Problem List Patient Problems: Active and Suspected Problems (Last Reviewed 12/14/19 @ 10:09 by Stacy Austin) Elevated troponin (Acute) Encephalopathy acute (Acute) Elevated lactic acid level (Acute) Aspiration pneumonia (Acute) Acute on chronic respiratory failure with hypoxia and hypercapnia (Acute) Severe sepsis (Acute) Acute respiratory failure with hypoxia and hypercarbia (Acute) Date of Admission: 01/17/20 Date of Discharge: 01/20/20 - Primary Discharge Diagnosis Acute Problems: Active Problems (Last Reviewed 12/14/19 @ 10:09 by Stacy Austin) Elevated troponin (Acute) Encephalopathy acute (Acute) Elevated lactic acid level (Acute) Aspiration pneumonia (Acute) Acute on chronic respiratory failure with hypoxia and hypercapnia (Acute) Severe sepsis (Acute) Acute respiratory failure with hypoxia and hypercarbia (Acute) coronary artery disease - Secondary Discharge Diagnosis Chronic Problems: Chronic Problems (Last Reviewed 12/14/19 @ 10:09 by Stacy Austin) HTN (hypertension) (Chronic) HLD (hyperlipidemia) (Chronic) PAH (pulmonary artery hypertension) (Chronic) Tobacco use (Chronic) Dysphagia (Chronic) Anxiety and depression (Chronic) CVA (cerebral vascular accident) (Chronic) COPD (chronic obstructive pulmonary disease) (Chronic) Chronic back pain (Chronic) Hospital Course and Treatment Imaging Results: Diagnostic Data Brain CT 01/17/20 18:07 IMPRESSION: No acute intracranial or calvarial abnormality. Electronically Signed: Donald Raines DO at 19:34 EDT Tel [phone], Service support , Abdomen/Pelvis CT 01/17/20 18:33 IMPRESSION: 1. A marked consolidation at the right lung base. 2. Hepatomegaly without mass. 3. Diffuse atherosclerotic changes of the thoracic aorta and iliac arteries. 4. Thoracolumbar spinal fusion. 5. Bilateral renal cysts. 6. Increased colonic feces suggesting constipation. 7. Evidence of hysterectomy. Electronically Signed: Donald Raines DO at 19:39 EDT Tel [phone], Service support , Venous Duplex 01/17/20 18:33 IMPRESSION: No demonstrated deep venous thrombosis of left lower extremity. Electronically Signed: Ronald Bender MD at 20:39 EDT , Service support , Chest CT 01/17/20 19:05 IMPRESSION: 1. Enlarging area of consolidation at the right lung base. This is thought to be partially atelectatic due to an elevated right hemidiaphragm. 2. Diffuse fibrotic changes posteriorly in the right lower lobe which are significantly increased from prior study. 3. Stable emphysematous change. 4. Stable findings of pulmonary hypertension. 5. Fusion of the spine, stable when compared to the earlier study. Electronically Signed: Donald Raines DO at 19:46 EDT Tel [phone], Service support , Chest X-Ray 01/18/20 05:55 IMPRESSION: Moderate degree of improved aeration of both lungs with the mild residual right pleural effusion with bibasilar atelectasis more prominent on the right side. Electronically Signed: Chavez Madrid, at 9:23 EDT , Service support , cardiology- Dr Teresa pulmonology- Dr Dolan Operations: None Procedures: 2-D Echocardiogram, Cardiac catheterization Summary of Care Provided: The patient is a 64 year old F with an extensive past medical history as outlined was admitted via the ED on 01/17/2020 after she was found lethargic and complaining that she was short of breath. Patient wears 4 L of oxygen at home but had not been wearing it. EMS was called on account of her complaints and she was found to be 78% on room air. She was also taking buprenorphine as well as Hines which could have contributed to her lethargy. Patient has been admitted in the hospital at the end of November 2019 for respiratory failure and managed for COPD exacerbation and rhinovirus infection. She had a 2D echo done at that time which showed preserved EF but elevated pulmonary artery pressure. She was to follow-up with pulmonary clinic within 2 weeks of discharge the patient never showed up. On admission, she was maintaining appropriate oxygen saturation on her 4 L of oxygen. Labs done showed mildly elevated white cell count. ABG done showed pH of 7.38 with PCO2 of 58 and PO2 of 68. BMP was unremarkable. Covid test done was negative and urine tox was positive for opiates. CT of the chest showed bilateral emphysematous changes with some fibrotic changes in the dependent part of the right upper lobe with an area of consolidation in the right lung base. She was placed on IV antibiotics and breathing treatments with bronchodilators and placed on IV fluids. She was subsequently admitted to the progressive care unit for further management. Is also started on IV Zosyn for community-acquired pneumonia and probable aspiration pneumonia. During admission, patient remained somnolent but was arousable. She remained hypotensive with blood pressure in the 80s. Despite IV fluids, blood pressure remained in the 70s and 80s so she was admitted to the ICU as a precaution. However she did not need any vasopressor support and maintain her blood pressure in the 90s and 100s with IV fluid administration. Troponins were also indeterminate and was initially 0.602 and trended to 0.329 which was thought to be possibly due to demand ischemia. Cardiology was consulted and patient had cardiac cath on 01/20/2020 which showed significant multivessel disease with disease in the left main artery, LAD artery and RCA. Also the recommended that patient be transferred for CABG. Patient was accepted at [facility] under the service of Dr. Anderson on air director for consult to be placed to cardiothoracic surgery. She was transferred to [facility] on 01/20/2020. Patient seen and examined prior to discharge. She had no complaints. Review of symptoms otherwise negative. Labs and vitals reviewed. Home medication reviewed and reconciled. O/E: Vital Signs Temp Pulse Resp BP Pulse Ox 98.4 F 99 19 H 118/68 93 01/20/20 13:39 01/20/20 14:02 01/20/20 14:02 01/20/20 13:39 01/20/20 13:39 [] General: Alert, Oriented x3, Cooperative, Lethargic HEENT: Atraumatic, PERRLA, EOMI, Normocephalic Oral: Dry Mucosa Neck: Supple, No JVD, Negative Carotid Bruits Lungs: - - Markedly decreased breath sounds bibasilarly. No wheezes or crackles. On 4 L of oxygen. Cardiovascular: Regular rate, Regular Rhythm, Normal S1, Normal S2, No murmurs Abdomen: Bowel Sounds Present, Soft, Non Tender Extremities: No clubbing, No cyanosis, No edema, Capillary Refill Less than 3 Seconds Skin: No rashes, No breakdown Musculoskeletal: No Tenderness to Palpation of Joints or Extremities Lymphatic: No Cervical, Supraclavicular, or Inguinal Adenopathy Neurological: Cranial nerves II-XII grossly intact, Neuro grossly intact, Motor Exam 5/5 strength throughout Psych/Mental Status: Flat Affect, Alert and oriented to time, place, person, mood and affect Plan is for transfer to [facility] Patient Problems: Active and Suspected Problems (Last Reviewed 12/14/19 @ 10:09 by Stacy Austin) Elevated troponin (Acute) Encephalopathy acute (Acute) Elevated lactic acid level (Acute) Aspiration pneumonia (Acute) Acute on chronic respiratory failure with hypoxia and hypercapnia (Acute) Severe sepsis (Acute) Acute respiratory failure with hypoxia and hypercarbia (Acute) - Physical Exam Vitals/I&O's: Vital Signs Temp Pulse Resp BP Pulse Ox 98.4 F 99 19 H 118/68 93 01/20/20 13:39 01/20/20 14:02 01/20/20 14:02 01/20/20 13:39 01/20/20 13:39 Oxygen Flow Rate (L/min) 4 Oxygen Delivery Method Nasal Cannula Weight: 113 lb 8.609 oz Body Mass Index (BMI) 19.8 Intake and Output for Last 24 Hours 01/18/20 01/19/20 01/20/20 23:59 23:59 23:59 Intake Total 4591.67 / 5069.38 4487.50 / 4577.50 1850 / 1850 Output Total 400 / 550 650 / 850 875 / 875 Balance 4191.67 / 4519.38 3837.50 / 3727.50 975 / 975 Microbiology Past 72 Hours 01/17/20 17:35 Blood Culture (Wb) - Anticubital Right Blood Culture - Preliminary No growth in 48 hours. 01/17/20 17:40 Blood Culture (Wb) - No Site/Description Given Blood Culture - Preliminary No growth in 48 hours. 01/18/20 03:52 Sputum, Expectorated/Coughed Gram Stain - Final 01/18/20 03:52 Sputum, Expectorated/Coughed Respiratory Culture - Final Escherichia coli 01/18/20 11:00 Mucosa - Nasopharyngeal Respiratory Panel (PCR) - Final 01/17/20 Unknown Mucosa - Nasopharyngeal Respiratory Panel (PCR) - Final 01/17/20 17:50 Urine, Clean Catch Legionella Antigen - Final 01/17/20 17:50 Urine, Clean Catch Streptococcus pneumoniae Antigen (M - Final Laboratory Results 01/20/20 06:25: WBC 8.1, RBC 3.92 L, Hgb 11.9 L, Hct 39.2, MCV 100.0 H, MCH 30.4, MCHC 30.4 L, RDW Std Deviation 57.1 H, RDW Coeff of Valerio 15.5 H, Plt Count 151, MPV 9.6, Immature Gran % (Auto) 0.700, Neut % (Auto) 91.1 H, Lymph % (Auto) 4.6 L, Taylor % (Auto) 3.6, Eos % (Auto) 0.0, Baso % (Auto) 0.0, Absolute Neuts (auto) 7.3, Absolute Lymphs (auto) 0.37 L, Nucleated RBC % 0, Differential Comment SCANNED 01/20/20 06:25: Sodium 143, Potassium 3.7, Chloride 115 H, Carbon Dioxide 23.0, Anion Gap 5, BUN 10, Creatinine 0.54 L, Estim Creat Clear Calc 86.69, Est GFR (MDRD) Af Amer 146, Est GFR (MDRD) Non-Af 120, BUN/Creatinine Ratio 18.4, Glucose 131 H, Calcium 7.7 L Current Medications Acetaminophen (Acetaminophen 650 Mg Suppository) 650 mg RECTAL Q4H PRN PRN PRN Reason: Pain Score 1-10/Temp > 100.7 F Albuterol Sulfate (Albuterol 2.5 Mg/3 Ml Vial.Neb.) 2.5 mg INHALATION Q2H PRN PRN PRN Reason: Dyspnea, wheezing Last Admin: 01/18/20 05:03 Dose: 2.5 mg Documented by: Albuterol/Ipratropium (Ipratropium/Albuterol Sulfate 3 Ml Ampul.Neb) 3 ml INHALATION Q4HWA.RT CHOLO Last Admin: 01/20/20 14:02 Dose: 3 ml Documented by: Aspirin (Aspirin E.C. 81 Mg Tablet) 81 mg PO DAILY@0800 [facility] Last Admin: 01/20/20 05:46 Dose: 81 mg Documented by: Atorvastatin Calcium (Atorvastatin Calcium 40 Mg Tablet) 40 mg PO QHS [facility] Last Admin: 01/19/20 22:22 Dose: 40 mg Documented by: Atorvastatin Calcium (Atorvastatin Calcium 40 Mg Tablet) 40 mg PO QHS [facility] Enoxaparin Sodium (Enoxaparin 60 Mg/0.6 Ml Syringe) 45 mg SC Q12@0600,1800 [facility] Last Admin: 01/20/20 05:59 Dose: Not Given Documented by: Heparin Sodium (Beef Lung) (Heparin Lock 500 Unit/5 Ml In 10 Ml Syringe) 500 unit IV UD PRN PRN Reason: HEPARIN FLUSH Heparin Sodium (Beef Lung) (Heparin Lock 500 Unit/5 Ml In 10 Ml Syringe) 500 unit IV UD PRN PRN Reason: HEPARIN FLUSH Sodium Chloride () 1,000 mls @ 150 mls/hr IV .Q6H40M [facility] Last Infusion: 01/20/20 10:55 Dose: 75 mls/hr Documented by: Piperacillin Sod/Tazobactam (Sod 3.375 gm/ Sodium Chloride) 50 mls @ 12.5 mls/hr IV Q8 [facility] Last Admin: 01/20/20 14:38 Dose: 12.5 mls/hr Documented by: Famotidine 20 mg/ Sodium (Chloride) 10 mls @ 300 mls/hr IV Q12 [facility] Last Infusion: 01/20/20 11:43 Dose: Infused Documented by: Sodium Chloride () 1,000 mls @ 0 mls/hr IV .Q0M [facility] Labetalol HCl (Labetalol (Prefilled) 20 Mg/4 Ml) 5 mg IV X1 PRN PRN Reason: SBP > 160 prior to sheath pull Stop: 01/22/20 10:10 Labetalol HCl (Labetalol (Prefilled) 20 Mg/4 Ml) 5 mg IV X1 PRN PRN Reason: SBP > 160 prior to sheath pull Magnesium Hydroxide (Magnesium Hydroxide 30 Ml Udc) 30 ml PO DAILY PRN PRN PRN Reason: Constipation Methylprednisolone (Methylprednisolone 40 Mg/Ml Vial) 40 mg IV Q6 [facility] Last Admin: 01/20/20 11:40 Dose: 40 mg Documented by: Metoprolol Tartrate (Metoprolol Tartrate 25 Mg Tablet) 12.5 mg PO BID [facility] Nitroglycerin (Nitroglycerin (Inpatient Use) 0.4 Mg Tab.Subl) 0.4 mg SUBLINGUAL Q5M PRN PRN Reason: CARDIAC/CHEST PAIN Non-Formulary Medication (Buprenorphine Hcl [Belbuca]) 300 mcg BC BID [facility] Nutritional Formula (Lactose Free) (Ensure Enlive 120 Ml Liquid) 120 ml PO 4X/DAY [facility] Last Admin: 01/20/20 14:48 Dose: 120 ml Documented by: Ondansetron HCl (Ondansetron 4 Mg/2 Ml Vial) 4 mg IV Q8H PRN PRN PRN Reason: NAUSEA/VOMITING Prochlorperazine Edisylate (Prochlorperazine 10 Mg/2 Ml Vial) 5 mg IV Q4H PRN PRN PRN Reason: Breakthrough Nausea/Vomiting Psyllium Hydrophilic Mucilloid (Psyllium 1 Packet) 1 packet PO DAILY PRN PRN PRN Reason: Constipation Senna/Docusate Sodium (Senna/Docusate Sodium 1 Tablet) 2 tablet PO BID PRN PRN PRN Reason: Constipation Sodium Chloride (0.9% Saline Lock 10 Ml Syringe) 10 - 40 ml IV UD PRN PRN Reason: SALINE FLUSH Last Admin: 01/19/20 23:56 Dose: 10 ml Documented by: Discharge Diet: Low fat/ Low Cholesterol Home Medications: Medications to take at Discharge albuterol sulfate 90 mcg/actuation aerosol inhaler 2 puff INHALATION Q6H PRN 11/16/19 aspirin 81 mg tablet,delayed release 81 mg PO DAILY 11/16/19 gabapentin 300 mg capsule 300 mg PO 4X/DAY 11/16/19 biotin 1,000 mcg chewable tablet 1,000 mcg PO DAILY 12/14/19 Acetaminophen 1,000 mg PO TID PRN PRN 12/25/19 Baclofen [Lioresal] 10 mg PO QHS 12/25/19 Calcium Carbonate 500 mg PO BID 12/25/19 Cholecalciferol (Vitamin D3) [Vitamin D3] 50 mcg PO DAILY 12/25/19 Clopidogrel Bisulfate [Clopidogrel] 75 mg PO QHS 12/25/19 Escitalopram Oxalate 10 mg PO QHS 12/25/19 Furosemide [Lasix] 20 mg PO DAILY 12/25/19 Ipratropium/Albuterol Sulfate [Iprat-Albut 0.5-3(2.5) mg/3 ml] 3 ml IH 4X/DAY PRN PRN 12/25/19 Magnesium Oxide [Magox 400] 1,200 mg PO QHS 12/25/19 Magnesium Oxide [Magox 400] 400 mg PO DAILY 12/25/19 Buprenorphine HCl [Belbuca] 300 mcg BC BID 01/17/20 rosuvastatin 20 mg tablet 20 mg PO QHS #90 tab 01/18/20 Primary Care Physician: Amelie Cazares MD [Primary Care Provider] - Please follow up with your Primary Care Physician in: after discharge from [facility] Please Follow Up With: Amelie Cazares MD Please Follow Up With: Lauren Bacon NP Please Follow Up With: Pj Villela MD Disposition: Acute care Hospital Minutes spent on discharge:: 55 Patient Condition:: Fair Medical Necessity - Tobacco Use Smoking Status: Heavy Smoker (>10/day) Tobacco Use: Cigarettes Meaningful Use Info Meaningful Use Diagnoses (Choose all that apply): None applicable Inpatient E&M: 72292 [facility] Hosp
[2020-01-20] MEDS: HYDROcodone Bitartrate/Apap 5/325 Tablet PO (15:15)
[2020-01-20] MEDS: 0.9% Saline Lock 10 ML Syringe IV (17:12)
[2020-01-20] MEDS: Albuterol 2.5 MG/3 ML VIAL.NEB. INHALATION (17:12)
--- NOTE | 2020-01-20 18:13 | NURSING ---
report called to Dora carolina [phone] Suha Edmondson
== END 2020-01-20 19:34 | disposition short-term general hospital (02) | DRG 720 ==
LOC: ED 18:43 → PCU 23:09 → ICU 01-18 18:44 → PCU 01-19 12:10
PROVIDERS: Admitting Provider Family Medicine; Emergency Provider Emergency Medicine; PCP Internal Medicine; Referring Provider Family Medicine; Visit Provider Student in an Organized Health Care Education/Training Program
DX: A41.9 Sepsis, unspecified organism (principal); R65.20 Severe sepsis without septic shock; J96.21 Acute and chronic respiratory failure with hypoxia; J96.22 Acute and chronic respiratory failure with hypercapnia; J69.0 Pneumonitis due to inhalation of food and vomit; J44.9 Chronic obstructive pulmonary disease, unspecified; G89.4 Chronic pain syndrome; I25.10 Atherosclerotic heart disease of native coronary artery without angina pectoris; E78.5 Hyperlipidemia, unspecified; B96.20 Unspecified Escherichia coli [E. coli] as the cause of diseases classified elsewhere; I27.21 Secondary pulmonary arterial hypertension; I10 Essential (primary) hypertension; F32.9 Major depressive disorder, single episode, unspecified; F41.9 Anxiety disorder, unspecified; F17.210 Nicotine dependence, cigarettes, uncomplicated; G47.33 Obstructive sleep apnea (adult) (pediatric); R13.12 Dysphagia, oropharyngeal phase; R73.9 Hyperglycemia, unspecified; Z68.1 Body mass index [BMI] 19.9 or less, adult; E44.0 Moderate protein-calorie malnutrition; G93.41 Metabolic encephalopathy; R57.1 Hypovolemic shock; Z91.19 Patient's noncompliance with other medical treatment and regimen; Z86.73 Personal history of transient ischemic attack (TIA), and cerebral infarction without residual deficits; I21.4 Non-ST elevation (NSTEMI) myocardial infarction
CPT/HCPCS: 36415; 36600; 70450; 71045; 71260; 74177; 80048; 80053; 80307; 80320; 80329; 81001; 82803; 83605; 83735; 83880; 84484; 85025; 85610; 85730; 87040; 87070; 87077; 87186; 87205; 87449; 87633; 87635; 92526; 92610; 93005; 93458; 93971; 94002; 94640; 97162; 97166; 97530; 97802; 99152; 99153; 99285; 99406; J7030; J7040; Q9967; A4216; C1769; C1894; G0480; J3490; U0003

== ENCOUNTER → 2020-02-10 17:41 | Outpatient (CLI) | payer MEDICAID, SELFPAY ==
[2020-02-10 08:50] VITALS: BMI 20.6
[2020-02-10 19:06] LABS: Amphetamine Urine VISTA NEGATIVE (<1000 ng/mL); Barbiturate Urine VISTA NEGATIVE (< 200 ng/mL); Benzodiazepine Urine VISTA NEGATIVE (< 200 ng/mL); Cocaine Urine VISTA NEGATIVE (< 300 ng/mL); Ecstacy Urine VISTA NEGATIVE (< 500 ng/mL); Methadone Urine VISTA NEGATIVE (< 300 ng/mL); PCP Urine VISTA NEGATIVE (< 25 ng/mL); THC Urine VISTA NEGATIVE (< 50 ng/mL); Vista UDS pH Range 6
== END ==
PROVIDERS: PCP Internal Medicine; Visit Provider Anesthesiology
DX: F11.20 Opioid dependence, uncomplicated (principal)
CPT/HCPCS: 80307

== ENCOUNTER 2020-02-12 07:06 | Inpatient (IN) | payer MEDICAID, SELFPAY ==
[2020-02-10 08:50] VITALS: BMI 20.6
[2020-02-12] VITALS (32 sets, daily range): BP systolic 77–129; BP diastolic 52–78; PULSE 88–115; RESP 10–24; TEMP 35.9–37.1; O2SAT 86–98; BMI 21.5; BMI 20.1
--- NOTE | 2020-02-12 07:21 | EKG12_ITS ---
Test Reason : Blood Pressure : / mmHG Vent. Rate : 102 BPM Atrial Rate : 102 BPM P-R Int : 166 ms QRS Dur : 086 ms QT Int : 386 ms P-R-T Axes : 059 116 068 degrees QTc Int : 503 ms Somatic/Motion Artifact Sinus tachycardia Right axis deviation Possible Right ventricular hypertrophy Low voltage QRS (Limb Leads) Abnormal ECG Confirmed by TIFF FLORENTINO, ARIADNA ([id number]), restaurant expeditor DALIA ADAMS ([id number]) on 02/14/2020 12:53:46 PM Referred By: BARAK Confirmed By:ARIADNA MATTHEW MD
--- NOTE | 2020-02-12 07:24 | ED.DCSUM_ITS ---
- ER Visit Summary Date of Service: 02/12/20 Chief Complaint: Shortness of breath History of Present Illness: The patient is a 64 F who has shortness of breath. She called EMS this morning because she felt like she could not breathe. Upon their arrival she was on room air and she was 67%. They placed her on a nonrebreather and transported her here. However, she is supposed to be on 4 L nasal cannula at all times. Currently she feels short of breath and has had a cough. No fever or chest pain. She had a recent admission to the hospital for pneumonia. She also had a cardiac catheterization which showed multivessel disease and she was transferred to [facility]. She was Covid negative at yancy t time. She followed up with her PCP 2 days ago. They noted that she was short of breath at that time but she was 90% on her home 4 L. She is getting physical therapy daily and her home. She is predominantly wheelchair dependent. Her PCP recommended that she still follow-up with pulmonary and encouraged smoking cessation. Physical Examination: Vital signs reviewed. The patient is 95% on 4 L nasal cannula. HEENT exam unremarkable. Heart is regular rate and rhythm without murmurs. Lungs are clear to auscultation. Abdomen is soft and nontender. Extremities reveal no edema. Skin exam normal. Neurologic exam shows that the patient is drowsy, likely from receiving high flow nasal oxygen as she is likely a CO2 retainer. However, she moves all 4 extremities equally. Test Results: Chest x-ray shows bibasilar atelectasis. EKG was sinus rhythm with rate of 102. There are no ischemic changes. CBC is pending, glucose 107. ABG showed a pH of 7.30. PCO2 of 70, O2 59, bicarb 34. Troponin was within normal limits. Emergency Department Course and Treatment: Patient was placed on her home oxygen and she had a normal pulse oximetry but she was drowsy. PCO2 reveals acute respiratory acidosis. She was then placed on BiPAP for this. I gave her Solu- Medrol and albuterol treatments. I reviewed her visit from [facility]. They thought that she was too high risk to have any cardiac surgery and they were going to medically manage her. At this point I feel the patient is admitted to the hospital. Is with the hospitalist who recommended ICU care. I then discussed with Dr. Villela. Her coronavirus test is pending but she was negative about 3 and half weeks ago. Treatment Plan: [] Disposition: Admit to ICU Impression: Cute on chronic respiratory failure, COPD exacerbation This note was generated with [employer] dictation software. It may contain incorrect words, spelling, and punctuation that were not noted in review of the chart prior to signing ED Disposition - Plan for ED Patient: Referrals: Amelie Cazares MD [Primary Care Provider] -
--- NOTE | 2020-02-12 08:00 | RAD_ITS ---
STUDY: X-RAY CHEST REASON FOR EXAM: Female, 64 years old. sob, difficulty breathing, recent pneumonia, cough TECHNIQUE: Single AP portable view of the chest. COMPARISON: 01/18/2020 FINDINGS: Poor inspiration with some bibasilar atelectasis similar to the prior study. There is no demonstrated pleural abnormality. There is moderate cardiac enlargement. Normal mediastinum and wallace. Normal visualized pulmonary arteries. Normal visualized aortic arch and descending thoracic aorta. Extensive spinal rods. Normal visualized ribs, clavicles, and shoulders. There is no demonstrated abnormality of the visualized soft tissue structures of the upper abdomen. RAD/Chest 1 View (Portable) IMPRESSION: Poor inspiration with some bibasilar atelectasis similar the prior study. Electronically Signed: Augustine Baldwin MD at 8:19 EST Tel , Service support ,
--- NOTE | 2020-02-12 08:10 | CPS ---
Critical PCO2 given to Dr. Márquez.
[2020-02-12 08:11] LABS: Base Excess 9 mmol/L (-2 to +2); Bicarbonate 34.8 mmol/L (22-26); Blood Gas Specimen Type ART; O2 Delivery Device Cannula; PO2 60 mmHG (75-100); SITE L Brach; SO2 87 % (95-99); Total Carbon Dioxide 37 mmol/L; pCO2 70.1 mmHg (35-45)
[2020-02-12] MEDS: MethylPREDNISolone 125 MG/2 ML Vial IV (08:42)
[2020-02-12] MEDS: 0.9% Normal Saline 1,000 ML 999 ML IV (08:42)
[2020-02-12] MEDS: Albuterol 2.5 MG/3 ML VIAL.NEB. INHALATION (08:42)
[2020-02-12 09:11] LABS: Red Blood Cells-Urine 0 SEEN /hpf (0-5)
[2020-02-12 09:17] LABS: Color, Urine Yellow (Yellow); Glucose, Dipstick Normal (Normal); Ketone-Dipstick Negative (Negative); Leukocyte Esterase-Dipstick Negative /ul (Negative); Nitrite-Dipstick Negative (Negative); Occult Blood-Urine Negative /ul (Negative); Protein-Dipstick 15 mg/dl (Negative); Urine Bilirubin Dipstick Negative (Negative); Urine Clarity Clear (Clear); Urine Urobilinogen Normal (Normal)
[2020-02-12 09:20] LABS: ALB/GLOB Ratio 0.9 RATIO (0.9-2.4); AST(SGOT) 25 U/L (15-37); Alanine Aminotransfer ALT/SGPT 22 U/L (13-56); Albumin, Serum 3.4 g/dL (3.2-5.0); Alkaline Phosphatase 129 U/L (45-117); Anion Gap 2 (5-15); BUN 13 mg/dL (7-18); Calcium,Total 9.3 mg/dL (8.5-10.1); Chloride 107 mmol/L (98-107); Creatinine, Serum 0.72 mg/dL (0.55-1.02); EST Glomerular Filtration Rate 86 mL/min (>60); Est Glom Filt Rate - Afr Amer 105 mL/min (>60); Estimated Creatinine Clearance 58.96 ml/min; Globulin 3.7 g/dL (2.2-4.2); Glucose 107 mg/dL (74-106); Potassium 4.5 mmol/L (3.5-5.1); Protein, Total 7.1 g/dL (6.4-8.2); Sodium Level 143 mmol/L (136-145)
[2020-02-12 09:27] LABS: Amorphous Sediment 1+; Bacteria RARE /hpf (None Seen); Mucous, Urine 1+ /hpf (<or=2+); Squamous Epithelial Cells - UA 0-5 SEEN /hpf (5-10); White Blood Cells 0-5 SEEN /hpf (0-5)
[2020-02-12 09:39] LABS: Probe Check PASS; Specimen Processing Control PASS
--- NOTE | 2020-02-12 09:42 | PCM.HP.STD ---
Problem List (1) HTN (hypertension) Status: Chronic Qualifiers: Hypertension type: essential hypertension Qualified Code(s): I10 - Essential (primary) hypertension (2) HLD (hyperlipidemia) Status: Chronic Qualifiers: Hyperlipidemia type: unspecified Qualified Code(s): E78.5 - Hyperlipidemia, unspecified (3) Acute on chronic respiratory failure with hypoxia and hypercapnia Status: Acute (4) Anxiety and depression Status: Chronic (5) COPD (chronic obstructive pulmonary disease) Status: Chronic Qualifiers: COPD type: unspecified COPD Qualified Code(s): J44.9 - Chronic obstructive pulmonary disease, unspecified History of Present Illness Date of Admission: 02/12/20 Chief Complaint: Progressive SOB The patient is a 64 year old F with past medical history of chronic respiratory failure, on 4 L of oxygen, history of COPD. Patient was recently discharged from the hospital on 01/20/20 and transferred to [facility] for multivessel disease for CABG. Patient is a poor historian. Reportedly from the EMS report, she was supposed to be placed in a rehab facility after her hospitalization but she wanted to come home. She called the EMS this morning because she could not breathe. Since being at home, she had followed-up with her primary care doctor. She was short of breath but was saturating 90% on 4 L. Her Covid test was negative. She has been getting physical therapy at home. She was found off oxygen and lethargic and saturating at 67%. She was resumed back on oxygen. Denied any fever or chills. Denied any upper respiratory symptoms. Denied any sick contact. Patient was seen on BiPAP. She appeared anxious. Patient continues to smoke Her vitals in the ED showed temperature of 96.7F, heart rate 104, blood pressure 111/69, respiratory rate was 15, SPO2 of 98% on 4 L. BMP unremarkable. ABG showed pH of 7.3, PCO2 was 70.1, PO2 of 60. UA was unremarkable. COVID-19 PCR was negative. Chest x-ray showed poor inspiration with bibasilar atelectasis. Past Medical History Past Medical History (Chronic Problems): Chronic Problems (Last Updated 01/23/20 @ 08:52 by Lisa Kay) Atherosclerotic heart disease of [place] coronary artery without angina pectoris (Chronic) HTN (hypertension) (Chronic) HLD (hyperlipidemia) (Chronic) PAH (pulmonary artery hypertension) (Chronic) Tobacco use (Chronic) Dysphagia (Chronic) Anxiety and depression (Chronic) CVA (cerebral vascular accident) (Chronic) COPD (chronic obstructive pulmonary disease) (Chronic) Chronic back pain (Chronic) Medical History: Medical History (Last Updated 01/23/20 @ 08:52 by Lisa Kay) Atherosclerotic heart disease of [place] coronary artery without angina pectoris (Chronic) I25.10 CVA (cerebral vascular accident) I63.9 Osteoporosis M81.0 COPD (chronic obstructive pulmonary disease) J44.9 Allergies pregabalin [From Lyrica] Allergy (Verified 02/12/20 07:40) double vision Home Medications: Ambulatory Orders Medication Instructions Recorded albuterol sulfate 90 mcg/actuation 2 puff INHALATION Q6H PRN 11/16/19 aerosol inhaler gabapentin 300 mg capsule 300 mg PO 4X/DAY 11/16/19 biotin 1,000 mcg chewable tablet 1,000 mcg PO DAILY 12/14/19 Acetaminophen 1,000 mg PO TID PRN PRN 12/25/19 Baclofen [Lioresal] 10 mg PO QHS 12/25/19 Calcium Carbonate 500 mg PO BID 12/25/19 Cholecalciferol (Vitamin D3) 50 mcg PO DAILY 12/25/19 [Vitamin D3] Clopidogrel Bisulfate [Clopidogrel] 75 mg PO QHS 12/25/19 Escitalopram Oxalate 10 mg PO QHS 12/25/19 Furosemide [Lasix] 20 mg PO DAILY 12/25/19 Ipratropium/Albuterol Sulfate 3 ml IH 4X/DAY PRN PRN 12/25/19 [Iprat-Albut 0.5-3(2.5) mg/3 ml] Magnesium Oxide [Magox 400] 400 mg PO DAILY 12/25/19 Buprenorphine HCl [Belbuca] 300 mcg BC BID 01/17/20 rosuvastatin 20 mg tablet 20 mg PO QHS #90 tab 01/18/20 aspirin 81 mg tablet,delayed 81 mg PO DAILY #90 tab 02/07/20 release Surgical History: Surgical History (Last Updated 01/23/20 @ 08:51 by Lisa Kay) 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 History of left heart catheterization (LHC) Onset Date: ~01/20/20 Z98.890 LEFT MAIN: Severe calcification, proximal: eccentric: 85 % Stenosis; LEFT ANTERIOR DESCENDING ARTERY: PROX LAD: Severe calcification, eccentric: 50 % Stenosis, 85 % Stenosis, MID LAD: s/p SP1: 85 % Stenosis; CIRCUMFLEX ARTERY: PROX CIRC: Moderate calcification, 25 % Stenosis; RIGHT CORONARY ARTERY: Moderate calcification, PROX RCA: diffuse: eccentric: 25 % Stenosis, MID RCA: diffuse: 75 % Stenosis; AORTIC ROOT: Angiographically normal; RECOMMENDATIONS: Surgery consult for coronary revascularization per cath 01/20/20 spinal Surgical History: - - Club foot surgery, significant back surgery with hardware, s/p cardiac catherisation Psychiatric History: No pertinent psych hx 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 Smoking Status: Current every day smoker - *Family History Maternal Family History: Family History (Last Reviewed 12/14/19 @ 10:09 by Stacy Austin) Grandmother Diabetes Son Diabetes Other Asthma History Items: Heart Disease Paternal Family History: Family History (Last Reviewed 12/14/19 @ 10:09 by Stacy Austin) Grandmother Diabetes Son Diabetes Other Asthma History Items: Pulmonary Disease Review of Systems Unable to obtain accurate/complete ROS d/t: Unable to obtain as patient was on Bipap VTE Information - Inpt Only VTE Present on Admission: No VTE Pharm Prophylaxis ordered?: Yes Patient Problems: Active and Suspected Problems (Last Updated 01/23/20 @ 08:52 by Lisa Kay) Acute on chronic respiratory failure with hypoxia and hypercapnia (Acute) - Physical Exam Vitals/I&O's: Vital Signs Temp Pulse Resp BP Pulse Ox 98.5 F 101 H 15 96/74 95 02/12/20 09:00 02/12/20 09:00 02/12/20 09:00 02/12/20 09:00 02/12/20 09:00 Oxygen Flow Rate (L/min) 4 Oxygen Delivery Method Bi-pap Weight: 46.7 kg Body Mass Index (BMI) 21.5 General: Alert, Oriented x3, Cooperative, - - in respiratory distress, on Bipap, cachetic HEENT: Atraumatic, PERRLA, EOMI, Normocephalic Oral: Moist Mucosa Neck: Supple Lungs: Diminished Cardiovascular: Regular rate, Regular Rhythm, Normal S1, Normal S2, No murmurs Abdomen: Bowel Sounds Present, Soft, Non Tender, Non-Distended, No Hepato-splenomegaly Extremities: No edema Skin: No rashes Musculoskeletal: No Tenderness to Palpation of Joints or Extremities Lymphatic: No Cervical, Supraclavicular, or Inguinal Adenopathy Neurological: Cranial nerves II-XII grossly intact, Neuro grossly intact Psych/Mental Status: Normal Affect, Appropriate Laboratory Results 02/12/20 08:01: WBC Cancelled, Corrected WBC Cancelled, RBC Cancelled, Hgb Cancelled, Hct Cancelled, MCV Cancelled, MCH Cancelled, MCHC Cancelled, RDW Std Deviation Cancelled, RDW Coeff of Valerio Cancelled, Plt Count Cancelled, MPV Cancelled, Immature Gran % (Auto) Cancelled, Neut % (Auto) Cancelled, Lymph % (Auto) Cancelled, [place] % (Auto) Cancelled, Eos % (Auto) Cancelled, Baso % (Auto) Cancelled, Absolute Neuts (auto) Cancelled, Absolute Lymphs (auto) Cancelled, Total Counted Cancelled, Neutrophils % (Manual) Cancelled, Band Neutrophils % Cancelled, Lymphocytes % (Manual) Cancelled, Monocytes % (Manual) Cancelled, Eosinophils % (Manual) Cancelled, Basophils % (Manual) Cancelled, Metamyelocytes % Cancelled, Myelocytes % Cancelled, Promyelocytes % Cancelled, Blast Cells % Cancelled, Plasma Cell % (Manual) Cancelled, Other Cells % Cancelled, Nucleated RBC % Cancelled, Nucleated RBCs/100 WBC Cancelled, Differential Comment Cancelled, Diff Path Review Cancelled, Hypersegmented Neuts Cancelled, Atypical Lymphocytes Cancelled, Reactive Lymphocytes Cancelled, Smudge Cells Cancelled, Toxic Granulation Cancelled, Toxic Vacuolation Cancelled, Dohle Bodies Cancelled, Reji Rods Cancelled, Platelet Estimate Cancelled, Plt Morphology Comment Cancelled, RBC Morphology Cancelled, Polychromasia Cancelled, Hypochromasia Cancelled, Poikilocytosis Cancelled, Basophilic Stippling Cancelled, Anisocytosis Cancelled, Microcytosis Cancelled, Macrocytosis Cancelled, Spherocytes Cancelled, Sickle Cells Cancelled, Target Cells Cancelled, Tear Drop Cells Cancelled, Ovalocytes Cancelled, Stomatocytes Cancelled, [place] Bodies Cancelled, Víctor Cells Cancelled, Bite Cells Cancelled, Crenated Cell Cancelled, Acanthocytes (Spur) Cancelled, Rouleaux Cancelled, Schistocytes Cancelled 02/12/20 08:01: Sodium 143, Potassium 4.5, Chloride 107, Carbon Dioxide 34.0 H, Anion Gap 2 L, BUN 13, Creatinine 0.72, Estim Creat Clear Calc 58.96, Est GFR (MDRD) Af Amer 105, Est GFR (MDRD) Non-Af 86, BUN/Creatinine Ratio 18.0, Glucose 107 H, Calcium 9.3, Total Bilirubin 0.40, AST 25, ALT 22, Alkaline Phosphatase 129 H, Troponin I 0.025, Total Protein 7.1, Albumin 3.4, Globulin 3.7, Albumin/Globulin Ratio 0.9 02/12/20 08:02: Specimen Type ART, Sample Site L Brach, pH 7.30 L, Bicarbonate Actual 34.8 H, Total CO2 37, Base Excess 9 H, O2 Saturation 87 L, ABG pCO2 70.1 H*, ABG pO2 60 L, O2 Delivery Device Cannula, Liter Flow 4.0 02/12/20 08:30: COVID-19 (CELI) Negative 02/12/20 09:00: Urine Color Yellow, Urine Clarity Clear, Urine pH 6.0, Ur Specific [place] 1.020, Urine Protein 15 H, Urine Glucose (UA) Normal, Urine Ketones Negative, Urine Occult Blood Negative, Urine Nitrite Negative, Urine Bilirubin Negative, Urine Urobilinogen Normal, Ur Leukocyte Esterase Negative, Urine RBC 0 SEEN, Urine WBC 0-5 SEEN, Ur Squamous Epith Cells 0-5 SEEN, Amorphous Sediment 1+, Urine Bacteria RARE, Urine Mucus 1+ Assessment/Plan All Active Problems (Last Updated 01/23/20 @ 08:52 by Lisa Kay) Elevated troponin (Acute) Encephalopathy acute (Acute) Elevated lactic acid level (Acute) Aspiration pneumonia (Acute) Acute on chronic respiratory failure with hypoxia and hypercapnia (Acute) Severe sepsis (Acute) Acute respiratory failure with hypoxia and hypercarbia (Acute) 1. Acute on chronic respiratory failure likely secondary to acute COPD exacerbation/noncompliance with oxygen Patient was on BiPAP, improved to 4 L, put on BiPAP again on account of anxiety with difficulty breathing Continue with breathing treatments, IV steroids, encourage use of incentive spirometer. Wean off oxygen for SPO2 more than 94% BNPep is pending, would also get D-dimer to assist in ruling out acute PE 2. Acute COPD exacerbation, unclear etiology Admitting chest x-ray shows atelectasis Continue with breathing treatment, IV steroids, encourage use of incentive spirometer Wean off oxygen for SPO2 more than 94% 3. CAD, severe multivessel, patient was deemed not to be surgical candidate EKG shows no acute ST-T changes. Stable vitals We will continue with aggressive medical therapy with aspirin, Plavix,statin She does not complain of acute chest pain so will not trend troponins 4. Nicotine dependence, on replacement 5. DVT PPx- On Lovenox SC Inpatient E&M: 57151 Init Hosp L3
[2020-02-12 14:46] LABS: International Normalized Ratio 1.2; Prothrombin Time (Protime)PT. 14.3 SECONDS (11.7-14.9)
[2020-02-12 15:09] LABS: BNP,B-Type NATRIURETIC PEPTIDE 374.8 pg/mL (0-100)
[2020-02-12] MEDS: Ipratropium/Albuterol Sulfate 3 ML AMPUL.NEB INHALATION ×2 (15:48→20:30)
[2020-02-12 17:00] LABS: D-Dimer Quantitative (DVT/PE) 1.47 FEU/ug/m (0.27-0.49)
--- NOTE | 2020-02-12 17:10 | CT_ITS ---
STUDY: CTA CHEST REASON FOR EXAM: Female, 64 years old. Respiratory failure, elevated D-dimer, SOB, chronic respiratory failure, COPD, CABG, hypertension, smoker, COVID negative. RADIATION DOSAGE (If Supplied By Facility): CTDIvol = ( 6.10 ) mGy, DLP = ( 157.55 ) mGycm TECHNIQUE: The examination was performed with the intravenous administration of IV 75mL [id number]-300. Post-processing of the angiographic images was performed, with multiplanar reformation and 3D reconstruction. Individualized dose optimization techniques were used for this CT. COMPARISON: 01/17/2020 FINDINGS: Cervical spine fusions. Normal enhancement of the main pulmonary artery and right and left pulmonary arteries. Normal enhancement of the bilateral peripheral pulmonary arteries. There is no demonstrated pulmonary embolism. There is prominence of the main pulmonary arteries without peripheral pulmonary vascular congestion, suggesting pulmonary hypertension. Normal thoracic aorta and visualized great vessels. There is no demonstrated aortic dissection. Normal heart and pericardium. Normal mediastinum. Normal hilar regions. Occlusions of the right lower lobe bronchi. Bilateral lower lobe consolidation, more extensive on the right. Normal pleura. Normal chest wall structures. Thoracolumbar fusions and laminectomies. Remote deformities of T5, T6, and T10. Multiple thoracic kyphoplasties. Normal visualized upper abdomen. CT/CTA Chest W/WO Contrast IMPRESSION: No demonstrated pulmonary embolism or arterial dissection. Prominence of the pulmonary arteries compatible with pulmonary hypertension. Occlusions of the right lower lobe bronchi. Bilateral lower lobe consolidation, more extensive on the right. Electronically Signed: Judah Akhtar MD at 17:56 EST Tel , Service support ,
[2020-02-12] MEDS: levoFLOXacin IV 750 MG/150 ML BAG 100 MG IV (20:13)
--- NOTE | 2020-02-12 22:07 | CPS ---
pt refused to wear per nursing
[2020-02-12] MEDS: Acetaminophen 500 MG Tablet 1000 MG PO (22:12)
[2020-02-12] MEDS: Escitalopram Oxalate 10 MG Tablet PO (22:13)
[2020-02-12] MEDS: Calcium (Elemental) 500 MG Tablet PO (22:13)
[2020-02-12] MEDS: Clopidogrel Bisulfate 75 MG Tablet PO (22:13)
[2020-02-12] MEDS: Baclofen 10 MG Tablet PO (22:13)
[2020-02-12] MEDS: Atorvastatin Calcium 40 MG Tablet PO (22:13)
[2020-02-13] VITALS (26 sets, daily range): BP systolic 85–109; BP diastolic 52–67; PULSE 84–99; RESP 12–22; TEMP 36.4–37.2; O2SAT 89–97
[2020-02-13] MEDS: 0.9% Normal Saline 1,000 ML 999 ML IV (02:40)
[2020-02-13] MEDS: 0.9% Saline Lock 10 ML Syringe IV ×3 (05:06→20:03)
[2020-02-13 05:07] LABS: Reflex Lactate? Y
[2020-02-13 05:30] LABS: Absolute Lymphocyte Count 0.33 X10^3/uL (0.83-4.51); Absolute Neutrophil Count 11.1 X10^3/uL (2.0-7.7); Basophil# 0.02 X10^3/uL; Basophil% 0.2 % (0-1); Eosinophil# 0.23 X10^3/uL; Eosinophils% 1.8 % (0-5); Hematocrit 38.6 % (37-47); Hemoglobin 11.5 g/dL (12.0-15.0); Lymphocyte # 0.33 X10^3/ul (4.0); Lymphocyte % 2.6 % (19-41); Mean Corp Hgb Conc 29.8 g/dL (32-36); Mean Corpuscular Volume 97.5 fL (81-99); Mean Platelet Vol. 9.6 fl (6.2-12.0); Monocyte# 0.82 X10^3/uL; Monocyte% 6.5 % (0-10); NRBC Flagged by Analyzer 0 % (0-5); Neutrophil % 88.3 % (47-70); POSITIVE DIFFERENTIAL YES; Platelet Count 180 K/mm3 (150-450); RBC Distribution Width CV 16.1 % (11.6-14.6); RBC Distribution Width SD 58.3 fl (35.1-43.9); Red Blood Count 3.96 M/mm3 (4.2-5.4); White Blood Count 12.6 K/mm3 (4.4-11.0)
[2020-02-13 05:33] LABS: Differential Indicated SCAN CRITERIA MET
[2020-02-13 05:51] LABS: ALB/GLOB Ratio 0.7 RATIO (0.9-2.4); AST(SGOT) 19 U/L (15-37); Alanine Aminotransfer ALT/SGPT 20 U/L (13-56); Albumin, Serum 2.4 g/dL (3.2-5.0); Alkaline Phosphatase 93 U/L (45-117); Anion Gap 2 (5-15); BUN 12 mg/dL (7-18); BUN/Creat Ratio 24.1 RATIO (10-20); Chloride 108 mmol/L (98-107); EST Glomerular Filtration Rate 133 mL/min (>60); Est Glom Filt Rate - Afr Amer 161 mL/min (>60); Estimated Creatinine Clearance 81.27 ml/min; Globulin 3.5 g/dL (2.2-4.2); Glucose 134 mg/dL (74-106); Potassium 3.9 mmol/L (3.5-5.1); Protein, Total 5.9 g/dL (6.4-8.2); Sodium Level 139 mmol/L (136-145)
[2020-02-13 05:53] LABS: Lactic Acid 1.9 mmol/L (0.4-1.9)
[2020-02-13 06:24] LABS: Differential Comment SCANNED
--- NOTE | 2020-02-13 06:38 | CON.PCM_ITS ---
Reason for Consult Date of Consultation: 02/13/20 Reason for Consultation: Chronic hypoxemic respiratory failure History of Present Illness: The patient is a 64-year-old female, with a history as outlined below, who presented to the emergency department on February 11 with complaints of worsenin g shortness of breath and hypoxemia. The patient was just recently admitted to the hospital in December with acute on chronic respiratory failure, felt to be multifactorial in etiology, with supplemental oxygen noncompliance and recurrent aspiration leading to E. coli pneumonia likely contributing. She does have an extensive smoking history and continues to smoke cigarettes daily. She is supposed to utilize 4 L/min of supplemental oxygen at her baseline, but only utilizes it intermittently. The patient was discharged from the hospital on December 28 after having been treated for a COPD exacerbation precipitated by a rhinovirus infection. It was the pulmonary medicine team's recommendations at that time that the patient follow-up in the pulmonary clinic within 2 weeks of discharge. However, the patient was never scheduled for follow-up. Of note, during the patient's prior hospitalizations, she was evaluated by speech therapy and found to have mild oropharyngeal dysphagia on modified barium swallow. The patient was felt to be high risk for aspiration. During the patient's last hospital admission she was evaluated by cardiology and underwent cardiac catheterization which revealed multivessel coronary disease. She was subsequently transferred to [facility] to be evaluated by cardiothoracic surgery. The patient reported that she was evaluated by cardiothoracic surgery, who indicated that she was too high risk to proceed with surgery. On presentation to the emergency department, the patient was noted to be afebrile and hemodynamically stable. She was maintaining appropriate oxygen saturations on her baseline requirement. Laboratory evaluation revealed a mildly elevated white blood cell count. D-dimer was elevated to 1.47. Chemistry profile was unremarkable. Initial lactate was elevated to 3.0. Troponin was negative. BNP was elevated to 374. Urine analysis was unremarkable. Coronavirus PCR was negative. CTA chest showed no evidence for P E but did reveal a right lower lobe airspace consolidation. The patient was subsequently placed on bronchodilator therapy, steroids and antimicrobials. For short period of time she was placed on BiPAP as well. The patient was subsequently admitted to the medical intensive care unit for further management. Past Medical History Past Medical History (Chronic Problems): Chronic Problems (Last Updated 01/23/20 @ 08:52 by Lisa Kay) Atherosclerotic heart disease of [place] coronary artery without angina pectoris (Chronic) HTN (hypertension) (Chronic) HLD (hyperlipidemia) (Chronic) PAH (pulmonary artery hypertension) (Chronic) Tobacco use (Chronic) Dysphagia (Chronic) Anxiety and depression (Chronic) CVA (cerebral vascular accident) (Chronic) COPD (chronic obstructive pulmonary disease) (Chronic) Chronic back pain (Chronic) Medical History: Medical History (Last Updated 01/23/20 @ 08:52 by Lisa Kay) Atherosclerotic heart disease of [place] coronary artery without angina pectoris (Chronic) I25.10 CVA (cerebral vascular accident) I63.9 Osteoporosis M81.0 COPD (chronic obstructive pulmonary disease) J44.9 Allergies pregabalin [From Lyrica] Allergy (Verified 02/12/20 07:40) double vision Home Medications: Ambulatory Orders Medication Instructions Recorded albuterol sulfate 90 mcg/actuation 2 puff INHALATION Q6H PRN 11/16/19 aerosol inhaler gabapentin 300 mg capsule 300 mg PO 4X/DAY 11/16/19 biotin 1,000 mcg chewable tablet 1,000 mcg PO DAILY 12/14/19 Acetaminophen 1,000 mg PO TID PRN PRN 12/25/19 Baclofen [Lioresal] 10 mg PO QHS 12/25/19 Calcium Carbonate 500 mg PO BID 12/25/19 Cholecalciferol (Vitamin D3) 50 mcg PO DAILY 12/25/19 [Vitamin D3] Clopidogrel Bisulfate [Clopidogrel] 75 mg PO QHS 12/25/19 Escitalopram Oxalate 10 mg PO QHS 12/25/19 Furosemide [Lasix] 20 mg PO DAILY 12/25/19 Ipratropium/Albuterol Sulfate 3 ml IH 4X/DAY PRN PRN 12/25/19 [Iprat-Albut 0.5-3(2.5) mg/3 ml] Magnesium Oxide [Magox 400] 400 mg PO DAILY 12/25/19 Buprenorphine HCl [Belbuca] 300 mcg BC BID 01/17/20 rosuvastatin 20 mg tablet 20 mg PO QHS #90 tab 01/18/20 aspirin 81 mg tablet,delayed 81 mg PO DAILY #90 tab 02/07/20 release Surgical History: Surgical History (Last Updated 01/23/20 @ 08:51 by Lisa Kay) 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 History of left heart catheterization (LHC) Onset Date: ~01/20/20 Z98.890 LEFT MAIN: Severe calcification, proximal: eccentric: 85 % Stenosis; LEFT ANTERIOR DESCENDING ARTERY: PROX LAD: Severe calcification, eccentric: 50 % Stenosis, 85 % Stenosis, MID LAD: s/p SP1: 85 % Stenosis; CIRCUMFLEX ARTERY: PROX CIRC: Moderate calcification, 25 % Stenosis; RIGHT CORONARY ARTERY: Moderate calcification, PROX RCA: diffuse: eccentric: 25 % Stenosis, MID RCA: diffuse: 75 % Stenosis; AORTIC ROOT: Angiographically normal; RECOMMENDATIONS: Surgery consult for coronary revascularization per cath 01/20/20 spinal Surgical History: - - Club foot surgery, significant back surgery with hardware, s/p cardiac catherisation Psychiatric History: No pertinent psych hx 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 Smoking Status: Current every day smoker Tobacco Use: Cigarettes - *Family History Maternal Family History: Family History (Last Reviewed 12/14/19 @ 10:09 by Stacy Austin) Grandmother Diabetes Son Diabetes Other Asthma History Items: Heart Disease Paternal Family History: Family History (Last Reviewed 12/14/19 @ 10:09 by Stacy Austin) Grandmother Diabetes Son Diabetes Other Asthma History Items: Pulmonary Disease Review of Systems Constitutional: Denies: Chills, Fever, Night Sweats Eyes: Denies: Blurred vision, Double vision HEENT: Denies: Head Aches, Sinus Congestion, Sinus Drainage Cardiovascular: Denies: Chest Pain, Palpitations Respiratory: Reports: Cough, Shortness of Breath Gastrointestinal: Denies: Abdominal Pain, Nausea, Vomiting Genitourinary: Denies: Dysuria Musculoskeletal: Denies: Joint Pain, Joint Tenderness Skin: Denies: Rash, Wounds Neurological: Denies: Numbness, Tingling, Focal weakness Psychiatric: Denies: Anxiety, Depression, Homicidal Ideations, Suicidal Ideations Hematologic/ Lymphatic: Reports: Anemia Objective: The patient's most recent lab work, culture data and imaging studies have all been personally reviewed. Coronavirus PCR from February 11 was negative. Respiratory viral panel was negative. Blood and urine cultures are pending. Prior sputum culture from January 17 and December 26 were both positive for pansensitive E. coli. - Physical Exam Vitals/I&O's: Vital Signs Temp Pulse Resp BP Pulse Ox 98.6 F 92 14 97/63 95 02/13/20 05:00 02/13/20 06:00 02/13/20 06:00 02/13/20 06:00 02/13/20 06:00 Oxygen Flow Rate (L/min) 2 Oxygen Delivery Method Nasal Cannula Weight: 98 lb 8.746 oz Body Mass Index (BMI) 20.1 Intake and Output for Last 24 Hours 02/11/20 02/12/20 02/13/20 23:59 23:59 23:59 Intake Total 1450 / 1450 1781.25 / 1781.25 Output Total 300 / 300 300 / 300 Balance 1150 / 1150 1481.25 / 1481.25 General: Alert, Cooperative, No apparent distress HEENT: Atraumatic, Normocephalic Oral: No Gingival or Mucosal Lesions/ Ulcerations Neck: Supple, No Nodes, Trachea Midline Lungs: No rhonchi, No wheeze, No rales, Diminished Cardiovascular: Regular rate, Regular Rhythm Abdomen: Bowel Sounds Present, Soft, Non Tender Extremities: No clubbing, No cyanosis, No edema Skin: No breakdown Musculoskeletal: Cachexia, Muscle Wasting Lymphatic: No Cervical, Supraclavicular, or Inguinal Adenopathy Neurological: Cranial nerves II-XII grossly intact, Neuro grossly intact Psych/Mental Status: Flat Affect Labs (Last 48 Hours) 02/12/20 02/12/20 02/12/20 08:01 08:01 08:02 WBC Cancelled Corrected WBC Cancelled RBC Cancelled Hgb Cancelled Hct Cancelled MCV Cancelled MCH Cancelled MCHC Cancelled RDW Std Deviation Cancelled RDW Coeff of Valerio Cancelled Plt Count Cancelled MPV Cancelled Immature Gran % (Auto) Cancelled Neut % (Auto) Cancelled Lymph % (Auto) Cancelled [place] % (Auto) Cancelled Eos % (Auto) Cancelled Baso % (Auto) Cancelled Absolute Neuts (auto) Cancelled Absolute Lymphs (auto) Cancelled Total Counted Cancelled Neutrophils % (Manual) Cancelled Band Neutrophils % Cancelled Lymphocytes % (Manual) Cancelled Monocytes % (Manual) Cancelled Eosinophils % (Manual) Cancelled Basophils % (Manual) Cancelled Metamyelocytes % Cancelled Myelocytes % Cancelled Promyelocytes % Cancelled Blast Cells % Cancelled Plasma Cell % (Manual) Cancelled Other Cells % Cancelled Nucleated RBC % Cancelled Nucleated RBCs/100 WBC Cancelled Differential Comment Cancelled Diff Path Review Cancelled Hypersegmented Neuts Cancelled Atypical Lymphocytes Cancelled Reactive Lymphocytes Cancelled Smudge Cells Cancelled Toxic Granulation Cancelled Toxic Vacuolation Cancelled Dohle Bodies Cancelled Reji Rods Cancelled Platelet Estimate Cancelled Plt Morphology Comment Cancelled RBC Morphology Cancelled Polychromasia Cancelled Hypochromasia Cancelled Poikilocytosis Cancelled Basophilic Stippling Cancelled Anisocytosis Cancelled Microcytosis Cancelled Macrocytosis Cancelled Spherocytes Cancelled Sickle Cells Cancelled Target Cells Cancelled Tear Drop Cells Cancelled Ovalocytes Cancelled Stomatocytes Cancelled [place] Bodies Cancelled Víctor Cells Cancelled Bite Cells Cancelled Crenated Cell Cancelled Acanthocytes (Spur) Cancelled Rouleaux Cancelled Schistocytes Cancelled PT INR APTT D-Dimer Quant (PE/DVT) Specimen Type ART Sample Site L Brach pH 7.30 L Bicarbonate Actual 34.8 H Total CO2 37 Base Excess 9 H O2 Saturation 87 L ABG pCO2 70.1 H* ABG pO2 60 L O2 Delivery Device Cannula Liter Flow 4.0 Sodium 143 Potassium 4.5 Chloride 107 Carbon Dioxide 34.0 H Anion Gap 2 L BUN 13 Creatinine 0.72 Estim Creat Clear Calc 58.96 Est GFR (MDRD) Af Amer 105 Est GFR (MDRD) Non-Af 86 BUN/Creatinine Ratio 18.0 Glucose 107 H Lactic Acid Calcium 9.3 Total Bilirubin 0.40 AST 25 ALT 22 Alkaline Phosphatase 129 H Troponin I 0.025 B-Natriuretic Peptide Total Protein 7.1 Albumin 3.4 Globulin 3.7 Albumin/Globulin Ratio 0.9 Urine Color Urine Clarity Urine pH Ur Specific [place] Urine Protein Urine Glucose (UA) Urine Ketones Urine Occult Blood Urine Nitrite Urine Bilirubin Urine Urobilinogen Ur Leukocyte Esterase Urine RBC Urine WBC Ur Squamous Epith Cells Amorphous Sediment Urine Bacteria Urine Mucus COVID-19 (CELI) 02/12/20 02/12/20 02/12/20 08:30 09:00 14:25 WBC Corrected WBC RBC Hgb Hct MCV MCH MCHC RDW Std Deviation RDW Coeff of Valerio Plt Count MPV Immature Gran % (Auto) Neut % (Auto) Lymph % (Auto) [place] % (Auto) Eos % (Auto) Baso % (Auto) Absolute Neuts (auto) Absolute Lymphs (auto) Total Counted Neutrophils % (Manual) Band Neutrophils % Lymphocytes % (Manual) Monocytes % (Manual) Eosinophils % (Manual) Basophils % (Manual) Metamyelocytes % Myelocytes % Promyelocytes % Blast Cells % Plasma Cell % (Manual) Other Cells % Nucleated RBC % Nucleated RBCs/100 WBC Differential Comment Diff Path Review Hypersegmented Neuts Atypical Lymphocytes Reactive Lymphocytes Smudge Cells Toxic Granulation Toxic Vacuolation Dohle Bodies Reji Rods Platelet Estimate Plt Morphology Comment RBC Morphology Polychromasia Hypochromasia Poikilocytosis Basophilic Stippling Anisocytosis Microcytosis Macrocytosis Spherocytes Sickle Cells Target Cells Tear Drop Cells Ovalocytes Stomatocytes Rodriguez[place] Bodies [place] Cells Bite Cells Crenated Cell Acanthocytes (Spur) Rouleaux Schistocytes PT 14.3 INR 1.2 APTT 28.0 D-Dimer Quant (PE/DVT) Specimen Type Sample Site pH Bicarbonate Actual Total CO2 Base Excess O2 Saturation ABG pCO2 ABG pO2 O2 Delivery Device Liter Flow Sodium Potassium Chloride Carbon Dioxide Anion Gap BUN Creatinine Estim Creat Clear Calc Est GFR (MDRD) Af Amer Est GFR (MDRD) Non-Af BUN/Creatinine Ratio Glucose Lactic Acid Calcium Total Bilirubin AST ALT Alkaline Phosphatase Troponin I B-Natriuretic Peptide Total Protein Albumin Globulin Albumin/Globulin Ratio Urine Color Yellow Urine Clarity Clear Urine pH 6.0 Ur Specific [place] 1.020 Urine Protein 15 H Urine Glucose (UA) Normal Urine Ketones Negative Urine Occult Blood Negative Urine Nitrite Negative Urine Bilirubin Negative Urine Urobilinogen Normal Ur Leukocyte Esterase Negative Urine RBC 0 SEEN Urine WBC 0-5 SEEN Ur Squamous Epith Cells 0-5 SEEN Amorphous Sediment 1+ Urine Bacteria RARE Urine Mucus 1+ COVID-19 (CELI) Negative 02/12/20 02/12/20 02/13/20 14:25 14:25 00:50 WBC Corrected WBC RBC Hgb Hct MCV MCH MCHC RDW Std Deviation RDW Coeff of Valerio Plt Count MPV Immature Gran % (Auto) Neut % (Auto) Lymph % (Auto) [place] % (Auto) Eos % (Auto) Baso % (Auto) Absolute Neuts (auto) Absolute Lymphs (auto) Total Counted Neutrophils % (Manual) Band Neutrophils % Lymphocytes % (Manual) Monocytes % (Manual) Eosinophils % (Manual) Basophils % (Manual) Metamyelocytes % Myelocytes % Promyelocytes % Blast Cells % Plasma Cell % (Manual) Other Cells % Nucleated RBC % Nucleated RBCs/100 WBC Differential Comment Diff Path Review Hypersegmented Neuts Atypical Lymphocytes Reactive Lymphocytes Smudge Cells Toxic Granulation Toxic Vacuolation Dohle Bodies Reji Rods Platelet Estimate Plt Morphology Comment RBC Morphology Polychromasia Hypochromasia Poikilocytosis Basophilic Stippling Anisocytosis Microcytosis Macrocytosis Spherocytes Sickle Cells Target Cells Tear Drop Cells Ovalocytes Stomatocytes Rodriguez[place] Bodies [place] Cells Bite Cells Crenated Cell Acanthocytes (Spur) Rouleaux Schistocytes PT INR APTT D-Dimer Quant (PE/DVT) 1.47 H* Specimen Type Sample Site pH Bicarbonate Actual Total CO2 Base Excess O2 Saturation ABG pCO2 ABG pO2 O2 Delivery Device Liter Flow Sodium Potassium Chloride Carbon Dioxide Anion Gap BUN Creatinine Estim Creat Clear Calc Est GFR (MDRD) Af Amer Est GFR (MDRD) Non-Af BUN/Creatinine Ratio Glucose Lactic Acid 3.0 H* Calcium Total Bilirubin AST ALT Alkaline Phosphatase Troponin I B-Natriuretic Peptide 374.8 H Total Protein Albumin Globulin Albumin/Globulin Ratio Urine Color Urine Clarity Urine pH Ur Specific [place] Urine Protein Urine Glucose (UA) Urine Ketones Urine Occult Blood Urine Nitrite Urine Bilirubin Urine Urobilinogen Ur Leukocyte Esterase Urine RBC Urine WBC Ur Squamous Epith Cells Amorphous Sediment Urine Bacteria Urine Mucus COVID-19 (CELI) 02/13/20 02/13/20 02/13/20 05:10 05:10 05:10 WBC 12.6 H Corrected WBC RBC 3.96 L Hgb 11.5 L Hct 38.6 MCV 97.5 MCH 29.0 MCHC 29.8 L RDW Std Deviation 58.3 H RDW Coeff of Valerio 16.1 H Plt Count 180 MPV 9.6 Immature Gran % (Auto) 0.600 Neut % (Auto) 88.3 H Lymph % (Auto) 2.6 L [place] % (Auto) 6.5 Eos % (Auto) 1.8 Baso % (Auto) 0.2 Absolute Neuts (auto) 11.1 H Absolute Lymphs (auto) 0.33 L Total Counted Neutrophils % (Manual) Band Neutrophils % Lymphocytes % (Manual) Monocytes % (Manual) Eosinophils % (Manual) Basophils % (Manual) Metamyelocytes % Myelocytes % Promyelocytes % Blast Cells % Plasma Cell % (Manual) Other Cells % Nucleated RBC % 0 Nucleated RBCs/100 WBC Differential Comment SCANNED Diff Path Review Hypersegmented Neuts Atypical Lymphocytes Reactive Lymphocytes Smudge Cells Toxic Granulation Toxic Vacuolation Dohle Bodies Reji Rods Platelet Estimate Plt Morphology Comment RBC Morphology Polychromasia Hypochromasia Poikilocytosis Basophilic Stippling Anisocytosis Microcytosis Macrocytosis Spherocytes Sickle Cells Target Cells Tear Drop Cells Ovalocytes Stomatocytes Rodriguez[place] Bodies [place] Cells Bite Cells Crenated Cell Acanthocytes (Spur) Rouleaux Schistocytes PT INR APTT D-Dimer Quant (PE/DVT) Specimen Type Sample Site pH Bicarbonate Actual Total CO2 Base Excess O2 Saturation ABG pCO2 ABG pO2 O2 Delivery Device Liter Flow Sodium 139 Potassium 3.9 Chloride 108 H Carbon Dioxide 29.0 Anion Gap 2 L BUN 12 Creatinine 0.50 L Estim Creat Clear Calc 81.27 Est GFR (MDRD) Af Amer 161 Est GFR (MDRD) Non-Af 133 BUN/Creatinine Ratio 24.1 H Glucose 134 H Lactic Acid 1.9 Calcium 8.0 L Total Bilirubin 0.50 AST 19 ALT 20 Alkaline Phosphatase 93 Troponin I B-Natriuretic Peptide Total Protein 5.9 L Albumin 2.4 L Globulin 3.5 Albumin/Globulin Ratio 0.7 L Urine Color Urine Clarity Urine pH Ur Specific [place] Urine Protein Urine Glucose (UA) Urine Ketones Urine Occult Blood Urine Nitrite Urine Bilirubin Urine Urobilinogen Ur Leukocyte Esterase Urine RBC Urine WBC Ur Squamous Epith Cells Amorphous Sediment Urine Bacteria Urine Mucus COVID-19 (CELI) Microbiology 02/12/20 08:30 Mucosa - Nose Respiratory Panel (PCR) - Final Clinical Impression(s) from Imaging Studies Chest X-Ray 02/12/20 08:00 IMPRESSION: Poor inspiration with some bibasilar atelectasis similar the prior study. Electronically Signed: Augustine Baldwin MD at 8:19 EST Tel , Service support , Chest CTA 02/12/20 17:10 IMPRESSION: No demonstrated pulmonary embolism or arterial dissection. Prominence of the pulmonary arteries compatible with pulmonary hypertension. Occlusions of the right lower lobe bronchi. Bilateral lower lobe consolidation, more extensive on the right. Electronically Signed: Judah Akhtar MD at 17:56 EST Tel , Service support , Current Medications Acetaminophen (Acetaminophen 500 Mg Tablet) 1,000 mg PO TID PRN PRN PRN Reason: Pain Score 1-10 Last Admin: 02/12/20 22:12 Dose: 1,000 mg Documented by: Al Hydroxide/Mg Hydroxide (Mag Hydrox/Al Hydrox/Simeth 30 Ml Udc) 30 ml PO Q6H PRN PRN PRN Reason: Gastric Burning Albuterol Sulfate (Albuterol 2.5 Mg/3 Ml Vial.Neb.) 2.5 mg INHALATION Q2H PRN PRN PRN Reason: SOB &/OR WHEEZING Albuterol/Ipratropium (Ipratropium/Albuterol Sulfate 3 Ml Ampul.Neb) 3 ml INHALATION Q4HWA.RT REPLACED BY [facility] Last Admin: 02/12/20 20:30 Dose: 3 ml Documented by: Aspirin (Aspirin E.C. 81 Mg Tablet) 81 mg PO DAILY@0800 REPLACED BY [facility] Last Admin: 02/12/20 11:53 Dose: Not Given Documented by: Atorvastatin Calcium (Atorvastatin Calcium 40 Mg Tablet) 40 mg PO QHS REPLACED BY [facility] Last Admin: 02/12/20 22:13 Dose: 40 mg Documented by: Baclofen (Baclofen 10 Mg Tablet) 10 mg PO QHS REPLACED BY [facility] Last Admin: 02/12/20 22:13 Dose: 10 mg Documented by: Calcium Carbonate (Calcium (Elemental) 500 Mg Tablet) 500 mg PO BID REPLACED BY [facility] Last Admin: 02/12/20 22:13 Dose: 500 mg Documented by: Clopidogrel Bisulfate (Clopidogrel Bisulfate 75 Mg Tablet) 75 mg PO QHS REPLACED BY [facility] Last Admin: 02/12/20 22:13 Dose: 75 mg Documented by: Enoxaparin Sodium (Enoxaparin 40 Mg/0.4 Ml Syringe) 40 mg SC DAILY REPLACED BY [facility] Last Admin: 02/12/20 11:53 Dose: Not Given Documented by: Escitalopram Oxalate (Escitalopram Oxalate 10 Mg Tablet) 10 mg PO QHS REPLACED BY [facility] Last Admin: 02/12/20 22:13 Dose: 10 mg Documented by: Sodium Chloride () 1,500 mls @ 75 mls/hr IV .Q20H REPLACED BY [facility] Last Infusion: 02/13/20 03:41 Dose: 75 mls/hr Documented by: Levofloxacin (Levaquin Iv) 750 mg in 150 mls @ 100 mls/hr IV Q24@2200 REPLACED BY [facility] Last Infusion: 02/12/20 21:43 Dose: Infused Documented by: Methylprednisolone (Methylprednisolone 40 Mg/Ml Vial) 40 mg IV Q8 REPLACED BY [facility] Last Admin: 02/13/20 05:06 Dose: 40 mg Documented by: Nicotine (Nicotine 21 Mg Patch) 21 mg TRANSDERM. DAILY REPLACED BY [facility] Last Admin: 02/12/20 22:24 Dose: 21 mg Documented by: Nicotine Polacrilex (Nicotine Polacrilex 2 Mg Gum) 2 mg PO Q2H PRN PRN PRN Reason: Nicotine Craving Nitroglycerin (Nitroglycerin (Inpatient Use) 0.4 Mg Tab.Subl) 0.4 mg SUBLINGUAL Q5M PRN PRN Reason: CARDIAC/CHEST PAIN Non-Formulary Medication (Buprenorphine Hcl [Belbuca]) 300 mcg BC BID REPLACED BY [facility] Ondansetron HCl (Ondansetron 4 Mg/2 Ml Vial) 4 mg IV Q8H PRN PRN PRN Reason: NAUSEA/VOMITING Psyllium Hydrophilic Mucilloid (Psyllium 1 Packet) 1 packet PO DAILY PRN PRN PRN Reason: Constipation Senna/Docusate Sodium (Senna/Docusate Sodium 1 Tablet) 2 tablet PO BID PRN PRN Reason: Constipation Sodium Chloride (0.9% Saline Lock 10 Ml Syringe) 10 - 40 ml IV UD PRN PRN Reason: SALINE FLUSH Last Admin: 02/13/20 05:06 Dose: 40 ml Documented by: Assessment/Plan All Active Problems (Last Updated 01/23/20 @ 08:52 by Lisa Kay) Elevated troponin (Resolved) Encephalopathy acute (Resolved) Elevated lactic acid level (Resolved) Aspiration pneumonia (Resolved) Acute on chronic respiratory failure with hypoxia and hypercapnia (Resolved) Severe sepsis (Resolved) Acute respiratory failure with hypoxia and hypercarbia (Resolved) RECOMMENDATIONS: 1. Consider reevaluation by speech therapy. 2. Continue supplemental oxygen per baseline requirement. 3. Okay to discontinue antimicrobials and IV steroids from my perspective. 4. Stop continuous fluids. 5. Continue medical management of coronary disease per outpatient regimen. 6. The patient has been rescheduled to follow-up in the pulmonary medicine clinic on February 21 at 2:15 PM. 7. Given that the patient is at her baseline from a pulmonary perspective, will sign off. Please call with any additional questions. IMPRESSIONS: 1. Chronic hypoxemic respiratory failure/COPD of unknown severity/history of medical noncompliance The patient has a baseline 4 L/min oxygen requirement, for which she is only intermittently compliant with its use. Therefore, it is not surprising that the patient was hypoxemic on EMS arrival, given that she was not utilizing her oxygen. In addition, the patient does continue to smoke cigarettes. She has been scheduled now on 2 separate occasions in the pulmonary medicine clinic within the last several months and has yet to follow-up. In addition to the aforementioned, she does have a history concerning for recurrent aspiration. The radiographic findings noted on her CT chest were similar to that noted during her prior hospitalization. I would not expect her right lower lobe airspace consolidation to have completely cleared at this time. Accordingly, I do not believe that the consolidation noted on presentation to the hospital is a new pneumonia. The patient is currently maintaining appropriate oxygen saturations on her baseline requirement. Therefore, antimicrobials and IV steroids can be discontinued from my perspective. She has been rescheduled in the pulmonary medicine clinic on February 21 at 2:15 PM. 2. Multivessel coronary artery disease The patient was transferred to [facility] following her last hospitalization and was apparently evaluated by cardiothoracic surgery, who felt that the patient was too high risk to proceed with surgery and recommended medical management. She is currently scheduled to follow-up with Dr. Teresa of cardiology later this week. 3. Chronic tobacco dependency I personally spent 4 minutes discussing the deleterious effects of continued tobacco use with the patient, including modalities which could be utilized to achieve a smoke-free lifestyle. Nicotine replacement therapy can be utilized while the patient is admitted to the hospital. 4. History of CVA/malnutrition/hypertension/hyperlipidemia/chronic pain syndrome/anxiety/depression Complicates care, management, recovery and prognosis. Continue home medications as indicated. This note was generated with [employer] software. It may contain incorrect words, spelling, and punctuation that were not noted in checking the note before signing. Inpatient E&M: 59227 Init Hosp L3 - Behavior Interventions Behavior Intervention: 15244 Smoking Cessation 3-10 min
[2020-02-13] MEDS: Ipratropium/Albuterol Sulfate 3 ML AMPUL.NEB INHALATION ×4 (06:42→19:38)
--- NOTE | 2020-02-13 09:01 | CASEMGMT ---
Pt indicated to RN upon admission that she does not have LW/POA forms. EAGLE Gómez
[2020-02-13] MEDS: Acetaminophen 500 MG Tablet 1000 MG PO (10:45)
[2020-02-13] MEDS: Enoxaparin 40 MG/0.4 ML Syringe SC (10:46)
[2020-02-13] MEDS: Calcium (Elemental) 500 MG Tablet PO (10:47)
[2020-02-13] MEDS: Aspirin E.C. 81 MG Tablet PO (10:47)
--- NOTE | 2020-02-13 13:23 | PCM.PROGNOTE ---
Subjective: Patient was seen and examined today, she was transferred from ICU down to PCU at the request of pulmonary medicine. Patient was admitted yesterday for shortness of breath and acute exacerbation of COPD. At this time, patient does not complain of any shortness of breath to this examiner, she denies any chest pain, fevers, or chills. Patient is currently on 4 L of oxygen which is her home setting. - Physical Exam Vitals/I&O's: Vital Signs Temp Pulse Resp BP Pulse Ox 98.3 F 99 20 H 102/53 L 93 02/13/20 11:40 02/13/20 11:45 02/13/20 11:40 02/13/20 11:40 02/13/20 11:40 Oxygen Flow Rate (L/min) 4 Oxygen Delivery Method Nasal Cannula Weight: 44.7 kg Body Mass Index (BMI) 20.1 Intake and Output for Last 24 Hours 02/11/20 02/12/20 02/13/20 23:59 23:59 23:59 Intake Total 1450 / 1450 2160.00 / 2160.00 Output Total 300 / 300 300 / 300 Balance 1150 / 1150 1860.00 / 1860.00 General: Alert, Oriented x3, Cooperative, No apparent distress, Well developed, Well nourished HEENT: Atraumatic, PERRLA, EOMI, Normocephalic Oral: Moist Mucosa Neck: Supple, Trachea Midline, Thyroid Normal Size and Texture Lungs: Clear to auscultation, No rhonchi, No wheeze, No rales, Diminished Cardiovascular: Regular rate, Regular Rhythm, Normal S1, Normal S2, No murmurs, PMI Normal, No rub noted, No Gallop Abdomen: Bowel Sounds Present, Soft, Non Tender, Non-Distended Extremities: No clubbing, No cyanosis, No edema, Capillary Refill Less than 3 Seconds Skin: No rashes, No breakdown Musculoskeletal: No Tenderness to Palpation of Joints or Extremities, Cachexia, Muscle Wasting Neurological: Cranial nerves II-XII grossly intact, Neuro grossly intact, Sensory exam intact to light touch and pain Psych/Mental Status: Normal Affect, Appropriate, Alert and oriented to time, place, person, mood and affect Microbiology Past 72 Hours 02/12/20 08:30 Mucosa - Nose Respiratory Panel (PCR) - Final Laboratory Results 02/12/20 14:25: PT 14.3, INR 1.2, APTT 28.0 02/12/20 14:25: B-Natriuretic Peptide 374.8 H 02/12/20 14:25: D-Dimer Quant (PE/DVT) 1.47 H* 02/13/20 00:50: Lactic Acid 3.0 H* 02/13/20 05:10: WBC 12.6 H, RBC 3.96 L, Hgb 11.5 L, Hct 38.6, MCV 97.5, MCH 29.0, MCHC 29.8 L, RDW Std Deviation 58.3 H, RDW Coeff of Valerio 16.1 H, Plt Count 180, MPV 9.6, Immature Gran % (Auto) 0.600, Neut % (Auto) 88.3 H, Lymph % (Auto) 2.6 L, Crook % (Auto) 6.5, Eos % (Auto) 1.8, Baso % (Auto) 0.2, Absolute Neuts (auto) 11.1 H, Absolute Lymphs (auto) 0.33 L, Nucleated RBC % 0, Differential Comment SCANNED 02/13/20 05:10: Sodium 139, Potassium 3.9, Chloride 108 H, Carbon Dioxide 29.0, Anion Gap 2 L, BUN 12, Creatinine 0.50 L, Estim Creat Clear Calc 81.27, Est GFR (MDRD) Af Amer 161, Est GFR (MDRD) Non-Af 133, BUN/Creatinine Ratio 24.1 H, Glucose 134 H, Calcium 8.0 L, Total Bilirubin 0.50, AST 19, ALT 20, Alkaline Phosphatase 93, Total Protein 5.9 L, Albumin 2.4 L, Globulin 3.5, Albumin/Globulin Ratio 0.7 L 02/13/20 05:10: Lactic Acid 1.9 Current Medications Acetaminophen (Acetaminophen 325 Mg Tablet) 650 mg PO Q6H PRN PRN PRN Reason: Pain Score 1-10 Hydrocodone Bitart/Acetaminophen (Hydrocodone Bitartrate/Apap 5/325 Tablet) 1 tablet PO Q4H PRN PRN PRN Reason: Pain Score 1-10 Al Hydroxide/Mg Hydroxide (Mag Hydrox/Al Hydrox/Simeth 30 Ml Udc) 30 ml PO Q6H PRN PRN PRN Reason: Gastric Burning Albuterol Sulfate (Albuterol 2.5 Mg/3 Ml Vial.Neb.) 2.5 mg INHALATION Q2H PRN PRN PRN Reason: SOB &/OR WHEEZING Albuterol/Ipratropium (Ipratropium/Albuterol Sulfate 3 Ml Ampul.Neb) 3 ml INHALATION Q4HWA.RT [facility] Last Admin: 02/13/20 10:54 Dose: 3 ml Documented by: Aspirin (Aspirin E.C. 81 Mg Tablet) 81 mg PO DAILY@0800 [facility] Last Admin: 02/13/20 10:47 Dose: 81 mg Documented by: Atorvastatin Calcium (Atorvastatin Calcium 40 Mg Tablet) 40 mg PO QHS [facility] Last Admin: 02/12/20 22:13 Dose: 40 mg Documented by: Baclofen (Baclofen 10 Mg Tablet) 10 mg PO QHS [facility] Last Admin: 02/12/20 22:13 Dose: 10 mg Documented by: Calcium Carbonate (Calcium (Elemental) 500 Mg Tablet) 500 mg PO BID [facility] Last Admin: 02/13/20 10:47 Dose: 500 mg Documented by: Clopidogrel Bisulfate (Clopidogrel Bisulfate 75 Mg Tablet) 75 mg PO QHS [facility] Last Admin: 02/12/20 22:13 Dose: 75 mg Documented by: Enoxaparin Sodium (Enoxaparin 40 Mg/0.4 Ml Syringe) 40 mg SC DAILY [facility] Last Admin: 02/13/20 10:46 Dose: 40 mg Documented by: Escitalopram Oxalate (Escitalopram Oxalate 10 Mg Tablet) 10 mg PO QHS [facility] Last Admin: 02/12/20 22:13 Dose: 10 mg Documented by: Levofloxacin (Levaquin Iv) 750 mg in 150 mls @ 100 mls/hr IV Q24@2200 [facility] Last Infusion: 02/12/20 21:43 Dose: Infused Documented by: Methylprednisolone (Methylprednisolone 40 Mg/Ml Vial) 40 mg IV Q8 [facility] Last Admin: 02/13/20 05:06 Dose: 40 mg Documented by: Nicotine (Nicotine 21 Mg Patch) 21 mg TRANSDERM. DAILY [facility] Last Admin: 02/13/20 10:46 Dose: 21 mg Documented by: Nicotine Polacrilex (Nicotine Polacrilex 2 Mg Gum) 2 mg PO Q2H PRN PRN PRN Reason: Nicotine Craving Nitroglycerin (Nitroglycerin (Inpatient Use) 0.4 Mg Tab.Subl) 0.4 mg SUBLINGUAL Q5M PRN PRN Reason: CARDIAC/CHEST PAIN Non-Formulary Medication (Buprenorphine Hcl [Belbuca]) 300 mcg BC BID [facility] Ondansetron HCl (Ondansetron 4 Mg/2 Ml Vial) 4 mg IV Q8H PRN PRN PRN Reason: NAUSEA/VOMITING Psyllium Hydrophilic Mucilloid (Psyllium 1 Packet) 1 packet PO DAILY PRN PRN PRN Reason: Constipation Senna/Docusate Sodium (Senna/Docusate Sodium 1 Tablet) 2 tablet PO BID PRN PRN Reason: Constipation Sodium Chloride (0.9% Saline Lock 10 Ml Syringe) 10 - 40 ml IV UD PRN PRN Reason: SALINE FLUSH Last Admin: 02/13/20 05:06 Dose: 40 ml Documented by: Medical Necessity - Tobacco Use Smoking Status: Current every day smoker Tobacco Use: Cigarettes Assessment/Plan All Active Problems (Last Updated 01/23/20 @ 08:52 by Lisa Kay) Elevated troponin (Resolved) Encephalopathy acute (Resolved) Elevated lactic acid level (Resolved) Aspiration pneumonia (Resolved) Acute on chronic respiratory failure with hypoxia and hypercapnia (Resolved) Severe sepsis (Resolved) Acute respiratory failure with hypoxia and hypercarbia (Resolved) #1 exacerbation of COPD-pulmonary medicine recommended discontinuation of corticosteroids on this patient, I feel for now the patient should remain on IV Solu-Medrol and reevaluated in the morning, pulmonary medicine recommended discontinuation of IV antibiotics which I think is prudent, I do not think she has pneumonia. #2 chronic combined respiratory failure-patient is on oxygen at home, she is currently on her present home oxygen setting. #3 multivessel coronary artery disease #4 noncompliant with medical regimen-patient continues to smoke at home, she states she takes her oxygen off when she smokes however. #5 chronic caloric and protein malnutrition #6 hyperlipidemia #7 chronic back pain secondary to multilevel degenerative disc disease Inpatient E&M: 32732 Subs Hosp L2
[2020-02-13] MEDS: HYDROcodone Bitartrate/Apap 5/325 Tablet PO ×3 (14:07→23:12)
--- NOTE | 2020-02-13 14:56 | CASEMGMT ---
DELIA met with patient. Introduced self and role at [facility]. DELIA told patient SW reviewed her therapy notes and she did not do well. SW asked if she really feels she will be able to return home. She said she is fine for home. She said her family helps her a lot. She lives with her son Navneet. She currently has home health, but she could not remember the name of the agency. She said SW could call her son Navneet. That is the son she lives with and he could find it. She told SW to tell him it is the packet in her tool box. DELIA called patient's son Navneet and let him know this information. He asked SW to call back and leave a voice mail as he is still in bed. He works 3rd shift. DELIA called him back and left a voice mail with SW's return number. Rhonda DUARTE MSW
--- NOTE | 2020-02-13 15:10 | CASEMGMT ---
SW called Martha Dick and let her know patient is in the hospital. She asked about Hospice and SW told her SW could talk with patient about Palliative Care. She asked that SW let her know when patient is discharged. Rhonda VERNON
--- NOTE | 2020-02-13 15:47 | CASEMGMT ---
ISAIAS FLYNN chart review: Index admission 12/25/19-12/29/19, readmission 01/17/20-01/20/20 patient was transferred to [facility] for CABG after heart cath at [facility]. per ED note patient too high risk for surgery and was to be medically managed. Patient was setup with [facility] on 12/29/2019. Patient had follow-up appt with PCP Dr. Cazares on 02/09 where patient had complained of SOB but was stable on her home oxygen order of 4lpm. Patient called squad on 02/12/20 complaining she could not breathe. Patient was found by EMS without continuous home oxygen of 4lpm and was 67% on room air. Patient admitted and was 90% on 4 lpm. Patient is scheduled to have appt with Supervisor Sewing Room Brii on 02/15 and sausage cooker Manohar on 02/21. See initial RN RINA assessment from 12/26/19. Will monitor patient for additional oxygen needs and re-educate regarding in importance of wearing oxygen at home at all times. ISAIAS CM updated CM Cherise Glover.
[2020-02-13] MEDS: Escitalopram Oxalate 10 MG Tablet PO (20:03)
[2020-02-13] MEDS: Atorvastatin Calcium 40 MG Tablet PO (20:03)
[2020-02-13] MEDS: Clopidogrel Bisulfate 75 MG Tablet PO (20:03)
[2020-02-13] MEDS: Albuterol 2.5 MG/3 ML VIAL.NEB. INHALATION (21:58)
[2020-02-14] VITALS (8 sets, daily range): BP systolic 96–112; BP diastolic 61–78; PULSE 83–89; RESP 16–20; TEMP 36.5–36.8; O2SAT 92–96
--- NOTE | 2020-02-14 03:21 | CPS ---
[employer] pulled BiPAP since patient refused to wear machine. Hasn't worn BiPAP in two days and is on NC. RN aware that machine was pulled for this reason.
[2020-02-14] MEDS: 0.9% Saline Lock 10 ML Syringe IV (05:21)
[2020-02-14 05:51] LABS: Magnesium 1.9 mg/dL (1.6-2.6)
[2020-02-14] MEDS: HYDROcodone Bitartrate/Apap 5/325 Tablet PO ×2 (06:30→12:30)
[2020-02-14] MEDS: Ipratropium/Albuterol Sulfate 3 ML AMPUL.NEB INHALATION ×2 (06:52→11:07)
[2020-02-14] MEDS: Aspirin E.C. 81 MG Tablet PO (08:46)
[2020-02-14] MEDS: Enoxaparin 40 MG/0.4 ML Syringe SC (08:46)
[2020-02-14] MEDS: Albuterol 2.5 MG/3 ML VIAL.NEB. INHALATION (09:01)
--- NOTE | 2020-02-14 09:44 | PCM.DC ---
- Discharge Diagnoses Current Active Problems: Current Active and Chronic Problems (Last Updated 01/23/20 @ 08:52 by Lisa Kay) HTN (hypertension) (Chronic) HLD (hyperlipidemia) (Chronic) Anxiety and depression (Chronic) COPD (chronic obstructive pulmonary disease) (Chronic) You will use the following diet at home:: No restrictions Your food should be the consistency of: Regular Your liquids should be the consistency of: Regular/Thin Discharge Activity: Return to Normal Activity Weight Bearing Status: Full weight bearing Additional Instructions: CUT DOWN AND STOP SMOKING Allergies/Adverse Reactions: Allergies pregabalin [From Lyrica] Allergy (Verified 02/12/20 07:40) double vision Medications to take at Discharge albuterol sulfate 90 mcg/actuation aerosol inhaler 2 puff INHALATION Q6H PRN 11/16/19 gabapentin 300 mg capsule 300 mg PO 4X/DAY 11/16/19 biotin 1,000 mcg chewable tablet 1,000 mcg PO DAILY 12/14/19 Acetaminophen 1,000 mg PO TID PRN PRN 12/25/19 Baclofen [Lioresal] 10 mg PO QHS 12/25/19 Calcium Carbonate 500 mg PO BID 12/25/19 Cholecalciferol (Vitamin D3) [Vitamin D3] 50 mcg PO DAILY 12/25/19 Clopidogrel Bisulfate [Clopidogrel] 75 mg PO QHS 12/25/19 Escitalopram Oxalate 10 mg PO QHS 12/25/19 Furosemide [Lasix] 20 mg PO DAILY 12/25/19 Ipratropium/Albuterol Sulfate [Iprat-Albut 0.5-3(2.5) mg/3 ml] 3 ml IH 4X/DAY PRN PRN 12/25/19 Magnesium Oxide [Magox 400] 400 mg PO DAILY 12/25/19 Buprenorphine HCl [Belbuca] 300 mcg BC BID 01/17/20 rosuvastatin 20 mg tablet 20 mg PO QHS #90 tab 01/18/20 aspirin 81 mg tablet,delayed release 81 mg PO DAILY #90 tab 02/07/20 MethylPREDNISolone DosePak [Medrol DosePak] 4 mg PO UD #1 box 02/14/20 Nicotine [Nicoderm Cq] 21 mg TRANSDERM. DAILY patch 02/14/20 The following prescriptions were given: MethylPREDNISolone DosePak [Medrol DosePak] 4 mg PO UD #1 box Transmission Status: Pending to [facility] Primary Care Physician: Amelie Cazares MD [Primary Care Provider] - Please follow up with your Primary Care Physician in: in 2-3 weeks Test Results: Test results from this visit will be discussed in further detail at your follow-up appointment, if applicable. Please Follow Up With: Spencer Dolan DO When: SCHEDULED FEB 21 AT 2:15 PM
--- NOTE | 2020-02-14 10:02 | CASEMGMT ---
Addendum entered by Millie Glover 02/14/20 10:50: Attempted to call son, Navneet, without success at this time. This RN CM back to room and pt now states that [facility] is who she is active with. Call to [facility] in [place] and they state she is active for SN, PT/OT at this time. Advised them that pt to be discharged today and MANDA order to be sent as well as H&P and d/c paperwork, voices understanding. Pt voices no further concerns/needs at this time. Pt is already on 4liters continous at this time. Lili ESPARZA CM Original Note: Pt states she has HHC at home but does not know the name. Pt had been at [facility] the end of December and states was set up from there. Call to [facility] and they state pt has not been active with them since 2018. Pt's son is supposed to call with name but has not called back in yet. Son works night baker and sleeps during day. Lili ESPARZA CM
--- NOTE | 2020-02-14 10:06 | PHA.DC.MC ---
Pharmacy Service has performed discharge medication reconciliation and counseling for this patient. 1. METHYLPREDNISOLONE DOSE PACK 2. NICOTINE PATCH 21MG TD DAILY The patient's discharge medication list was reviewed for discrepancies and discrepancies were resolved. Home Medications albuterol sulfate 90 mcg/actuation aerosol inhaler 2 puff INHALATION Q6H PRN 11/16/19 gabapentin 300 mg capsule 300 mg PO 4X/DAY 11/16/19 biotin 1,000 mcg chewable tablet 1,000 mcg PO DAILY 12/14/19 Acetaminophen 1,000 mg PO TID PRN PRN 12/25/19 Baclofen [Lioresal] 10 mg PO QHS 12/25/19 Calcium Carbonate 500 mg PO BID 12/25/19 Cholecalciferol (Vitamin D3) [Vitamin D3] 50 mcg PO DAILY 12/25/19 Clopidogrel Bisulfate [Clopidogrel] 75 mg PO QHS 12/25/19 Escitalopram Oxalate 10 mg PO QHS 12/25/19 Furosemide [Lasix] 20 mg PO DAILY 12/25/19 Ipratropium/Albuterol Sulfate [Iprat-Albut 0.5-3(2.5) mg/3 ml] 3 ml IH 4X/DAY PRN PRN 12/25/19 Magnesium Oxide [Magox 400] 400 mg PO DAILY 12/25/19 Buprenorphine HCl [Belbuca] 300 mcg BC BID 01/17/20 rosuvastatin 20 mg tablet 20 mg PO QHS #90 tab 01/18/20 aspirin 81 mg tablet,delayed release 81 mg PO DAILY #90 tab 02/07/20 MethylPREDNISolone DosePak [Medrol DosePak] 4 mg PO UD #1 box 02/14/20 Nicotine [Nicoderm Cq] 21 mg TRANSDERM. DAILY patch 02/14/20 The patient was counseled on the following discharge medications and changes in medications for homegoing were reviewed. The Reason for Use, instructions for use, and potential side effects were reviewed for all new medications. The patient's questions regarding all of their medications were answered. The patient was able to verbally demonstrate an understanding of their discharge medications.
--- NOTE | 2020-02-14 12:42 | DS.PCM_ITS ---
Discharge Date and Diagnosis Date of Admission: 02/12/20 Date of Discharge: 02/14/20 - Primary Discharge Diagnosis Acute Problems: #1 acute exacerbation of COPD #2 mucous plugging secondary to severe COPD #3 degenerative disc disease of the thoracic spine with chronic pain #4 two-vessel coronary artery disease #5 chronic combined respiratory failure #6 hyperlipidemia #7 noncompliance with medical regimen #8 elevated lactic acid-etiology unknown No evidence for caloric or protein malnutrition - Secondary Discharge Diagnosis Chronic Problems: Chronic Problems (Last Updated 01/23/20 @ 08:52 by Lisa Kay) Atherosclerotic heart disease of [place] coronary artery without angina pectoris (Chronic) HTN (hypertension) (Chronic) HLD (hyperlipidemia) (Chronic) PAH (pulmonary artery hypertension) (Chronic) Tobacco use (Chronic) Dysphagia (Chronic) Anxiety and depression (Chronic) CVA (cerebral vascular accident) (Chronic) COPD (chronic obstructive pulmonary disease) (Chronic) Chronic back pain (Chronic) Hospital Course and Treatment Operations: None Procedures: None Summary of Care Provided: The patient is a 64 year old F was seen in the emergency room at [facility] after being brought in by squad due to a low pulse ox on room air at her residence. Patient was supposed to be wearing her oxygen co ntinuously at home, she has a diagnosis of severe COPD and continues to smoke. Work-up in the emergency room included a chest x-ray which showed bibasilar atelectasis and poor inspiration, patient had a CTA of her chest performed which showed occlusions of the right lower lobe bronchi and bilateral lower lobe consolidation, no evidence of pulmonary emboli were noted. Patient had a COVID- 19 test done by the emergency room which was negative, patient's lactic acid was elevated but there is no sign of an acute infection. Finally, patient admitted to [place] peptide was elevated at 374-the etiology of this was unknown. Patient was admitted initially to ICU, aerosol treatments were continued on the patient, and she was seen in consultation by pulmonary medicine who did not feel the patient had a pneumonia and felt that the patient could be transferred to PCU for further care. Patient was transferred to PCU on 02/13/2020, she remained on her home oxygen flow which was 4 L. On 02/14/2020, patient was seen and examined: On examination she appeared older than her stated age, she does not appear to be in any distress. Vital signs as documented. Skin warm and dry and without overt rashes. Neck without JVD, thyroid appears normal, trachea is midline, neck is supple. Lungs-breath sounds are distant bilaterally, no rales, rhonchi, or wheezing was noted. Heart exam notable for regular rhythm, normal sounds and absence of murmurs, rubs or gallops. Abdomen unremarkable and without evidence of organomegaly, masses, or abdominal aortic enlargement, bowel sounds are present in all 4 quadrants, no abdominal tenderness was noted. Extremities nonedematous, no cyanosis was noted, no clubbing was noted. Neuro: Cranial nerves II through XII are grossly intact, no focal motor deficits were noted, sensation to light touch and pinprick is intact, motor exam 5/5 throughout. Psych: Patient is alert and oriented x3, she does not appear anxious or depressed, she does not appear agitated. Patient was felt to be stable for discharge on 02/14/2020. - Physical Exam Vitals/I&O's: Vital Signs Temp Pulse Resp BP Pulse Ox 98.1 F 89 20 H 96/61 93 02/14/20 10:40 02/14/20 11:07 02/14/20 11:07 02/14/20 10:40 02/14/20 10:40 Oxygen Flow Rate (L/min) 4 Oxygen Delivery Method Nasal Cannula Weight: 46.2 kg Body Mass Index (BMI) 20.1 Intake and Output for Last 24 Hours 02/12/20 02/13/20 02/14/20 23:59 23:59 23:59 Intake Total 1450 / 1450 2560.00 / 2560.00 100 / 100 Output Total 300 / 300 300 / 300 Balance 1150 / 1150 2260.00 / 2260.00 100 / 100 Microbiology Past 72 Hours 02/12/20 07:35 Blood Culture (Wb) - Anticubital Right Blood Culture - Preliminary No growth in 48 hours. 02/12/20 09:00 Urine, Catheterized Urine Culture - Final Culture exhibits no growth. 02/12/20 08:30 Mucosa - Nose Respiratory Panel (PCR) - Final Laboratory Results 02/14/20 05:30: Magnesium 1.9 Current Medications Acetaminophen (Acetaminophen 325 Mg Tablet) 650 mg PO Q6H PRN PRN PRN Reason: Pain Score 1-10 Hydrocodone Bitart/Acetaminophen (Hydrocodone Bitartrate/Apap 5/325 Tablet) 2 tablet PO Q6H PRN PRN PRN Reason: Pain Score 1-10 Last Admin: 02/14/20 12:30 Dose: 2 tablet Documented by: Al Hydroxide/Mg Hydroxide (Mag Hydrox/Al Hydrox/Simeth 30 Ml Udc) 30 ml PO Q6H PRN PRN PRN Reason: Gastric Burning Albuterol Sulfate (Albuterol 2.5 Mg/3 Ml Vial.Neb.) 2.5 mg INHALATION Q2H PRN PRN PRN Reason: SOB &/OR WHEEZING Last Admin: 02/14/20 09:01 Dose: 2.5 mg Documented by: Albuterol/Ipratropium (Ipratropium/Albuterol Sulfate 3 Ml Ampul.Neb) 3 ml INHALATION Q4HWA.RT [facility] Last Admin: 02/14/20 11:07 Dose: 3 ml Documented by: Aspirin (Aspirin E.C. 81 Mg Tablet) 81 mg PO DAILY@0800 [facility] Last Admin: 02/14/20 08:46 Dose: 81 mg Documented by: Atorvastatin Calcium (Atorvastatin Calcium 40 Mg Tablet) 40 mg PO QHS [facility] Last Admin: 02/13/20 20:03 Dose: 40 mg Documented by: Clopidogrel Bisulfate (Clopidogrel Bisulfate 75 Mg Tablet) 75 mg PO QHS [facility] Last Admin: 02/13/20 20:03 Dose: 75 mg Documented by: Enoxaparin Sodium (Enoxaparin 40 Mg/0.4 Ml Syringe) 40 mg SC DAILY [facility] Last Admin: 02/14/20 08:46 Dose: 40 mg Documented by: Escitalopram Oxalate (Escitalopram Oxalate 10 Mg Tablet) 10 mg PO QHS [facility] Last Admin: 02/13/20 20:03 Dose: 10 mg Documented by: Methylprednisolone (Methylprednisolone 40 Mg/Ml Vial) 40 mg IV Q8 [facility] Last Admin: 02/14/20 05:21 Dose: 40 mg Documented by: Nicotine (Nicotine 21 Mg Patch) 21 mg TRANSDERM. DAILY [facility] Last Admin: 02/14/20 08:46 Dose: 21 mg Documented by: Nicotine Polacrilex (Nicotine Polacrilex 2 Mg Gum) 2 mg PO Q2H PRN PRN PRN Reason: Nicotine Craving Nitroglycerin (Nitroglycerin (Inpatient Use) 0.4 Mg Tab.Subl) 0.4 mg SUBLINGUAL Q5M PRN PRN Reason: CARDIAC/CHEST PAIN Ondansetron HCl (Ondansetron 4 Mg/2 Ml Vial) 4 mg IV Q8H PRN PRN PRN Reason: NAUSEA/VOMITING Psyllium Hydrophilic Mucilloid (Psyllium 1 Packet) 1 packet PO DAILY PRN PRN PRN Reason: Constipation Senna/Docusate Sodium (Senna/Docusate Sodium 1 Tablet) 2 tablet PO BID PRN PRN Reason: Constipation Sodium Chloride (0.9% Saline Lock 10 Ml Syringe) 10 - 40 ml IV UD PRN PRN Reason: SALINE FLUSH Last Admin: 02/14/20 05:21 Dose: 10 ml Documented by: Discharge Activity: Return to Normal Activity Weight Bearing Status: Full weight bearing Home Medications: Medications to take at Discharge albuterol sulfate 90 mcg/actuation aerosol inhaler 2 puff INHALATION Q6H PRN 11/16/19 gabapentin 300 mg capsule 300 mg PO 4X/DAY 11/16/19 biotin 1,000 mcg chewable tablet 1,000 mcg PO DAILY 12/14/19 Acetaminophen 1,000 mg PO TID PRN PRN 12/25/19 Baclofen [Lioresal] 10 mg PO QHS 12/25/19 Calcium Carbonate 500 mg PO BID 12/25/19 Cholecalciferol (Vitamin D3) [Vitamin D3] 50 mcg PO DAILY 12/25/19 Clopidogrel Bisulfate [Clopidogrel] 75 mg PO QHS 12/25/19 Escitalopram Oxalate 10 mg PO QHS 12/25/19 Furosemide [Lasix] 20 mg PO DAILY 12/25/19 Ipratropium/Albuterol Sulfate [Iprat-Albut 0.5-3(2.5) mg/3 ml] 3 ml IH 4X/DAY PRN PRN 12/25/19 Magnesium Oxide [Magox 400] 400 mg PO DAILY 12/25/19 Buprenorphine HCl [Belbuca] 300 mcg BC BID 01/17/20 rosuvastatin 20 mg tablet 20 mg PO QHS #90 tab 01/18/20 aspirin 81 mg tablet,delayed release 81 mg PO DAILY #90 tab 02/07/20 MethylPREDNISolone DosePak [Medrol DosePak] 4 mg PO UD #1 box 02/14/20 Nicotine [Nicoderm Cq] 21 mg TRANSDERM. DAILY patch 02/14/20 Following Prescriptions Were Given to Patient: MethylPREDNISolone DosePak [Medrol DosePak] 4 mg PO UD #1 box Transmission Status: Received by [facility] Primary Care Physician: Amelie Cazares MD [Primary Care Provider] - Please follow up with your Primary Care Physician in: in 2-3 weeks Please Follow Up With: Spencer Dolan DO When: SCHEDULED FEB 21 AT 2:15 PM Please Follow Up With: Amelie Cazares MD Disposition: Home with Home Health Minutes spent on discharge:: 33 Patient Condition:: Stable Medical Necessity - Tobacco Use Smoking Status: Current every day smoker Tobacco Use: Cigarettes Meaningful Use Info Meaningful Use Diagnoses (Choose all that apply): None applicable Inpatient E&M: 13489 [facility]
--- NOTE | 2020-02-15 14:53 | CASEMGMT ---
ISAIAS FLYNN DC PHONE CALL DC DATE: 02.14.2020 DC DISPOSITION: [facility] with [facility] DC DIAGNOSIS: COPD exacerbation Intro role of CM to patient's granddaughter who relayed questions to her grandmother. Patient states she does not have questions re: medications and physician office has contacted her. States [facility] has not contacted her yet. ISAIAS FLYNN offered to call and make sure information is with the [facility]. - Call to [facility]. They have all the information and will be contacting patient this afternoon for appt tomorrow. Geri CAMPBELLN RN ACM
== END 2020-02-14 13:14 | disposition home health service (06) | DRG 140 ==
LOC: ED 08:17 → ICU 02-13 07:17 → PCU 02-13 14:29
PROVIDERS: Family Medicine; Admitting Provider Internal Medicine; Emergency Provider Emergency Medicine; PCP Internal Medicine; Visit Provider Internal Medicine
DX: J44.1 Chronic obstructive pulmonary disease with (acute) exacerbation (principal); F17.210 Nicotine dependence, cigarettes, uncomplicated; E87.2 Acidosis; J96.21 Acute and chronic respiratory failure with hypoxia; I10 Essential (primary) hypertension; E78.5 Hyperlipidemia, unspecified; J96.22 Acute and chronic respiratory failure with hypercapnia; I25.10 Atherosclerotic heart disease of native coronary artery without angina pectoris; G89.4 Chronic pain syndrome; I27.21 Secondary pulmonary arterial hypertension; F32.9 Major depressive disorder, single episode, unspecified; F41.9 Anxiety disorder, unspecified; Z99.3 Dependence on wheelchair; Z95.1 Presence of aortocoronary bypass graft; Z91.19 Patient's noncompliance with other medical treatment and regimen; Z99.81 Dependence on supplemental oxygen; M51.34 Other intervertebral disc degeneration, thoracic region; T17.990A Other foreign object in respiratory tract, part unspecified in causing asphyxiation, initial encounter; X58.XXXA Exposure to other specified factors, initial encounter; J98.11 Atelectasis
CPT/HCPCS: 36415; 36600; 71045; 71275; 80053; 80307; 81001; 82803; 83605; 83735; 83880; 84484; 85025; 85379; 85610; 85730; 87040; 87086; 87633; 87635; 93005; 94002; 94640; 97162; 97166; 97530; 97802; 99251; 99285; 99406; J7030; Q9967; A4216; G0463; U0002

== ENCOUNTER → 2020-03-09 10:04 | Outpatient (CLI) | payer MEDICAID, SELFPAY ==
[2020-02-12 10:28] VITALS: BMI 20.1
[2020-03-09 08:38] VITALS: BMI 21.5
--- NOTE | 2020-03-09 10:08 | VDLE_ITS ---
Reason For Study: Swelling/Pain RIGHT GSV is normal. CFV is compressible, spontaneous, phasic, competent and demonstrates normal augmentation. FV is compressible, spontaneous, phasic, competent and demonstrates normal augmentation. POP V is compressible, spontaneous, phasic, competent and demonstrates normal augmentation. T/P Trunk is compressible. PTV is compressible. RT PerV is compressible. Procedure This is a venous duplex using B-mode, color flow and spectral Doppler. Exam performed in department. A preliminary report was called and/or faxed to [facility]. Interpretation Summary Deep veins of the right lower extremity are patent and compressible segmentally. There is no evidence of right lower extremity deep vein thrombosis. Valvular competence appears intact within the proximal deep venous system on the right . The right great saphenous vein appears patent and compressible segmentally. Ordering Physician: Morgan Gates Referring Physician: Amelie Cazares Performed By: Millie Shoemaker RVT
[2020-03-09 18:49] LABS: Amphetamine Urine VISTA NEGATIVE (<1000 ng/mL); Barbiturate Urine VISTA NEGATIVE (< 200 ng/mL); Benzodiazepine Urine VISTA NEGATIVE (< 200 ng/mL); Cocaine Urine VISTA NEGATIVE (< 300 ng/mL); Ecstacy Urine VISTA NEGATIVE (< 500 ng/mL); Methadone Urine VISTA NEGATIVE (< 300 ng/mL); PCP Urine VISTA NEGATIVE (< 25 ng/mL); THC Urine VISTA NEGATIVE (< 50 ng/mL); Vista UDS pH Range 5
== END ==
PROVIDERS: PCP Internal Medicine; Referring Provider Nurse Practitioner Family; Visit Provider Nurse Practitioner Family
DX: R74.8 Abnormal levels of other serum enzymes (principal); R06.02 Shortness of breath; M79.604 Pain in right leg
CPT/HCPCS: 80307; 93971

== ENCOUNTER → 2020-04-20 08:58 | Outpatient (CLI) | payer MEDICAID, SELFPAY ==
[2020-04-20 08:40] VITALS: BMI 21.4
[2020-04-20 12:27] LABS: Absolute Lymphocyte Count 1.21 X10^3/uL (0.83-4.51); Absolute Neutrophil Count 3.7 X10^3/uL (2.0-7.7); Basophil# 0.02 X10^3/uL; Basophil% 0.4 % (0-1); Eosinophil# 0.09 X10^3/uL; Eosinophils% 1.6 % (0-5); Hematocrit 41.9 % (37-47); Lymphocyte # 1.21 X10^3/ul (4.0); Lymphocyte % 21.5 % (19-41); Mean Corpuscular Hgb 29.2 pg (27.0-32.0); Mean Corpuscular Volume 94.2 fL (81-99); Monocyte# 0.59 X10^3/uL; Monocyte% 10.5 % (0-10); NRBC Flagged by Analyzer 0 % (0-5); Neutrophil % 65.8 % (47-70); POSITIVE COUNT YES; RBC Distribution Width CV 18.8 % (11.6-14.6); RBC Distribution Width SD 64.9 fl (35.1-43.9); Red Blood Count 4.45 M/mm3 (4.2-5.4); White Blood Count 5.6 K/mm3 (4.4-11.0)
[2020-04-20 13:03] LABS: ALB/GLOB Ratio 1.1 RATIO (0.9-2.4); AST(SGOT) 36 U/L (15-37); Alanine Aminotransfer ALT/SGPT 30 U/L (13-56); Albumin, Serum 3.4 g/dL (3.2-5.0); Alkaline Phosphatase 101 U/L (45-117); Anion Gap 1 (5-15); BUN 19 mg/dL (7-18); BUN/Creat Ratio 27.7 RATIO (10-20); Calcium,Total 9.3 mg/dL (8.5-10.1); Chloride 102 mmol/L (98-107); Creatinine, Serum 0.68 mg/dL (0.55-1.02); EST Glomerular Filtration Rate 92 mL/min (>60); Est Glom Filt Rate - Afr Amer 111 mL/min (>60); Globulin 3.1 g/dL (2.2-4.2); Glucose 86 mg/dL (74-106); Potassium 4.1 mmol/L (3.5-5.1); Protein, Total 6.5 g/dL (6.4-8.2); Sodium Level 142 mmol/L (136-145)
[2020-04-20 13:12] LABS: Platelet Estimate ADEQUATE (ADEQ)
== END ==
PROVIDERS: PCP Internal Medicine; Referring Provider Internal Medicine; Visit Provider Internal Medicine
DX: I10 Essential (primary) hypertension (principal); J44.9 Chronic obstructive pulmonary disease, unspecified; E78.5 Hyperlipidemia, unspecified
CPT/HCPCS: 36415; 80053; 85025

== ENCOUNTER → 2020-07-04 14:37 | Outpatient (CLI) | payer MEDICAID, SELFPAY ==
[2020-04-20 08:40] VITALS: BMI 21.4
--- NOTE | 2020-07-04 14:41 | RAD_ITS ---
HISTORY: LOW BACK PAIN COMPARISON: CTA of the chest from February 12, 2020 FINDINGS: # of images incl. paperwork: 2 XR Spine Thoracic 3 Views: Severe kyphosis due to many insufficiency fractures at many levels of vertebroplasty with posterior fixation is similar to the CT scan. Osteoporosis is similar to the CT scan. The apex of the severe thoracic kyphosis, at the T5-T6 level is the same. Anterior cervical fixation hardware is also present with ossific fusion across the C5-C6 level. Atherosclerosis within the abdominal aorta. RAD/Thoracic Spine 3 Views IMPRESSION: Severe kyphosis due to insufficiency fractures within the upper thoracic spine. Additional old insufficiency wedge compression fracture more inferiorly within the thoracic spine better demonstrated on the February 12, 2020 study. No evidence of acute disease since February 12, 2020. Stable positioning to the fixation hardware. at 2149 Reported and signed by: Vidal Keita MD Electronically Signed: Vidal Keita MD at 21:48 EDT Tel , Service support ,
--- NOTE | 2020-07-04 14:41 | RAD_ITS ---
HISTORY: LOW BACK PAIN COMPARISON: CT scan of the abdomen and pelvis with sagittal and coronal 2-D reformats through the lumbar spine from January 17, 2020 FINDINGS: # of images incl. paperwork: 3 XR Spine Lumbar 2 or 3 Views: Extensive thoracolumbar spinal fixation continues down into the sacrum and the iliac wings. Osteoporosis persists. Insufficiency fractures with dextroscoliosis persists. Wedging through the L3 vertebral body skipped by the hardware fixation remains. Atherosclerosis within the abdominal aorta is similar. Pelvic phleboliths. Bowel gas pattern is normal. RAD/Lumbar Spine 2 or 3 Views IMPRESSION: Osteoporosis. Insufficiency fractures. Posterior thoracolumbar and lumbosacral spinal fixation hardware remains in place. at 2152 Reported and signed by: Vidal Keita MD Electronically Signed: Vidal Keita MD at 21:51 EDT Tel , Service support ,
== END ==
PROVIDERS: PCP Internal Medicine; Referring Provider Anesthesiology; Visit Provider Anesthesiology
DX: M54.5 Low back pain (principal); M54.6 Pain in thoracic spine
CPT/HCPCS: 72072; 72100

== ENCOUNTER → 2020-07-11 17:33 | Outpatient (CLI) | payer MEDICAID, SELFPAY ==
[2020-04-20 08:40] VITALS: BMI 21.4
--- NOTE | 2020-07-11 17:36 | CT_ITS ---
STUDY: CT SCAN OF THE THORACIC SPINE FOLLOWING IV CONTRAST. REASON FOR EXAM: Female, 64 years old. Compression fx. Thoracic/Lumbar RADIATION DOSAGE (If Supplied By Facility): CTDIvol = ( 18.42 ) mGy, DLP = ( 608.82 ) mGycm. Individualized dose optimization techniques were used for this CT.? TECHNIQUE: Multiple axial tomographic images were obtained from the T1 to the T12 level following intravenous contrast administration coronal and sagittal reconstruction were obtained as well.. COMPARISON: Comparison is made with prior radiograph dated 07/04/2020. FINDINGS: Severe kyphotic deformity due to multiple insufficiency fractures in the thoracic vertebrae. Multilevel vertebroplasty. Multilevel interpedicular screw and amy fixation of the entire thoracic spine. There is almost complete collapse of the lower dorsal vertebrae as well as a mid dorsal vertebrae. CT/Spine Thoracic WITH Contrast IMPRESSION: Diffuse osteopenia with multilevel compression fractures and prior vertebroplasty. Multilevel interpedicular screw and amy fixation. Marked degree of kyphotic deformity. Electronically Signed: Chavez Madrid MD at 14:36 EDT , Service support ,
--- NOTE | 2020-07-11 17:36 | CT_ITS ---
STUDY: CT LUMBAR SPINE WITH INTRAVENOUS CONTRAST REASON FOR EXAM: Female, 64 years old. Compression fx. Thoracic/Lumbar RADIATION DOSAGE (If Supplied By Facility): CTDIvol = ( 13.82 ) mGy, DLP = ( 449.82 ) mGycm TECHNIQUE: The patient was scanned in a multi detector CT scanner. High resolution transaxial imaging was performed.. Images were obtained from L1 to S1 level. Sagittal and coronal images were reconstructed. Individualized dose optimization techniques were used for this CT. COMPARISON: None FINDINGS: Normal lumbar lordosis. There is a mild dextroscoliosis of the lumbar spine. Demineralization of the lumbar vertebrae. Almost complete collapse of the L3 vertebrae. L1-2: The patient is status post interpedicular screw fixation. L2-3: Status post interpedicular screw fixation. Osteoporosis. Almost complete collapse of the L3 vertebrae. L3-4: Status post interpedicular screw fixation. Almost complete collapse of the L3 vertebrae. Diffuse osteoporosis. L4-5: Status post interpedicular screw fixation. Osteoporosis. Marked degree of bilateral neural foraminal stenosis. L5-S1: Status post interpedicular screw fixation. Osteoporosis. Atherosclerotic calcification of the abdominal aorta. 1 cm cyst in the posterior lateral aspect of the right kidney. CT/Spine Lumbar WITH Contrast IMPRESSION: Diffuse osteopenia of the lumbar vertebrae with almost complete collapse of the L3 vertebrae. Multilevel intrapedicle screw fixation. Spinal stenosis at the L4-L5 levels. Electronically Signed: Chavez Madrid MD at 14:32 EDT , Service support ,
[2020-07-11 18:00] LABS: CREATININE FINGERSTICK 0.9 mg/dL (0.55-1.02); EGFR FINGERSTICK > 60.0000 mL/min (>60)
== END ==
PROVIDERS: PCP Internal Medicine; Referring Provider Anesthesiology Pain Medicine; Visit Provider Anesthesiology Pain Medicine
DX: M80.08XA Age-related osteoporosis with current pathological fracture, vertebra(e), initial encounter for fracture (principal)
CPT/HCPCS: 72129; 72132; Q9967